=== PATIENT | male | born 1960 | race Caucasian/White ===

== ENCOUNTER → 2020-12-10 09:11 | Outpatient (CLI) | payer OTHER, SELFPAY ==
[2020-12-03 11:18] VITALS: BMI 23.5
[2020-12-10 10:14] LABS: PSA,Total - Annual Screen 1.28 ng/mL (0.00-4.00)
== END ==
PROVIDERS: PCP Family Medicine; Referring Provider Urology; Visit Provider Urology
DX: Z12.5 Encounter for screening for malignant neoplasm of prostate (principal)
CPT/HCPCS: 36415; 84153; G0103

== ENCOUNTER → 2020-12-24 12:23 | Outpatient (CLI) | payer OTHER, SELFPAY ==
[2020-12-03 11:18] VITALS: BMI 23.5
[2020-12-24 12:30] VITALS: PULSE 57; PULSE 75; PULSE 82; PULSE 84; PULSE 85; PULSE 90; PULSE 97; PULSE 98; O2SAT 94; O2SAT 95; O2SAT 96
--- NOTE | 2020-12-24 14:30 | PCM.PSN.6M ---
PSN 6 Minute Walk Test 6 Minute Walk Test 6 Minute Walk Test: 6 Minute Walk Test PSN:6-Minute Walk Test Start: 12/24/20 14:04 Freq: Status: Active Protocol: [id number].6MINW Document 12/24/20 12:30 EW (Rec: 12/24/20 14:09 EW [id number]) 6 Minute Walk Test Date Performed 12/24/20 Time Performed 12:30 Height 6 ft 2 in Weight: 79.832 kg Weight in Pounds 176.[address]: Quinn Garay Assistive device used: None Pre-test Oxygen Delivery Method Room Air Pulse Ox (%) 96 Pulse Rate (60-100 beats/min) 57 L Dyspnea Loyda Scale (0-10) 1 Exertion Loyda Scale (6-20) 7 1st minute Oxygen Delivery Method Room Air Pulse Ox (%) 95 Pulse Rate (60-100 beats/min) 75 2nd minute Oxygen Delivery Method Room Air Pulse Ox (%) 94 Pulse Rate (60-100 beats/min) 90 3rd minute Oxygen Delivery Method Room Air Pulse Ox (%) 94 Pulse Rate (60-100 beats/min) 84 4th minute Oxygen Delivery Method Room Air Pulse Ox (%) 94 Pulse Rate (60-100 beats/min) 85 5th minute Oxygen Delivery Method Room Air Pulse Ox (%) 95 Pulse Rate (60-100 beats/min) 97 6th minute Oxygen Delivery Method Room Air Pulse Ox (%) 94 Pulse Rate (60-100 beats/min) 82 Post-test Oxygen Delivery Method Room Air Pulse Ox (%) 95 Pulse Rate (60-100 beats/min) 98 Dyspnea Loyda Scale (0-10) 1 Exertion Loyda Scale (6-20) 8 Full Laps Walked 25 Partial Lap, Number of Tiles Walked 0 Total Distance Walked (ft) 1475 Interpretation Interpretation: The patient was able to ambulate 1475 feet over the course of 6 minutes on room air with no assistive devices. The patient experienced no significant desaturation or tachycardia. These findings are consistent with a normal walking oximetry. Recommendations Recommendations: No supplemental oxygen is indicated at this time.
== END ==
LOC: PSN 12:25
PROVIDERS: PCP Family Medicine; Referring Provider Internal Medicine Critical Care Medicine; Visit Provider Internal Medicine Critical Care Medicine
DX: F17.210 Nicotine dependence, cigarettes, uncomplicated (principal)
CPT/HCPCS: 94618

== ENCOUNTER → 2021-01-07 12:51 | Outpatient (CLI) | payer OTHER, SELFPAY ==
[2020-12-03 11:18] VITALS: BMI 23.5
--- NOTE | 2021-01-07 14:05 | CT_ITS ---
STUDY: LOW DOSE CT LUNG CANCER SCREENING REASON FOR EXAM: Male, 60 years old. Tobacco Dependency RADIATION DOSAGE (If Supplied By Facility): CTDIvol = ( 3.02 ) mGy, DLP = ( 120.78 ) mGycm TECHNIQUE: No contrast was administered. Low dose technique was utilized (average mAS-38 and kVp 120). 1.25 mm axial source images with a slice interval of 1.25-mm were reconstructed in lung windows. 2.5 mm axial source images with a slice interval of 2.5-mm were reconstructed in lung windows. 5.0 mm axial source images with a slice interval of 5.0-mm were reconstructed in soft tissue windows. Nodule measured using lung windows on PACS and/or independent workstation with automated measurement of minimum and maximum diameter. Nodule measurement reported as average diameter rounded to the nearest whole number. Growth is defined as an increase ins size of greater than 1.5 mm. COMPARISON: None. NODULES: Nodule #: None Total lung nodules (excluding granulomas): 0 Emphysema: Emphysematous blebs are noted in both lung apices Endobronchial lesion: None Aorta: Normal Coronary arteries: No evidence of calcific arteriosclerosis Heart: Normal Pulmonary artery: Grossly normal in appearance Mediastinal nodes: None Other chest and abdominal findings: None CT/Low Dose CT Lung Screening IMPRESSION: Emphysematous blebs are noted in both lung apices. Lung-RADS category 1 - Continue annual screening with LDCT in 12 months. IMPORTANT NOTES FOR USE: ACR Lung-RADS Version 1.1 Assessment Categories Release Date: 2018 Category: Coded 0-4 bases on nodule(s) with highest degree of suspicion. Negative screen is defined as categories 1 and 2; a positive screen is defined as categories 3 and 4. Category 3 and 4A nodules that are unchanged on interval CT should be coded as category 2, and individuals returned to screening in 12 months. Category 4X: Category 3 or 4 nodules with additional imaging findings that increase the suspicion of lung cancer, such as spiculation, GGN that doubles in size in 1 year, enlarged lymph notes, etc. Category Modifiers: S (significant finding unrelated to lung cancer) Electronically Signed: Juma Vidal DO at 8:42 EDT Tel , Service support ,
--- NOTE | 2021-01-07 14:24 | PFTCOMP_ITS ---
COMPLETE PULMONARY FUNCTION TEST INTERPRETATION Brief HPI: Patient is a 60 year old male, currently under the care of Dr. Garay, who presents to [facility] for complete pulmonary function tests secondary to diagnosis of tobacco use. Respiratory therapist reports good effort and reproducible results. Interpretation: Forced expiration spirometry shows a mild large airways obstructive ventilatory defect with an FEV1 of 87% predicted. There is no significant bronchodilator response by strict ATS criteria. Spirograms are of good quality and plateau slowly, indicating slowly emptying areas of the lungs. The respiratory flow volume loop shows decreased expiratory flow rates at all lung volumes consistent with airway obstruction. Lung volumes by body plethysmography show a normal total lung capacity at 7.08 L, 99% predicted. All other lung volumes are within normal limits. Diffusion capacity by carbon monoxide is elevated at 149% predicted. The airway resistance is normal. No previous pulmonary function tests were available for review. Impression: Irreversible mild large airways obstructive ventilatory defect in a pattern consistent with chronic bronchitis
== END ==
PROVIDERS: PCP Family Medicine; Referring Provider Internal Medicine Critical Care Medicine; Visit Provider Internal Medicine Critical Care Medicine
DX: F17.210 Nicotine dependence, cigarettes, uncomplicated (principal); Z12.2 Encounter for screening for malignant neoplasm of respiratory organs
CPT/HCPCS: 71271; 94060; 94726; 94729

== ENCOUNTER → 2021-03-18 13:55 | Outpatient (CLI) | payer OTHER, SELFPAY ==
--- NOTE | 2021-03-18 13:59 | ECHOD_ITS ---
Reason For Study: HTN Procedure This was a 2D Doppler, Color Flow transthoracic echocardiogram. Exam performed in department. Left Ventricle Normal LV size. Left ventricular systolic function is normal. The estimated ejection fraction is 55 %. No regional wall motion abnormalities noted. Right Ventricle Normal RV size. Normal systolic function. Atria The left atrium is mildly enlarged. Normal right atrium. Mitral Valve Mild mitral valve prolapse. Mild (1+) eccentric mitral valve insufficiency. Tricuspid Valve Normal tricuspid valve. Mild (1+) tricuspid valve insufficiency. Pulmonary artery systolic pressure is 25 mmHg. Aortic Valve Normal aortic valve. Pulmonic Valve Normal pulmonic valve. Great Vessels Normal aortic root. The pulmonary artery is normal size. Normal inferior vena cava. Pericardium/Pleural No pericardial effusion. MMode/2D Measurements & Calculations LVIDd: 6.4 cm IVSd: 1.1 cm Ao root diam: 3.0 cm LVIDs: 4.8 cm LVPWd: 1.2 cm RVDd: 5.4 cm FS: 25.2 % LAV(MOD-bp): 87.3 ml LVAd ap4: 47.1 cm2 SV(MOD-sp4): 99.3 ml LAV(MOD-bp) Indexed: 42.3 ml/m2 LVLd ap4: 9.2 cm LAV(MOD-sp2): 109.7 ml EDV(MOD-sp4): 198.3 ml LAV(MOD-sp4): 68.5 ml EDV(sp4-el): 203.6 ml LVAs ap4: 29.9 cm2 LVLs ap4: 7.7 cm ESV(MOD-sp4): 98.9 ml ESV(sp4-el): 99.0 ml EF(MOD-sp4): 50.1 % EF(sp4-el): 51.4 % SV(sp4-el): 104.6 ml LA A4 area: 23.3 cm2 LA dimension(2D): 3.7 cm RA A4 area: 20.3 cm2 Doppler Measurements & Calculations MV E max guido: 54.4 cm/sec Lat Peak E' Guido: 5.7 cm/sec Med Peak E' Guido: 6.7 cm/sec MV A max guido: 56.6 cm/sec E/E' lat: 9.6 E/E' med: 8.1 MV E/A: 0.96 Ao V2 max: 150.2 cm/sec LV V1 max: 120.8 cm/sec PA V2 max: 116.3 cm/sec Ao max P.0 mmHg LV V1 max P.8 mmHg Ao V2 mean: 96.6 cm/sec Ao mean P.3 mmHg Ao V2 VTI: 32.2 cm TR max guido: 234.1 cm/sec TR max P.9 mmHg ECHO/Echo Complete Interpretation Summary Normal LV size. Left ventricular systolic function is normal. The estimated ejection fraction is 55 %. Mild mitral valve prolapse. Mild (1+) eccentric mitral valve insufficiency. The left atrium is mildly enlarged. Ordering Physician: Gerry Stallings Referring Physician: Jerman Pepper Performed By: Taylor Draper, OANH, RVT
== END ==
PROVIDERS: PCP Family Medicine; Referring Provider Internal Medicine Cardiovascular Disease; Visit Provider Internal Medicine Cardiovascular Disease
DX: I42.9 Cardiomyopathy, unspecified (principal); I10 Essential (primary) hypertension
CPT/HCPCS: 93306

== ENCOUNTER → 2021-12-29 | Outpatient (CLI) | payer OTHER, SELFPAY ==
[2021-12-29 17:44] LABS: PSA,Total - Annual Screen 1.64 ng/mL (0.00-4.00)
== END | disposition home or self-care (01) ==
PROVIDERS: PCP Family Medicine; Visit Provider Urology
DX: Z12.5 Encounter for screening for malignant neoplasm of prostate (principal)
CPT/HCPCS: 36415; 84153; G0103

== ENCOUNTER → 2022-01-13 | Outpatient (CLI) | payer OTHER, SELFPAY ==
--- NOTE | 2022-01-13 08:25 | CT_ITS ---
STUDY: LOW DOSE CT LUNG CANCER SCREENING REASON FOR EXAM: Male, 61 years old. Smoker and gt; 40 pack years. History of cardiomyopathy. RADIATION DOSAGE (If Supplied By Facility): CTDIvol = ( 3.02 ) mGy, DLP = ( 121.54 ) mGycm TECHNIQUE: No contrast was administered. Low dose technique was utilized (average mAS-38 and kVp 120). 1.25 mm axial source images with a slice interval of 1.25-mm were reconstructed in lung windows. 2.5 mm axial source images with a slice interval of 2.5-mm were reconstructed in lung windows. 5.0 mm axial source images with a slice interval of 5.0-mm were reconstructed in soft tissue windows. COMPARISON: Comparison is made with prior study 01/07/2021. NODULES: No suspicious nodule is seen. Emphysema: Hyperinflation. Emphysematous changes. Stable bullous formation in both upper lobes with scarring in the lung apices. This is unchanged. Stable minimal linear scarring in the left lower lobe. Endobronchial lesion: None Aorta: Atherosclerotic calcific plaques of the aortic arch. CORONARY ARTERIES: Coronary artery calcification is seen. Heart: Unremarkable Pulmonary artery: Unremarkable Mediastinal nodes: Small benign-appearing mediastinal lymph nodes. Other chest and abdominal findings: Degenerative changes of the visualized thoracic vertebrae. CT/Low Dose CT Lung Screening IMPRESSION: Lung-RADS category 2 - Continue annual screening with LDCT in 12 months. IMPORTANT NOTES FOR USE: ACR Lung-RADS Version 1.1 Assessment Categories Release Date: 2018 Category: Coded 0-4 bases on nodule(s) with highest degree of suspicion. Negative screen is defined as categories 1 and 2; a positive screen is defined as categories 3 and 4. Category 3 and 4A nodules that are unchanged on interval CT should be coded as category 2, and individuals returned to screening in 12 months. Category 4X: Category 3 or 4 nodules with additional imaging findings that increase the suspicion of lung cancer, such as spiculation, GGN that doubles in size in 1 year, enlarged lymph notes, etc. Category Modifiers: S (significant finding unrelated to lung cancer) Electronically Signed: Kapil Galarza MD at 12:19 EDT ,
== END | disposition home or self-care (01) ==
PROVIDERS: PCP Family Medicine; Referring Provider Nurse Practitioner Acute Care; Visit Provider Nurse Practitioner Acute Care
DX: F17.210 Nicotine dependence, cigarettes, uncomplicated (principal)
CPT/HCPCS: 71271

== ENCOUNTER → 2022-03-08 | Outpatient (CLI) | payer OTHER, SELFPAY | END | disposition home or self-care (01) | LOC: PSN 08:00 | PROVIDERS: PCP Family Medicine; Referring Provider Internal Medicine Cardiovascular Disease; Visit Provider Internal Medicine Cardiovascular Disease | DX: R00.2 Palpitations (principal) | CPT/HCPCS: 93225; 93226 ==

== ENCOUNTER 2022-08-04 08:42 | Day surgery (SDC) | payer OTHER, SELFPAY ==
[2022-07-30 15:49] LABS: Hematocrit 43.7 % (40-54); Hemoglobin 14.2 g/dL (13.0-16.5); Mean Corp Hgb Conc 32.5 g/dL (32-36); Mean Corpuscular Hgb 29.3 pg (27.0-32.0); Mean Corpuscular Volume 90.1 fL (80-94); Mean Platelet Vol. 9.7 fl (6.2-12.0); Platelet Count 207 K/mm3 (150-450); RBC Distribution Width CV 12.5 % (11.6-14.6); RBC Distribution Width SD 41.2 fl (35.1-43.9); Red Blood Count 4.85 M/mm3 (4.6-6.2); White Blood Count 6.6 K/mm3 (4.4-11.0)
[2022-08-04] VITALS (8 sets, daily range): BP systolic 97–114; BP diastolic 57–74; PULSE 53–70; RESP 16–18; TEMP 36.4–36.7; O2SAT 94–99; BMI 24.7
--- NOTE | 2022-08-04 | LIP_PTH ---
PATIENT: MILLICENT TRAVIS LOC: [facility] U#:[id number] AGE/SX: 62/M ROOM: RE08/04/[address]: Dr. Janneth Purcell MD : 1960 BED: DIS: 08/04/2022 SPEC #: [id number] RECD: 08/04/22 14:15 STATUS: LEON REQuiana #: [id number] CORI: 08/04/22 00:[address]: Janneth Purcell DEPT: SURGICAL PATHOLOGY RECD BY: Silvano Rush ENTERED: 08/05/22 08:33 SP TYPE: LIPOMA OTHR DR: Dr. Jerman Pepper MD Tissues: Soft tissues, NOS Procedures: Surgery Specimen Level III HEADER OPERATION: Laparoscopic inguinal hernia repair with mesh, ventral hernia PRE-OP DIAGNOSIS: Left inguinal hernia, possible ventral hernia TISSUE SUBMITTED: Cord lipoma MICROSCOPIC DIAGNOSIS Cord lipoma, biopsy: Mature adipose tissue, consistent with lipoma. SJ:juan manuel 08/06/2022 MICROSCOPIC DESCRIPTION Slides are reviewed. GROSS DESCRIPTION Received in fixative is one container labeled with the patient's name and designated cord lipoma. The specimen consists of an irregular piece of yellow adipose tissue measuring 5.5 x 2.0 x 1.0 cm. Sections reveal yellow adipose cut surfaces without area of hemorrhage, necrosis or cystic degeneration. Induction Heat Treater sections are submitted in one cassette. / SHAMAR:juan manuel 08/05/2022 TC:1 CPT: 21695
--- NOTE | 2022-08-04 09:04 | HP.PCM_ITS ---
History and Physical Date of Admission: 08/04/22 Date of Service:? 07/08/22 MR#: [id number] Acct: [id number] Name:MILLICENT GONZALEZ Rep #: [id number] : 1960 ? ? Provider: Dr. Janneth Purcell MD Age/Sex:? 62/M ? ? Location: [facility] Status: Signed Intake Vital Signs ? 07/08/2312:44 Height 6 ft Weight: 176 lb 8 oz BMI 23.9 BP 119/71 Blood Pressure Location Lt brachial Position Sitting Respiration 16 Intake Visit Reasons:?POSSIBLE HERNIA Chief Complaint: possible left inguinal and right abdominal incisional hernia Photoflash Powder Mixer Required: No Is patient in pain?: No Allergies No Known Allergies Allergy (Unverified 07/08/22 13:45) Medications albuterol sulfate 90 mcg/actuation aerosol inhaler 2 puff inhalation Q6H PRN 12/02/20 [History Confirmed 07/08/22] ascorbate calcium (vitamin C) 500 mg tablet 500 mg PO BID 02/24/22 [History Confirmed 07/08/22] carvedilol 3.125 mg tablet 3.125 mg PO BID #180 tabs 02/24/22 [Rx Confirmed 07/08/22] cholecalciferol (vitamin D3) 50 mcg (2,000 unit) capsule 50 mcg PO DAILY 02/24/22 [History Confirmed 07/08/22] losartan 50 mg tablet 50 mg PO DAILY #90 tabs 02/24/22 [Rx Confirmed 07/08/22] saw palmetto 160 mg capsule 160 mg PO BID 02/24/22 [History Confirmed 07/08/22] zinc acetate 50 mg (zinc) capsule (Galzin) 50 mg PO .QOD 02/24/22 [History Confirmed 07/08/22] albuterol sulfate 90 mcg/actuation aerosol inhaler 2 puff inhalation Q4H PRN shortness of breath or wheezing #8.5 grams 04/14/22 [Rx Confirmed 07/08/22] umeclidinium 62.5 mcg-vilanterol 25 mcg/actuation powdr for inhalation (Anoro Ellipta) 1 inh inhalation Q24H #3 device 04/14/22 [Rx Confirmed 07/08/22] amoxicillin 500 mg capsule 500 mg PO 07/08/22 [History Confirmed 07/08/22] chlorhexidine gluconate 0.12 % mouthwash 15 ml PO 07/08/22 [History Confirmed 07/08/22] PFSH Medical History? 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 History of left heart catheterization (11/23/17) History of spinal surgery Family History? Mother Hypertension High cholesterolFather Hypertension CVA (cerebral vascular accident) Heart failure High cholesterol Social History? Smoking Status:? Current every day smoker tobacco type: cigars per week: 70 alcohol intake:? never HPI HPI HPI: 62-year-old male presents due to left inguinal hernia, possible ventral hernia.? Patient states last few months he has noticed that his left inguinal region has a bulge that will reduce and he has reduced it occasionally on its own.? Patient does have some discomfort when this happens.? Patient also states that for years he has noticed bump above his umbilicus about 4 cm thinks that this is a hernia patient has never had surgery in this area.? Patient has had previous CAT scan however report does not comment on this area and I am unable to see the images currently.? Patient is unable to get this supraumbilical area to reduce as there is always a bump. ROS General General: Yes weight change and fatigue; No appetite, colon cancer, breast cancer or weakness HEENT HEENT: Yes eye injury and eye surgery; No difficulty swallowing, swollen glands or hoarseness Endo Endocrine: No thyroid disease, diabetes mellitus, thyroid cancer, Hair loss, heat intolerance or cold intolerance Skin Skin: No rash or changing moles Breast Breast: No left breast lump, right breast lump, nipple discharge, breast pain, abnormal mammogram, abnormal US or breast enlargement Musc Musculoskeletal: Yes back problems; No arthritis, rheumatoid arthritis, gout or joint pain Cardio Cardiovascular: Yes heart disease; No murmur, pacemaker, atrial fibrillation, high blood pressure, heart attack, heart stent, palpitations, shortness of breat with exertion or chest pain Psych Psychiatric: No depression, anxiety or hearing voices Resp Respiratory: Yes shortness of breath, Yes sleep apnea, Yes cough, No COPD, No asthma, Yes emphysema and No wheezing Gastro Gastrointestinal: No abdominal pain, No nausea or vomiting, No diarrhea, Yes constipation, No blood in stool, No acid reflux, No hemorrhoids, No ulcers, No gallbladder problem and No black,tarry stools Tucker Hematologic: No blood thinners, No blood disorders, No bleeding, No anemia and No blood clots Neuro Neurologic: No system reviewed and no additional complaints, except as documented, No as per HPI, No abnormal gait, No abnormal hearing, No abnormal movements, No abnormal speech, No behavioral changes, No burning sensations, No confusion, No convulsions, No disequilibrium, No dizziness, No localized weakness, No frequent falls, No headache(s), No lack of coordination, No loss of vision, No memory loss, No numbness, No other visual disturbances, No radicular pain, No restless legs, No sensory deficit, No syncope, No tingling, No tremor(s), No weakness and No other Exam Const General: cooperative, healthy appearing and no acute distress HENOH Head: normal to inspection Resp Effort & Inspection: normal respiratory effort Cardio Rate: regular rate GI Inspection: non-distended Palpation: soft, no guarding, hernia (Left inguinal hernia reduced and visually seen.) other (Patient does have about a centimeter by centimeter lump about 4 cm above the umbilicus this does not reduce question of this could be an incarcerated hernia.? No surgery at this location) and tender (Mild only when reducing left inguinal hernia) Skin General: no rashes or lesions noted Neuro General: patient oriented x3 Extrem General: no clubbing, cyanosis or edema Psych Affect: normal affect Assessment and Plan Assessment and Plan (1) Inguinal hernia of left side without obstruction or gangrene: ?Status:?Acute (2) Ventral hernia: ?Status:?Acute ?Comment: Possible ventral hernia unable to get this area to reduce we will plan to review CT abdomen pelvis images to see if this is really a hernia or not. Plan Try to get patient's images from his previous CAT scan done at [facility] to see if this supraumbilical area could be an incarcerated hernia as I am unable to definitively tell from exam.? Patient's never had previous surgery at this location. Plan to do a laparoscopic left inguinal hernia repair with mesh. Reviewed the procedure with the patient including the risks, including but not limited to infection, bleeding, paresthesia, chronic pain, injury to small bowel or contents of the spermatic cord, and recurrence. All questions were answered. Janneth Purcell M.D. Pager: [phone] [facility] [address] [place] [address], [address] [place] [address] Office: [phone] Coding Level of Care Code Off vis,new,level 4 Diagnoses Inguinal hernia of left side without obstruction or gangrene? K40.90 Ventral hernia? K43.9 07/09/22 1208 <Electronically signed by Janneth Purcell MD> Date Janneth Purcell MD
[2022-08-04] MEDS: Lactated Ringers 1,000 ML 15 ML IV ×2 (09:29→12:05)
[2022-08-04] MEDS: Cefazolin 2 GM in 0.9% Normal Saline 100 ML IV (09:52)
[2022-08-04] MEDS: Bupivacaine 0.5% PF 10 ML VIAL (11:29)
--- NOTE | 2022-08-04 11:43 | PCM.OPRPT ---
Report of Operation Date of Procedure: 08/04/22 Pre-Operative Diagnosis: Left inguinal hernia Post-Operative Diagnosis: Left indirect inguinal hernia, ventral hernia Surgery/Procedure Performed:: Laparoscopic left inguinal hernia repair with mesh, ventral hernia repair primarily with suture Surgeon: Janneth Purcell director of casework department: Britt Nunn Type of Anesthesia: General/Supplemental Anesthesiologist: Ruddy Ricketts Special Medications: Ancef 2 g IV x1 Specimen's removed: Left cord lipoma Estimated Blood Loss (mL): 10 cc Description of Procedure: Indications: 62-year-old male presented with left inguinal inguinal hernias which was symptomatic. Laparoscopic left inguinal hernia repair with mesh was elected patient was agreeable. Patient also had a bulge in her anterior abdominal wall unable to find an obvious defect and used bedside ultrasound to identify hernia initial trocar site was placed at that location upper midline. Description of procedure: Patient was brought to operating room placed supine operative table. Timeout was completed verifying correct patient, procedure, site, positioning, special, prior to beginning procedure. General anesthesia was induced. Castellanos catheter was placed. Patient's arms were tucked and padded appropriately. Midline supraumbilical incision was made with a 15 blade scalpel overlying site of hernia. Hernia was identified and preperitoneal fat was reduced. The fascia was elevated and incised. Entry into the abdomen was confirmed visually. The Awan trocar was placed. Laparoscope was placed. Verifying no injury during initial trocar placement. Patient was placed in Trendelenburg position. Two 5 mm trochars were placed lateral to the rectus sheath under direct visualization. Both the inguinal regions were inspected and bilateral indirect hernias were seen. The median umbilical ligament was divided sharply with electrocautery. Peritoneum was incised with the endoscopic scissors along a line 2 cm above the superior edge of the hernia defect extending from the median umbilical ligament to anterior superior iliac spine. Peritoneal flap was mobilized inferiorly using blunt and sharp dissection. The inferior epigastric vessels were exposed and symphysis pubis and identified. Denzel's ligament was identified. Dissection was continued inferiorly to the iliopubic track with care taken to avoid injury to the femoral branch of the genitofemoral nerve and lateral femoral cutaneous nerve. The cord structures were parietalized. The indirect hernia sac was noted and mobilized from the cord structures and reduced into the peritoneal cavity. A medium size Bard 3D max mesh left was used. The mesh was rolled longitudinally into a compact cylinder and passed through the trocar. The cylinder was placed along the inferior aspect of the working space and unrolled into place to completely cover the direct, indirect and femoral spaces. The mesh was secured in place medially to Denzel's ligament using the secure strap as well as to the anterior abdominal wall. Care was taken to avoid the inferolateral triangle containing iliac vessels and genital nerves. After ensuring adequate hemostasis, the trochars were removed and pneumoperitoneum allowed to escape. The ventral hernia incision site was closed with a 0 Prolene figure of 8 suture. The skin was closed with 4-0 Monocryl interrupted sutures and Steri-Strips. Patient's testicles are also confirmed in the scrotum bilaterally. Patient tolerated procedure well was taken to the postanesthesia care unit in stable condition. Grafts/Implants Used: Bard 3D max mesh left medium lot [id number] Complications none
--- NOTE | 2022-08-04 11:53 | DCINST_ITS ---
Discharge Instructions Diet Discharge Diet: Light diet - advance as tolerated Activity Discharge Activity: May Not Drive (while taking narcotic pain medications.) May shower in (days): 1 Lifting Restrictions: no lifting >20 lbs x 2 wks, no strenuous exercise for 4 wks Dressing / Incision Call your doctor if your incision/area has: Continuous Slow Oozing, Sudden Increased Bleeding, Increased Pain/ Swelling, Increased Redness, Foul Smelling Discharge and Swelling at the incision site Call your doctor if you observe: Fever of 101 or Higher Remove Dressing in: 2 days Cleanse incision/area with: Soap & Water Additional Dressing/Incision Instructions:: Steri-Strips will fall off in 7 to 10 days, if they do not fall off okay to remove after 10 days. Wear a jockstrap for scrotal support only recommend briefs versus boxers. Follow Up Care Please Follow Up With: Janneth Purcell MD When: Call the office for a follow-up appointment 2 weeks; after 5 PM and on the weekends call [phone] with any concerns. Test Results: Test results from this visit will be discussed in further detail at your follow- up appointment, if applicable. Discharge Plan Admission Attending Provider: Janneth Purcell Primary Care Provider: Jerman Pepper Additional Instructions / Restrictions: Okay to take ibuprofen 400-600 mg PO q6hr PRN along with the Percocet. Avoid Tylenol since there is already Tylenol in the Percocet. Take all pain meds with food. Percocet can cause constipation recommend taking daily stool softener (i.e. Colace/docusate) while taking the pain meds. Recommend starting some MiraLAX in 1 to 2 days if no bowel movement. If still no bowel movement the following day recommend two Dulcolax 5 mg tabs and if no results after 2 hours take another 2 Dulcolax 5 mg tabs. Discharge Orders/Prescriptions Prescriptions: New oxycodone-acetaminophen 5-325 mg tablet 1 - 2 tab PO Q6H PRN (Reason: pain) 3 Days Qty: 14 0RF Continued cholecalciferol (vitamin D3) 50 mcg (2,000 unit) capsule 50 mcg PO DAILY saw palmetto 160 mg capsule 160 mg PO BID Rx Instructions: give with meal/snack ascorbate calcium (vitamin C) 500 mg tablet 500 mg PO BID Galzin 50 mg (zinc) capsule 50 mg PO .QOD losartan 50 mg tablet 50 mg PO DAILY Qty: 90 3RF carvedilol 3.125 mg tablet 3.125 mg PO BID Qty: 180 3RF Rx Instructions: must administer with a meal/food Anoro Ellipta 62.5-25 mcg/actuation blister with device 1 inh inhalation Q24H Qty: 3 3RF albuterol sulfate 90 mcg/actuation HFA aerosol inhaler 2 puff inhalation Q4H PRN (Reason: shortness of breath or wheezing) Qty: 8.5 6RF Rx Instructions: administer with spacer Referrals / Follow Up: Jerman Pepper MD [Primary Care Provider] - Disposition Disposition (needs filled in before D/C Order can be placed): Home, Self Care
[2022-08-04] MEDS: oxyCODONE 5 MG Tablet PO (15:15)
--- NOTE | 2022-08-04 15:38 | SUR.PHASEII ---
PATIENT STATES FEELING LIKE HE NEEDS TO BURP ACROSS UPPER CHEST AND SHOULDERS. COMES AND GOES. DR. EDMONDS WAS TOLD ABOUT IT, AND ASKED IF IT WAS OVER THE CHEST, SHARP ETC? I ASKED THE PATIENT AND HE SAID NO ITS IN THE UPPER CHEST AREA ALL THE WAY ACROSS, FEELS LIKE GAS AND NEED TO BURP. WHEN HE LAYS DOWN FLAT IT GOES AWAY. WHEN HE SITS UP IT COMES BACK. PATIENT TOLD BY THIS NURSE IF ANYTHING CHANGES ETC INCREASED PAIN IN THE CHEST THAT IS SHARP AND CONSTANT OR ANY OTHER SYMPTOMS OF HEART ATTACK CALL 911.
== END 2022-08-04 15:43 | disposition home or self-care (01) ==
LOC: SDC 08:54 → AC 08:54
PROVIDERS: Anesthesiology; PCP Family Medicine; Referring Provider Surgery; Visit Provider Surgery
PROC: (CPT 49650; principal; 2022-08-04 10:00)
DX: K40.90 Unilateral inguinal hernia, without obstruction or gangrene, not specified as recurrent (principal); K43.6 Other and unspecified ventral hernia with obstruction, without gangrene; J43.9 Emphysema, unspecified; I10 Essential (primary) hypertension; G47.33 Obstructive sleep apnea (adult) (pediatric); J45.20 Mild intermittent asthma, uncomplicated; F17.290 Nicotine dependence, other tobacco product, uncomplicated; Z79.899 Other long term (current) drug therapy
CPT/HCPCS: 49650; 49592; 36415; 85027; 88304; J7120; C1781; J2405

== ENCOUNTER → 2023-01-11 | Outpatient (CLI) | payer OTHER, SELFPAY ==
[2023-01-11 17:20] LABS: PSA,Total - Annual Screen 1.97 ng/mL (0.00-4.00)
== END | disposition home or self-care (01) ==
LOC: LAB 16:10
PROVIDERS: PCP Family Medicine; Referring Provider Nurse Practitioner; Visit Provider Nurse Practitioner
DX: Z12.5 Encounter for screening for malignant neoplasm of prostate (principal)
CPT/HCPCS: 36415; 84153; G0103

== ENCOUNTER → 2023-02-02 | Outpatient (CLI) | payer OTHER, SELFPAY ==
--- NOTE | 2023-02-02 13:49 | CT_ITS ---
EXAM: CT CHEST, LUNG CANCER SCREENING WITHOUT INTRAVENOUS CONTRAST CLINICAL INDICATION: and gt;2o pack year smoking history TECHNIQUE: Helically acquired images were obtained of the chest without intravenous contrast using low dose (LDCT) lung cancer screening protocol. This CT exam was performed using one or more of the following dose reduction techniques: automated exposure control, adjustment of the mA and/or kV according to patient size, and/or use of iterative reconstruction technique. COMPARISON: 01/13/2022 FINDINGS: LUNGS AND PLEURAL SPACES: There are emphysematous changes in the lung apices. No mass. No pleural effusion or thickening. No pneumothorax. HEART: Unremarkable. Heart size is normal. No pericardial effusion. No significant coronary artery calcifications. MEDIASTINUM: Unremarkable. No mediastinal or hilar adenopathy. Esophagus is unremarkable. No hiatal hernia. THYROID: Unremarkable. No thyroid lesions. BONES/JOINTS: Unremarkable. No suspicious lytic or blastic abnormality. VASCULATURE: Unremarkable. Thoracic aorta is non-dilated. LYMPH NODES: Unremarkable. No enlarged lymph nodes. CT/Low Dose CT Lung Screening IMPRESSION: Stable emphysematous changes in the lung apices. There has been no change from the reference exam. Lung-RADS score: 1 - Recommend continued annual screening with a low-dose CT (LDCT) in 12 months. Electronically Signed: Bong Vargas MD at 22:18 EDT ,
== END | disposition home or self-care (01) ==
LOC: CT 13:48
PROVIDERS: PCP Family Medicine; Referring Provider Nurse Practitioner Acute Care; Visit Provider Nurse Practitioner Acute Care
DX: F17.210 Nicotine dependence, cigarettes, uncomplicated (principal)
CPT/HCPCS: 71271

== ENCOUNTER → 2023-03-02 | Outpatient (CLI) | payer OTHER, SELFPAY ==
[2023-03-02 09:49] LABS: Absolute Lymphocyte Count 2.29 X10^3/uL (0.83-4.51); Absolute Neutrophil Count 3.1 X10^3/uL (2.0-7.7); Basophil# 0.02 X10^3/uL; Basophil% 0.3 % (0-1); Eosinophil# 0.07 X10^3/uL; Eosinophils% 1.1 % (0-5); Hematocrit 45.4 % (40-54); Hemoglobin 14.5 g/dL (13.0-16.5); Lymphocyte # 2.29 X10^3/ul (0.83-4.51); Lymphocyte % 36.2 % (19-41); Mean Corp Hgb Conc 31.9 g/dL (32-36); Mean Corpuscular Volume 90.8 fL (80-94); Mean Platelet Vol. 9.4 fl (6.2-12.0); Monocyte# 0.83 X10^3/uL; Monocyte% 13.1 % (0-10); NRBC Flagged by Analyzer 0 % (0-5); Neutrophil # 3.11 X10^3/uL (2.7-7.7); Neutrophil % 49.1 % (47-70); Platelet Count 191 K/mm3 (150-450); RBC Distribution Width CV 13.2 % (11.6-14.6); RBC Distribution Width SD 44.3 fl (35.1-43.9); White Blood Count 6.3 K/mm3 (4.4-11.0)
[2023-03-02 10:51] LABS: Vitamin B12 298 pg/mL (211-911); Vitamin D,25 Hydroxy 32.8 ng/mL
[2023-03-02 11:00] LABS: AST(SGOT) 33 U/L (15-37); Alanine Aminotransfer ALT/SGPT 27 U/L (16-61); Albumin, Serum 3.4 g/dL (3.2-5.0); Alkaline Phosphatase 56 U/L (45-117); Anion Gap 3 (5-15); BUN 19 mg/dL (7-18); BUN/Creat Ratio 21.2 RATIO (10-20); Calcium,Total 8.7 mg/dL (8.5-10.1); Chloride 109 mmol/L (98-107); Cholesterol 156 mg/dL (200); EST Glomerular Filtration Rate 91 mL/min (>60); Est Glom Filt Rate - Afr Amer 110 mL/min (>60); Globulin 3.5 g/dL (2.2-4.2); Glucose 93 mg/dL (74-106); High Density Lipoprotein 62 mg/dL; Protein, Total 6.9 g/dL (6.4-8.2); Sodium Level 138 mmol/L (136-145); Thyroid Stim Hormone (TSH) 1.59 uIU/mL (0.358-3.74); Triglycerides 48 mg/dL; Very Low Density Lipoprotein 10 mg/dL (5-40)
== END | disposition home or self-care (01) ==
LOC: LAB 09:02
PROVIDERS: PCP Internal Medicine; Referring Provider Internal Medicine; Visit Provider Internal Medicine
DX: Z00.00 Encounter for general adult medical examination without abnormal findings (principal); I42.9 Cardiomyopathy, unspecified; I10 Essential (primary) hypertension; G47.33 Obstructive sleep apnea (adult) (pediatric); Z99.89 Dependence on other enabling machines and devices; E53.8 Deficiency of other specified B group vitamins; E55.9 Vitamin D deficiency, unspecified
CPT/HCPCS: 36415; 80053; 80061; 82306; 82607; 84443; 85025

== ENCOUNTER → 2023-04-27 | Outpatient (CLI) | payer OTHER, SELFPAY ==
--- NOTE | 2023-04-27 12:49 | ECHOD_ITS ---
Reason For Study: CARDIOMYOPAATHY Procedure This was a 2D Doppler, Color Flow transthoracic echocardiogram. The study was technically difficult. Due to arrhythmia. Exam performed in department. Left Ventricle Mildly dilated left ventricle. The left ventricular ejection fraction is 50 %. Stage 1 diastolic dysfunction. There is borderline global hypokinesis of the left ventricle. Right Ventricle Normal RV size. Normal systolic function. Atria The left atrium is mildly enlarged. The right atrium is mildly enlarged. Mitral Valve Mild diffuse mitral valve thickening. Mild (1+) eccentric mitral valve insufficiency. Tricuspid Valve Normal tricuspid valve. Mild (1+) tricuspid valve insufficiency. Pulmonary artery systolic pressure is 34 mmHg. Aortic Valve Normal aortic valve. Trisinus/trileaflet aortic valve. Pulmonic Valve Normal pulmonic valve. Great Vessels Normal aortic root. The pulmonary artery is normal size. Normal inferior vena cava. Pericardium/Pleural No pericardial effusion. MMode/2D Measurements & Calculations LVIDd: 6.4 cm IVSd: 0.85 cm Ao root diam: 3.5 cm LVIDs: 5.0 cm LVPWd: 0.99 cm RVDd: 3.8 cm FS: 22.1 % LAV(MOD-bp): 107.0 ml LVAd ap4: 47.4 cm2 LVAd ap2: 48.6 cm2 LAV(MOD-bp) Indexed: 52.5 ml/m2 LVLd ap4: 9.7 cm LVLd ap2: 9.5 cm LAV(MOD-sp2): 124.4 ml EDV(MOD-sp4): 198.5 ml EDV(MOD-sp2): 207.4 ml LAV(MOD-sp4): 92.9 ml EDV(sp4-el): 196.8 ml EDV(sp2-el): 211.0 ml LVAs ap4: 30.8 cm2 LVAs ap2: 30.6 cm2 LVLs ap4: 8.2 cm LVLs ap2: 8.0 cm ESV(MOD-sp4): 102.0 ml ESV(MOD-sp2): 97.6 ml ESV(sp4-el): 98.1 ml ESV(sp2-el): 98.9 ml EF(MOD-sp4): 48.6 % EF(MOD-sp2): 53.0 % EF(sp4-el): 50.1 % SV(MOD-sp4): 96.5 ml SV(MOD-sp2): 109.9 ml SV(sp4-el): 98.6 ml LA dimension(2D): 4.2 cm LA A4 area: 27.4 cm2 RA A4 area: 27.4 cm2 TAPSE: 3.2 cm Time Measurements MV dec time: 0.30 sec Doppler Measurements & Calculations MV E max guido: 49.6 cm/sec Lat Peak E' Guido: 6.6 cm/sec Med Peak E' Guido: 8.9 cm/sec MV A max guido: 54.2 cm/sec E/E' lat: 7.5 E/E' med: 5.6 MV E/A: 0.91 MV dec slope: 165.0 cm/sec2 Ao V2 max: 134.3 cm/sec LV V1 max: 109.9 cm/sec Ao max P.2 mmHg LV V1 max P.9 mmHg Ao V2 mean: 92.9 cm/sec LV V1 mean P.6 mmHg Ao mean P.9 mmHg LV V1 mean: 74.8 cm/sec Ao V2 VTI: 32.9 cm LV V1 VTI: 24.2 cm AV (velocity ratio): 0.74 PA V2 max: 95.5 cm/sec TR max guido: 267.5 cm/sec PA V2 mean: 70.5 cm/sec TR max P.6 mmHg ECHO/Echo Complete Interpretation Summary The left ventricular ejection fraction is 50 %. Mildly dilated left ventricle. There is borderline global hypokinesis of the left ventricle. Stage 1 diastolic dysfunction. Pulmonary artery systolic pressure is 34 mmHg. Ordering Physician: Gerry Stallings Referring Physician: Dianne Chris Performed By: Zandra Delgado, DWAYNECS, RVT
== END | disposition home or self-care (01) ==
LOC: CVS 12:48
PROVIDERS: PCP Internal Medicine; Referring Provider Internal Medicine Cardiovascular Disease; Visit Provider Internal Medicine Cardiovascular Disease
DX: I42.9 Cardiomyopathy, unspecified (principal)
CPT/HCPCS: 93306

== ENCOUNTER → 2023-11-30 | Outpatient (CLI) | payer OTHER, SELFPAY ==
[2023-11-30 09:35] LABS: Absolute Lymphocyte Count 2.07 X10^3/uL (0.83-4.51); Absolute Neutrophil Count 2.6 X10^3/uL (2.0-7.7); Basophil# 0.02 X10^3/uL; Basophil% 0.4 % (0-1); Eosinophil# 0.08 X10^3/uL; Eosinophils% 1.4 % (0-5); Hematocrit 43.6 % (40-54); Hemoglobin 14.1 g/dL (13.0-16.5); Lymphocyte # 2.07 X10^3/ul (0.83-4.51); Lymphocyte % 37.4 % (19-41); Mean Corp Hgb Conc 32.3 g/dL (32-36); Mean Corpuscular Hgb 29.2 pg (27.0-32.0); Mean Corpuscular Volume 90.3 fL (80-94); Mean Platelet Vol. 9.4 fl (6.2-12.0); Monocyte% 12.7 % (0-10); NRBC Flagged by Analyzer 0 % (0-5); Neutrophil # 2.64 X10^3/uL (2.7-7.7); Neutrophil % 47.7 % (47-70); Platelet Count 178 K/mm3 (150-450); RBC Distribution Width CV 12.6 % (11.6-14.6); RBC Distribution Width SD 41.6 fl (35.1-43.9); Red Blood Count 4.83 M/mm3 (4.6-6.2); White Blood Count 5.5 K/mm3 (4.4-11.0)
[2023-11-30 10:09] LABS: Vitamin B12 274 pg/mL (211-911); Vitamin D,25 Hydroxy 33.9 ng/mL
[2023-11-30 10:18] LABS: ALB/GLOB Ratio 1.1 RATIO (0.9-2.4); AST(SGOT) 28 U/L (15-37); Alanine Aminotransfer ALT/SGPT 20 U/L (16-61); Albumin, Serum 3.5 g/dL (3.2-5.0); Alkaline Phosphatase 59 U/L (45-117); Anion Gap 2 (5-15); BUN 15 mg/dL (7-18); BUN/Creat Ratio 19.7 RATIO (10-20); Calcium,Total 8.7 mg/dL (8.5-10.1); Chloride 110 mmol/L (98-107); Cholesterol 135 mg/dL (200); Creatinine, Serum 0.76 mg/dL (0.70-1.30); EST Glomerular Filtration Rate 109 mL/min (>60); Est Glom Filt Rate - Afr Amer 132 mL/min (>60); Globulin 3.1 g/dL (2.2-4.2); Glucose 88 mg/dL (74-106); High Density Lipoprotein 66 mg/dL; Potassium 3.8 mmol/L (3.5-5.1); Protein, Total 6.6 g/dL (6.4-8.2); Sodium Level 139 mmol/L (136-145); Thyroid Stim Hormone (TSH) 1.68 uIU/mL (0.358-3.74); Triglycerides 42 mg/dL; Very Low Density Lipoprotein 8 mg/dL (5-40)
== END | disposition home or self-care (01) ==
PROVIDERS: PCP Internal Medicine; Visit Provider Internal Medicine
DX: Z00.00 Encounter for general adult medical examination without abnormal findings (principal); J44.9 Chronic obstructive pulmonary disease, unspecified; G47.33 Obstructive sleep apnea (adult) (pediatric); Z99.89 Dependence on other enabling machines and devices; I10 Essential (primary) hypertension; Z13.220 Encounter for screening for lipoid disorders; E55.9 Vitamin D deficiency, unspecified; E53.8 Deficiency of other specified B group vitamins; Z12.5 Encounter for screening for malignant neoplasm of prostate
CPT/HCPCS: 36415; 80053; 80061; 82306; 82607; 84443; 85025

== ENCOUNTER 2024-01-09 06:04 | Day surgery (SDC) | payer OTHER, SELFPAY ==
[2024-01-09] VITALS (8 sets, daily range): BP systolic 99–108; BP diastolic 50–68; PULSE 43–52; RESP 14–18; TEMP 36.1–36.4; O2SAT 98–99; BMI 22.9
[2024-01-09] MEDS: Lactated Ringers 1,000 ML 15 ML IV (06:15)
--- NOTE | 2024-01-09 07:09 | HP.PCM_ITS ---
History and Physical Date of Admission: 01/09/24 Date of Service: 12/14/23 MR#: [id number] Acct: [id number] Name: MILLICENT TRAVIS Rep #: [id number] : 1960 Provider: Dr. Janneth Purcell MD Age/Sex: 63/M Location: [facility] Status: Signed Intake Vital Signs 11/22/2412:03 12/13/2412:53 Height 5 ft 11 in 5 ft 11 in Weight: 167 lb 165 lb BMI 23.3 23.0 BP 108/80 113/60 Blood Pressure Location Lt brachial Rt brachial Position Sitting Sitting Respiration 18 18 Pulse 64 55 L Pulse Source Monitor Monitor Temp 97.2 F L Temp Source Temporal Pulse Oximetry (%) 97 98 Oxygen Delivery Method room air room air Intake Visit Reasons: CHANGE IN BOWELS Chief Complaint: change in bowels Is patient in pain?: No Allergies latex Adverse Reaction (Verified 12/14/23 13:53) Dryness, redness Medications ?Medication ?Instructions ?Recorded ?Confirmed ?Type ascorbate calcium (vitamin C) 500 500 mg PO BID 02/24/22 12/14/23 History mg tablet cholecalciferol (vitamin D3) 50 50 mcg PO DAILY 02/24/22 12/14/23 History mcg (2,000 unit) capsule saw palmetto 160 mg capsule 160 mg PO BID 02/24/22 12/14/23 History zinc acetate 50 mg (zinc) capsule 50 mg PO .QOD 02/24/22 12/14/23 History (Galzin) albuterol sulfate 90 mcg/actuation 2 puff inhalation Q4H PRN 03/09/23 12/14/23 Rx aerosol inhaler shortness of breath or wheezing #8.5 grams umeclidinium 62.5 mcg-vilanterol 1 inh inhalation Q24H #3 device 03/09/23 12/14/23 Rx 25 mcg/actuation powdr for inhalation (Anoro Ellipta) losartan 25 mg tablet 12.5 mg (1/2 x 25 mg) PO DAILY #90 03/10/23 12/14/23 Rx tabs metoprolol succinate 25 mg 25 mg PO DAILY #30 tabs 10/26/23 12/14/23 Rx tablet,extended release 24 hr PFSH Medical History Rupture of left long head biceps tendon Periodontal disease History of Mohs micrographic surgery for skin cancer Basal cell carcinoma of nose Wears glasses History of steroid therapy Back pain Former smoker CPAP (continuous positive airway pressure) dependence Sleep apnea Emphysema, unspecified Shortness of breath on exertion COPD (chronic obstructive pulmonary disease) History of echocardiogram History of Holter monitoring Cardiology follow-up encounter History of irregular heartbeat History of repaired hypospadias Ventral hernia Inguinal hernia of left side without obstruction or gangrene Non-ischemic cardiomyopathy Essential hypertension 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 complication Herniation of lumbar intervertebral disc with radiculopathy Surgical History S/P inguinal hernia repair Hx of knee surgery History of left heart catheterization (11/23/17) Family History Mother Hypertension High cholesterolFather Hypertension Heart failure High cholesterol Social History (Updated 12/14/23 @ 13:52 by Eda Levin LPN) Smoking Status: Current every day smoker tobacco type: cigars per week: 70 alcohol intake: never substance use type: does not use HPI HPI HPI: 63-year-old male presents due to change in bowel functions. Patient states he last had a colonoscopy in 2019 in [place] which was negative prior to that patient states he did have polyps. Patient states for the last 5 to 6 months he has had change of frequency/timing/texture of his stools. Patient states his diet has been consistent throughout and may be gotten a little healthier and still irregular bowel movements. Patient denies any abdominal pain. Patient denies any family history of colon cancer. Patient denies any nausea/vomiting/reflux. Patient states that he may have bowel movements daily and then may go 2 to 3 days without going and continue that cycle. ROS General General: Yes weight change (weight loss- intentional ) and fatigue; No appetite, colon cancer or breast cancer HEENT HEENT: No difficulty swallowing, eye injury, eye surgery, swollen glands or hoarseness Endo Endocrine: No thyroid disease, diabetes mellitus, thyroid cancer, Hair loss, heat intolerance or cold intolerance Skin Skin: No rash or changing moles Musc Musculoskeletal: Yes back problems; No arthritis, rheumatoid arthritis, gout or joint pain Cardio Cardiovascular: Yes heart disease; No murmur, pacemaker, atrial fibrillation, high blood pressure, heart attack, heart stent, palpitations, shortness of breat with exertion or chest pain Psych Psychiatric: No depression, anxiety or hearing voices Resp Respiratory: Yes shortness of breath, Yes sleep apnea, No cough, Yes COPD, No asthma, Yes emphysema and No wheezing Gastro Gastrointestinal: Yes abdominal pain, No nausea or vomiting, Yes diarrhea, Yes constipation, No blood in stool, No acid reflux, No hemorrhoids, No ulcers, No gallbladder problem and No black,tarry stools Tucker Hematologic: No blood thinners, No blood disorders, No bleeding, No anemia and No blood clots Neuro Neurologic: No numbness and No tingling Exam Const General: cooperative, healthy appearing and no acute distress HENMT Head: normal to inspection Resp Effort & Inspection: normal respiratory effort Cardio Rate: regular rate GI Inspection: non-distended Palpation: soft Skin General: no rashes or lesions noted Neuro General: patient oriented x3 Extrem General: no clubbing, cyanosis or edema Psych Affect: normal affect Assessment and Plan Assessment and Plan (1) Change in bowel habits: Status: Acute Orders: Orders Colonoscopy 01/09/24 Plan I have discussed the above with the patient. I have offered the patient colonoscopy for evaluation. I have explained the risks/benefits of the procedure and described the procedure. I have discussed the risks with the patient, including but not limited to: infection, bleeding, perforation of the GI tract requiring emergency surgery, inability to complete the procedure, injury to any internal organs, complications of anesthesia, etc. - the patient understands and agrees to proceed. I have answered all the patient's questions to the patient's satisfaction and the patient has no further questions. The patient has been given instructions for the colon cleansing preparation. 1 day of clears with extra Dulcolax?MiraLAX Dulcolax prep or if having issues with constipation 2 days of clears prior. Janneth Purcell M.D. Pager: [phone] [facility] [address] [place] [address], [facility], [address] [place] [address] Office: [phone] Coding Level of Care Code Off vis,est,level 3 Diagnoses Change in bowel habits R19.4 12/15/23 1143 <Electronically signed by Janneth Purcell MD> Date Janneth Purcell MD
--- NOTE | 2024-01-09 07:19 | PCM.PRE.AN2 ---
ASA Classification* ASA Classification ASA Classification: 3 Assessment & Plan Anesthesia* Anesthesia Assessment Anesthesia Assessment: Discussed sedation and/or anesthesia options, risks, benefits, and alternatives with patient/parents/legal guardian/POA. Questions invited. The patient/parents/legal guardian/POA seems to understand and agrees to proceed with anesthesia plan. Reviewed the physical assessment, medical history, allergy history and patient home medications list prior to surgery/procedure/anesthetic and documented any changes. Performed airway and anesthesia risk assessments. Anesthesia Type Anesthesia Type: MAC History Source History Obtained from:: Patient and Chart Anesthesia Focused Assessment* Temperature: 97.6 F Pulse Rate: 48 Blood Pressure: 106/68 Respiratory Rate: 17 Pulse Ox: 98 Airway Assessment Mouth opens: >3 cm Mallampati Score: II Teeth Condition: Intact Focused Labs Anesthesia Preop lab: CBC WBC 5.5 K/mm3 (4.4-11.0) 11/30/23 08:43 RBC 4.83 M/mm3 (4.6-6.2) 11/30/23 08:43 Hgb 14.1 g/dL (13.0-16.5) 11/30/23 08:43 Hct 43.6 % (40-54) 11/30/23 08:43 Plt Count 178 K/mm3 (150-450) 11/30/23 08:43 CHEMISTRY Potassium 3.8 mmol/L (3.5-5.1) 11/30/23 08:43 Sodium 139 mmol/L (136-145) 11/30/23 08:43 BUN 15 mg/dL (7-18) 11/30/23 08:43 Creatinine 0.76 mg/dL (0.70-1.30) 11/30/23 08:43 Glucose 88 mg/dL (74-106) 11/30/23 08:43 TSH 1.68 uIU/mL (0.358-3.74) 11/30/23 08:43 COAG Pre-Assessment Diagnosis/Proposed Procedure Planned Operative Procedure(s): CSCOPE Anesthesia History 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 When Was Last Pacemaker Check QUESTION #4 FULL TEXT: You/Your Family Experience fever (hyperthermia) with Anesthesia Last Oral Intake Last Oral intake: Last Oral Intake NPO since 00:00 01/09/24 06:30 Meds taken in AM with sips of No 01/09/24 06:30 water? Meds patient instructed to take am of surgery PONV PONV - instructor industrial design: PONV - instructor industrial design Female No 01/04/24 09:25 HX of Motion Sickness No 01/04/24 09:25 HX of N/V After Surgery No 01/04/24 09:25 Non-Smoker No 01/04/24 09:25 Duration of Surgery greater No 01/04/24 09:25 than 60 minutes Number of Risk Factors PONV Score Height & Weight Height & Weight: Anesthesia: Height & Weight Height 5 ft 11 in 01/09/24 06:30 Weight: 74.6 kg 01/09/24 06:30 Body Mass Index (BMI) 22.9 01/09/24 06:30 Respiratory Assessment Respiratory Assessment - instructor industrial design: Respiratory Tract Infection Hx - instructor industrial design Hx Respiratory Tract Infection No 01/04/24 09:25 STOP Sleep Apnea STOP Sleep Apnea - instructor industrial design: STOP Sleep Apnea - instructor industrial design Hx Hypertension Yes 01/04/24 09:25 Hx Sleep Apnea Yes 01/04/24 09:25 CPAP Yes 01/04/24 09:25 BIPAP No 01/04/24 09:25 Do you snore loudly (louder than talking or can be heard Do you often feel tired/ fatigued/ sleepy during daytime? Has anyone observed you stop breathing during sleep? STOP Results Positive 01/04/24 09:25 QUESTION #5 FULL TEXT : Do you snore loudly (louder than talking or can be heard through closed doors)? 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 Specify any problems Hx of Preganancy in last 3 N/A 01/04/24 09:25 Months Nurse Filling Out Transfusion NBUCHER 01/04/24 09:25 & Questions: Date: 01/04/24 01/04/24 09:25 Time: 09:28 01/04/24 09:25 Patient unable to answer at this time (ie. confused, unrespo /Reproduction History /Reproductive History - instructor industrial design: /Reproductive Hx- instructor industrial design Hx Now No 01/04/24 09:25 Gestational Age (in weeks): EDC: Hx Hx Para Hx Section SAB No 01/04/24 09:25 Active Medications Active Medications: Current Medications Generic Name Dose Route Start Last Admin Trade Name Freq PRN Reason Stop Dose Admin Lactated Ringer's 1,000 mls @ 15 mls/hr 01/09/24 06:15 01/09/24 06:15 IV 15 mls/hr .Q48H BUSTER Administration PFSH Medical History Smoker Rupture of left long head biceps tendon Periodontal disease History of Mohs micrographic surgery for skin cancer Basal cell carcinoma of nose Wears glasses Back pain Former smoker CPAP (continuous positive airway pressure) dependence Sleep apnea Emphysema, unspecified Shortness of breath on exertion COPD (chronic obstructive pulmonary disease) History of echocardiogram History of Holter monitoring Cardiology follow-up encounter History of irregular heartbeat History of repaired hypospadias Ventral hernia Inguinal hernia of left side without obstruction or gangrene Non-ischemic cardiomyopathy Essential hypertension 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 complication Herniation of lumbar intervertebral disc with radiculopathy Home Medications ?Medication ?Instructions ?Recorded ?Last Taken ?Type ascorbate calcium (vitamin C) 500 500 mg PO BID 02/24/22 01/08/24 History mg tablet cholecalciferol (vitamin D3) 50 50 mcg PO DAILY 02/24/22 01/08/24 History mcg (2,000 unit) capsule saw palmetto 160 mg capsule 160 mg PO BID 02/24/22 01/08/24 History zinc acetate 50 mg (zinc) capsule 50 mg PO .QOD 02/24/22 01/08/24 History (Galzin) albuterol sulfate 90 mcg/actuation 2 puff inhalation Q4H PRN 03/09/23 01/08/24 Rx aerosol inhaler shortness of breath or wheezing #8.5 grams umeclidinium 62.5 mcg-vilanterol 1 inh inhalation Q24H #3 device 03/09/23 01/08/24 Rx 25 mcg/actuation powdr for inhalation (Anoro Ellipta) losartan 25 mg tablet 12.5 mg (1/2 x 25 mg) PO DAILY #90 03/10/23 01/08/24 Rx tabs metoprolol succinate 25 mg 25 mg PO DAILY #30 tabs 10/26/23 01/08/24 Rx tablet,extended release 24 hr Lactobacillus acidophilus 10 100 mmu cells PO DAILY 01/04/24 01/08/24 History billion cell capsule (Probacap) Allergy/AdvReac Type Severity Reaction Status Date / Time latex AdvReac Dryness, Verified 01/09/24 06:29 redness Family History Mother Hypertension High cholesterol Father Hypertension Heart failure High cholesterol Surgical History History of mandibular surgery (~12/23/23) S/P inguinal hernia repair Hx of knee surgery History of left heart catheterization (11/23/17) Social History Smoking Status: Current every day smoker tobacco type: cigarettes alcohol intake: never substance use type: does not use Review of Systems (Anesthesia) ROS Narrative System reviewed and no additional complaints, except as documented.
--- NOTE | 2024-01-09 07:30 | COLBX_PTH ---
PATIENT: MILLICENT TRAVIS LOC: EN U#:[id number] AGE/SX: 63/M ROOM: RE01/09/[address]: Dr. Janneth Purcell MD : 1960 BED: DIS: 01/09/2024 SPEC #: [id number] RECD: 01/09/24 09:59 STATUS: LEON MANUEL #: [id number] CORI: 01/09/24 07:[address]: Janneth Purcell DEPT: SURGICAL PATHOLOGY RECD BY: Pari Juan ENTERED: 01/09/24 10:44 SP TYPE: COLON BX OT DR: Dr. Dianne Chris MD Tissues: Rectum, NOS Procedures: Surgery Specimen Level IV HEADER OPERATION: Colonoscopy, biopsy PRE-OP DIAGNOSIS: Change in bowel habits TISSUE SUBMITTED: Rectum polyp biopsy MICROSCOPIC DIAGNOSIS Rectum polyp, biopsy: Tubular adenoma. AM/mr 01/10/2024 MICROSCOPIC DESCRIPTION Slides are reviewed. GROSS DESCRIPTION Received in fixative is one container labeled with the patient's name and designated Rectum polyp biopsy. The specimen consists of one irregular fragment of light juarez soft tissue that measures 0.4 x 0.3 x 0.1 cm. The specimen is totally submitted in one cassette. SHAMAR/ 01/09/2024 TC:5 CPT:54629
--- NOTE | 2024-01-09 07:51 | OP.CCLET_ITS ---
01/09/2024 Dianne Chris [facility] [address] [place] [address] Re : Colonoscopy procedure for Gerry Wong Dear Dr. Chris This procedure was performed on Tuesday, January 09, 2024. My impressions and recommendations are as follows: Impressions : - Hemorrhoids found on perianal exam. - Non-bleeding internal hemorrhoids. - One less than 5 mm polyp in the rectum, removed with a cold biopsy forceps. Resected and retrieved. - The examination was otherwise normal. Recommendations : - Discharge patient to home. - Resume previous diet. - Continue present medications. - Await pathology results. - Repeat colonoscopy in 5 years for surveillance based on pathology results. My findings are described in the full procedure note, which is enclosed. If I can be of further assistance, please feel free to contact me at Doctor phone number(s): , Work: . Sincerely, MD Janneth Flynn MD 01/09/2024 7:51:05 AM This report has been signed electronically.
--- NOTE | 2024-01-09 07:51 | OP.COLON_ITS ---
Patient Name: Gerry Wong Procedure Date: 01/09/2024 7:00 AM Date of : 1960 Age: 63 Procedure: Colonoscopy Indications: Change in bowel habits Providers: Janneth Purcell MD Referring MD: Dianne Chris Medicines: Monitored Anesthesia Care Patient Profile: This is a 63 year old male. Last Colonoscopy: 2018. Complications: No immediate complications. Procedure: Pre-Anesthesia Assessment: - Prior to the procedure, a History and Physical was performed, and patient medications and allergies were reviewed. The patient's tolerance of previous anesthesia was also reviewed. The risks and benefits of the procedure and the sedation options and risks were discussed with the patient. All questions were answered, and informed consent was obtained. Prior Anticoagulants: The patient has taken no anticoagulant or antiplatelet agents. ASA Grade Assessment: Per anesthesia. After reviewing the risks and benefits, the patient was deemed in satisfactory condition to undergo the procedure. After I obtained informed consent, the scope was passed under direct vision. Throughout the procedure, the patient's blood pressure, pulse, and oxygen saturations were monitored continuously. The Colonoscope was introduced through the anus and advanced to the cecum, identified by appendiceal orifice and ileocecal valve. The colonoscopy was performed without difficulty. The patient tolerated the procedure well. The quality of the bowel preparation was good. Scope In: 7:26:52 AM Scope Withdrawal Time 0 hours 8 minutes 43 seconds Scope Out: 7:45:03 AM Total Procedure Duration Time 0 hours 18 minutes 11 seconds Findings: Hemorrhoids were found on perianal exam. Non-bleeding internal hemorrhoids were found. The hemorrhoids were Grade I (internal hemorrhoids that do not prolapse). A less than 5 mm polyp was found in the rectum. The polyp was sessile. The polyp was removed with a cold biopsy forceps. Resection and retrieval were complete. The exam was otherwise without abnormality. Impression: - Hemorrhoids found on perianal exam. - Non-bleeding internal hemorrhoids. - One less than 5 mm polyp in the rectum, removed with a cold biopsy forceps. Resected and retrieved. - The examination was otherwise normal. Recommendation: - Discharge patient to home. - Resume previous diet. - Continue present medications. - Await pathology results. - Repeat colonoscopy in 5 years for surveillance based on pathology results. Procedure Code(s): --- Professional --- 49112, Colonoscopy, flexible; with biopsy, single or multiple Diagnosis Code(s): --- Professional --- K64.0, First degree hemorrhoids D12.8, Benign neoplasm of rectum R19.4, Change in bowel habit CPT copyright 2021 [employer]. All rights reserved. The codes documented in this report are preliminary and upon manager child review may be revised to meet current compliance requirements. MD Janneth Flynn MD 01/09/2024 7:51:05 AM This report has been signed electronically. Number of Addenda: 0 Note Initiated On: 01/09/2024 7:00 AM
--- NOTE | 2024-01-09 07:56 | PCM.POST.ANE ---
Anesthesia: Postop Eval I Current Vital Signs Temperature: 97 F Pulse Rate: 46 Blood Pressure: 99/58 Respiratory Rate: 18 Pulse Ox: 99 Oxygen Delivery Method: Room Air Assessment Airway patent: Yes Spontaneous unlabored respirations: Yes Mental status: Awake and Calm nausea: No Vomiting: No Anesthesia Complication: No Fluid Hydration Crystalloid volume administer (ml): 500 Total IV fluid infused: 500 Progress Note Anesthesia document: Postop Eval 1 completed: Yes
--- NOTE | 2024-01-09 08:09 | PCM.POSTANE2 ---
Anesthesia Postop Eval I Sum Postop Eval Completion status Anesthesia document: Postop Eval 1 completed: Yes Anesthesia Postop Eval I Summary Anesthesia Postop Eval I Summary: Anesthesia Postop Eval I: Assessment Summary Airway patent Yes 01/09/24 07:57 [email or web address] Spontaneous unlabored Yes 01/09/24 07:57 [email or web address] respirations Mental status Awake,Calm 01/09/24 07:57 [email or web address] nausea No 01/09/24 07:57 [email or web address] Vomiting No 01/09/24 07:57 [email or web address] Anesthesia Postop Eval I: Fluid Summary Crystalloid volume administer 500 01/09/24 07:57 [email or web address] (ml) Colloids volume administered ( ml) Blood Product volume administered (ml) Total IV fluid infused 500 01/09/24 07:57 [email or web address] Anesthesia Postop Eval I: Summary Notes Anesthesia Complication No 01/09/24 07:57 [email or web address] Anesthesia Complication Comment: Post-operative progress note Anesthesia: Postop Eval II Evaluation Mental status: Awake Pain Level: 0 nausea: No Vomiting: No
== END 2024-01-09 08:26 | disposition home or self-care (01) ==
LOC: EN 06:04 → AC 06:05
PROVIDERS: PCP Internal Medicine; Referring Provider Internal Medicine; Visit Provider Surgery
PROC: 0DJD8ZZ Inspection of Lower Intestinal Tract, Via Natural or Artificial Opening Endoscopic (ICD-10-PCS; CPT 45378; principal; 2024-01-09 07:25)
DX: D12.8 Benign neoplasm of rectum (principal); J44.9 Chronic obstructive pulmonary disease, unspecified; I10 Essential (primary) hypertension; K64.0 First degree hemorrhoids; F17.290 Nicotine dependence, other tobacco product, uncomplicated; G47.33 Obstructive sleep apnea (adult) (pediatric); Z79.51 Long term (current) use of inhaled steroids; Z79.899 Other long term (current) drug therapy; Z86.16 Personal history of COVID-19
CPT/HCPCS: 45380; 88305; J7120; J2405

== ENCOUNTER → 2024-01-17 | Outpatient (CLI) | payer OTHER, SELFPAY | END | disposition home or self-care (01) | LOC: LAB 15:31 | PROVIDERS: PCP Internal Medicine; Referring Provider Urology; Visit Provider Urology | DX: N40.0 Benign prostatic hyperplasia without lower urinary tract symptoms (principal) | CPT/HCPCS: 36415; 84153 ==

== ENCOUNTER → 2024-02-08 | Outpatient (CLI) | payer OTHER, SELFPAY ==
--- NOTE | 2024-02-08 13:26 | CT_ITS ---
HISTORY: Tobacco Dependency. TECHNIQUE: Helically acquired images were obtained of the chest without contrast. A radiation dose optimization technique was used for this scan. 881 images. COMPARISON: 02/02/2023, 01/13/2022. FINDINGS: LARGE AIRWAYS: Patent. LUNGS: Hyperinflation with biapical bullae and chronic scarring. Stable 4 mm right middle lobe nodule on image 208/305. Lower lobe scarring. No new suspicious nodule or acute alveolar consolidation. PLEURA: No pneumothorax or significant pleural effusion. HEART/PERICARDIUM: Heart within normal limits in size with coronary artery calcification. No pericardial effusion. VESSELS: Thoracic aorta nondilated. Mild atherosclerosis. MEDIASTINUM/KARIS: No pathologically enlarged adenopathy. BONES: Degenerative change. CT/Low Dose CT Lung Screening IMPRESSION: Lung-RADS category 2: Continue annual screening with low dose CT. Electronically Signed: Ysabel Barahona MD at 8:16 EDT ,
== END | disposition home or self-care (01) ==
LOC: CT 13:24
PROVIDERS: PCP Internal Medicine; Referring Provider Internal Medicine Critical Care Medicine; Visit Provider Internal Medicine Critical Care Medicine
DX: F17.210 Nicotine dependence, cigarettes, uncomplicated (principal)
CPT/HCPCS: 71271

== ENCOUNTER → 2024-05-02 | Outpatient (CLI) | payer OTHER, SELFPAY | END | disposition home or self-care (01) | LOC: PSN 11:47 | PROVIDERS: PCP Internal Medicine; Referring Provider Nurse Practitioner Gerontology; Visit Provider Nurse Practitioner Gerontology | DX: R00.2 Palpitations (principal) | CPT/HCPCS: 93225; 93226 ==

== ENCOUNTER → 2024-12-05 | Outpatient (CLI) | payer OTHER, SELFPAY ==
[2024-12-05 10:17] LABS: Hematocrit 43.2 % (40-54); Hemoglobin 14.0 g/dL (13.0-16.5); Immature Granulocytes Count 0.010 X10^3/uL (0.0-0.0); Mean Corp Hgb Conc 32.4 g/dL (32-36); Mean Corpuscular Volume 90.8 fL (80-94); Mean Platelet Vol. 9.9 fl (6.2-12.0); NRBC Flagged by Analyzer 0 % (0-5); Platelet Count 159 K/mm3 (150-450); RBC Distribution Width CV 13.1 % (11.6-14.6); RBC Distribution Width SD 43.6 fl (35.1-43.9); Red Blood Count 4.76 M/mm3 (4.6-6.2); White Blood Count 6.2 K/mm3 (4.4-11.0)
[2024-12-05 11:29] LABS: AST(SGOT) 29 U/L (<=37); Alanine Aminotransfer ALT/SGPT 19 U/L (<=46); Albumin, Serum 3.9 g/dL (3.4-4.8); Alkaline Phosphatase 50 U/L (40-129); Anion Gap 9 (5-15); BUN 15 mg/dL (4-19); BUN/Creat Ratio 19.1 RATIO (10-20); Calcium,Total 8.9 mg/dL (7.6-11.0); Carbon Dioxide 24.3 mmol/L (21.0-32.0); Chloride 105 mmol/L (98-108); Cholesterol 123 mg/dL (<=200); Globulin 2.6 g/dL (2.2-4.2); Glucose 96 mg/dL (70-99); Low Density Lipoprotein Calc. 55 mg/dL; Magnesium 2.0 mg/dL (1.5-2.2); PSA,Total - Annual Screen 2.06 ng/mL (0.02-4.00); Potassium 4.2 mmol/L (3.3-5.1); Triglycerides 52 mg/dL; Very Low Density Lipoprotein 10 mg/dL (5-40); Vitamin D,25 Hydroxy 33.3 ng/mL (30-100); cholesterol:hdl ratio screen 2.14
[2024-12-05 11:50] LABS: Free T3 2.7 pg/mL (2.18-3.98)
== END | disposition home or self-care (01) ==
LOC: LAB 10:01
PROVIDERS: PCP Internal Medicine; Referring Provider Internal Medicine; Visit Provider Internal Medicine
DX: I10 Essential (primary) hypertension (principal); J44.9 Chronic obstructive pulmonary disease, unspecified; E55.9 Vitamin D deficiency, unspecified; G47.33 Obstructive sleep apnea (adult) (pediatric); F17.210 Nicotine dependence, cigarettes, uncomplicated; Z12.5 Encounter for screening for malignant neoplasm of prostate; Z13.220 Encounter for screening for lipoid disorders; Z99.89 Dependence on other enabling machines and devices
CPT/HCPCS: 36415; 80053; 80061; 82306; 83735; 84153; 84439; 84443; 84481; 85025; G0103

== ENCOUNTER → 2025-02-19 | Outpatient (CLI) | payer OTHER, SELFPAY ==
[2025-02-19 12:42] VITALS: PULSE 50; PULSE 54; PULSE 83; PULSE 84; PULSE 85; PULSE 87; PULSE 88; O2SAT 95; O2SAT 96; O2SAT 97; O2SAT 98
--- OUTSIDE RECORDS SUMMARY | 2025-02-19 21:26 | XMS RPT_ITS | CCD ---
Author Organization [facility] Care Team Providers Care Tier In Name Role Phone Sleflaca, Khaled M Unavailable Unavailable Unavailable Unavailable Unavailable Maris Dugan Fernando Unavailable Unavailable Kailee, Maris King Unavailable Unavailable CARLOS FRITZ MD. Attending Unavailable Maris Dugan Referring Unavailable Kailee, Maris King Primary Care Unavailable Kailee, Maris Fernando Primary Care Unavailable Kailee, Maris Fernando Primary Care Unavailable Sage Robles Admitting Unavaila Sage Henriquez Attending Unavaila ble FREE, TEXT ENTRY Referring Unavailable Kailee, Maris King Primary Care Unavailable Kailee, Maris Fernando Primary Care Unavailable Kailee, Maris Fernando Primary Care Unavailable Sage Robles Attending Unavaila ble Kailee, Maris Fernando Primary Care Unavailable Kailee, Maris Fernando Primary Care Unavailable Kailee, Maris Fernando Primary Care Unavailable Sage Robles Attending Unavaila ble Sage Robles Referring Unavaila ble Kailee, Maris Fernando Primary Care Unavailable Kailee, Maris Fernando Primary Care Unavailable Kailee, Maris Fernando Primary Care Unavailable Kailee, Maris Fernando Primary Care Unavailable Kailee, Maris Fernando Primary Care Unavailable [id number], Khaled Unavailable Unavaila ble Vane, Avirup Unavailable Unavailable Kailee, Maris Unavailable Unavailable Kailee, Maris L Unavailable Unavailable Carlos Fritz Unavailable Unavailable Sleik, Khaled M Unavailable Unavailable Maris Dugan Primary Care Provider MARIS DUGAN Attending Unavailable MARIS DUGAN Referring Unavailable KAILEE, MARIS FERNANDO Primary Care Unavailable Carlos Sinclair II Unavailable Unavailable Sleik, Khaled Unavailable Unavailable Sleik, Khaled M Unavailable Unavailable Vane, Avirup Unavailable Unavailable Maris Dugan Primary Care Provider Ana Maria Pepper MD Primary Care Provider Dr. Ana Maria Pepper Primary Care Provider Dr. Ana Maria Pepper Referring Provider Colby DELIVERY ENGINEER, DELIVERY ENGINEER-C Elisabeth Attending Provider Ana Maria Pepper MD Primary Care Provider Dr. Ana Maria Pepper Primary Care Provider Dr. Quinn Loyd Attending Provider Dr. Quinn Loyd Referring Provider Dr. Ana Maria Pepper Referring Provider Dr. Janneth Purcell Attending Provider Dr. Janneth Purcell Referring Provider Dr. Janneth Purcell Other Provider Dr. Ana Maria Pepper Primary Care Provider Dr. Ana Maria Pepper Referring Provider Umesh DELIVERY ENGINEER, DELIVERY ENGINEER-C Mariella Attending Provider NATHALIA MCNAMARA Referring Unavailable ANA MARIA PEPPER Primary Care Unavailable ZELALEM HAYNES Referring Unavailable ANA MARIA PEPPER Primary Care Unavailable ANA MARIA PEPPER Primary Care Unavailable ELLIE LAZARO Attending Unavailable ANA MARIA PEPPER Primary Care Unavailable NATHALIA MCNAMARA Attending Unavailable ELLIE LAZARO Referring Unavailable ANA MARIA PEPPER Primary Care Unavailable NATHALIA MCNAMARA Referring Unavailable ANA MARIA PEPPER Primary Care Unavailable Ana Maria Pepper MD Primary Care Provider Aries LONGORIA, Dr. Dean Primary Care Provider Aries LONGORIA, Dr. Dean Attending Provider Aries LONGORIA, Dr. Dean Referring Provider Dianne Chris Primary Care Unavailable Quinn Loyd Attending Unavailable Quinn Loyd Referring Unavailable Colby DELIVERY ENGINEER, Elisabeth Attending Unavailable Colby DELIVERY ENGINEERElisabeth Referring Unavailable Dianne Chris Primary Care Unavailable Chapo Dye Referring Unavailable Aries, Dianne Primary Care Unavailable Chapo Dye Attending Unavailable Aries, Dianne Primary Care Unavailable Aries, Dianne Attending Unavailable Colby CUNHA, Elisabeth Referring Unavailable Gerry Stallings Attending Unavailable Aries, Dianne Primary Care Unavailable Aries, Dianne Referring Unavailable Aries, Dianne Primary Care Unavailable Robotham, Janneth Consulting Unavailable Robotham, Janneth Attending Unavailable Aries, Dianne Referring Unavailable Aries, Dianne Primary Care Unavailable Robotham, Janneth Attending Unavailable Aries, Dianne Primary Care Unavailable Aries, Dianne Attending Unavailable Aries, Dianne Referring Unavailable Aries, Dianne Referring Unavailable Colby CUNHA, Elisabeht Attending Unavailable Aries, Dianne Primary Care Unavailable Aries, Dianne Referring Unavailable Aries, Dianne Primary Care Unavailable Umesh CUNHA, Mariella Attending Unavailable Allergies Allergy Classification Reported Allergen(s) Allergy Type Date of Onset Reaction(s) Facility (10 sources) varenicline; Translations: [VARENICLINE] Drug Allergy 2 Other: See Comments [facility] Work Phone: (2 sources) Latex Propensity to adverse reactions 5 Dryness, redness [facility] (1 source) Latex Drug allergy (disorder) 5 [facility] Repository Medications Current Medications Medication Drug Class(es) Dates Sig (Normalized) Sig (Original) ascorbic acid 500 mg oral tablet (15 sources) Vitamin C Start: 12-23-2020 take 1 tablet by mouth twice daily ascorbic acid, vitamin C, (VITAMIN C) 500 mg tablet Take 1 tablet by mouth twice daily. 12/23/2020 Active Vitamin C TABS T JUN TABLET use as directed. Refills: 0 Active Comment on above: Take 1 tablet by alpa th twice daily. calcium ascorbate 500 mg oral tablet (5 sources) Start: 02-25-20 take 1 tablet by mouth twice daily Ascorbate Calcium (Vitamin C) 500 mg tablet Active 500 mg PO TWICE A DAY February 24, 2022 12:00am cholecalciferol 0.05 mg oral capsule (20 sources) Vitamin D Start: 02-25-20 take 1 capsule by mouth once daily Cholecalciferol (Vitamin D3) 50 mcg (2,000 unit) capsule Active 50 ug PO DAILY February 24, 2022 12:00am Start: 12-23-2020 take 1 capsule by mo ut once daily Cholecalciferol, Vitamin D3, 50 mcg (2,000 unit) cap Take 1 capsule by mouth once daily. 12/23/2020 Active Vitamin D3 25 MC G (1000 UT) Oral Capsule Refills: 0 Active Comment on above: Take 1 capsule by mo [facility] once daily. ubidecarenone 100 mg oral capsule (15 sources) Start: 12-23-2020 take 1 capsule by mouth once daily coenzyme Q10 (COENZYME Q-10) 100 mg cap capsule Take 1 capsule by mouth once daily. 12/23/2020 Active Co Q 10 10 MG Or al Capsule Refills: 0 Active Comment on above: Take 1 capsule by mo [facility] once daily. enteric contrast (will be provided with radiology test) (1 source) Start: 06-18-19 End: 06-18-19 take 1 dose by mouth once, then take 1 dose by mouth once enteric contrast (will be provided with radiology test) Take 1 Each by mouth one time only for [address] ABD/PEL WO Routine order Administer, As Directed One Time Only, via Oral, Rectal, both Oral and Rectal, Enteric Tube, Stoma or Indwelling Catheter, Enteric Contrast as designated per enteric contrast guidelines 1 Each 0 06/18/2022 06/18/2022 Active Comment on above: Take 1 Each by mouth one time only for [address] ABD/PEL WO Routine order Administer, As Directed One Time Only, via Oral, Rectal, both Oral and Rectal, Enteric Tube, Stoma or Indwelling Catheter, Enteric Contrast as designated per enteric contrast guidelines 200 actuat levalbuterol 0.045 mg/actuat metered dose inhaler (2 sources) beta2-Adrenergic Agonist Start: 04-25-20 Levalbuterol Tartrate 45 mcg/actuation HFA aerosol inhaler Active 2 NMA INHALATION EVERY 4-6 HOURS as needed for shortness of breath or wheezing 20 04April 25, 2024 1:00am 24 hr nicotine 0.875 mg/hr transdermal system (20 sources) Cholinergic Nicotinic Agonist Start: 12-31-19 End: 02-11-20 apply 1 dose transdermal route every twenty-four hours nicotine (NICODERM) 14 mg/24 hr Indications: Smoker Apply 1 Patch as directed every 24 hours. 42 Patch 12/30/2021 Active Start: 12-30-2021 End: 02-10-2022 apply 1 dose transdermal route every twenty-four hours nicotine (NICODERM) 21 mg/24 hr Indications: Smoker Apply 1 Patch as directed every 24 hours. 42 Patch 12/30/2021 Active Start: 12-30-2021 End: 01-13-2022 nicotine (NICODERM) 7 mg/24 hr Indications: Smoker Apply 1 Patch as directed every 24 hours for 14 days. 14 Patch 12/30/2021 Active Comment on above: Apply 1 Patch as dir ected every 24 hours. Apply 1 Patch as dir ected every 24 hours for 14 days. [employer] 160 mg capsule (10 sources) take 1 capsule by mouth twice daily [employer] 160 mg capsule Take 1 capsule by mouth twice daily. Active take 1 capsule by mouth twice da yusef [employer] 160 mg capsule Take 1 capsule by mouth twice daily. 0 Active Comment on above: Take 1 capsule by [facility] twice daily. [employer] (10 sources) Start: 02-24-2022 take 1 capsule by mouth twice daily [employer] 160 mg capsule Active 160 mg PO TWICE A DAY February 24, 2022 12:00am give with meal/snack Start: 02-24-2022 take 160 mg by mouth twice daily [employer] Active 160 MG PO TWICE A DAY February 23, 2022 11:00pm give with meal/snack Start: 02-24-2022 take 160 mg by mouth twice daily [employer] Active 160 MG PO TWICE A DAY February 24, 2022 12:00am give with meal/snack [employer] CAP S Take 640mg of Saw bid. Refills: 0 Active Zinc (10 sources) Start: 12-23-2020 Zinc 50 mg tab Take 50 mg by mouth once daily. Taking every 2-3 days 12/23/2020 Active Start: 12-23-2020 Zinc 50 mg tab Take 50 mg by mouth once daily. Taking every 2-3 days 0 12/23/2020 Active Comment on above: Take 50 mg by mouth once daily. Taking every 2-3 days zinc acetate 50 mg oral capsule (5 sources) Start: 02-24-2022 take 1 capsule by mouth every other day Zinc Acetate (Galzin) 50 mg (zinc) capsule Active 50 mg PO .QOD February 24, 2022 12:00am Completed/Discontinued Medications Medication Drug Class(es) Dates Sig (Normalized) Sig (Original) acetaminophen 325 mg / oxyCODONE hydrochloride 5 mg oral tablet (4 sources) Opioid Agonist Start: 08-04-2022 End: 08-25-2022 Oxycodone-Acetaminoph en 5-325 mg tablet Discontinued 1 - 2 {tbl} PO EVERY 6 HOURS as needed for pain 14 3 0 August 04, 2022 August 25, 2022 1:10pm Postoperative pain Other acute postprocedural pain Start: 08-04-2022 End: 08-25-2022 take 1 tablet by mouth every six hours Oxycodone-Acetaminophen Discontinued 1 - 2 TABLET PO EVERY 6 HOURS 14 3 August 04, 2022 August 25, 2022 1:10pm 200 actuat albuterol 0.09 mg/actuat dry powder inhaler (20 sources) beta2-Adrenergic Agonist Start: 03-28-2024 End: 04-25-2024 take 90 ug by inhalation every four hours as needed Albuterol Sulfate (Proair Respiclick) 90 mcg/actuation aerosol powdr breath activated Discontinued 2 NMA INHALATION Q4H as needed for shortness of breath or wheezing 1 March 28, 2024 12:00am April 25, 2024 12:44pm administer with spacer Start: 2022 End: 03-28-2024 Albuterol Sulfate 90 mcg/act uation HFA aerosol inhaler Discontinued 2 NMA INHALATION Q4H as needed for shortness of breath or wheezing 8.5 March 09, 2023 11:45am March 28, 2024 11:55am administer with spacer Start: 2022 take 1 puff(s) by in halation every four hours Albuterol Sulfate Active 2 PUFF INHALATION Q4H 8.5 2022 1:00am administer with spacer Start: 12-02-2020 take 1 puff(s) by in halation every six hours Albuterol Sulfate Active 2 PUFF INHALATION EVERY 6 HOURS December 02, 2020 12:00am albuterol sulfat e (PROAIR RESPICLICK INHALATION) Active albuterol sulfat e (PROAIR RESPICLICK INHALATION) take 2 puff(s) by in halation once daily as needed for wheezing ProAir RespiClick 108 (90 Base) MCG/ACT Inhalation Aerosol Powder Breath Activated INHALE 2 PUFFS Daily PRN wheezing Quantity: 3 Refills: 0 Josiah Curtis MD Active aspirin 81 mg delayed release oral tablet (7 sources) Platelet Aggregation Inhibitor, Nonsteroidal Anti-inflammatory Drug Start: 12-23-2020 End: 12-30-2021 take 1 tablet by mouth once daily aspirin, enteric coated (ASPIRIN, ENTERIC COATED) 81 mg EC tablet Take 1 tablet by mouth once daily. 12/23/2020 12/30/2021 Discontinued Start: 03-08-2018 take 1 tablet by alpa th once daily Aspirin 81 MG Oral Tablet Delayed Release take 1 tablet by mouth once daily Refills: 0 Start : 08-Mar-2018 Active Comment on above: Take 1 tablet by alpa th once daily. betamethasone 0.5 mg/ml / clotrimazole 10 mg/ml topical cream (2 sources) Azole Antifungal, Corticosteroid Start: 09-10-19 20 Clotrimazole-Betame thasone 1-0.05 % External Cream APPLY AND RUB IN A THIN FILM TO AFFECTED AREAS TWICE DAILY.(AM AND PM). Quantity: 1 Refills: 1 Carlos Sinclair II, MD Start : 10-Sep-2019 Active 45 GM Tube carvedilol 3.125 mg oral tablet (20 sources) alpha-Adrenergic Tyshawn, beta-Adrenergic Tyshawn Start: 09-25-19 21 End: 10-21-19 23 take 1 tablet by mouth twice daily at mealtime Carvedilol 3.125 mg tablet Discontinued 3.125 mg PO TWICE A DAY 180 3 November 04, 2021 2:27pm February 24, 2022 1:47pm must administer with a meal/food Start: 03-08-2018 take 1 tablet by alpa th twice daily Carvedilol 3.125 MG Oral Tablet Take 1 tablet twice a day Quantity: 60 Refills: 1 Start : 08-Mar-2018 Active Comment on above: 1 tablet twice daily with meals. cefdinir 300 mg oral capsule (2 sources) Cephalosporin Antibacterial Start: 023 End: 024 take 1 capsule by mouth twice daily Cefdinir 300 mg capsule Discontinued 300 mg PO TWICE A DAY March 09, 2023 12:00am November 23, 2023 1:09pm cyclobenzaprine hydrochloride 10 mg oral tablet (1 source) Muscle Relaxant Start: End: take 1 tablet by mouth once daily at bedtime cyclobenzaprine (FLEXERIL) 10 mg tablet Take 1 tablet by mouth daily at bedtime. 30 tablet 0 05/05/2021 12/30/2021 Discontinued Comment on above: Take 1 tablet by alpa th daily at bedtime. dexamethasone 6 mg oral tablet (2 sources) Corticosteroid Start: End: take 1 tablet by mouth once daily Dexamethasone 6 mg tablet Discontinued 6 mg PO DAILY 5 0 June 24, 2023 1:00am November 23, 2023 1:10pm 120 actuat fluticasone propionate 0.22 mg/actuat metered dose inhaler (6 sources) Corticosteroid Start: End: Fluticasone Propionate 220 mcg/actuation HFA aerosol inhaler Discontinued 2 NMA INHALATION TWICE A DAY December 02, 2020 12:00am December 03, 2020 11:21am Start: 12-02-2020 End: 12-03-2020 take 1 puff(s) by inhalation twice daily Fluticasone Propionate Discontinued 2 PUFF INHALATION TWICE A DAY December 02, 2020 12:00am December 03, 2020 11:21am Lactobacillus Acidophilus (Probacap) 10 billion cell capsule (2 sources) Start: 01-04-2024 End: 03-14-2024 take 10 capsules by mouth once daily Lactobacillus Acidophilus (Probacap) 10 billion cell capsule Discontinued 100 NMA PO DAILY January 04, 2024 12:00am March 14, 2024 9:28am Lactobacillus Combination No.4 (Probiotic) 3 billion cell capsule (2 sources) Start: 02-23-2023 End: 11-23-2023 Lactobacillus Combination No.4 (Probiotic) 3 billion cell capsule Discontinued 3000 NMA PO .3Xw February 23, 2023 12:00am November 23, 2023 1:10pm administer with a meal lisinopril 40 mg oral tablet (6 sources) Angiotensin Converting Enzyme Inhibitor Start: 12-02-2020 End: 12-03-2020 take 1 tablet by mouth once daily Lisinopril 40 mg tablet Discontinued 40 mg PO DAILY December 02, 2020 12:00am December 03, 2020 11:21am losartan potassium 25 mg oral tablet (20 sources) Angiotensin 2 Receptor Tyshawn Start: 03-10-2023 End: 05-16-2024 Losartan 25 mg tablet Discontinued 12.5 mg PO DAILY 45 April 23, 2024 9:37am May 16, 2024 11:25am Start: 12-22-2022 End: 03-10-2023 take 1 tablet by mouth once daily Losartan 25 mg tablet Discontinued 25 mg PO DAILY 90 December 22, 2022 12:21pm March 10, 2023 4:24pm Start: 08-25-2022 End: 12-22-2022 Losartan 50 mg tablet Discon tinued 25 mg PO DAILY 90 August 25, 2022 1:27pm December 22, 2022 12:21pm Start: 08-25-2022 End: 12-22-2022 take 25 mg by mouth once daily Losartan Discontinued 2 5 MG PO DAILY 90 August 25, 2022 1:27pm December 22, 2022 12:21pm Start: 09-24-2020 End: 08-25-2022 take 1 tablet by mouth once daily Losartan 50 mg tablet Discontinued 50 mg PO DAILY 90 November 04, 2021 2:27pm February 24, 2022 1:47pm Start: 01-24-2018 take 1 tablet by alpa th once daily Losartan Potassium 50 MG Oral Tablet Take 1 tablet daily Quantity: 90 Refills: 0 Josiah Bunn MD Start : 24-Jan-2018 Active Comment on above: 1 tablet once daily. methylPREDNISolone 4 mg oral tablet (4 sources) Corticosteroid Start: 2023 End: 2023 take 1 tablet by mouth once Methylprednisolone (Medrol (Asael)) 4 mg tablets,dose pack Discontinued 0 PO per package directions 26 06January 20, 2024 4:12pm March 14, 2024 9:29am PO PER PKG DIR Start: 03-02-2023 End: 03-09-2023 take 1 tablet by mouth once Methylprednisolone (Medrol (Asael)) 4 mg tablets,dose pack Discontinued 0 PO per package directions March 02, 2023 12:00am March 09, 2023 11:24am PO PER PKG DIR 24 hr metoprolol succinate 25 mg extended release oral tablet (15 sources) beta-Adrenergic Tyshawn Start: 02-02-2023 take 1 tablet by mouth every hour metoprolol succinate ER (TOPROL XL) 25 mg 24 hr tablet Take 1 tablet by mouth every afternoon. 02/02/2023 Active Start: 10-20-2022 End: 10-24-2024 take 1 tablet by mouth once daily Metoprolol Succinate 25 mg tablet extended release 24 hr Discontinued 25 mg PO DAILY 30 October 26, 2023 8:50am October 24, 2024 7:58am Comment on above: Take 1 tablet by alpa th every afternoon. terbinafine 250 mg oral tablet (2 sources) Allylamine Antifungal Start: End: take 1 tablet by mouth once daily Terbinafine Hcl 250 mg tablet Discontinued 250 mg PO daily March 28, 2024 12:00am November 28, 2024 2:32pm 7 actuat umeclidinium 0.0625 mg/actuat / vilanterol 0.025 mg/actuat dry powder inhaler (20 sources) Anticholinergic, beta2-Adrenergic Agonist Start: End: Umeclidinium-Vilanter ol (Anoro Ellipta) 62.5-25 mcg/actuation blister with device Discontinued 1 NMA INHALATION Q24H 3 March 09, 2023 11:45am March 21, 2024 7:02am Start: 2022 Umeclidinium-V ilanterol (Anoro Ellipta) 62.5-25 mcg/actuation blister with device Active 1 INH INHALATION Q24H 2022 1:00am Start: 04-06-2022 umeclidinium-v ilanterol (ANORO ELLIPTA) 62.5-25 mcg/actuation inhaler 04/06/2022 Active Start: 01-14-2021 End: 02-24-2022 Umeclidinium-Vilanterol (Ano ro Ellipta) 62.5-25 mcg/actuation blister with device Discontinued 1 NMA INHALATION daily 180 April 02, 2021 12:45pm February 24, 2022 1:18pm Start: 01-14-2021 End: 02-24-2022 Umeclidinium-Vilanterol (Ano ro Ellipta) 62.5-25 mcg/actuation blister with device Discontinued 1 INH INHALATION daily 180 April 02, 2021 12:45pm February 24, 2022 1:18pm zinc sulfate 220 mg oral cap shanell (5 sources) Zinc Sulfate 50 MG CAPS TAKE 1 CAPSULE Daily Refills: 0 Active Zinc Sulfate 50 MG CAPS TAKE 1 CAPSULE Daily Refills: 0 Active take 1 capsule by mouth once nilesh ly Zinc Sulfate 50 MG Oral Capsule TAKE 1 CAPSULE Daily Refills: 0 Active Problems Active Problems Problem Classification Problem Date Documented Da te Episodic/Chronic Abdominal hernia (14 sources) Inguinal hernia; Translations: [Unilateral inguinal hernia, without obstruction or gangrene, not specified as recurrent] Onset: 06-18-2022 Episodic Comment on above: Possible ventral her grace unable to get this area to reduce we will plan to review CT abdomen pelvis images to see if this is really a hernia or not. Administrative/social admission (2 sources) First encounter by subject; Translations: [Persons encountering health services in other specified circumstances] 02-23-2023 Episodic Chronic obstructive pulmonary disease and bronchiectasis (20 sources) Pulmonary emphysema; Translations: [Mild chronic obstructive pulmonary disease] Onset: 12-24-2020 Chronic Essential hypertension (11 sources) Essential hypertension; Translations: [Essential (primary) hypertension] Onset: 12-11-2024 Chronic Comment on above: CONTROLLED ON MED Genitourinary symptoms and ill-defined conditions (4 sources) Nocturia; Translations: [Dysuria] Episodic Hyperplasia of prostate (6 sources) Benign prostatic hypertrophy without outflow obstruction; Translations: [Benign prostatic hyperplasia without lower urinary tract symptoms] Onset: 02-08-2024 Chronic Immunizations and screening for infectious disease (1 source) Encounter for immunization; Translations: [Other specified vaccinations against streptococcus pneumoniae [pneumococcus]] Episodic Inflammatory conditions of male genital organs (2 sources) Balanitis; Translations: [Balanitis] Chronic Malaise and fatigue (3 sources) Fatigue; Translations: [Fatigue] Episodic Other and ill-defined heart disease (2 sources) Heart disease; Translations: [Heart disease, unspecified] 12-14-2023 Chronic Other and unspecified benign neoplasm (2 sources) History of polyp of colon; Translations: [History of colonic polyps] 11-23-2023 Episodic Other circulatory disease (5 sources) H/O: heart disorder; Translations: [History of cardiac disorder] Episodic Other ear and sense organ disorders (2 sources) Impacted cerumen; Translations: [Impacted cerumen, right ear] 02-23-2023 Episodic Other gastrointestinal disorders (2 sources) Right upper quadrant abdominal mass; Translations: [Right upper quadrant abdominal swelling, mass and lump] Episodic Other gastrointestinal disorders (4 sources) Altered bowel function; Translations: [Change in bowel habit] 12-15-2023 Episodic Other gastrointestinal disorders (2 sources) Change in stool caliber; Translations: [Other fecal abnormalities] 11-23-2023 Episodic Other hereditary and degenerative nervous system conditions (2 sources) Myoclonus; Translations: [Other chorea] 11-23-2023 Chronic Other injuries and conditions due to external causes (2 sources) Injury of left upper arm; Translations: [Unspecified injury of left shoulder and upper arm, initial encounter] 04-19-2023 Episodic Other injuries and conditions due to external causes (1 source) Unspecified injury of left shoulder and upper arm, initial encounter; Translations: [Injury of left upper arm, initial encounter] Onset: 04-19-2023 Episodic Other lower respiratory disease (5 sources) H/O: respiratory disease; Translations: [History of solitary pulmonary nodule] Episodic Other lower respiratory disease (5 sources) History of chronic obstructive airway disease; Translations: [History of chronic obstructive lung disease] Episodic Other male genital disorders (2 sources) Impotence; Translations: [Male erectile disorder] Chronic Other male genital disorders (5 sources) H/O: male genital disorder; Translations: [History of BPH] Episodic Other male genital disorders (5 sources) History of male erectile disorder; Translations: [History of erectile dysfunction] Episodic Other nervous system disorders (1 source) Circadian rhythm sleep disorder, shift work type; Translations: [Circadian rhythm sleep disorder, shift work type] Onset: 04-12-2018 Chronic Other nervous system disorders (5 sources) Circadian rhythm sleep disorder of shift work type; 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] Chronic Other nervous system disorders (5 sources) Personal history of other diseases of the nervous system and sense organs; Translations: [History of glaucoma] Episodic Elizabeth-; endo-; and myocarditis; cardiomyopathy (except that caused by tuberculosis or sexually transmitted disease) (20 sources) Cardiomyopathy, unspecified; Translations: [Cardiomyopathy] Onset: 03-08-2018 Chronic Residual codes; unclassified (4 sources) Obstructive sleep apnea (adult) (pediatric); Translations: [Obstructive sleep apnea (adult)(pediatric)] Onset: 07-26-2018 2022 Chronic Residual codes; unclassified (20 sources) Obstructive sleep apnea syndrome; Translations: [Obstructive sleep apnea (adult) (pediatric)] Onset: 12-24-2020 Chronic Residual codes; unclassified (1 source) Dependence on other enabling machines and devices; Translations: [Dependence on other enabling machines and devices] Onset: 11-28-2024 Chronic Residual codes; unclassified (5 sources) Personal history of other specified conditions; Translations: [History of palpitations] Episodic Residual codes; unclassified (2 sources) History of colonoscopy; Translations: [Other specified postprocedural states] 12-14-2023 Episodic Spondylosis; intervertebral disc disorders; other back problems (8 sources) Lumbar disc prolapse with radiculopathy; Translations: [Intervertebral disc disorders with radiculopathy, lumbar region] 03-02-2021 Episodic Sprains and strains (2 sources) Rupture of tendon of biceps, long head; Translations: [Strain of muscle, fascia and tendon of long head of biceps, left arm, initial encounter] 04-21-2023 Episodic Substance-related disorders (20 sources) Nicotine dependence; Translations: [Nicotine dependence, cigarettes, uncomplicated] Onset: 12-24-2020 Chronic Substance-related disorders (1 source) Cigarette smoker ; Translations: [Cigarette Smoker] Episodic Viral infection (2 sources) Disease caused by 2019-nCoV; Translations: [COVID-19] 06-24-2023 Episodic Past or Other Problems Problem Classification Problem Date Documented Da te Episodic/Chronic Cardiac dysrhythmias (8 sources) Intermittent palpitations; Translations: [Palpitations] Onset: 05-31-2024 Episodic Genitourinary congenital anomalies (2 sources) H/O: urinary anomaly; Translations: [History of nocturia] Episodic Other circulatory disease (1 source) Personal history of other diseases of the circulatory system; Translations: [Personal history of other diseases of the circulatory system] Onset: 04-12-2018 Episodic Other gastrointestinal disorders (1 source) Right upper quadrant abdominal swelling, mass and lump; Translations: [RUQ abdominal mass] Onset: 06-22-2022 Episodic Other gastrointestinal disorders (1 source) Change in bowel habit; Translations: [Change in bowel habit] Onset: 01-24-2024 Episodic Unclassified (4 sources) Patient encounter status; Translations: [Encounter for screening for lung cancer] NEGATED: Highlighted row has not occurred!Residual codes; unclassified (20 sources) Disease Episodic Results Test Name Value Interpretation Reference Range Facility Absolute lymphocyte countOrd ered By: Dianne Chris on 12-05-2024 Lymphocytes Auto (Unsp spec) [#/Vol] 2.25 10*3/uL 0.83-4.51 [facility] Absolute neutrophil countOrd ered By: Dianne Chris on 12-05-2024 Neutrophils (Bld) [#/Vol] 3.0 10*3/uL 2.0-7.7 [facility] Anion gap in Serum or Plasma Ordered By: Dianne Chris on 12-05-2024 Anion gap [Moles/Vol] 9 mmol/L 5-15 [facility] Automated lymphocyte count a s percentage of total leukocytesOrdered By: Dianne Chris on 12-05-2024 Lymphocytes/100 WBC Auto (Unsp spec) 36.4 % - [facility] BUN/creatinine ratioOrdered By: Dianne Chris on 12-05-2024 Urea nitrogen/Creatinine [Mass ratio] 19.1 mg/mg 10-20 [facility] Basophil percentageOrdered B y: Dianne Chris on 12-05-2024 Basophils/100 WBC (Bld) 0.3 % 0-1 [facility] Bilirubin, totalOrdered By: Dianne Chris on 12-05-2024 Bilirubin [Mass/Vol] 0.56 mg/dL 0.00-1.30 [facility] CBC W/Diff, Automatedon Absolute Lymph 2.25 X10 3/uL Normal 0.83-4.51 [facility] Comment on above: Performed By: #### L 100.0100, L501.44081, L506.0400, L501.5200, L500.4050, L500.4100, L501.9520, L501.9910, L506.1001 #### [facility] [address] [place], [place], [phone] ([phone] Absolute Neut 3.0 X10 3/uL Normal 2.0-7.7 [facility] Comment on above: Performed By: #### L 100.0100, L501.40870, L506.0400, L501.5200, L500.4050, L500.4100, L501.9520, L501.9910, L506.1001 #### [facility] [address] [facility] [facility] [place], [place], [phone] (319 Basophils/100 WBC (Bld) 0.3 % Normal 0-1 [facility] Comment on above: Performed By: #### L 100.0100, L501.58702, L506.0400, L501.5200, L500.4050, L500.4100, L501.9520, L501.9910, L506.1001 #### [facility] [address] [facility] [facility] [place], [place], [id number] (045 Eosinophils/100 WBC (Bld) 0.8 % Normal 0-5 [facility] Comment on above: Performed By: #### L 100.0100, L501.14768, L506.0400, L501.5200, L500.4050, L500.4100, L501.9520, L501.9910, L506.1001 #### [facility] [address] [facility] [facility] [place], [place], [phone] (262 Erythrocyte distribution width (RBC) [Ratio] 13.1 % Normal 11.6-14.6 [facility] Comment on above: Performed By: #### L 100.0100, L501.90705, L506.0400, L501.5200, L500.4050, L500.4100, L501.9520, L501.9910, L506.1001 #### [facility] [address] [place], [address] Hematocrit (Bld) [Volume fraction] 43.2 % Normal 40-54 [facility] Comment on above: Performed By: #### L 100.0100, L501.40117, L506.0400, L501.5200, L500.4050, L500.4100, L501.9520, L501.9910, L506.1001 #### [facility] [address] [place], [address] Hemoglobin (Bld) [Mass/Vol] 14.0 g/dL Normal 13.0-16.5 [facility] Comment on above: Performed By: #### L 100.0100, L501.74871, L506.0400, L501.5200, L500.4050, L500.4100, L501.9520, L501.9910, L506.1001 #### [facility] [address] [place], [address] IG% 0.200 Normal 0.0-0.9 [facility] Comment on above: Result Comment: IG% - Immature Granulocytes (promyelocytes, myelocytes and metamyelocytes) > 1% indicates that a LEFT SHIFT is Present. Performed By: #### L 100.0100, L501.72237, L506.0400, L501.5200, L500.4050, L500.4100, L501.9520, L501.9910, L506.1001 #### [facility] [address] [place], [address] Lymphocytes/100 WBC (Bld) 36.4 % Normal 19-41 [facility] Comment on above: Performed By: #### L 100.0100, L501.49820, L506.0400, L501.5200, L500.4050, L500.4100, L501.9520, L501.9910, L506.1001 #### [facility] [address] [place], [address] MCH (RBC) [Entitic mass] 29.4 pg Normal 27.0-32.0 [facility] Comment on above: Performed By: #### L 100.0100, L501.19350, L506.0400, L501.5200, L500.4050, L500.4100, L501.9520, L501.9910, L506.1001 #### [facility] [address] [place], [address] MCHC (RBC) [Mass/Vol] 32.4 g/dL Normal 32-36 [facility] Comment on above: Performed By: #### L 100.0100, L501.65437, L506.0400, L501.5200, L500.4050, L500.4100, L501.9520, L501.9910, L506.1001 #### [facility] [address] [place], [address] MCV (RBC) [Entitic vol] 90.8 fL Normal 80-94 [facility] Comment on above: Performed By: #### L 100.0100, L501.01537, L506.0400, L501.5200, L500.4050, L500.4100, L501.9520, L501.9910, L506.1001 #### [facility] [address] [place], [address] Monocytes/100 WBC (Bld) 14.6 % High 0-10 [facility] Comment on above: Performed By: #### L 100.0100, L501.11711, L506.0400, L501.5200, L500.4050, L500.4100, L501.9520, L501.9910, L506.1001 #### [facility] [address] [place], [address] Neutrophils/100 WBC (Bld) 47.7 % Normal 47-70 [facility] Comment on above: Performed By: #### L 100.0100, L501.61252, L506.0400, L501.5200, L500.4050, L500.4100, L501.9520, L501.9910, L506.1001 #### [facility] [address] [place], [address] Nucleated RBC (Bld) [#/Vol] 0 10*3/uL Normal 0-5 [facility] Comment on above: Performed By: #### L 100.0100, L501.30695, L506.0400, L501.5200, L500.4050, L500.4100, L501.9520, L501.9910, L506.1001 #### [facility] [address] [place], [address] Platelet mean volume (Bld) [Entitic vol] 9.9 fL Normal 6.2-12.0 [facility] Comment on above: Performed By: #### L 100.0100, L501.96341, L506.0400, L501.5200, L500.4050, L500.4100, L501.9520, L501.9910, L506.1001 #### [facility] [address] [place], [address] Platelets (Bld) [#/Vol] 159 10*3/uL Normal 150-450 [facility] Comment on above: Performed By: #### L 100.0100, L501.65174, L506.0400, L501.5200, L500.4050, L500.4100, L501.9520, L501.9910, L506.1001 #### [facility] [address] [place], [address] RBC (Bld) [#/Vol] 4.76 10*6/uL Normal 4.6-6.2 [facility] Comment on above: Performed By: #### L 100.0100, L501.64114, L506.0400, L501.5200, L500.4050, L500.4100, L501.9520, L501.9910, L506.1001 #### [facility] [address] [place], [address] RDW SD 43.6 fl Normal 35.1-43.9 [facility] Comment on above: Performed By: #### L 100.0100, L501.82692, L506.0400, L501.5200, L500.4050, L500.4100, L501.9520, L501.9910, L506.1001 #### [facility] [address] [facility] [place], [place], [id number] WBC (Bld) [#/Vol] 6.2 10*3/uL Normal 4.4-11.0 [facility] Comment on above: Performed By: #### L 100.0100, L501.69235, L506.0400, L501.5200, L500.4050, L500.4100, L501.9520, L501.9910, L506.1001 #### [facility] [address] [facility] [place], [place], [id number] Calculated very low density lipoprotein (VLDL) cholesterol measurementOrdered By: Dianne Chris on 12-05-2024 Calculated very low density lipoprotein (VLDL) cholesterol measurement 10 mg/dL 5-40 [facility] Carbon dioxide, total [Moles /volume] in Central venous bloodOrdered By: Dianne Chris on 12-05-2024 CO2 [Moles/Vol] 24.3 mmol/L 21.0-32.0 [facility] Chloride assayOrdered By: Irma Chris on 12-05-2024 Chloride [Moles/Vol] 105 mmol/L 98-108 [facility] Comprehensive Metabolic Prof ilon 12-05-2024 Albumin [Mass/Vol] 3.9 g/dL Normal 3.4-4.8 [facility] Comment on above: Performed By: #### L 100.0100, L501.58740, L506.0400, L501.5200, L500.4050, L500.4100, L501.9520, L501.9910, L506.1001 ####[facility] [address] [place], [address] Albumin/Globulin [Mass ratio] 1.5 {ratio} Normal 0.9-2.4 [facility] Comment on above: Performed By: #### L 100.0100, L501.67613, L506.0400, L501.5200, L500.4050, L500.4100, L501.9520, L501.9910, L506.1001 ####[facility] [address] [place], [address] ALK PHOS 50 U/L Normal 40-129 [facility] Comment on above: Performed By: #### L 100.0100, L501.83046, L506.0400, L501.5200, L500.4050, L500.4100, L501.9520, L501.9910, L506.1001 ####[facility] [address] [place], [address] ALT [Catalytic activity/Vol] 19 U/L Normal <=46 [facility] Comment on above: Performed By: #### L 100.0100, L501.15869, L506.0400, L501.5200, L500.4050, L500.4100, L501.9520, L501.9910, L506.1001 ####[facility] [address] [place], [address] AST [Catalytic activity/Vol] 29 U/L Normal <=37 [facility] Comment on above: Performed By: #### L 100.0100, L501.68696, L506.0400, L501.5200, L500.4050, L500.4100, L501.9520, L501.9910, L506.1001 ####[facility] [address] [place], [address] Bilirubin [Mass/Vol] 0.56 mg/dL Normal 0.00-1.30 [facility] Comment on above: Performed By: #### L 100.0100, L501.02551, L506.0400, L501.5200, L500.4050, L500.4100, L501.9520, L501.9910, L506.1001 ####[facility] [address] [place], [address] BUN/CRE 19.1 RATIO Normal 10-20 [facility] Comment on above: Performed By: #### L 100.0100, L501.33378, L506.0400, L501.5200, L500.4050, L500.4100, L501.9520, L501.9910, L506.1001 ####[facility] [address] [place], [address] Calcium [Mass/Vol] 8.9 mg/dL Normal 7.6-11.0 [facility] Comment on above: Performed By: #### L 100.0100, L501.23649, L506.0400, L501.5200, L500.4050, L500.4100, L501.9520, L501.9910, L506.1001 ####[facility] [address] [place], [address] Chloride [Moles/Vol] 105 mmol/L Normal 98-108 [facility] Comment on above: Performed By: #### L 100.0100, L501.68607, L506.0400, L501.5200, L500.4050, L500.4100, L501.9520, L501.9910, L506.1001 ####[facility] [address] [place], [place], [phone]) CO2 [Moles/Vol] 24.3 mmol/L Normal 21.0-32.0 [facility] Comment on above: Performed By: #### L 100.0100, L501.58713, L506.0400, L501.5200, L500.4050, L500.4100, L501.9520, L501.9910, L506.1001 ####[facility] [address] [place], [place], [id number]43) Creatinine [Mass/Vol] 0.81 mg/dL Normal 0.70-1.20 [facility] Comment on above: Performed By: #### L 100.0100, L501.78796, L506.0400, L501.5200, L500.4050, L500.4100, L501.9520, L501.9910, L506.1001 ####[facility] [address] [place], [place], [id number](612) GAP 9 Normal 5-15 [facility] Comment on above: Performed By: #### L 100.0100, L501.39477, L506.0400, L501.5200, L500.4050, L500.4100, L501.9520, L501.9910, L506.1001 ####[facility] [address] [place], [place], [phone](268) GFR/1.73 sq M.predicted among non-blacks MDRD (S/P/Bld) [Vol rate/Area] 98 mL/min/{1.73_m2} Normal >60 [facility] Comment on above: Result Comment: mL/m in/1.73m2 CKD-EPI Creatinine Equation (2020) Performed By: #### L 100.0100, L501.39038, L506.0400, L501.5200, L500.4050, L500.4100, L501.9520, L501.9910, L506.1001 ####[facility] [address] [place], [address] Globulin (S) [Mass/Vol] 2.6 g/dL Normal 2.2-4.2 [facility] Comment on above: Performed By: #### L 100.0100, L501.53238, L506.0400, L501.5200, L500.4050, L500.4100, L501.9520, L501.9910, L506.1001 ####[facility] [address] [place], [address] Glucose [Mass/Vol] 96 mg/dL Normal 70-99 [facility] Comment on above: Performed By: #### L 100.0100, L501.88478, L506.0400, L501.5200, L500.4050, L500.4100, L501.9520, L501.9910, L506.1001 ####[facility] [address] [place], [address] Potassium [Moles/Vol] 4.2 mmol/L Normal 3.3-5.1 [facility] Comment on above: Performed By: #### L 100.0100, L501.57032, L506.0400, L501.5200, L500.4050, L500.4100, L501.9520, L501.9910, L506.1001 ####[facility] [address] [place], [address] Sodium [Moles/Vol] 139 mmol/L Normal 133-145 [facility] Comment on above: Performed By: #### L 100.0100, L501.41844, L506.0400, L501.5200, L500.4050, L500.4100, L501.9520, L501.9910, L506.1001 ####[facility] [address] [place], [place], [id number] T PROT 6.4 g/dL Normal 5.9-8.4 [facility] Comment on above: Performed By: #### L 100.0100, L501.58507, L506.0400, L501.5200, L500.4050, L500.4100, L501.9520, L501.9910, L506.1001 ####[facility] [address] [place], [place], [id number] Urea nitrogen [Mass/Vol] 15 mg/dL Normal 4-19 [facility] Comment on above: Performed By: #### L 100.0100, L501.68117, L506.0400, L501.5200, L500.4050, L500.4100, L501.9520, L501.9910, L506.1001 ####[facility] [address] [facility] [place], [place], [phone] Eosinophil percentageOrdered By: Dianne Chris on 12-05-2024 Eosinophils/100 WBC (Bld) 0.8 % 0-5 [facility] Erythrocyte distribution wid th ratioOrdered By: Dianne Chris on 12-05-2024 Erythrocyte distribution width (RBC) [Ratio] 13.1 % 11.6-14.6 [facility] Erythrocyte distribution wid th standard deviationOrdered By: Dianne Chris on 12-05-2024 Erythrocyte distribution width (RBC) [Ratio] 43.6 fl 35.1-43.9 [facility] Free T3on 12-05-2024 Free T3 [Mass/Vol] 2.7 pg/mL Normal 2.18-3.98 [facility] Comment on above: Performed By: #### L 100.0100, L501.26298, L506.0400, L501.5200, L500.4050, L500.4100, L501.9520, L501.9910, L506.1001 ####[facility] [address] [place], [address] Free O3Acdlnei By: Dianne lin on 12-05-2024 Free T3 [Mass/Vol] 2.7 pg/mL 2.18-3.98 [facility] Glomerular filtration rate ( GFR) estimation/1.73 sq m using serum, plasma, or whole bOrdered By: Dianne Chris on 12-05-2024 GFR/1.73 sq M.predicted among non-blacks MDRD (S/P/Bld) [Vol rate/Area] 98 mL/min/{1.73_m2} >60 [facility] Comment on above: mL/min/1.73m2 CKD-EP I Creatinine Equation (2020) Hematocrit Auto (Bld) [Volum e fraction]Ordered By: Dianne Chris on 12-05-2024 Hematocrit (Bld) [Volume fraction] 43.2 % 40-54 [facility] Hemoglobin measurementOrdere d By: Dianne Chris on 12-05-2024 Hemoglobin (Bld) [Mass/Vol] 14.0 g/dL 13.0-16.5 [facility] Immature granulocytes/100 WB C Auto (Bld)Ordered By: Dianne Chris on 12-05-2024 Immature granulocytes/100 WBC (Bld) 0.200 % 0.0-0.9 [facility] Comment on above: IG% - Immature Granu locytes (promyelocytes, myelocytes and metamyelocytes) > 1% indicates that a LEFT SHIFT is Present. LDL calc ser/plasOrdered By: Dianne Chris on 12-05-2024 Cholesterol in LDL [Mass/Vol] 55 mg/dL [facility] Comment on above: Cobvmhypql=853-345 m g/dL & Higher Dudf=380 mg/dL or greater Laboratory - Chemistry and C hemistry - challengeOrdered By: Dianne Chris on 12-05-2024 AST [Catalytic activity/Vol] 29 U/L <38 [facility] Lipid Profileon 12-05-2024 CHOL:HDL 2.14 Normal [facility] Comment on above: Performed By: #### L 100.0100, L501.95877, L506.0400, L501.5200, L500.4050, L500.4100, L501.9520, L501.9910, L506.1001 #### [facility] [address] [place], [address] Cholesterol [Mass/Vol] 123 mg/dL Normal <=200 [facility] Comment on above: Result Comment: Chol esterol level, Desirable <200 mg/dL Borderline high cholesterol 200-239 mg/dL High cholesterol >=240 mg/dL Recommendations of the NCEP Adult Treatment Panel for the following risk-cutoff thresholds for the [place] population. Performed By: #### L 100.0100, L501.39623, L506.0400, L501.5200, L500.4050, L500.4100, L501.9520, L501.9910, L506.1001 #### [facility] [address] [place], [address] Cholesterol in HDL [Mass/Vol] 58 mg/dL Normal [facility] Comment on above: Result Comment: Noreen onal Cholesterol Education Program (NCEP) guidelines: <40 mg/dL: Low HDL-cholesterol (major risk factor for CHD) >= 60 mg/dL: High HDL-cholesterol (negative risk factor for CHD) HDL-cholesterol is affected by a number of factors, e.g. smoking, exercise, hormones, sex and age. Performed By: #### L 100.0100, L501.46889, L506.0400, L501.5200, L500.4050, L500.4100, L501.9520, L501.9910, L506.1001 #### [facility] [address] [place], [address] Cholesterol in LDL [Mass/Vol] 55 mg/dL Normal [facility] Comment on above: Result Comment: Bord ywujzz=779-511 mg/dL Higher Rriq=308 mg/dL or greater Performed By: #### L 100.0100, L501.99708, L506.0400, L501.5200, L500.4050, L500.4100, L501.9520, L501.9910, L506.1001 #### [facility] [address] [place], [place], [id number] Cholesterol in VLDL [Mass/Vol] 10 mg/dL Normal 5-40 [facility] Comment on above: Performed By: #### L 100.0100, L501.84455, L506.0400, L501.5200, L500.4050, L500.4100, L501.9520, L501.9910, L506.1001 #### [facility] [address] [place], [place], [id number] Triglyceride [Mass/Vol] 52 mg/dL Normal [facility] Comment on above: Result Comment: The drugs N-Acetylcysteine and Metamizole may falsely depress this assay. Normal range: <150 mg/dL Borderline High: 150-199 mg/dL High: 200-499 mg/dL Very High: >500 mg/dL Performed By: #### L 100.0100, L501.00407, L506.0400, L501.5200, L500.4050, L500.4100, L501.9520, L501.9910, L506.1001 #### [facility] [address] [place], [place], [id number] MCV (mean corpuscular volume ) determinationOrdered By: Dianne Chris on 12-05-2024 MCV (RBC) [Entitic vol] 90.8 fL 80-94 [facility] Magnesiumon 12-05-2024 Magnesium [Mass/Vol] 2.0 mg/dL Normal 1.5-2.2 [facility] Comment on above: Performed By: #### L 100.0100, L501.75327, L506.0400, L501.5200, L500.4050, L500.4100, L501.9520, L501.9910, L506.1001 ####[facility] [address] [place], [address] Magnesium measurement (mass/ volume)Ordered By: Dianne Chris on 12-05-2024 Magnesium (Unsp spec) [Mass/Vol] 2.0 mg/dL 1.5-2.2 [facility] Mean corpuscular hemoglobin (MCH) determinationOrdered By: Dianne Chris on 12-05-2024 MCH (RBC) [Entitic mass] 29.4 pg 27.0-32.0 [facility] Mean corpuscular hemoglobin concentration (MCHC) determinationOrdered By: Dianne Chris on 12-05-2024 MCHC (RBC) [Mass/Vol] 32.4 g/dL 32-36 [facility] Mean platelet volume determi nationOrdered By: Dianne Chrsi on 12-05-2024 Platelet mean volume (Bld) [Entitic vol] 9.9 fL 6.2-12.0 [facility] Monocyte percentageOrdered B y: Dianne Chris on 12-05-2024 Monocytes/100 WBC (Bld) 14.6 % High 0-10 [facility] Neutrophil percentageOrdered By: Diannejuni Chris on 12-05-2024 Neutrophils/100 WBC (Bld) 47.7 % 47-70 [facility] Nucleated red blood cell per centageOrdered By: Dianne Chris on 12-05-2024 Nucleated RBC/100 WBC (Bld) [Ratio] 0 % 0-5 [facility] PSA,Total - Annual Screenon 12-05-2024 PSA,TOT SCREEN 2.06 ng/mL Normal 0.02-4.00 [facility] Comment on above: Result Comment: This test was performed using the [employer] tPSA method. Measured values of a patient??sample can vary depending on the testing procedure used. PSA values determined on patient samples by different testing procedures cannot be used interchangeably. If there is a change in PSA assays while monitoring therapy, sequential testing should be performed to confirm baseline values. Performed By: #### L 100.0100, L501.60322, L506.0400, L501.5200, L500.4050, L500.4100, L501.9520, L501.9910, L506.1001 ####[facility] [address] [place], [address] Platelet countOrdered By: Imra Chris on 12-05-2024 Platelets (Bld) [#/Vol] 159 10*3/uL 150-450 [facility] Potassium measurement (mass/ volume)Ordered By: Dianne Chris on 12-05-2024 Potassium (Unsp spec) [Mass/Vol] 4.2 mmol/L 3.3-5.1 [facility] RBC Auto (Bld) [#/Vol]Ordere d By: Dianne Chris on 12-05-2024 RBC (Bld) [#/Vol] 4.76 10*6/uL 4.6-6.2 [facility] Screening total cholesterol/ high density lipoprotein (HDL) cholesterol ratioOrdered By: Dianne Chris on 12-05-2024 Cholesterol.total/Cece sterol in HDL [Mass ratio] 2.14 {ratio} [facility] Serum creatinine measurement (mass/volume)Ordered By: Dianne Chris on 12-05-2024 Creatinine [Mass/Vol] 0.81 mg/dL 0.70-1.20 [facility] Serum globulin measurementOr dered By: Dianne Chris on 12-05-2024 Globulin (S) [Mass/Vol] 2.6 g/dL 2.2-4.2 [facility] Serum glucose measurement (m ass/volume)Ordered By: Dianne Chris on 12-05-2024 Glucose [Mass/Vol] 96 mg/dL 70-99 [facility] Serum or plasma alanine broderick otransferase (ALT) measurementOrdered By: Dianne Chris on 12-05-2024 ALT [Catalytic activity/Vol] 19 U/L <47 [facility] Serum or plasma albumin debra urement (mass/volume)Ordered By: Dianne Chris on 12-05-2024 Albumin [Mass/Vol] 3.9 g/dL 3.4-4.8 [facility] Serum or plasma albumin/glob ulin mass ratioOrdered By: Dianne Chris on 12-05-2024 Albumin/Globulin [Mass ratio] 1.5 {ratio} 0.9-2.4 [facility] Serum or plasma alkaline milan sphatase measurementOrdered By: Dianne Chris on 12-05-2024 ALP [Catalytic activity/Vol] 50 U/L 40-129 [facility] Serum or plasma calcium debra urement (mass/volume)Ordered By: Dianne Chris on 12-05-2024 Calcium [Mass/Vol] 8.9 mg/dL 7.6-11.0 [facility] Serum or plasma cholesterol in HDL measurement (mass/volume)Ordered By: Dianne Chris on 12-05-2024 Cholesterol in HDL [Mass/Vol] 58 mg/dL >40 [facility] Comment on above: National Cholesterol Education Program (NCEP) guidelines:<40 mg/dL: Low HDL-cholesterol (major risk factor for CHD)>= 60 mg/dL: High HDL-cholesterol (negative risk factor for CHD)HDL-cholesterol is affected by a number of factors, e.g. smoking, exercise, hormones, sex and age. Serum or plasma cholesterol measurement (mass/volume)Ordered By: Dianne Chris on 12-05-2024 Cholesterol [Mass/Vol] 123 mg/dL <201 [facility] Comment on above: Cholesterol level, D esirable <200 mg/dLBorderline high cholesterol 200-239 mg/dLHigh cholesterol >=240 mg/dLRecommendations of the NCEP Adult Treatment Panel for the following risk-cutoff thresholds for the [place] population. Serum or plasma urea nitroge n measurement (mass/volume)Ordered By: Dianne Chris on 12-05-2024 Urea nitrogen [Mass/Vol] 15 mg/dL 4-19 [facility] Sodium levelOrdered By: Laurie Chris on 12-05-2024 Sodium [Moles/Vol] 139 mmol/L 133-145 [facility] T4 Free Directon 12-05-2024 T4 FREE DIRECT 1.00 ng/dL Normal 0.76-1.46 [facility] Comment on above: Performed By: #### L 100.0100, L501.99601, L506.0400, L501.5200, L500.4050, L500.4100, L501.9520, L501.9910, L506.1001 ####[facility] [address] [place], [address] T4 freeOrdered By: Dianne lin on 12-05-2024 Free T4 [Mass/Vol] 1.00 ng/dL 0.76-1.46 [facility] TSH DL <= 0.005 mIU/L QnOrde red By: Dianne Chris on 12-05-2024 TSH Qn 1.590 uIU/mL 0.300-4.200 [facility] Thyroid Stim Hormone (TSH)on 12-05-2024 TSH 1.590 uIU/mL Normal 0.300-4.200 [facility] Comment on above: Performed By: #### L 100.0100, L501.66175, L506.0400, L501.5200, L500.4050, L500.4100, L501.9520, L501.9910, L506.1001 ####[facility] [address] [place], [address] Total proteinOrdered By: Naina Chris on 12-05-2024 Protein [Mass/Vol] 6.4 g/dL 5.9-8.4 [facility] Triglycerides measurementOrd ered By: Dianne Chris on 12-05-2024 Triglyceride [Mass/Vol] 52 mg/dL <199 [facility] Comment on above: The drugs N-Acetylcy steine and Metamizole may falsely depress this assay. Normal range: <150 mg/dLBorderline High: 150-199 mg/dLHigh: 200-499 mg/dLVery High: >500 mg/dL Vitamin D,25 Hydroxyon 12-05 Vitamin D 25-OH 33.3 ng/mL Normal 30-100 [facility] Comment on above: Result Comment: Jennifer min D Status Deficiency: <20 ng/mL (50nmol/L) Insufficiency: 20-30 ng/mL (50-75 nmol/L) Sufficiency: 30-100 ng/mL (75-250 nmol/L) Toxicity: >100 ng/mL (>250 nmol/L) Performed By: #### L 100.0100, L501.44538, L506.0400, L501.5200, L500.4050, L500.4100, L501.9520, L501.9910, L506.1001 ####[facility] [address] [place], [address] White blood cell (WBC) count Ordered By: Dianne Chris on 12-05-2024 WBC (Bld) [#/Vol] 6.2 10*3/uL 4.4-11.0 [facility] MR/[facility]MS[facility] 11-28-2024 MR/BMS.[facility] [address] [place] [address] OFFICE VISIT Date of Service: 11/28/24 MR#: [id number] Acct: [id number] Name: GERRY TRAVIS Rep #: [id number] : 1960 Provider: Dr. Dianne cruz MD Age/Sex: 64/M Location: 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 Accompanied by: Self Is patient in pain?: No Allergies latex Adverse Reaction (Verified 11/28/24 14:28) Dryness, redness Medications ???Medication ???Instructions ???Recorded ???Confirmed ???Type ascorbate calcium (vitamin C) 500 500 mg PO BID 02/24/22 11/28/24 H istory mg tablet cholecalciferol (vitamin D3) 50 50 mcg PO DAILY 02/24/22 11/28/24 History mcg (2,000 unit) capsule saw palmetto 160 mg capsule 160 mg PO BID 02/24/22 11/28/24 Hi story zinc acetate 50 mg (zinc) capsule 50 mg PO .QOD 02/24/22 11/28/24 H istory (Galzin) umeclidinium 62.5 mcg-vilanterol 1 inh inhalation Q24H #3 device 11/28/24 Rx 25 mcg/actuation powdr for inhalation (Anoro Ellipta) levalbuterol tartrate 45 2 inh inhalation Q4-6H PRN 4 11/28/24 Rx mcg/actuation aerosol inhaler shortness of breath or wheezing #15 grams losartan 25 mg tablet 12.5 mg (1/2 x 25 mg) PO DAILY #45 05/16/24 11/28/24 Rx tabs metoprolol succinate 25 mg 25 mg PO DAILY #90 TABLETS 5 11/28/24 Rx tablet,extended release 24 hr Have you fallen in the past year?: Yes (11/26/24, lost balance ) [facility] Medical History Smoker Rupture of left long head biceps tendon Periodontal disease History of Mohs micrographic surgery for skin cancer Basal cell carcinoma of nose Wears glasses Back pain Former smoker CPAP (continuous positive airway pressure) dependence Sleep apnea Emphysema, unspecified Shortness of breath on exertion COPD (chronic obstructive pulmonary disease) History of echocardiogram History of Holter monitoring Cardiology follow-up encounter History of irregular heartbeat History of repaired hypospadias Ventral hernia Inguinal hernia of left side without obstruction or gangrene Non-ischemic cardiomyopathy Essential hypertension 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 complication Herniation of lumbar intervertebral disc with radiculopathy Surgical History History of mandibular surgery ( 12/23/23) S/P inguinal hernia repair Hx of knee surgery History of left heart catheterization (11/23/17) Family History Mother Hypertension High cholesterol Father Hypertension Heart failure High cholesterol Social History Smoking Status: Current every day smoker tobacco type: cigarettes alcohol intake: never substance use type: does not use HPI HPI Chief Complaint: Annual/Physical Details: GERRY TRAVIS, is a 64 M who presents to the office today for annual follow-up. Patient is a pleasant 64-year-old gentleman has a history of hypertension, well-controlled on losartan 12.5 mg daily and metoprolol 25 mg daily. He takes gajo-maw-tiacmuj saw palmetto, and does have also mild COPD on Anoro Ellipta and as needed albuterol. He takes several supplements also as per the chart. Generally speaking has been doing quite well since his last visit. He had been doing somewhat more physical activity. 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 In any event, he initially felt he would have more time for regular regimented activities however his mother had passed relatively recently and they are just now finishing up on getting her condo ready for sale. He does have the intensity going back to his regular regimented physical fitness. He has basically a small gym in his basement where he has all of the equipment. He has maintained at a lower level, physical fitness, doing approximately 10 minutes or so on elliptical, some stretching and inversion table. He intends to get back to more of a regimented cardiovascular program that he previously was doing. Review of systems per chart. He denies episodes of chest pain, chest tightness, shortness of breath wheeze cough or congestion at this time. No nausea or vomiting. Appetites been good. States hi (more content not included)... Normal [facility] Pulmonary Visit Reporton Pulmonary Visit Report [facility] [place] [address] [place] [address] OFFICE VISIT Date of Service: 03/28/24 MR#: [id number] Acct: [id number] Name: GERRY TRAVIS Rep #: [id number] : 1960 Provider: MARY Calvo Age/Sex: 63/M Location: [facility] Status: Signed Assessment and Plan Assessment and Plan (1) OSIEL on CPAP: Status: Chronic Plan: Stable, he is using and benefiting from Pap therapy. No indication for titration study at this time. Contact the office for any new or worsening symptoms in the meantime. Follow-up in 1 year. (2) Stage 1 mild COPD by GOLD classification: Status: Chronic Plan: Stable, he does not appear to be an exacerbation of COPD today. No need for prednisone or antibiotic. Continue current maintenance medication, symptomatically managed with the use of Anoro. Plan to repeat almanac function test and a walking oximetry prior to his annual follow-up. Contact the office for any new or worsening symptoms. An acute visit and typically be arranged within 1-2 days. Follow-up in 1 year. (3) Nicotine dependence, cigarettes, uncomplicated: Status: Chronic Plan: Encourage complete smoking cessation. I did encourage the patient to try with an cinnamon sticks to supplement a psychological hand to mouth addiction. He conveys understanding. Remains appropriate for LDCT which will be due in February 2025, ordered accordingly. Follow-up in 1 year. Orders: Orders Low Dose CT Lung Screening 02/04/25 F17.200 - Nicotine dependence, unspecified, uncomplicated Pulmonary Function Test (Comp) 02/04/25 J44.9 - Chronic obstructive pulmonary disease, unspecified Simple Pulmonary Exercise Test 02/04/25 J44.9 - Chronic obstructive pulmonary disease, unspecified Medications: New albuterol sulfate 90 mcg/actuation (ProAir RespiClick) administer with spacer 2 inhalations inhalation Q4H PRN 1 ea 6RF shortness of breath or wheezing Discontinued albuterol sulfate 90 mcg/actuation administer with spacer Discontinued Reason: Order Changed 2 puffs inhalation Q4H PRN 8.5 grams 6RF shortness of breath or wheezing Plan Details Follow Up: 1 Year ([facility]) HPI 1 Y FU Chief Complaint: Routine follow-up HPI Comments Details: This patient presents to the office today for follow-up of his obstructive sleep apnea and mild COPD. He is ambulatory and currently on room air. He has not recently been seen in the ED or urgent care for respiratory illness. He has not required any antibiotics or prednisone for any breathing problems. He is compliant with use of Anoro 1 puff daily. He rarely needs his albuterol rescue inhaler. He does have shortness of breath on exertion. He denies any cough, sputum production or hemoptysis. He denies any wheezing, chest tightness, chest pain or palpitations. He also denies any fever, chills or body aches. He wakes up feeling rested and refreshed. He also denies morning headache. He is not having dry mouth. He denies requiring naps. He is not nodding off to sleep unintentionally. He is not having excessive nocturia. He continues to smoke 1/2 pack/day of filtered cigars. He admits that he is having difficulty quitting. He states I have tried everything, including Chantix, nicotine patches, nicotine gum and Wellbutrin. Compliance report for the past 30 days shows 100% compliance with an average use of 8 hours and 5 minutes per night. Current setting is 5 to 15 cm of water utilizing an average of 5.7-8.2 cm of water. Residual AHI 0.7 events per hour. Leaks do not appear to be problematic. Test results personally viewed with the patient: Low-dose CT lung screening completed on February 13, 2024. No new suspicious nodules. Stable 4 mm right middle lobe nodule. Recommendation is continue screening with LDCT in 12 months. Intake Vital Signs 12/14/23 13:53 01/09/24 06:30 03/28/24 07:42 Height 5 ft 11 in 5 ft 11 in 5 ft 11 in Weight: 165 lb BMI 23.0 BP 105/61 Blood Pressure Location Rt brachial Position Sitting Respiration 18 Pulse 49 L Pulse Source Monitor Temp 97.1 F L Temperature Source Temporal Artery Pulse Oximetry (%) 96 Oxygen Delivery Method room air Comment Patient declined to be weighed- stated weighed self this morning Intake Visit Reasons: 1 Y FU Chief Complaint: [place] [facility] Vendor: Emily Accompanied by: Self Allergies latex Adverse Reaction (Verified 03/28/24 11:42) Dryness, redness Medications ???Medication ???Instructions ???Recorded ???Confirmed ???Type ascorbate calcium (vitamin C) 500 500 mg PO BID 02/24/22 03/28/24 History mg tablet cholecalciferol (vitamin D3) 50 50 mcg PO DAILY 02/24/22 03/28/24 History mcg (2,000 unit) capsule saw palmetto 160 mg capsule 160 mg PO BID 02/24/22 (more content not included)... Normal [facility] Cardiology Visit Reporton Cardiology Visit Report [facility] [address] [place] [address] OFFICE VISIT Date of Service: 03/14/24 MR#: [id number] Acct: [id number] Name: GERRY TRAVIS Rep #: [id number] : 1960 Provider: MARY swanson Age/Sex: 63/M [place] [facility] [place]: Signed HPI HPI History of Present Illness Details: This is a 63-year-old man who presents to the office today for a cardiovascular follow-up visit. He has a previous history of nonischemic cardiomyopathy. He underwent a cardiac catheterization in November 2017 and at that time it demonstrated normal coronary arteries with an estimated ejection fraction of 30%. He was started on an ARB as well as beta-tyshawn and has done well since. In 2018 he underwent a MUGA test which demonstrated normal biventricular function with an estimated left ventricular ejection fraction of 50%. He did have a 24 hour Holter monitor in March of 2022 which demonstrated normal sinus rhythm with average heart rate of 66 bpm, a minimum heart rate of 37 bpm at 6:36 AM, and a maximum heart rate of 124 bpm at 9:47 AM. VE 11.6%, SVE 1.0%, and atrial fibrillation 0.0%. From a cardiac standpoint, the patient is doing well. He does have a rare palpitation. He denies chest pain, pressure or heaviness. He does have occasional SOB-this is nothing new or worsening. He denies Orthopnea, and PND. He does not have bleeding issues; no blood in urine, stool or nosebleeds. He denies any decrease in energy level, myalgias, or claudication. He does not have edema, or sudden weight gain. He denies dizziness, lightheadedness, syncopal or near syncopal episodes, and headaches. Intake Vital Signs 03/10/23 15:57 01/09/24 06:30 03/14/24 09:27 Height 6 ft 5 ft 11 in 5 ft 11 in Weight: 164 lb BMI 22.8 BP 98/63 Blood Pressure Location Lt brachial Position Sitting Respiration 16 Pulse 59 L Pulse Source NIBP Intake Visit Reasons: 1 Y FU Allergies latex Adverse Reaction (Verified 03/14/24 09:46) Dryness, redness Medications ???Medication ???Instructions ???Recorded ???Confirmed ???Type ascorbate calcium (vitamin C) 500 500 mg PO BID 02/24/22 03/14/24 History mg tablet cholecalciferol (vitamin D3) 50 50 mcg PO DAILY 02/24/22 03/14/24 History mcg (2,000 unit) capsule saw palmetto 160 mg capsule 160 mg PO BID 02/24/22 03/14/24 History zinc acetate 50 mg (zinc) capsule 50 mg PO .QOD 02/24/22 03/14/24 History (Galzin) albuterol sulfate 90 mcg/actuation 2 puff inhalation Q4H PRN 03/09/23 03/14/24 Rx aerosol inhaler shortness of breath or wheezing #8.5 grams umeclidinium 62.5 mcg-vilanterol 1 inh inhalation Q24H #3 device 03/09/23 03/14/24 Rx 25 mcg/actuation powdr for inhalation (Anoro Ellipta) losartan 25 mg tablet 12.5 mg (1/2 x 25 mg) PO DAILY #90 03/10/23 03/14/24 Rx tabs metoprolol succinate 25 mg 25 mg PO DAILY #30 tabs 10/26/23 03/14/24 Rx tablet,extended release 24 hr PFSH Medical History Smoker Rupture of left long head biceps tendon Periodontal disease History of Mohs micrographic surgery for skin cancer Basal cell carcinoma of nose Wears glasses Back pain Former smoker CPAP (continuous positive airway pressure) dependence Sleep apnea Emphysema, unspecified Shortness of breath on exertion COPD (chronic obstructive pulmonary disease) History of echocardiogram History of Holter monitoring Cardiology follow-up encounter History of irregular heartbeat History of repaired hypospadias Ventral hernia Inguinal hernia of left side without obstruction or gangrene Non-ischemic cardiomyopathy Essential hypertension 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 complication Herniation of lumbar intervertebral disc with radiculopathy Surgical History History of mandibular surgery ( 12/23/23) S/P inguinal hernia repair Hx of knee surgery History of left heart catheterization (11/23/17) Family History Mother Hypertension High cholesterol Father Hypertension Heart failure High cholesterol Social History Smoking Status: Current every day smoker tobacco type: cigarettes alcohol intake: never substance use type: does not use ROS Const Const: Negative for fatigue, weakness, fever(s), headache(s), chills, frequent falls, weight gain or weight loss Eyes Eyes: Negative for blind spots, loss of peripheral vision, transient loss of vision, blurry vision, change in vision, double vision, floaters or tunnel vision ENT ENT: Negative for headache(s), dizziness, Nosebleed/epistaxis, balance problems or neck pain Cardio (more content not included)... Normal [facility] Low Dose CT Lung Screeningon 02-08-[address] Lung Screening [facility] Imaging Services [address] [place] [id number] Lung Screening MR#: [id number] Acct: [id number] Name: GERRY TRAVIS Rep #: [id number] : 1960 M 63 From: Ysabel dick MD PCP: Dr. Dianne Chris MD Status: [facility] Study: Low Dose CT Lung Screening Date of Exam: 02/07 Exam# [id number] Ordering Dr: Quinn Loyd DO [id number] HISTORY: Tobacco Dependency. TECHNIQUE: Helically acquired images were obtained of the chest without contrast. A radiation dose optimization technique was used for this scan. 881 images. COMPARISON: 02/02/2023, 01/13/2022. FINDINGS: LARGE AIRWAYS: Patent. LUNGS: Hyperinflation with biapical bullae and chronic scarring. Stable 4 mm right middle lobe nodule on image 208/305. Lower lobe scarring. No new suspicious nodule or acute alveolar consolidation. PLEURA: No pneumothorax or significant pleural effusion. HEART/PERICARDIUM: Heart within normal limits in size with coronary artery calcification. No pericardial effusion. VESSELS: Thoracic aorta nondilated. Mild atherosclerosis. MEDIASTINUM/KARIS: No pathologically enlarged adenopathy. BONES: Degenerative change. CT/Low Dose CT Lung Screening IMPRESSION: Lung-RADS category 2: Continue annual screening with low dose CT. Electronically Signed: Ysabel Barahona MD at 8:16 EDT Reading Location ID and State: [facility] / [place] Tel , Service support , CC: Dr. Quinn Loyd DO; Dr. 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 Values obtained with different assay methods cannot be used interchangably. When changing PSA assays in the course of monitoring a patient, additional sequential testing should be carried out to confirm baseline values. Performed By: #### L 501.9940 ####[facility] [address] [place], [address] Colonoscopy Reporton 024 Colonoscopy Report [facility] Medical Records Department [address] [place] [address] Colonoscopy Report MR#: [id number] Acct: [id number] Name: GERRY TRAVIS Rep #: [id number] : 1960 63 From: Janneth Purcell MD PCP: Dr. Dianne Chris MD Status:[facility] Patient Name: Gerry Travis Procedure Date: 01/09/2024 7:00 AM Date of : 1960 Age: 63 Procedure: Colonoscopy Indications: Change in bowel habits Providers: Janneth Purcell MD Referring MD: Dianne Chris Medicines: Monitored Anesthesia Care Patient Profile: This is a 63 year old male. Last Colonoscopy: 2019. Complications: No immediate complications. Procedure: Pre-Anesthesia Assessment: - Prior to the procedure, a History and Physical was performed, and patient medications and allergies were reviewed. The patient's tolerance of previous anesthesia was also reviewed. The risks and benefits of the procedure and the sedation options and risks were discussed with the patient. All questions were answered, and informed consent was obtained. Prior Anticoagulants: The patient has taken no anticoagulant or antiplatelet agents. ASA Grade Assessment: Per anesthesia. After reviewing the risks and benefits, the patient was deemed in satisfactory condition to undergo the procedure. After I obtained informed consent, the scope was passed under direct vision. Throughout the procedure, the patient's blood pressure, pulse, and oxygen saturations were monitored continuously. The Colonoscope was introduced through the anus and advanced to the cecum, identified by appendiceal orifice and ileocecal valve. The colonoscopy was performed without difficulty. The patient tolerated the procedure well. The quality of the bowel preparation was good. Scope In: 7:26:52 AM Scope Withdrawal Time 0 hours 8 minutes 43 seconds Scope Out: 7:45:03 AM Total Procedure Duration Time 0 hours 18 minutes 11 seconds Findings: Hemorrhoids were found on perianal exam. Non-bleeding internal hemorrhoids were found. The hemorrhoids were Grade I (internal hemorrhoids that do not prolapse). A less than 5 mm polyp was found in the rectum. The polyp was sessile. The polyp was removed with a cold biopsy forceps. Resection and retrieval were complete. The exam was otherwise without abnormality. Impression: - Hemorrhoids found on perianal exam. - Non-bleeding internal hemorrhoids. - One less than 5 mm polyp in the rectum, removed with a cold biopsy forceps. Resected and retrieved. - The examination was otherwise normal. Recommendation: - Discharge patient to home. - Resume previous diet. - Continue present medications. - Await pathology results. - Repeat colonoscopy in 5 years for surveillance based on pathology results. Procedure Code(s): --- Professional --- 68609, Colonoscopy, flexible; with biopsy, single or multiple Diagnosis Code(s): --- Professional --- K64.0, First degree hemorrhoids D12.8, Benign neoplasm of rectum R19.4, Change in bowel habit CPT copyright 2021 [employer]. All rights reserved. The codes documented in this report are preliminary and upon skiver machine operator review may be revised to meet current compliance requirements. MD Janneth Flynn MD 01/09/2024 7:51:05 AM This report has been signed electronically. Number of Addenda: 0 Note Initiated On: 01/09/2024 7:00 AM 01/09/24750 Date Janneth Sinha Signature: Date (if indicated) CC: Dr. Dianne Chris MD; Dr. Janneth Purcell MD Date Dictated: 01/09/24 07 Date Transcribed: [employer] Drying Machine Operator: LYNDA Saenz [facility] MR/POSTOP.[facility] 01-09-2024 MR/POSTOP.[facility] Medical Records Department [address] [place] [address] Anesthesia Postop Eval I 01/09/24755 MR#: [id number] Acct: [id number] Name: GERRY TRAVIS Rep #: [id number] : 1960 63 From: Doug Shaw PCP: Dr. Dianne Chris MD Status[place] [facility] [place] C Location: [place] [address] Anesthesia: Postop Eval I Current Vital Signs Temperature: 97 F Pulse Rate: 46 Blood Pressure: 99/58 Respiratory Rate: 18 Pulse Ox: 99 Oxygen Delivery Method: Room Air Assessment Airway patent: Yes Spontaneous unlabored respirations: Yes Mental status: Awake and Calm nausea: No Vomiting: No Anesthesia Complication: No Fluid Hydration Crystalloid volume administer (ml): 500 Total IV fluid infused: 500 Progress Note Anesthesia document: Postop Eval 1 completed: Yes 01/09/24756 Date Doug Sinha Signature: Date CC: Signed Normal [facility] MR/[id number] 01-09-2024 MR/POSTOPAN2 [facility] Medical Records Department [address] [place] [address] Anesthesia Postop Eval II 01/09/24808 MR#: [id number] Acct: [id number] Name: GERRY TRAVIS Rep #: [id number] : 1960 63 From: Antonino Betancourt MD PCP: Dr. Dianne Chris MD Status:REG [facility] Y Race: C Location: [place] [address] Anesthesia Postop Eval I Sum Postop Eval Completion status Anesthesia document: Postop Eval 1 completed: Yes Anesthesia Postop Eval I Summary Anesthesia Postop Eval I Summary: Anesthesia Postop Eval I: Assessment Summary Airway patent Yes 01/09/24 07:57 [email or web address] Spontaneous unlabored Yes 01/09/24 07:57 [email or web address] respirations Mental status Awake,Calm 01/09/24 07:57 [email or web address] nausea No 01/09/24 07:57 [email or web address] Vomiting No 01/09/24 07:57 [email or web address] Anesthesia Postop Eval I: Fluid Summary Crystalloid volume administer 500 01/09/24 07:57 [email or web address] (ml) Colloids volume administered ( ml) Blood Product volume administered (ml) Total IV fluid infused 500 01/09/24 07:57 [email or web address] Anesthesia Postop Eval I: Summary Notes Anesthesia Complication No 01/09/24 07:57 [email or web address] Anesthesia Complication Comment: Post-operative progress note Anesthesia: Postop Eval II Evaluation Mental status: Awake Pain Level: 0 nausea: No Vomiting: No 01/09/24 08 Date Antonino Betancourt MD Cosigner Signature: Date CC: Signed Normal [facility] Surgery Specimen Level Ronald 01-09-2024 Surgery Specimen Level IV Patient Age/Sex Location Account Attending Physician GERRY TRAVIS 63/M EN [id number] Dr. Janneth Purcell MD Specimen: [id number] Received: 01/09/24 Status: LEON Felix Num: [id number] Spec Type: COLON BX Subm Dr: Dr. Janneth Purcell MD HEADER OPERATION: Colonoscopy, biopsy PRE-OP DIAGNOSIS: Change in bowel habits TISSUE SUBMITTED: Rectum polyp biopsy MICROSCOPIC DIAGNOSIS Rectum polyp, biopsy: Tubular adenoma. AM/ 01/10/2024 MICROSCOPIC DESCRIPTION Slides are reviewed. GROSS DESCRIPTION Received in fixative is one container labeled with the patient's name and designated Rectum polyp biopsy. The specimen consists of one irregular fragment of light juarez soft tissue that measures 0.4 x 0.3 x 0.1 cm. The specimen is totally submitted in one cassette. [facility] 01/09/2024 TC:5 [facility]:[id number] Patient Age/Sex Location Account Attending Physician GERRY TRAVIS 63/M EN [id number] Dr. Janneth Purcell MD Signed (signature on file) Dr. 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 Patient states at work today he tripped striking his left bicep on the edge of a three-quarter inch piece of plywood. This is not Workmen's Comp. injury. Presents today for evaluation. Has noticed marked swelling and bruising to this area. Has not noticed any noticeable weakness. Does have some discomfort with flexion. Mild discomfort with extension. Did take ibuprofen this did help with discomfort. Denies any other injuries. No head no neck no back pain. No LOC. Denies any no numbness or tingling. Denies surgeries or fractures to this arm or hand in the past. Past medical history prescription medication use allergies reviewed. BP 122/63 Pulse 61 Temp 37.1 ?C (98.8 ?F) Resp 18 Wt 83 kg (183 lb) SpO2 99% BMI 24.82 kg/m? .Patient presents with: Fall: Injury to Left bicep, bruising and swelling this afternoon PAST MEDICAL HISTORY Diagnosis Date Arrhythmia BPH (benign prostatic hyperplasia) Cardiomyopathy, unspecified ([facility]) Dr. Stallings. Echo 03/2021: EF 55% COPD (chronic obstructive pulmonary disease) ([facility]) Dr. Loyd Obstructive sleep apnea Overactive bladder Tobacco use disorder PAST SURGICAL HISTORY Procedure Laterality Date ARTHROSCOPY KNEE DIAGNOSTIC W/WO SYNOVIAL BX SPX COLONOSCOPY GEN ANES 07/03/18, 04/22/14 ALLERGIES Chantix [Varenicline] MEDICATIONS metoprolol succinate ER (TOPROL XL) 25 mg 24 hr tablet Take 1 tablet by mouth every afternoon. umeclidinium-vilanterol (ANORO ELLIPTA) 62.5-25 mcg/actuation inhaler losartan (COZAAR) 50 mg tablet 1 tablet once daily. (Patient taking differently: Take 25 mg by mouth once daily. 12.5 mg) albuterol sulfate (PROAIR RESPICLICK INHALATION) [employer] 160 mg capsule Take 1 capsule by mouth twice daily. coenzyme Q10 (COENZYME Q-10) 100 mg cap capsule Take 1 capsule by mouth once daily. ascorbic acid, vitamin C, (VITAMIN C) 500 mg tablet Take 1 tablet by mouth twice daily. Cholecalciferol, Vitamin D3, 50 mcg (2,000 unit) cap Take 1 capsule by mouth once daily. Zinc 50 mg tab Take 50 mg by mouth once daily. Taking every 2-3 days carvedilol (COREG) 3.125 mg tablet 1 tablet twice daily with meals. (Patient not taking: Reported on 04/19/2023) nicotine (NICODERM) 21 mg/24 hr Apply 1 Patch as directed every 24 hours. nicotine (NICODERM) 14 mg/24 hr Apply 1 Patch as directed every 24 hours. nicotine (NICODERM) 7 mg/24 hr Apply 1 Patch as directed every 24 hours for 14 days. History reviewed. No pertinent family history. Social History Tobacco Use Smoking status: Every Day Types: Cigars Smokeless tobacco: Never Substance Use Topics Alcohol use: Not Currently Drug use: Not Currently Review of Systems Constitutional: Negative for chills, fever and malaise/fatigue. HENT: Negative for congestion, ear discharge, ear pain, sinus pain and sore throat. Eyes: Negative for blurred vision, pain, discharge and redness. Respiratory: Negative for cough, hemoptysis, sputum production, shortness of breath, wheezing and stridor. Cardiovascular: Negative for chest pain. Gastrointestinal: Negative for abdominal pain, diarrhea, nausea and vomiting. Musculoskeletal: Positive for falls and joint pain. Negative for back pain, myalgias and neck pain. Skin: Negative for itching and rash. Neurological: Negative for dizziness and headaches. Objective Physical Exam Constitutional: General: He is not in acute distress. Appearance: He is not diaphoretic. HENT: Head: Normocephalic. Jaw: No trismus, tenderness, swelling or pain on movement. Eyes: Conjunctiva/sclera: Conjunctivae normal. Pupils: Pupils are equal, round, and reactive to light. Cardiovascular: Rate and Rhythm: Normal rate and regular rhythm. Heart sounds: Normal heart sounds. Pulmonary: Effort: Pulmonary effort is normal. No tachypnea, accessory muscle usage or respiratory distress. Breath sounds: Normal breath sounds. No stridor. No wheezing, rhonchi or rales. Abdominal: General: There is no distension. Palpations: Abdomen is soft. Tenderness: There is no abdominal tenderness. There is no guarding or rebound. Musculoskeletal: Left shoulder: Normal. Left upper arm: Swelling, edema, deformity and tenderness present. No lacerations or bony tenderness. Left elbow: Normal. Arms: Cervical back: Normal range of motion and neck supple. No edema or erythema. No pa (more content not included)... Normal [facility] 04-19-2023 [facility] Telephone (UCTR) -------- GERRY TRAVIS ([id number]) 1960 M Date Time Provider Department 04/19/23 ZELALEM HAYNES [facility] During your visit today, we recorded the following information about you: Zelalem Haynes APRN.CNP 04/19/2023 7:01 PM Signed No acute findings noted on x-ray. Follow-up with with [facility] next 3 to 5 days as discussed. Zelalem Haynes APRN.Lety David 04/19/2023 7:07 PM Signed Patient given results and verbalized understanding of instructions given. Lety oRberson Allergies As of Date: 04/19/2023 Noted Allergy Reaction CHANTIX (VARENICLINE) 12/30/2021 14 - Other: See Comments Comments: nightmares Date Reviewed: 04/19/2023 Reviewed by: Zelalem Haynes APRN.ANODE WORKER - Fully Assessed Reason for Visit: Results [95] Prescriptions as of 04/19/2023 - metoprolol succinate ER (TOPROL XL) 25 mg 24 hr tablet Take 1 tablet by mouth every afternoon. - umeclidinium-vilanterol (ANORO ELLIPTA) 62.5-25 mcg/actuation inhaler - carvedilol (COREG) 3.125 mg tablet 1 tablet twice daily with meals. - losartan (COZAAR) 50 mg tablet 1 tablet once daily. - nicotine (NICODERM) 21 mg/24 hr Apply 1 Patch as directed every 24 hours. - nicotine (NICODERM) 14 mg/24 hr Apply 1 Patch as directed every 24 hours. - nicotine (NICODERM) 7 mg/24 hr Apply 1 Patch as directed every 24 hours for 14 days. - albuterol sulfate (PROAIR RESPICLICK INHALATION) - [employer] 160 mg capsule Take 1 capsule by mouth twice daily. - coenzyme Q10 (COENZYME Q-10) 100 mg cap capsule Take 1 capsule by mouth once daily. - ascorbic acid, vitamin C, (VITAMIN C) 500 mg tablet Take 1 tablet by mouth twice daily. - Cholecalciferol, Vitamin D3, 50 mcg (2,000 unit) cap Take 1 capsule by mouth once daily. - Zinc 50 mg tab Take 50 mg by mouth once daily. Taking every 2-3 days Problem List As Of Date 04/19/2023 Noted Resolved Cardiomyopathy (HCC) [I42.9] 12/24/2020 Chronic obstructive pulmonary disease (HCC) [J4*12/24/2020 OSIEL (obstructive sleep apnea) [G47.33] 12/24/2020 Smoker [F17.200] 12/24/2020 Encounter Status:Closed by LETY ROBERSON on 04/19/23 Normal [facility] XR HUMERUS 2V AP/LAT LEFTon 04-19-2023 [facility] XR HUMERUS 2V AP/LAT LTon XR HUMERUS 2V AP/LAT LT * * *Final Repor t* * * DATE OF EXAM: Apr 19 2023 6:11PM WOX [id number] - XR HUMERUS 2V AP/LAT LT / PROCEDURE REASON: Injury of left upper arm, initial encounter * * * * Physician Interpretation * * * * EXAM(s): XR HUMERUS 2V AP/LAT LT EXAM DATE/TIME: 04/19/2023 6:11 PM HISTORY: 63 years old Clinical information: Injury of left upper arm, initial encounter Pain in the distal 1/3 of the left humerus after a fall into plywood today. TECHNIQUE: Images: XR HUMERUS 2V AP/LAT LT Comparison: None. RESULT: Findings: Bone density appears well-preserved. No fractures or dislocations are seen. No elbow joint effusion. IMPRESSION: No acute fracture or dislocation. [employer] Drying Machine Operator: [facility] Transcribe Date/Time: Apr 19 2023 6:52P Dictated by : YVONNE PAYNE MD This examination was interpreted and the report reviewed and electronically signed by: YVONNE PAYNE MD on Apr 19 2023 6:53PM EST [id number] Normal [facility] XR Humerus - left AP and Lat eralon 04-19-2023 IMPRESSION: No acute fracture or dislocation. [employer] Drying Machine Operator: [facility] Transcribe Date/Time: Apr 19 2023 6:52P Dictated by : YVONNE PAYNE MD This examination was interpreted and the report reviewed and electronically signed by: YVONNE PAYNE MD on Apr 19 2023 6:53PM EST DIVISION OF RADIOLOGY * * *Final Report* * * DATE OF EXAM: Apr 19 2023 6:11PM WOX [id number] - XR HUMERUS 2V AP/LAT LT / PROCEDURE REASON: Injury of left upper arm, initial encounter * * * * Physician Interpretation * * * * EXAM(s): XR HUMERUS 2V AP/LAT LT EXAM DATE/TIME: 04/19/2023 6:11 PM HISTORY: 63 years old Clinical information: Injury of left upper arm, initial encounter Pain in the distal 1/3 of the left humerus after a fall into plywood today. TECHNIQUE: Images: XR HUMERUS 2V AP/LAT LT Comparison: None. RESULT: Findings: Bone density appears well-preserved. No fractures or dislocations are seen. No elbow joint effusion. DIVISION OF RADIOLOGY Provider, Malaika Grant - 04/19/2023 * * *Final Report* * * DATE OF EXAM: Apr 19 2023 6:11PM WOX [id number] - XR HUMERUS 2V AP/LAT LT / PROCEDURE REASON: Injury of left upper arm, initial encounter * * * * Physician Interpretation * * * * EXAM(s): XR HUMERUS 2V AP/LAT LT EXAM DATE/TIME: 04/19/2023 6:11 PM HISTORY: 63 years old Clinical information: Injury of left upper arm, initial encounter Pain in the distal 1/3 of the left humerus after a fall into plywood today. TECHNIQUE: Images: XR HUMERUS 2V AP/LAT LT Comparison: None. RESULT: Findings: Bone density appears well-preserved. No fractures or dislocations are seen. No elbow joint effusion. IMPRESSION IMPRESSION: No acute fracture or dislocation. [employer] Drying Machine Operator: [facility] Transcribe Date/Time: Apr 19 2023 6:52P Dictated by : YVONNE PAYNE MD This examination was interpreted and the report reviewed and electronically signed by: YVONNE PAYNE MD on Apr 19 2023 6:53PM EST [facility] Radiology Study observation (narrative) [facility] XR Humerus - left AP and Lat eralOrdered By: [facility] Provider on 04-19-2023 [facility] No Panel InformationOrdered By: Bessie Goins on 01-11-2023 Prostate Specific Antigen Screen 1.97 ng/mL 0.00-4.00 [facility] Comment on above: This test was perfor med using the TPSA assay method for theDi[employer]ion chemistry system. Values obtained with differentassay methods cannot be used interchangably.When changing PSA assays in the course of monitoring apatient, additional sequential testing should be carriedout to confirm baseline values. Basophil percentageOrdered B y: Dr. Ricketts on 07-30-2022 WBC (Bld) [#/Vol] 6.6 10*3/uL 4.4-11.0 [facility] Blood erythrocytes count (nu mber/volume)Ordered By: Dr. Ricketts on 07-30-2022 RBC (Bld) [#/Vol] 4.85 10*6/uL 4.6-6.2 [facility] Blood hemoglobin measurement (mass/volume)Ordered By: Dr. Ricketts on 07-30-2022 Hemoglobin (Bld) [Mass/Vol] 14.2 g/dL 13.0-16.5 [facility] Blood platelet mean volumeOr dered By: Dr. Ricketts on 07-30-2022 Platelet mean volume (Bld) [Entitic vol] 9.7 fL 6.2-12.0 [facility] Determination of erythrocyte mean corpuscular volume (MCV)Ordered By: Dr. Ricketts on 07-30-2022 MCV (RBC) [Entitic vol] 90.1 fL 80-94 [facility] Hematocrit Auto (Bld) [Volum e fraction]Ordered By: Dr. Ricketts on 07-30-2022 Hematocrit (Bld) [Volume fraction] 43.7 % 40-54 [facility] - Hematology and Cell countsOrdered By: Dr. Ricketts on 07-30-2022 Erythrocyte distribution width (RBC) [Entitic vol] 41.2 fL 35.1-43.9 [facility] Erythrocyte distribution width (RBC) [Ratio] 12.5 % 11.6-14.6 [facility] MCH (RBC) [Entitic mass] 29.3 pg 27.0-32.0 [facility] MCHC Auto (RBC) [Mass/Vol]Or dered By: Dr. Ricketts on 07-30-2022 MCHC (RBC) [Mass/Vol] 32.5 g/dL 32-36 [facility] Platelets bldOrdered By: Dr. Ricketts on 07-30-2022 Platelets (Bld) [#/Vol] 207 10*3/uL 150-450 [facility] CNPNon 06-28-2022 [employer] Telephone ([employer]) -------- GERRY TRAVIS ([id number]) 1960 M Date Time Provider Department 06/28/22 NATHALIA MCNAMARA During your visit today, we recorded the following information about you: Ria Alejo Julien 06/28/2022 11:52 AM Signed Patient called in stating he had CT scan completed on 06/22/2022. He saw results on Mychart stating no inguinal hernia. Patient asking what next steps are? Does he need to be seen in office again or have an MRI completed? States he clearly has a hernia. He would like to have a call back at [phone]. [place] He Victoria 07/05/2022 10:44 AM Signed Patient called and asking if this has been addressed? Per DEXMA message patient was to schedule a follow up appointment. Patient transferred to PSS to schedule follow up. Hoa Jones RN 07/05/2022 12:58 PM Signed Pt scheduled for follow up with Dr. Mcnamara on 07/15/22. Hoa Jones RN Allergies As of Date: 06/28/2022 Noted Allergy Reaction CHANTIX (VARENICLINE) 12/30/2021 14 - Other: See Comments Comments: nightmares Date Reviewed: 06/18/2022 Reviewed by: Yamileth Loyd LPN - Fully Assessed Reason for Visit: Patient Question [8060] Prescriptions as of 07/05/2022 - carvedilol (COREG) 3.125 mg tablet 1 tablet twice daily with meals. - losartan (COZAAR) 50 mg tablet 1 tablet once daily. - nicotine (NICODERM) 21 mg/24 hr Apply 1 Patch as directed every 24 hours. - nicotine (NICODERM) 14 mg/24 hr Apply 1 Patch as directed every 24 hours. - nicotine (NICODERM) 7 mg/24 hr Apply 1 Patch as directed every 24 hours for 14 days. - albuterol sulfate (PROAIR RESPICLICK INHALATION) - [employer] 160 mg capsule Take 1 capsule by mouth twice daily. - coenzyme Q10 (COENZYME Q-10) 100 mg cap capsule Take 1 capsule by mouth once daily. - ascorbic acid, vitamin C, (VITAMIN C) 500 mg tablet Take 1 tablet by mouth twice daily. - Cholecalciferol, Vitamin D3, 50 mcg (2,000 unit) cap Take 1 capsule by mouth once daily. - Zinc 50 mg tab Take 50 mg by mouth once daily. Taking every 2-3 days Problem List As Of Date 06/28/2022 Noted Resolved Cardiomyopathy (HCC) [I42.9] 12/24/2020 Chronic obstructive pulmonary disease (HCC) [J4*12/24/2020 OSIEL (obstructive sleep apnea) [G47.33] 12/24/2020 Smoker [F17.200] 12/24/2020 Encounter Status:Closed by BROOKLYN CUTLER MA on 07/05/22 Normal [facility] CT ABD/PEL WO IVCONon 2022 CT ABD/PEL WO IVCON * * *Final Report* * * DATE OF EXAM: Jun 22 2022 2:54PM [facility] 0531 - CT ABD/PEL WO IVCON / PROCEDURE REASON: multiple diagnoses * * * * Physician Interpretation * * * * EXAMINATION: CT ABDOMEN AND PELVIS WITHOUT IV CONTRAST CLINICAL HISTORY: Unilateral inguinal hernia TECHNIQUE: Non-IV contrast imaging of the abdomen and pelvis was performed using standard technique, scanning from just above the dome of the diaphragm to the symphysis pubis. Unenhanced imaging is limited for the evaluation of some intra-abdominal and pelvic pathology. MQ: CTAPWO_3 Contrast: IV: None Oral: 50 ml of Omni 240 10-25ml diluted with water CT Radiation dose: Integrated Dose-length product (DLP) for this visit = 388 mGy*cm. CT Dose Reduction Employed: Automated exposure control(AEC) and iterative recon COMPARISON: None. RESULT: Abdomen / Pelvis: Liver: Unremarkable. Biliary: The gallbladder is unremarkable. Spleen: No splenomegaly. Pancreas: Unremarkable. Adrenals: No mass. Kidneys: No calculus, hydronephrosis or finding to suggest a cyst or mass in the unenhanced kidney. GI Tract: No bowel dilation. Large fecal burden throughout the colon, constipation suspected. Lymph Nodes: No lymphadenopathy. Mesentery/peritoneum: No ascites. Retroperitoneum: No mass. Vasculature: Arterial atherosclerotic disease without aneurysm. Pelvis: No mass or ascites. Bones/Soft Tissues: No acute abnormality. Lower thorax: No acute process is seen. Linear scarring at the left lung base. Excellence Leader (topogram) images: No additional findings. IMPRESSION: No evidence of inguinal hernia. Constipation suspected. No further abnormality is seen. [employer] Drying Machine Operator: [facility] Transcribe Date/Time: Jun 23 2022 9:10A Dictated by : KEV MENENDEZ MD This examination was interpreted and the report reviewed and electronically signed by: KEV MENENDEZ MD on Jun 23 2022 9:22AM EST [id number] Normal [facility] CNOVon 06-18-2022 CNOV Office Visit (GENSWS ) -------- GERRY TRAVIS ([id number]) 1960 M Date Time Provider Department 06/18/22 11:45 AM NATHALIA MCNAMARA GENSWS During your visit today, we recorded the following information about you: Temperature Pulse Blood pressure Weight 98.7 degrees 102/minute 108/72 79.6 kg Height 1.829 m Yamileth Loyd LPN 06/18/2022 11:49 AM Signed REVIEW OF SYSTEMS: General: The patient denies fatigue, denies weight loss, denies weight gain, denies feeling hot, and denies feelings of cold. Eyes: The patient denies glaucoma, denies eye injury/surgery, wears glasses or contacts. Ear/Nose/Throat: The patient NOTES allergies, denies hayfever, denies ear infections, and denies bloody noses. Cardiovascular: The patient denies chest pain, NOTES heart disease, denies high blood pressure,denies cardiac stent, denies prior heart attack, NOTES irregular heart beat, denies high cholesterol, denies poor circulation, denies heart failure, other cardiac issues, denies claudication, denies cold feet, denies peripheral arterial stent. Respiratory: The patient denies tuberculosis, denies pneumonia, denies frequent cough, denies pulmonary embolism, denies shortness of breath, and denies coughing up blood. Gastrointestinal: The patient denies difficulty swallowing, denies acid reflux, denies ulcers, denies vomiting, denies jaundice/hepatitis, denies gallbladder problems, denies black or tarry stools, denies hemorrhoids, denies bleeding from rectum, denies diverticulitis, denies constipation, denies diarrhea, denies loss of stool control, and NOTES hernias. Kidney/Bladder: The patient denies kidney stones, denies urine infections, and denies bloody urine. Skin: The patient denies a history of skin cancer, denies bleeding/changing moles, and denies a history of skin rash. Neurologic: The patient denies a history of epilepsy/convulsions, denies headaches, denies head/spinal injuries, and denies stroke/TIA. Psychiatric: The patient denies psychiatric medications, denies depression, and denies voices, denies substance abuse. Endocrine: The patient denies thyroid disorders, denies diabetes, and denies hormonal problems. Hematologic: The patient denies a history of bruising, denies bleeding, and denies anemia, denies blood clots. Infections: The patient NOTES a history of measles and mumps, denies rheumatic fever, and denies sexually transmitted diseases. Musculoskeletal: The patient denies back pain/injury, NOTES back problems, denies sciatica, denies knee/foot trouble, denies arthritis, or denies gout. When was patient's last Mammogram screening? N/A Last Colonoscopy: 2020 JUAN Tirado MD 06/18/2022 12:29 PM Signed HISTORY AND PHYSICAL Gerry Travis 1960 REFERRING PHYSICIAN: Ellie Lazaro APRN.C* CHIEF COMPLAINT: Consult (UNILATERAL INGUINAL HERNIA) HPI: Gerry is a 62 year old male with a complaint of a bulge and discomfort in his left inguinal region. The patient notes discomfort in this area with lifting and straining. 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 He feels this possibly happened at work last year. His work becomes busy again in September so he is hoping to get this repaired in the near future. The patient also notes suggestion of a hernia in the right upper quadrant some costal area not in the site of a prior hernia or incision. The patient notes no symptoms of bowel obstruction and denies nausea or vomiting. The patient was seen by primary care who felt the patient has a hernia. Gerry was referred for evaluation and treatment. The patient is being seen by me today at the request of Ellie Lazaro APRN.C* my opinion and advice regarding left inguinal hernia and possible right upper quadrant occult hernia. He does smoke on a daily basis. PAST MEDICAL HISTORY Diagnosis Date Arrhythmia BPH (benign prostatic hyperplasia) Cardiomyopathy, unspecified ([facility]) Dr. Stallings. Echo 03/2021: EF 55% COPD (chronic obstructive pulmonary disease) ([facility]) Dr. Loyd Obstructive sleep apnea Overactive bladder Tobacco use disorder PAST SURGICAL HISTORY Procedure Laterality Date ARTHROSCOPY KNEE DIAGNOSTIC W/WO SYNOVIAL BX SPX COLONOSCOPY GEN ANES 07/03/18, 04/22/14 Current Outpatient Medications Medication Sig carvedilol (COREG) 3.125 mg tablet 1 tablet twice daily with meals. losartan (COZAAR) 50 mg tablet 1 tablet once daily. albuterol sulfate (PROAIR [employer]PICLICK INHALATION) [employer] 160 mg capsule Take 1 capsule by mouth twice daily. coenzyme Q10 (COENZYME Q-10) 100 mg cap capsule Take 1 capsule by mouth once daily. ascorbic acid, vitamin C, (VITAMIN C) 500 mg tablet Take 1 tablet by mouth twice daily. Cholecalciferol, Vitamin D3, 50 mcg (2,000 unit) cap Take 1 capsule by mouth once daily. Zinc 50 mg tab Take 50 (more content not included)... Normal [facility] CNOVon 06-17-2022 CNOV Office Visit (FAMPWS ) -------- GERRY TRAVIS ([id number]) 1960 M Date Time Provider Department 06/17/22 10:40 AM ELLIE LAZARO During your visit today, we recorded the following information about you: Pulse Respiration Blood pressure Weight 73/minute 16/minute 130/60 79.4 kg Ellie Lazaro APRN.ANODE WORKER 06/17/2022 11:35 AM Signed This is a 62 year old male who presents today with: Patient presents with: Acute Visit: hernia HISTORY OF PRESENT ILLNESS: Gerry Travis is a 62 year old male. Patient presents with: Acute Visit: hernia Here in the office for concerns for hernia. Within the past couple of weeks noticed a pain in the left groin with bulging. Lifting mower at work and noticed some burning pain in the left groin. Notices bulge in the morning and worse after eating and will resolve on its own. Pain can be a sharp stabbing pain that lasts about 15-25 minutes. Symptoms worse with certain activites or cough. Denies any testicular pain. Notices some intermittent dysuria at times which he refers he has had this in the past . Has hypospadia. PAST MEDICAL HISTORY: PAST MEDICAL HISTORY Diagnosis Date Arrhythmia BPH (benign prostatic hyperplasia) Cardiomyopathy, unspecified ([facility]) Dr. Stallings. Echo 03/2021: EF 55% COPD (chronic obstructive pulmonary disease) ([facility]) Dr. Loyd Obstructive sleep apnea Overactive bladder Tobacco use disorder PAST SURGICAL HISTORY Procedure Laterality Date ARTHROSCOPY KNEE DIAGNOSTIC W/WO SYNOVIAL BX SPX COLONOSCOPY GEN ANES 07/03/18, 04/22/14 ALLERGIES Chantix [Varenicline] MEDICATIONS Current Outpatient Medications Medication Sig carvedilol (COREG) 3.125 mg tablet 1 tablet twice daily with meals. losartan (COZAAR) 50 mg tablet 1 tablet once daily. nicotine (NICODERM) 21 mg/24 hr Apply 1 Patch as directed every 24 hours. nicotine (NICODERM) 14 mg/24 hr Apply 1 Patch as directed every 24 hours. nicotine (NICODERM) 7 mg/24 hr Apply 1 Patch as directed every 24 hours for 14 days. albuterol sulfate (PROAIR RESPICLICK INHALATION) [employer] 160 mg capsule Take 1 capsule by mouth twice daily. coenzyme Q10 (CO Q-10) 100 mg cap capsule Take 1 capsule by mouth once daily. ascorbic acid, vitamin C, (VITAMIN C) 500 mg tablet Take 1 tablet by mouth twice daily. Cholecalciferol, Vitamin D3, 50 mcg (2,000 unit) cap Take 1 capsule by mouth once daily. Zinc 50 mg tab Take 50 mg by mouth once daily. Taking every 2-3 days No current facility-administered medications for this visit. No family history on file. Social History Tobacco Use Smoking status: Every Day Smokeless tobacco: Never Substance Use Topics Alcohol use: Not Currently Drug use: Not Currently REVIEW OF SYSTEMS GENERAL: No weight loss, malaise or fevers/chills HEENT: Negative for frequent or significant headaches, No changes in hearing or vision. NECK: Negative for lumps, goiter, pain and significant neck swelling RESPIRATORY: Negative for cough, hemoptysis, wheezing, dyspnea or shortness of breath CARDIOVASCULAR: Negative for chest pain, leg swelling, orthopnea, or palpitations GI: + Left Groin Pain : No history of dysuria, frequency or incontinence MUSCULOSKELETAL: Negative for joint pain or swelling. SKIN: Negative for lesions, rash, and itching ENDOCRINE: Negative for cold or heat intolerance, polyuria, polydipsia and goiter NEURO: No history of headaches, syncope, paralysis, seizures or tremors MOOD: Negative for depression, anxiety, or suicidal ideation. EXAM: BP 130/60 Pulse 73 Resp 16 Wt 79.4 kg (175 lb) SpO2 99% BMI 23.73 kg/m? PHYSICAL EXAM: General Appearance: Well appearing, alert, in no acute distress, well-hydrated, well nourished. Skin: Skin color, texture, turgor normal, no suspicious rashes or lesions. Head: Normocephalic, no masses, lesions, tenderness or abnormalities. Eyes: Anicteric sclera. Extraocular movements are intact. Lungs: Lungs clear to auscultation. No wheezing, rhonchi, rales. Heart: RRR without murmur, gallop, or rubs. No ectopy. Abdomen: Abdomen soft, non-tender. Bowel sounds normal. No organomegaly. + Small bulge in left groin while standing, mild tenderness. Peripheral Pulses: Normal, Capillary refill <2secs, strong peripheral pulses, Pulses palpable. Neurologic: Gait normal. Sensation grossly intact. ASSESSMENT/PLAN: 1. Unilateral inguinal hernia without obstruction or gangrene, recurrence not specified - ICD9: 550.90, ICD10: K40.90 (primary diagnosis) - Symptoms consistent with inguinal hernia. - Recommend consult with general surgery for further evaluation. - Recommend no heavy lifting. - Red flag symptoms given to patient, he verbalizes understanding when to seek care. - CONSULT TO GENERAL SURGERY 2. Dysuria - ICD9: 788.1, ICD10: R30.0 - Denied wanting any testing at this time. Follow-up as needed or s (more content not included)... Normal [facility] No Panel Informationon 12-29 Prostate Specific Antigen Screen 1.64 ng/mL 0.00-4.00 [facility] Work Phone: Comment on above: This test was perfor med using the TPSA assay method for [employer] chemistry system. Values obtained with differentassay methods cannot be used interchangably.When changing PSA assays in the course of monitoring apatient, additional sequential testing should be carriedout to confirm baseline values. No Panel Informationon 05-05 Radiology Study observation (narrative) [facility] XR Lumbar spine 3 Viewson IMPRESSION: Stable scoliotic curvature and degenerative changes as detailed in report. [employer] Drying Machine Operator: BART Transcribe Date/Time: May 05 2021 6:35P Dictated by : PEDRO LUIS AHLE MD This examination was interpreted and the report reviewed and electronically signed by: PEDRO LUIS HALE MD on May 05 2021 6:39PM [facility] DIVISION OF RADIOLOGY * * *Final Report* * * DATE OF EXAM: May 05 2021 6:30PM WOX [id number] - XR LUMBAR 3V AP/LAT/L5-S1 / PROCEDURE REASON: Acute right-sided low back pain without sciatica * * * * Physician Interpretation * * * * EXAMINATION: XR LUMBAR 3V AP/LAT/L5-S1 HISTORY: pain for a month right si joint area radiating down the front and back of right thigh. no inj. Acute right-sided low back pain without sciatica. TECHNIQUE: XR LUMBAR 3V AP/LAT/L5-S1 Laterality: NOT APPLICABLE Number of different views (projections): 3 M: XB_1 COMPARISON: Comparison is made to prior lumbar spine dated 01/30/2010 RESULT: Counting reference: Lumbosacral junction. For the purposes of this report, L5-S1 is considered the last lumbar-type disc space and L4-5 is considered the level of the iliac crest. 3 Views of the lumbosacral spine with AP, lateral and cone-down radiographs demonstrate scoliotic curvature and multilevel degenerative change with vertebral body osteophytosis. There is mild intervertebral disc space narrowing at L3-4 and progressive moderate to severe narrowing at L4-5. There is hypertrophic facet change at the lower 2 levels. There are no compression fractures and alignment is well maintained. The soft tissues are unremarkable DIVISION OF RADIOLOGY Provider, Malaika Grant - 05/05/2021 * * *Final Report* * * DATE OF EXAM: May 05 2021 6:30PM WOX 5228 - XR LUMBAR 3V AP/LAT/L5-S1 / PROCEDURE REASON: Acute right-sided low back pain without sciatica * * * * Physician Interpretation * * * * EXAMINATION: XR LUMBAR 3V AP/LAT/L5-S1 HISTORY: pain for a month right si joint area radiating down the front and back of right thigh. no inj. Acute right-sided low back pain without sciatica. TECHNIQUE: XR LUMBAR 3V AP/LAT/L5-S1 Laterality: NOT APPLICABLE Number of different views (projections): 3 M: XB_1 COMPARISON: Comparison is made to prior lumbar spine dated 01/30/2010 RESULT: Counting reference: Lumbosacral junction. For the purposes of this report, L5-S1 is considered the last lumbar-type disc space and L4-5 is considered the level of the iliac crest. 3 Views of the lumbosacral spine with AP, lateral and cone-down radiographs demonstrate scoliotic curvature and multilevel degenerative change with vertebral body osteophytosis. There is mild intervertebral disc space narrowing at L3-4 and progressive moderate to severe narrowing at L4-5. There is hypertrophic facet change at the lower 2 levels. There are no compression fractures and alignment is well maintained. The soft tissues are unremarkable IMPRESSION IMPRESSION: Stable scoliotic curvature and degenerative changes as detailed in report. [employer] Operator: BART Transcribe Date/Time: May 05 2021 6:35P Dictated by : PEDRO LUIS HALE MD This examination was interpreted and the report reviewed and electronically signed by: PEDRO LUIS HALE MD on May 05 2021 6:39PM [facility] XR Lumbar spine 3 ViewsOrder ed By: [facility] Provider on 05-05-2021 [facility] XR Pelvis and Hip - right AP and Lateral frogon 05-05-2021 IMPRESSION: No acute fracture or dislocation of the pelvis and right hip. [employer] Operator: PSCB Transcribe Date/Time: May 05 2021 6:34P Dictated by : DOMINIQUE STEELE MD This examination was interpreted and the report reviewed and electronically signed by: DOMINIQUE STEELE MD on May 05 2021 6:37PM [facility]ISION OF RADIOLOGY * * *Final Report* * * DATE OF EXAM: May 05 2021 6:30PM WOX 5352 - XR HIP 3V PELV+ AP/LAT RT / PROCEDURE REASON: Acute right-sided low back pain without sciatica * * * * Physician Interpretation * * * * PELVIS AND RIGHT HIP X-RAY SERIES HISTORY: Acute right-sided low back pain without sciatica COMPARISON: None available. TECHNIQUE: AP Pelvis, AP Hip and Frog Leg Lateral View of Hip RESULT: Mild right hip degenerative changes. No fracture or dislocation. DIVISION OF RADIOLOGY Provider, [facility] - 05/05/2021 * * *Final Report* * * DATE OF EXAM: May 05 2021 6:30PM WOX 5352 - XR HIP 3V PELV+ AP/LAT RT / PROCEDURE REASON: Acute right-sided low back pain without sciatica * * * * Physician Interpretation * * * * PELVIS AND RIGHT HIP X-RAY SERIES HISTORY: Acute right-sided low back pain without sciatica COMPARISON: None available. TECHNIQUE: AP Pelvis, AP Hip and Frog Leg Lateral View of Hip RESULT: Mild right hip degenerative changes. No fracture or dislocation. IMPRESSION IMPRESSION: No acute fracture or dislocation of the pelvis and right hip. [employer] D[employer] Operator: PSCB Transcribe Date/Time: May 05 2021 6:34P Dictated by : DOMINIQUE STEELE MD This examination was interpreted and the report reviewed and electronically signed by: DOMINIQUE STEELE MD on May 05 2021 6:37PM [facility] HSV IGG1 AND IGG2 ABon 01-15 HSV I IGG AB 0.2 INDEX Normal [facility] Comment on above: Result Comment: REF VALUES NEGATIVE <0.9 EQUIVOCAL >=0.90 <=1.10 POSITIVE >1.10 Performed By: #### H SVG #### [facility] [address] [place] [address] HSV II IGG AB >8.0 Abnormal [facility] Comment on above: Result Comment: POTE NTIAL FOR CROSS-REACTIVITY BETWEEN HSV I AND HSV II EXISTS. REF VALUES NEGATIVE <0.9 EQUIVOCAL >=0.90 <=1.10 POSITIVE >1.10 Performed By: #### H SVG #### [facility] [address] [place] [address] Provider Note - ED v2on Provider Note - ED v2 Provider Note - ED v2: Chart Review: HISTORY OF PRESENTING ILLNESS GERRY is a 59 year old Male and was seen by me at 07-Jan-2020 12:22 for a chief complaint of (Left middle finger pain and swelling). Other complaints include: Presents for evaluation of left needle finger paronychia. Pt reports several days of increasing pain, erythema, and swelling around the base of the (L) 3rd cuticle. Pt reports erythema migrating proximally from the nail. Pt visited PCP who recommended ER visit for further evaluation and treatment. No fever, chills, diaphoresis, or other constitutional S/S. No other similar infections. No other complaints. . Triage Information: Most recent Vital Sign Value Date PAST MEDICAL HISTORY ATTESTATION: I have reviewed and confirmed nurse's/medic's notes for patient's medications, allergies, medical history, and surgical history ALLERGIES/INTOLERANCES: No Known Allergies HEALTH HISTORY: No documented data. OUTPATIENT MEDICATIONS: Home Medications Review Status for Reconciliation: Complete Med Status: Patient Currently Takes Medications Drug Name: losartan 50 mg oral tablet Instructions: 1 tab(s) orally once a day Drug Name: carvedilol 3.125 mg oral tablet Instructions: orally once a day SIGNIFICANT EVENTS: Other Description:NO RECENT TRAVEL OUT OF US Past Medical History Description:copd Description:Cardiomyapth y Past Surgical History Description:RT KNEE REVIEW OF SYSTEMS REVIEW OF SYSTEMS: Comments Review of Systems Constitutional: See HPI . Musculoskeletal: No decreased range of motion. Integumentary: See HPI Neurologic: Alert and oriented X4, No numbness, No tingling. All other systems are negative PHYSICAL EXAM CONSTITUTIONAL: Well appearing, well nourished, awake, alert, oriented to person, place, time/situation and in no apparent distress. EYES: Clear bilaterally, pupils equal, round and reactive to light. MUSCULOSKELETAL: Spine appears normal, range of motion is not limited, no muscle or joint tenderness. NEUROLOGICAL: Alert and oriented, no focal deficits, no motor or sensory deficits. SKIN: Left middle finger on medial aspect of the cuticle with large fluctuant area surrounded by erythema migrating to the distal interphalangeal joint; area is tender and warm; no streaking; gross sensation and range of motion is intact MEDICAL DECISION MAKING/ED COURSE MDM/ED COURSE: Finger cleansed with Betadine. 1% plain lidocaine applied to medial middle phalynx area and then applied distally for local anesthesia of the distal digit; 4 mLs used. #11 blade utilized to make a small cruciate incision over the center of the fluctuant area. Purulent and seroous fluid expressed. Wound cavity was cleansed with cotton-tipped applicator soaked in iodine. Dressed with bacitracin and gauze. Pt tolerated well. Mario Alberto revealed paronychia of the left middle finger. Good results with procedure. Wound care reviewed. Prescriptions for Augmentin and Bactroban provided. Patient's clinical presentation is otherwise unremarkable at this time. Patient is discharged with instructions to follow-up with primary care or seek emergency medical attention for worsening symptoms or any new concerns. CLINICAL IMPRESSION Diagnosis/Annotation: ED Dx Name:Paronychia of left middle finger Code:L03.012 Dispostion: discharged Type: home ATTESTATION CRITICAL CARE TIME Is this a critically ill patient: no Electronic Signatures: Shar Hong (PAC) (Signed 07-Jan-2020 12:45) Authored: Provider Note - ED v2 Last Updated: 07-Jan-2020 12:45 by Shar Hong (PAC) Normal [facility] Office Visit (Family Medicin e)on 11-16-2019 Follow-up visit Chief Complaint Pt. here to go over CT and BW results. 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) BPH without urinary obstruction (600.00) (N40.0) Cardiomyopathy (425.4) (I42.9) Encounter for screening for lung cancer (V76.0) (Z12.2) Fatigue (780.79) (R53.83) Male erectile disorder (607.84) (N52.9) Nocturia (788.43) (R35.1) OSIEL (obstructive sleep apnea) (327.23) (G47.33) Outside S dated 03/30/18 with AHI 12.6, Oxygen Christophe - 81 % Pulmonary emphysema, unspecified emphysema type (492.8) (J43.9) 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) 2nd shift - 2:30 pm to 11pm Past Medical History History of BPH (V13.89) (Z87.438) History of cardiac disorder (V12.50) (Z86.79) History of chronic obstructive lung disease (V12.69) (Z87.09) History of erectile dysfunction (V13.89) (Z87.438) History of glaucoma (V12.49) (Z86.69) History of palpitations (V12.59) (Z87.898) History of solitary pulmonary nodule (V12.69) (Z87.898) Surgical History History of Colonoscopy 07/03/18, 04/22/14 History of Knee arthroscopy Family History Family history of hypertension (V17.49) (Z82.49) Family history of cardiac disorder (V17.49) (Z82.49) Family history of malignant neoplasm (V16.9) (Z80.9) Family history of cardiac disorder (V17.49) (Z82.49) Social History Current some day smoker (305.1) (F17.200) No alcohol use No illicit drug use No recent foreign travel Occasional caffeine consumption Patient has healthcare proxy and living will (V49.89) (Z78.9) Allergies No Known Allergies Recorded By: Ysabel Moreno; 03/08/2018 11:24:02 AM Current Meds Clotrimazole-Betamethaso ne 1-0.05 % External Cream; APPLY AND RUB IN A THIN FILM TO AFFECTED AREAS TWICE DAILY.(AM AND PM); Therapy: [id number] to (Last Rx:[id number]) Requested for: [id number] Ordered Rx By: Carlos Sinclair II; Dispense: 0 Days ; #:1 X 45 GM Tube; Refill: 1;For: Elida; SHARON = N; Verified Transmission to [facility] Carvedilol 3.125 MG Oral Tablet; Take 1 tablet twice a day; Therapy: 08Mar2018 to (Evaluate:[id number]) Recorded Dispense: 30 Days ; #:60 Tablet; Refill: 1;For: Cardiomyopathy; SHARON = N; Record; Last Updated By: Ysabel Moreno; 03/08/2018 11:25:28 AM Aspirin 81 MG Oral Tablet Delayed Release; take 1 tablet by mouth once daily; Therapy: 08Mar2018 to Recorded Dispense: 0 Days ; #: Sufficient Tablet Delayed Release; Refill: 0;For: Health Maintenance; SHARON = N; Record; Last Updated By: Ysabel Moreno; 03/08/2018 11:25:29 AM Losartan Potassium 50 MG Oral Tablet; Take 1 tablet daily; Therapy: 24Jan2018 to (Evaluate:[id number]) Requested for: 04Jun2019; Last Rx:04Jun2019 Ordered Rx By: Astrid Cifuentes; Dispense: 90 Days ; #:90 Tablet; Refill: 3;For: Health Maintenance; SHARON = N; Verified Transmission to [facility]; Last Updated By: [employer]; 06/04/2019 3:48:45 PM ProAir RespiClick 108 (90 Base) MCG/ACT Inhalation Aerosol Powder Breath Activated; INHALE 2 PUFFS Daily PRN wheezing Requested for: 23Apr2019; Last Rx:23Apr2019 Ordered Rx By: Josiah Curtis; Dispense: 30 Days ; #:3 Each; Refill: 0;For: OSIEL (obstructive sleep apnea); SHARON = N; Verified Transmission to [facility]; Last Updated By: [employer]; 11/16/2019 4:55:07 PM Co Q 10 10 MG Oral Capsule; Therapy: (Recorded:25Aug2018) to Recorded Dispense: 0 Days ; #: Sufficient; Refill: 0; SHARON = N; Record; Last Updated By: Edwina Guzman; 08/25/2018 11:33:18 AM [employer] CAPS; Take 640mg of Saw bid; Therapy: (Recorded:24Aug2018) to Recorded Dispense: 0 Days ; #: Sufficient Capsule; Refill: 0; SHARON = N; Record; Last Updated By: Audrey Craig; 08/24/2018 9:24:36 AM Vitamin C TABS; TAKE TABLET use as directed; Therapy: (Recorded:24Aug2018) to Recorded Dispense: 0 Days ; #: Sufficient Tablet; Refill: 0; SHARON = N; Record; Last Updated By: Audrey Craig; 08/24/2018 9:24:36 AM Vitamin D3 25 MCG (1000 UT) Oral Capsule; Therapy: (Recorded:25Aug2018) to Recorded Dispense: 0 Days ; #: Sufficient; Refill: 0; SHARON = N; Record; Last Updated By: Edwina Guzman; 08/25/2018 11:33:18 AM Zinc Sulfate 50 MG CAPS; TAKE 1 CAPSULE Daily; Therapy: (Recorded:24Aug2018) to Recorded Dispense: 0 Days ; #: Sufficient Capsule; Refill: 0; SHARON = N; Record; Last Updated By: Audrey Craig; 08/24/2018 9:25:45 AM Vitals Vital Signs Recorded: 16Nov2019 04:04PM Nhdjoixddwz92.1 F Heart Rate58 Ymtlpfnw161 Axfgrfvyc33 Height6 ft Qmlavs290 lb 2 oz BMI Bgaivenmgf21.53 BSA Calculated1.97 Physical Exam General: Alert and oriented, No acute distress. Neck: Supple, Non-tender, No lymphadenopathy, No thyromegaly. Respiratory: Lungs scattered crackles , Respirations are non-labored, Breath sounds are equal, Symmetrical chest wall expansion. Cardiovascul (more content not included)... Normal [facility] CT CHEST LOW DOSE LUNG SCREE [facility] 11-08-[address] evidence for developing pulmonary malignancy. Lung-RADs 2 Findings: Perifissural nodules(s): <10 mm (Solid nodules with smooth margins, an oval, lentiform or triangular shape, and maximum diameter less than 10 mm (perifissural nodules) should be classified as category 2.) Solid nodule(s): <6 mm or new <4 mm; part solid nodule(s) <6 mm total diameter on baseline screening; nonsolid nodule(s) (GGN): <30 mm or greater than/equal to 30 mm and unchanged or slowly growing; category 3 or 4 nodules unchanged for greater than/equal to 3 months. Management: Continue annual screening with LDCT in 12 months. PRL/trn Workstation ID: [id number] [facility] EXAMINATION: CT CHES T LOW DOSE LUNG SCREENING - LCSP HISTORY: ORDERING SYSTEM PROVIDED HISTORY: Cigarette Smoker, TECHNOLOGIST PROVIDED HISTORY: Illness/Other Reason for exam: current smoker, annual screening Encounter Type: Subsequent/Follow-up Additional signs and symptoms: no ORDERING SYSTEM PROVIDED DIAGNOSIS CODES: F17.210 Cigarette Smoker Z12.2 Screening for malignant neoplasm of respiratory organ COMPARISON: 03/16/2018. TECHNIQUE: Dose reduction techniques were achieved by using automated exposure control and/or adjustment of mA and/or kV according to patient size and/or use of iterative reconstruction technique. 46 mA 110 kv P. FINDINGS: There is some pleuroparenchymal scarring at the pulmonary apices. This is stable. 2 mm nodule in the medial right upper lobe is unchanged. 4 mm nodule in the right middle lobe is also unchanged. Bandlike scarring is seen in the left lower lobe and this is stable as well. No developing ground-glass or solid type pulmonary nodules. No adenopathy in the mediastinum. There is atherosclerotic calcification involving the coronary arteries although this is minimal. No pericardial effusion or pleural effusion. Scan into the upper abdomen shows normal sized adrenal glands. [facility] Interface, Rad In Fu ji Speechq - 11/08/2019 5:10 PM EDT EXAMINATION: CT CHEST LOW DOSE LUNG SCREENING - LCSP HISTORY: ORDERING SYSTEM PROVIDED HISTORY: Cigarette Smoker, TECHNOLOGIST PROVIDED HISTORY: Illness/Other Reason for exam: current smoker, annual screening Encounter Type: Subsequent/Follow-up Additional signs and symptoms: no ORDERING SYSTEM PROVIDED DIAGNOSIS CODES: F17.210 Cigarette Smoker Z12.2 Screening for malignant neoplasm of respiratory organ COMPARISON: 03/16/2018. TECHNIQUE: Dose reduction techniques were achieved by using automated exposure control and/or adjustment of mA and/or kV according to patient size and/or use of iterative reconstruction technique. 46 mA 110 kv P. FINDINGS: There is some pleuroparenchymal scarring at the pulmonary apices. This is stable. 2 mm nodule in the medial right upper lobe is unchanged. 4 mm nodule in the right middle lobe is also unchanged. Bandlike scarring is seen in the left lower lobe and this is stable as well. No developing ground-glass or solid type pulmonary nodules. No adenopathy in the mediastinum. There is atherosclerotic calcification involving the coronary arteries although this is minimal. No pericardial effusion or pleural effusion. Scan into the upper abdomen shows normal sized adrenal glands. IMPRESSION: No CT evidence for developing pulmonary malignancy. Lung-RADs 2 Findings: Perifissural nodules(s): <10 mm (Solid nodules with smooth margins, an oval, lentiform or triangular shape, and maximum diameter less than 10 mm (perifissural nodules) should be classified as category 2.) Solid nodule(s): <6 mm or new <4 mm; part solid nodule(s) <6 mm total diameter on baseline screening; nonsolid nodule(s) (GGN): <30 mm or greater than/equal to 30 mm and unchanged or slowly growing; category 3 or 4 nodules unchanged for greater than/equal to 3 months. Management: Continue annual screening with LDCT in 12 months. PRL/trn Workstation ID: [id number] [facility] CT CHEST LOW DOSE LUNG SCREENING - LCSP EXAMINATION: CT CHEST LOW DOSE LUNG SCREENING - LCSP HISTORY: ORDERING SYSTEM PROVIDED HISTORY: Cigarette Smoker, TECHNOLOGIST PROVIDED HISTORY: Illness/Other Reason for exam: current smoker, annual screening Encounter Type: Subsequent/Follow-up Additional signs and symptoms: no ORDERING SYSTEM PROVIDED DIAGNOSIS CODES: F17.210 Cigarette Smoker Z12.2 Screening for malignant neoplasm of respiratory organ COMPARISON: 03/16/2018. TECHNIQUE: Dose reduction techniques were achieved by using automated exposure control and/or adjustment of mA and/or kV according to patient size and/or use of iterative reconstruction technique. 46 mA 110 kv P. FINDINGS: There is some pleuroparenchymal scarring at the pulmonary apices. This is stable. 2 mm nodule in the medial right upper lobe is unchanged. 4 mm nodule in the right middle lobe is also unchanged. Bandlike scarring is seen in the left lower lobe and this is stable as well. No developing ground-glass or solid type pulmonary nodules. No adenopathy in the mediastinum. There is atherosclerotic calcification involving the coronary arteries although this is minimal. No pericardial effusion or pleural effusion. Scan into the upper abdomen shows normal sized adrenal glands. IMPRESSION: No CT evidence for developing pulmonary malignancy. Lung-RADs 2 Findings: Perifissural nodules(s): <10 mm (Solid nodules with smooth margins, an oval, lentiform or triangular shape, and maximum diameter less than 10 mm (perifissural nodules) should be classified as category 2.) Solid nodule(s): <6 mm or new <4 mm; part solid nodule(s) <6 mm total diameter on baseline screening; nonsolid nodule(s) (GGN): <30 mm or greater than/equal to 30 mm and unchanged or slowly growing; category 3 or 4 nodules unchanged for greater than/equal to 3 months. Management: Continue annual screening with LDCT in 12 months. PRL/trn Workstation ID: [id number] Dictated by: YASMIN CHANEY on TueNov 08, 2019 3:50:35 PM EDT Transcribed by: PARTH MONTOYA on TueNov 08, 2019 4:43:48 PM EDT Finalized by: YASMIN CHANEY on TueNov 08, 2019 5:07:46 PM EDT Normal [facility] Comment on above: Order Comment: fax Injury/Trauma or Illness?:Illness/Other How long have you had these symptoms (acute/chronic)?:Unknown Reason for exam?:current smoker, annual screening Type of Exam?:Subsequent/Follow-up Additional signs and symptoms?:no CBC AND DIFFERENTIALon 08-22 Basophils (Bld) [#/Vol] 0.00 10*3/uL Normal 0.00 - 0.1 0 [facility] Comment on above: Performed By: #### C BCDF #### [address] [address] Basophils/100 WBC (Bld) 0.5 % Normal 0.0 - 2.0 [facility] Comment on above: Performed By: #### C BCDF #### [address] [address] Eosinophils (Bld) [#/Vol] 0.10 10*3/uL Normal 0.00 - 0.70 [facility] Comment on above: Performed By: #### C BCDF #### [address] [address] Eosinophils/100 WBC (Bld) 1.4 % Normal 0.0 - 6.0 [facility] Comment on above: Performed By: #### C BCDF #### [address] [address] Erythrocyte distribution width (RBC) [Ratio] 13.9 % Normal 11.5 - 14.5 [facility] Comment on above: Performed By: #### C BCDF #### [address] [address] Hematocrit (Bld) [Volume fraction] 42.3 % Normal 41.0 - 52.0 [facility] Comment on above: Performed By: #### C BCDF #### [address] [address] Hemoglobin (Bld) [Mass/Vol] 13.7 g/dL Normal 13.5 - 17.5 [facility] Comment on above: Performed By: #### C BCDF #### [address] [address] Lymphocytes (Bld) [#/Vol] 2.20 10*3/uL Normal 1.20 - 4.80 [facility] Comment on above: Performed By: #### C BCDF #### [address] [address] Lymphocytes/100 WBC (Bld) 36.0 % Normal 13.0 - 44.0 [facility] Comment on above: Performed By: #### C BCDF #### [address] [address] MCHC (RBC) [Mass/Vol] 32.5 g/dL Normal 32.0 - 36.0 [facility] Comment on above: Performed By: #### C BCDF #### [address] [address] MCV (RBC) [Entitic vol] 89 fL Normal 80 - 100 [facility] Comment on above: Performed By: #### C BCDF #### [address] [address] Monocytes (Bld) [#/Vol] 0.80 10*3/uL Normal 0.10 - 1.0 0 [facility] Comment on above: Performed By: #### C BCDF #### [address] [address] Monocytes/100 WBC (Bld) 12.3 % Normal 2.0 - 10.0 [facility] Comment on above: Performed By: #### C BCDF #### [address] [address] Neutrophils (Bld) [#/Vol] 3.10 10*3/uL Normal 1.20 - 7.70 [facility] Comment on above: Result Comment: Perc ent differential counts (%) should be interpreted in the context of the absolute cell counts (cells/L). Performed By: #### C BCDF #### [address] [address] Neutrophils/100 WBC (Bld) 49.8 % Normal 40.0 - 80.0 [facility] Comment on above: Performed By: #### C BCDF #### [address] [address] Nucleated RBC/100 WBC (Bld) [Ratio] 0.1 /100 WBC Normal [facility] Comment on above: Performed By: #### C BCDF #### [address] [address] Platelets (Bld) [#/Vol] 212 10*3/uL Normal 150 - 450 [facility] Comment on above: Performed By: #### C BCDF #### [address] [address] RBC (Bld) [#/Vol] 4.76 x10E12/L Normal 4.50 - 5.90 [facility] Comment on above: Performed By: #### C BCDF #### [address] [address] WBC (Bld) [#/Vol] 6.2 10*3/uL Normal 4.4 - 11.3 [facility] Comment on above: Performed By: #### C BCDF #### [address] [address] COMPREHENSIVE PANELon 2019 Albumin [Mass/Vol] 3.8 g/dL Normal 3.4 - 5.0 [facility] Comment on above: Performed By: #### C MP #### [address] [address] ALP [Catalytic activity/Vol] 53 U/L Normal 33 - 136 [facility] Comment on above: Performed By: #### C MP #### [address] [address] ALT [Catalytic activity/Vol] 15 U/L Normal 10 - 52 [facility] Comment on above: Result Comment: Grisel ents treated with Sulfasalazine may generate falsely decreased results for ALT. Performed By: #### C MP #### [address] [address] Anion gap [Moles/Vol] 10 mmol/L Normal 10 - 20 [facility] Comment on above: Performed By: #### C MP #### [address] [address] AST [Catalytic activity/Vol] 20 U/L Normal 9 - 39 [facility] Comment on above: Performed By: #### C MP #### [address] [address] Bilirubin [Mass/Vol] 0.8 mg/dL Normal 0.0 - 1.2 [facility] Comment on above: Performed By: #### C MP #### [address] [address] Calcium [Mass/Vol] 8.9 mg/dL Normal 8.6 - 10.3 [facility] Comment on above: Performed By: #### C MP #### [address] [address] Chloride [Moles/Vol] 106 mmol/L Normal 98 - 107 [facility] Comment on above: Performed By: #### C MP #### [address] [address] Creatinine [Mass/Vol] 0.83 mg/dL Normal 0.50 - 1.30 [facility] Comment on above: Performed By: #### C MP #### [address] [address] GFR- AM. >60 Normal >60 [facility] Comment on above: Result Comment: CALC ULATIONS OF ESTIMATED GFR ARE PERFORMED USING THE MDRD STUDY EQUATION FOR THE IDMS-TRACEABLE CREATININE METHODS. CLIN CHEM 2007;53:766-72 Performed By: #### C MP #### [address] [address] GFR-NON AM. >60 Normal >60 [facility] Comment on above: Performed By: #### C MP #### [address] [address] Glucose [Mass/Vol] 91 mg/dL Normal 74 - 99 [facility] Comment on above: Performed By: #### C MP #### [address] [address] HCO3 (Bld) [Moles/Vol] 28 mmol/L Normal 21 - 32 [facility] Comment on above: Performed By: #### C MP #### [address] [address] Potassium [Moles/Vol] 4.0 mmol/L Normal 3.5 - 5.3 [facility] Comment on above: Performed By: #### C MP #### [address] [address] Protein [Mass/Vol] 6.5 g/dL Normal 6.4 - 8.2 [facility] Comment on above: Performed By: #### C MP #### [address] [address] Sodium [Moles/Vol] 140 mmol/L Normal 136 - 145 [facility] Comment on above: Performed By: #### C MP #### [address] [address] Urea nitrogen [Mass/Vol] 18 mg/dL Normal 6 - 23 [facility] Comment on above: Performed By: #### C MP #### [address] [address] Complete Blood Count + Diffe stefantialon 08-23-2019 Basophils (Bld) [#/Vol] 0.00 {x10E9/L} See Rakel pina [facility] Work Phone: Comment on above: Reference Range: 0.0 0 - 0.10 Basophils/100 WBC (Bld) 0.5 % 0.0 - 2.0 [facility] Work Phone: [phone] Eosinophils (Bld) [#/Vol] 0.10 {x10E9/L} See Below [facility] Work Phone: [phone] Comment on above: Reference Range: 0.0 0 - 0.70 Eosinophils/100 WBC (Bld) 1.4 % 0.0 - 6.0 [facility] Work Phone: [phone] Erythrocyte distribution width (RBC) [Ratio] 13.9 % See Below [facility] Work Phone: [phone] Comment on above: Reference Range: 11. 5 - 14.5 Hematocrit (Bld) [Volume fraction] 42.3 % See Below [facility] Work Phone: [phone] Comment on above: Reference Range: 41. 0 - 52.0 Hemoglobin (Bld) [Mass/Vol] 13.7 g/dL See Below [facility] Work Phone: [phone] Comment on above: Reference Range: 13. 5 - 17.5 Lymphocytes (Bld) [#/Vol] 2.20 {x10E9/L} See Below [facility] Work Phone: [phone] Comment on above: Reference Range: 1.2 0 - 4.80 Lymphocytes/100 WBC (Bld) 36.0 % See Below [facility] Work Phone: [phone] Comment on above: Reference Range: 13. 0 - 44.0 MCHC (RBC) [Mass/Vol] 32.5 g/dL See Below [facility] Work Phone: [phone] Comment on above: Reference Range: 32. 0 - 36.0 MCV (RBC) [Entitic vol] 89 fL 80 - 100 [facility] Work Phone: [phone] Monocytes (Bld) [#/Vol] 0.80 {x10E9/L} See Rakel pina [facility] Work Phone: [phone] Comment on above: Reference Range: 0.1 0 - 1.00 Monocytes/100 WBC (Bld) 12.3 % 2.0 - 10.0 [facility] Work Phone: Neutrophils (Bld) [#/Vol] 3.10 {x10E9/L} See Below [facility] Work Phone: Comment on above: Reference Range: 1.2 0 - 7.70 Percent differential counts (%) should be interpreted in the context of the absolute cell counts (cells/L). Neutrophils/100 WBC (Bld) 49.8 % See Below [facility] Work Phone: Comment on above: Reference Range: 40. 0 - 80.0 Platelets (Bld) [#/Vol] 212 {x10E9/L} 150 - 450 [facility] Work Phone: RBC (Bld) [#/Vol] 4.76 {x10E12/L} See Below [facility] Work Phone: Comment on above: Reference Range: 4.5 0 - 5.90 WBC (Bld) [#/Vol] 6.2 {x10E9/L} 4.4 - 11.3 [facility] Work Phone: WBC (Bld) [#/Vol] 0.1 {/100_WBC} [facility] Work Phone: LIPID PANEL (CORONARY RISK 2 )on 08-23-2019 Cholesterol [Mass/Vol] 122 mg/dL Normal 0 - 199 [facility] Comment on above: Result Comment: . AGE DESIRABLE BORDERLINE HIGH HIGH 0-19 Y 0 - 169 170 - 199 >/= 200 20-24 Y 0 - 189 190 - 224 >/= 225 >24 Y 0 - 199 200 - 239 >/= 240 All ranges are based on fasting samples. Specific therapeutic targets will vary based on patient-specific cardiac risk. . Pediatric guidelines reference:Pediatrics 2011, 128(S5). Adult guidelines reference: NCEP ATPIII Guidelines, KIM 2001, 258:2486-97 . Venipuncture immediately after or during the administration of Metamizole may lead to falsely low results. Testing should be performed immediately prior to Metamizole dosing. Performed By: #### L IPID #### [address] [address] Cholesterol in HDL [Mass/Vol] 46.0 mg/dL Normal [facility] Comment on above: Result Comment: . AGE VERY LOW LOW NORMAL HIGH 0-19 Y < 35 < 40 40-45 ---- 20-24 Y ---- < 40 >45 ---- >24 Y ---- < 40 40-60 >60 . Performed By: #### L IPID #### [address] [address] Cholesterol in LDL [Mass/Vol] 65 mg/dL Normal 0 - 99 [facility] Comment on above: Result Comment: . NEAR BORD AGE DESIRABLE OPTIMAL HIGH HIGH VERY HIGH 0-19 Y 0 - 109 --- 110-129 >/= 130 ---- 20-24 Y 0 - 119 --- 120-159 >/= 160 ---- >24 Y 0 - 99 100-129 130-159 160-189 >/=190 . Performed By: #### L IPID #### [address] [address] Cholesterol in VLDL [Mass/Vol] 11 mg/dL Normal 0 - 40 [facility] Comment on above: Performed By: #### L IPID #### [address] [address] Cholesterol.total/Cece sterol in HDL [Mass ratio] 2.7 {ratio} Normal [facility] Comment on above: Result Comment: REF VALUES DESIRABLE < 3.4 HIGH RISK > 5.0 Performed By: #### L IPID #### [address] [address] Triglyceride [Mass/Vol] 56 mg/dL Normal 0 - 149 [facility] Comment on above: Result Comment: . AGE DESIRABLE BORDERLINE HIGH HIGH VERY HIGH 0 D-90 D 19 - 174 ---- ---- ---- 91 D- 9 Y 0 - 74 75 - 99 >/= 100 ---- 10-19 Y 0 - 89 90 - 129 >/= 130 ---- 20-24 Y 0 - 114 115 - 149 >/= 150 ---- >24 Y 0 - 149 150 - 199 200- 499 >/= 500 . Venipuncture immediately after or during the administration of Metamizole may lead to falsely low results. Testing should be performed immediately prior to Metamizole dosing. Performed By: #### L IPID #### [facility] [address] [place] [address] Lipid Panelon 08-23-2019 Cholesterol [Mass/Vol] 122 mg/dL 0 - 199 [facility] Work Phone: Comment on above: . AGE DESIRABLE BORD SERVANDO HIGH HIGH 0-19 Y 0 - 169 170 - 199 >/= 200 20-24 Y 0 - 189 190 - 224 >/= 225 >24 Y 0 - 199 200 - 239 >/= 240 All ranges are based on fasting samples. Specific therapeutic targets will vary based on patient-specific cardiac risk.. Pediatric guidelines reference:Pediatrics 2011, 128(S5). Adult guidelines reference: NCEP ATPIII Guidelines, KIM 2001, 258:2486-97. Venipuncture immediately after or during the administration of Metamizole may lead to falsely low results. Testing should be performed immediately prior to Metamizole dosing. Cholesterol in HDL [Mass/Vol] 46.0 mg/dL [facility] Work Phone: Comment on above: . AGE VERY LOW LOW N ORMAL HIGH 0-19 Y < 35 < 40 40-45 ---- 20-24 Y ---- < 40 >45 ---- >24 Y ---- < 40 40-60 >60. Cholesterol in LDL [Mass/Vol] 65 mg/dL 0 - 99 [facility] Work Phone: Comment on above: . NEAR BORD AGE JAMI RABLE OPTIMAL HIGH HIGH VERY HIGH 0-19 Y 0 - 109 --- 110-129 >/= 130 ---- 20-24 Y 0 - 119 --- 120-159 >/= 160 ---- >24 Y 0 - 99 100-129 130-159 160-189 >/=190. Cholesterol.total/Cece sterol in HDL [Mass ratio] 2.7 {ratio} [facility] Work Phone: Comment on above: REF VALUESDESIRABLE < 3.4HIGH RISK > 5.0 Triglyceride [Mass/Vol] 56 mg/dL 0 - 149 [facility] Work Phone: [phone] Comment on above: . AGE DESIRABLE BORD SERVANDO HIGH HIGH VERY HIGH 0 D-90 D 19 - 174 ---- ---- ----91 D- 9 Y 0 - 74 75 - 99 >/= 100 ---- 10-19 Y 0 - 89 90 - 129 >/= 130 ---- 20-24 Y 0 - 114 115 - 149 >/= 150 ---- >24 Y 0 - 149 150 - 199 200- 499 >/= 500. Venipuncture immediately after or during the administration of Metamizole may lead to falsely low results. Testing should be performed immediately prior to Metamizole dosing. Lipid Panel 11 mg/dL 0 - 40 [facility] Work Phone: Metabolic Panelon 08-23-2019 ALP [Catalytic activity/Vol] 53 U/L 33 - 136 [facility] Work Phone: Anion gap [Moles/Vol] 10 mmol/L 10 - 20 [facility] Work Phone: Bilirubin [Mass/Vol] 0.8 mg/dL 0.0 - 1.2 [facility] Work Phone: Calcium [Mass/Vol] 8.9 mg/dL 8.6 - 10.3 [facility] Work Phone: Chloride [Moles/Vol] 106 mmol/L 98 - 107 [facility] Work Phone: CO2 [Moles/Vol] 28 mmol/L 21 - 32 [facility] Work Phone: Creatinine [Mass/Vol] 0.83 mg/dL See Below [facility] Work Phone: [phone] Comment on above: Reference Range: 0.5 0 - 1.30 Glucose [Mass/Vol] 91 mg/dL 74 - 99 [facility] Work Phone: Potassium [Moles/Vol] 4.0 mmol/L 3.5 - 5.3 [facility] Work Phone: Protein [Mass/Vol] 6.5 g/dL 6.4 - 8.2 [facility] Work Phone: Sodium [Moles/Vol] 140 mmol/L 136 - 145 [facility] Work Phone: Urea nitrogen [Mass/Vol] 18 mg/dL 6 - 23 [facility] Work Phone: Otheron 08-23-2019 Albumin BCP dye [Mass/Vol] 3.8 g/dL 3.4 - 5.0 [facility] Work Phone: ALT With P-5'-P [Catalytic activity/Vol] 15 U/L 10 - 52 [facility] Work Phone: Comment on above: Patients treated wit h Sulfasalazine may generate falsely decreased results for ALT. AST With P-5'-P [Catalytic activity/Vol] 20 U/L 9 - 39 [facility] Work Phone: >60 >60 [facility] Work Phone: Comment on above: CALCULATIONS OF THOM MATED GFR ARE PERFORMED USING THE MDRD STUDY EQUATION FOR THE IDMS-TRACEABLE CREATININE METHODS. CLIN CHEM 2007;53:766-72 PROSTATE SPEC.AG,SCREENon PROSTATE SPEC.AG,SCREEN 1.19 ng/mL Normal 0.00 - 4.00 [facility] Comment on above: Result Comment: The FDA requires that the method used for PSA assay be reported to the physician. Values obtained with different assay methods must not be used interchangeably. This test was performed at [facility] using the Birchbox PSA assay is a two-site immunoenzymatic sandwich assay. The assay is approved for measurement of prostate-specific antigen (PSA)in serum and may be used in conjunction with a digital rectal examination in men 50 years and older as an aid in detection of prostate cancer. 1-Savdg-gwrvisadw inhibitors (e.g. Proscar, Finasteride, Avodart, Dutasteride and Brenda) for the treatment of BPH have been shown to lower PSA levels by an average of 50% after 6 months of treatment. Performed By: #### P [facility] #### [address] [address] Prostate Spec.Ag, Screenon 0 08-23-2019 Prostate specific Ag [Mass/Vol] 1.19 ng/mL See Below [facility] Work Phone: Comment on above: Reference Range: 0.0 0 - 4.00The FDA requires that the method used for PSA assay be reported to the physician. Values obtained with different assay methods must not be used interchangeably. This testwas performed at [facility] using the Access Equidambritech PSA assay is a two-site immunoenzymatic sandwich assay. The assay is approved for measurement of prostate-specific antigen (PSA)in serum and may be used in conjunction with a digital rectal examination in men 50 years and older as an aid in detection of prostate cancer.1-Shlli-htwnwvvox inhibitors (e.g. Proscar, Finasteride, Avodart, Dutasteride and Brenda) for the treatment of BPH have been shown to lower PSA levels by an average of 50% after 6 months of treatment. TSH WITH REFLEX TO FREE T4 I F ABNORMALon 08-23-2019 TSH Qn 1.78 m[IU]/L Normal 0.44 - 3.98 [facility] Comment on above: Result Comment: Note new pediatric reference range as of 08/09/2019. TSH testing is performed using different testing methodology at [facility] than at other [facility]. Direct result comparisons should only be made within the same method. Performed By: #### T HYDS #### [address] [address] Thyroidon 08-23-2019 TSH Qn 1.78 {mIU/L} See Below [facility] Work Phone: Comment on above: Reference Range: 0.4 4 - 3.98 Note new pediatric reference range as of 08/09/2019. TSH testing is performed using different testing methodology at [facility] than at other [facility]. Direct result comparisons should only be made within the same method. Provider Note - ED v2on 08-04 Provider Note - ED v2 Provider Note - ED v2: Chart Review: ED NOTES ED NOTES: Patient will have a chief complaints of cough and fevers for 2 days. Patient says his body is achy. Patient denies any nausea vomiting shortness of breath constipation diarrhea. Patient has not taken anything buga-swi-prkyslj at this time. Patient states he has lost 20 pounds recently while trying to diet. HISTORY OF PRESENTING ILLNESS GERRY is a 59 year old Male and was seen by me at 15-Aug-2019 10:10. The historian is the patient. Triage Information: Most recent Vital Sign Value Date PAST MEDICAL HISTORY ATTESTATION: I have reviewed and confirmed nurse's/medic's notes for patient's medications, allergies, medical history, and surgical history PSYCHOSOCIAL SCREENING: NO: concerns for safety at home, feelings of depression, feels like hurting others and feels like hurting self ALLERGIES/INTOLERANCES: No Known Allergies HEALTH HISTORY: No documented data. OUTPATIENT MEDICATIONS: Home Medications Review Status for Reconciliation: Complete Med Status: Patient Currently Takes Medications Drug Name: losartan 50 mg oral tablet Instructions: 1 tab(s) orally once a day Drug Name: carvedilol 3.125 mg oral tablet Instructions: orally once a day SIGNIFICANT EVENTS: Other Description:NO RECENT TRAVEL OUT OF US Past Medical History Description:copd Description:Cardiomyapth y Past Surgical History Description:RT KNEE REVIEW OF SYSTEMS CONSTITUTIONAL: POSITIVE for: fever RESPIRATORY: POSITIVE for: cough All other systems reviewed and are negative PHYSICAL EXAM CONSTITUTIONAL: Well appearing, well nourished, awake, alert, oriented to person, place, time/situation and in no apparent distress. HENMT: Airway patent, ears with clear tympanic membranes bilaterally. Nasal mucosa clear. Mouth with normal mucosa. Throat has no vesicles, no oropharyngeal exudates and uvula is midline. Face with no lymph node enlargement. EYES: Clear bilaterally, pupils equal, round and reactive to light. CARDIOVASCULAR: Normal rate, regular rhythm. RESPIRATORY: Breath sounds clear and equal bilaterally and unlabored. no Rales rhonchi or crackles. GASTROINTESTINAL: Abdomen soft, non-distended, no rebound, no guarding. GENITOURINARY: No discharge, no lesions. MUSCULOSKELETAL: Spine appears normal, range of motion is not limited, no muscle or joint tenderness. NEUROLOGICAL: Alert and oriented, no focal deficits, no motor or sensory deficits. SKIN: Skin normal color for race, warm, dry and intact. No evidence of trauma. PSYCHIATRIC: Alert and oriented to person, place, time/situation. normal mood and affect. No apparent risk to self or others. HEME/LYMPH: No cervical adenopathy. RESULTS/VITAL SIGNS VITAL SIGNS: T PRBP SpO2O2(LPM) %FiO2 Method 15-Aug-2019 10:08:[id number] CLINICAL IMPRESSION Diagnosis/Annotation: ED Dx Name:Exposure to influenza Code:Z20.828 Dispostion: discharged Type: home ATTESTATION Comments/Additional Findings: Patient's influenza test was negative. Patient was educated in appropriate supportive treatments for viral infections. Patient will follow up in 2-3 days or sooner if symptoms worsen patient also does have a scheduled primary care visit in the next week with his primary care physician and will go over everything with him. CRITICAL CARE TIME Is this a critically ill patient: no Electronic Signatures: Lis Camarena ([employer] WORK[employer]) (Signed 15-Aug-2019 11:23) Authored: Provider Note - ED v2 Last Updated: 15-Aug-2019 11:23 by Lis Camarena ([employer] WORKER) [facility] Provider Note - ED v2on 06-06 Provider Note - ED v2 Provider Note - ED v2: Chart Review: ED NOTES ED NOTES: ====HPI==== Mr. Travis is a 59 y/o presents with c/o sinus pressure, sore throat & facial pressure. Pt says x1 weeks he's been dealing with congestion, sinus pressure, he's been using his nasal wash machine, which he finds is helpful to reduce these symptoms. He is known to undergo sinus infections every 6 months. He was seen here last and treated over the summer time with similar condition. Pt denies drooling, difficulty tolerating ones own saliva. PT denies any N/V/D, visual disturbance, dyspnea, [place], PND, or lip, tongue, cheek, neck swelling. Character: Severity: 6/10 Exacerbated by: swallowing, speaking, drinking water (hot or cold), eating solid foods Improved by: rest, pushing fluids, nasal washes ====Review of Systems==== 10 point system review is negative except for those specifically mentioned in history of present illness ====Physical Exam==== Constitutional/General: Alert and oriented x3, well appearing. HEAD: AT/NC NOSE: nasal congestion THROAT: left sided erythema, no asymmetry, no D/C, + post nasal drip, tonsils are symmetric, sinus tenderness on palpation over frontal, maxillary and ethoid EARS: patent and TM normal, mastoid exam on palpation MOUTH: todd Respiratory: nonlabored respirations, CTA Cardiovascular: 2+ distal pulses in affected leg Musculoskeletal: Moves all extremities x4, warm and well perfused Integument: Skin warm and dry, no rashes. No PW, lacerations, pulsatile masses or FB observed or palpated. Lymphatic: No lymphadenopathy noted. Neurologic: no observed facial nerve palsy bilaterally, symmetric strength 5/5 in the upper and lower extremities bilaterally. Psychiatric: Normal affect. DIFFERENTIAL DIAGNOSIS: Acute Pharyngitis, exudative pharyngitis, Retropharyngeal abscess Epiglottis Scarlet fever Diphtheria Bacterial Tracheitis Ludwigs Angina Angioedema or anaphylaxis Painful cervical lymphadenopathy Tonsillitis Pharyngitis Peritonsilar Abscess (quinsy) Infectious mononucleosis Measles HFMD Trauma, e.g. foreign body or caustic ingestion. HISTORY OF PRESENTING ILLNESS GERRY is a 59 year old Male and was seen by me at 16-Jun-2019 09:43. Triage Information: Most recent Vital Sign Value Date PAST MEDICAL HISTORY ATTESTATION: I have reviewed and confirmed nurse's/medic's notes for patient's medications, allergies, medical history, and surgical history ALLERGIES/INTOLERANCES: No Known Allergies HEALTH HISTORY: No documented data. OUTPATIENT MEDICATIONS: Home Medications Review Status for Reconciliation: Complete Med Status: Patient Currently Takes Medications Drug Name: losartan 50 mg oral tablet Instructions: 1 tab(s) orally once a day Drug Name: carvedilol 3.125 mg oral tablet Instructions: orally once a day Drug Name: amoxicillin-clavulanate 875 mg-125 mg oral tablet Instructions: 1 tab(s) orally every 12 hours SIGNIFICANT EVENTS: Past Medical History Description:copd Description:Cardiomyapth y RESULTS/VITAL SIGNS VITAL SIGNS: T PRBP SpO2O2(LPM) %FiO2 Method 16-Jun-2019 09:48:[id number] MEDICAL DECISION MAKING/ED COURSE MDM/ED COURSE: tx as acute sinusitis, f/u with GP, encourage he us claritin-d & sinus wash as he sees fit. CLINICAL IMPRESSION Diagnosis/Annotation: ED Dx Name:Acute sinusitis Code:J01.90 Dispostion: discharged Type: home ATTESTATION CRITICAL CARE TIME Is this a critically ill patient: no Electronic Signatures: Yanick Ramirez (PAC) (Signed 16-Jun-2019 10:35) Authored: Provider Note - ED v2 Last Updated: 16-Jun-2019 10:35 by Yanick Ramirez (PAC) [facility] [place] 10[place] Cardiac Blood Pool Gated Single Exam Date/Time: 10/04/2018 11:53 EDT Reason for Exam: CARDIMYOPATHY;Cardiomyop athy Report STUDY: [place] Cardiac Blood Pool Gated Single; 10/04/2018 11:53 am INDICATION: Cardiomyopathy. COMPARISON: MUGA scan 02/02/2016, ACCESSION NUMBER(S): [id number] ORDERING CLINICIAN: Josiah Bunn TECHNIQUE: DIVISION OF NUCLEAR MEDICINE ECG GATED CARDIAC BLOOD POOL SCAN (MUGA): Multiple ECG gated images of the heart were acquired after radiolabeling of the circulating erythrocyte blood pool with an intravenous dose of 24.0 mCi of Tc-99m via UltraTag technique. Computer quantification of LV function was performed. FINDINGS: Both right and left ventricles are grossly within normal in size and demonstrate normal contractility. The LV ejection fraction is estimated at 50 % (normal >50%). IMPRESSION: Normal biventricular function. The LV EF is estimated at 50%. I personally reviewed the images/study and I agree with the findings as stated. This study was interpreted at [facility], [place], [place]. FINAL REPORT Dictated: 10/04/2018 12:52 pm Cole Evans MD Signed (Electronic Signature): 10/04/2018 12:52 pm Signed by: Cole Evans MD Technologist: TENZIN [facility] PSA Totalon 08-23-2018 PSA Total 1.08 ng/mL [facility] Comment on above: Result Comment: AGE- SPECIFIC REFERENCE RANGES FOR SERUM PSA REFERENCE RANGE NG/ML AGE ASIANS BLACKS WHITE 40-49 0-2 0-2 0-2.5 50-59 0-3 0-4 0-3.5 60-69 0-4 0-4.5 0-4.5 70-79 0-5 0-5.5 0-6.5 PSA INCREASES WITH AGE, RACE, AND EJACULATION WITHIN 48 HRS. [facility] VOL24,NO.2, , PG.339 Performed By: #### 1 [id number] #### DAVY [employer] [address] [place], [place] [id number] CT CHEST LOW DOSE LUNG CA SC [place] 03-16-2018 CT CHEST LOW DOSE LUNG CA SCREEN Final ReportAccession No: [id number] Performed: Mar 16 2018 11:43AMExamination: CT CHEST LOW DOSE LUNG CA SCREENEXAM: CT CHEST LOW DOSE LUNG CA SCREENCLINICAL STATEMENT: Nicotine dependence, smoker, screening exam.COMPARISON: None.TECHNIQUE: Unenhanced helical acquisition was obtained through the lungparenchyma utilizing a low-dose screening protocol.Dose reduction techniques were achieved by using automated exposurecontroland/or adjustment of mA and/or kV according to patient size and/or use ofiterative reconstruction technique.FINDINGS: Mild paraseptal and centrilobular emphysema are present. Thereis a0.5 cm nodular opacity within the right middle lobe. There is focalpulmonaryscarring within the left lung base. The pleural spaces are clear. Noenlargedlymph nodes are visualized within the chest. Mild coronary arterialcalcifications are present involving the LAD coronary artery.IMPRESSION:1. There is a 0.5 cm right middle lobe pulmonary nodule. Annual screeningexamination in 12 months time interval is recommended.2. Mild emphysema.3. Mild coronary arterial calcifications.Lung-RADS 2FINDINGS: Solid nodule(s): <6 mm or new <4 mm; part solid nodule(s) <6 mmtotal diameter on baseline screening; nonsolid nodule(s) (GGN): <20 mm orgreater than/equal to 20 mm and unchanged or slowly growing; category 3or 4nodules unchanged for greater than/equal to 3 months.MANAGEMENT: Continue annual screening with LDCT in 12 months.Interpreting Physician: DOUG BREWSTER M.D.Trans: abond : cc: Normal [facility] Hep C Abon 03-10-2018 Hep C Ab <0.1 Normal 0.0-0.9 [facility] Comment on above: Result Comment: Nega tive: < 0.8 Indeterminate: 0.8 - 0.9 Positive: > 0.9 The CDC recommends that a positive HCV antibody result be followed up with a HCV Nucleic Acid Amplification test (388044). Performed At: [facility] [address] [id number] Bouchra Cisneros PhD Ph:[phone] Performed By: #### 2 [id number] #### DAVY [employer] [address] [place] [address] Lipid Profileon 03-09-2018 Cholesterol [Mass/Vol] 133 mg/dL Normal 120-200 [facility] Comment on above: Result Comment: TOTA L CHOLEESTEROL: <200 NORMAL 200 - 239 BORDERLINE HIGH >240 HIGH Performed By: #### 3 [id number] #### [employer] [facility] [place] [address] Cholesterol in HDL [Mass/Vol] 53 mg/dL Normal [facility] Comment on above: Performed By: #### 3 [id number] #### [employer] [facility] [place] [address] Cholesterol in LDL [Mass/Vol] 70 mg/dL Normal 0-130 [facility] Comment on above: Result Comment: <100 OPTIMAL 100-129 NEAR / ABOVE OPTIMAL 130-159 BORDERLINE HIGH 160-189 HIGH >190 VERY HIGH CALC LDL NOT VALID WHEN TRIGLYCERIDE IS >400 MG/DL Performed By: #### 3 [id number] #### [employer] [facility] [place] [address] Cholesterol in VLDL [Mass/Vol] 10 mg/dL Normal [facility] Comment on above: Performed By: #### 3 [id number] #### [employer] [address] [place] [address] Triglyceride [Mass/Vol] 49 mg/dL Normal 0-150 [facility] Comment on above: Result Comment: <150 NORMAL 150-199 BORDERLINE HIGH 200-499 HIGH >500 VERY HIGH Performed By: #### 3 [id number] #### [employer] [address] [place] [address] XR Spine Cervical 4 or 5 Francisco olivares 03-09-2018 XR Spine Cervical 4 or 5 Views Exam Date/Time: 03/09/2018 12:05 EDT Reason for Exam: Neck Pain Report STUDY: XR Spine Cervical 4 or 5 Views; 03/09/2018 12:05 pm INDICATION: Neck Pain. COMPARISON: None. ACCESSION NUMBER(S): [id number] ORDERING CLINICIAN: Maris Dugan TECHNIQUE: Five views of the cervical spine including AP, lateral, open-mouth odontoid view and bilateral oblique views were obtained. FINDINGS: There is no evidence of acute fracture identified. The vertebral bodies are well aligned without evidence of subluxation. No prevertebral soft tissue swelling is present. Minimal disc space narrowing is seen at the C4-5 and C5-6 levels. Mild facet degenerative changes are seen throughout the cervical spine. Mild osseous neural foraminal narrowing is seen bilaterally at the C5-5 and C5-6 levels. No gross osseous neural foraminal narrowing is seen bilaterally. IMPRESSION: 1. No evidence of acute fracture. FINAL REPORT Dictated: 03/09/2018 12:24 pm Fernando Whipple MD Signed (Electronic Signature): 03/09/2018 12:24 pm Signed by: Fernando Whipple MD Technologist: [facility] Basic Metabolic Panel $$$on 11-23-2017 Anion gap 10.1 mmol/L Normal 03-25 [facility] Comment on above: Performed By: #### C MÓNICA, PTINR, BMP ####[facility] [place] [address] BUN (urea nitrogen) 15 mg/dL Normal - [facility] Comment on above: Result Comment: Rubina carrasco note new reference range as of October. Performed By: #### C MÓNICA, PTINR, BMP ####[facility] [place] [address] Calcium 9.1 mg/dL Normal 8.6-10.3 [facility] Comment on above: Result Comment: Plea se note new reference range as of October. Performed By: #### C MÓNICA, PTINR, BMP ####[facility] [place] [address] Chloride 108 mmol/L High 98-107 [facility] Comment on above: Performed By: #### C MÓNICA, PTINR, BMP ####[facility] [place] [address] CO2 26 mmol/L Normal 21-32 [facility] Comment on above: Performed By: #### C MÓNICA, PTINR, BMP ####[facility] [place] [address] [place] [address] Creatinine 1.20 mg/dL Normal 0.50-1.30 [facility] Comment on above: Result Comment: Plenatividad se note new reference range as of October. Performed By: #### C MÓNICA, PTINR, BMP ####[facility] [place] [address], [place] [address] GFR () >60 Normal [facility] Comment on above: Performed By: #### C MÓNICA, PTINR, BMP ####[facility] [place] [address] [place] [address] GFR (Non ) >60 Normal [facility] Comment on above: Result Comment: eGFR Units of measure: mL/min/1.73 m 2 Performed By: #### C MÓNICA, PTINR, BMP ####[facility] [facility] [place] [address] Glucose mass conc 92 mg/dL Normal 74-99 [facility] Comment on above: Performed By: #### C MÓNICA, PTINR, BMP ####[facility] [facility] [place] [address] Potassium molar conc 4.1 mmol/L Normal 3.5-5.3 [facility] Comment on above: Performed By: #### C MÓNICA, PTINR, BMP ####[facility] [place], [place] [id number] Sodium 140 mmol/L Normal 136-145 [facility] Comment on above: Performed By: #### C MÓNICA, PTINR, BMP ####[facility] [place], [place] [id number] Cardiac Catheterizationon Cardiac Catheterization [facility] Patient: GERRY TRAVIS [address] [facility] MR#: [id number] [place], [place] [address] : 1960 OrdIsh Marie: Dept: PDOC Loc: CATH Cardiac Catheterization Service Dt: 11/23/17 Report#: [id number] Adm Dt: 11/23/17 Dis Dt: Cardiac Catheterization - Cardiac Catheterization History: 57 years old gentleman with abnormal echocardiography with dilated cardiomyopathy moderate severe LV systolic dysfunction cardiac catheterization is performed today to rule out coronary artery disease Risk and benefit of this procedure was explained to the patient he is agreeable to proceed Procedure Note: Right radial artery used for access Coronary angiography and left ventriculography Catheter used Carolyn right 4 Carolyn left 3.5 Carolyn pigtail 5 Malagasy system The slender 6 Malagasy sheath was inserted in the right radial artery without difficulty Nitroglycerin 200 ?g was given intra-arterially Verapamil were not given because of bradycardia 2000 units of heparin were given intravenously The Carolyn right 4 catheter was introduced up to the ascending aorta over the J-wire and engage the right coronary artery to perform right coronary angiography The Carolyn left 3.5 catheter was introduced outdoing ascending aorta and engage the left main to perform left coronary angiography The pigtail catheter was introduced over the wire across the aortic valve to perform left ventriculography Hemodynamic Blood pressure is 110/80 Left ventricular pressure is 110/12 - 20 Findings: Left ventricle is dilated with moderately severe left ventricular diastolic dysfunction ejection fraction was visually estimated at around 30% with no wall motion abnormality Left main is 3 cm long and bifurcates to LAD and the circumflex and free of coronary artery disease Left anterior descending artery is a large vessel giving rise to 4 second diagonal and is free of coronary artery disease Circumflex is a moderate-sized vessels and normal Right coronary artery is a large dominant vessel giving rise to the large PDA and 2 posterolateral branches and normal Summary: None ischemic dilated cardiomyopathy Normal coronary Dilated left ventricle with moderately severe left ventricular systolic dysfunction EF of 30% Normal [facility] Complete Blood Count w/diff $$on 11-23-2017 Basophils Auto #/vol (Bld) 0.0 10 /uL Low 0.04-0.9 [facility] Comment on above: Performed By: #### C MÓNICA PTINR, BMP ####[facility] [place] [address] Basophils/100 WBC Auto (Bld) 0 % Normal 0-1 [facility] Comment on above: Performed By: #### C MÓNICA PTINR, BMP ####[facility] [place] [address] Eosinophils 0.1 10 3/uL Normal 0.03-0.6 [facility] Comment on above: Performed By: #### C MÓNICA PTINR, BMP ####[facility] [place] [address] Eosinophils/100 leukocytes 2 % Normal 0-3 [facility] Comment on above: Performed By: #### C MÓNICA PTINR, BMP ####[facility] [place] [address] Erythrocyte distribution width Auto Ratio (RBC) 12.7 % Normal 11.5-14.5 [facility] Comment on above: Performed By: #### [employer] PTINR, BMP ####[facility] [place] [address] Erythrocytes (RBC) 4.98 10 6/uL Normal 4.5-6.0 [facility] Comment on above: Performed By: #### C MÓNICA PTINR, BMP ####[facility] [place] [address] Hematocrit (HCT) 45.4 % Normal 39-50 [facility] Comment on above: Performed By: #### C MÓNICA PTINR, BMP ####[address] [address] Hemoglobin mass conc (Bld) 14.6 g/dL Normal 13.0-17.3 [facility] Comment on above: Performed By: #### C MÓNICA PTINR, BMP ####[address] [address] Immature Gran# (Auto) 0.0 10 3/uL Normal [facility] Comment on above: Performed By: #### C MÓNICA PTINR, BMP ####[address] [address] Immature granulocytes #/vol (Bld) 0.3 % Normal 0.0-1.2 [facility] Comment on above: Performed By: #### C MÓNICA PTINR, BMP ####[address] [address] Lymphocytes 2.3 10 3/uL Normal 1-3.5 [facility] Comment on above: Performed By: #### [employer]an [employer] PTINR, BMP ####[address] [address] Lymphocytes/100 leukocytes 33 % Normal 24-44 [facility] Comment on above: Performed By: #### C MÓNICA PTINR, BMP ####[address] [address] MCH 29.3 pg Normal 27-34 [facility] Comment on above: Performed By: #### C MÓNICA PTINR, BMP ####[address] [address] MCH 32.2 g/dL Low 33-37 [facility] Comment on above: Performed By: #### C MÓNICA PTINR, BMP ####[place] [address] [place] [address] MCV 91.2 fL Normal 80-100 [facility] Comment on above: Performed By: #### C MÓNICA, PTINR, BMP ####[facility] [place] [address] Monocytes 0.9 10 3/uL Normal 0.04-0.9 [facility] Comment on above: Performed By: #### C MÓNICA, PTINR, BMP ####[facility] [place] [address] Monocytes/100 leukocytes 14 % High 1-8 [facility] Comment on above: Performed By: #### C MÓNICA, PTINR, BMP ####[facility] [place] [address] Neutrophils 3.4 10 3/uL Normal 1.8-7.0 [facility] Comment on above: Performed By: #### C MÓNICA, PTINR, BMP ####[facility] [place] [address] Neutrophils/100 leukocytes 51 % Normal 42-76 [facility] Comment on above: Performed By: #### C MÓNICA, PTINR, BMP ####[facility] [place] [address] Nucleated erythrocytes 0.0 % Normal 0.0-0.2 [facility] Comment on above: Performed By: #### C MÓNICA, PTINR, BMP ####[facility] [place] [address] Platelet mean volume (PMV) 10.2 fL Normal 7.4-10.4 [facility] Comment on above: Performed By: #### C MÓNICA, PTINR, BMP ####[facility] [place] [address] Platelets 209 10 3/uL Normal 150-400 [facility] Comment on above: Performed By: #### C BC, PTINR, BMP ####[facility] [place] [address] WBC (Leukocytes) 6.8 10 3/uL Normal 4.0-11.0 [facility] Comment on above: Performed By: #### C MÓNICA, PTINR, BMP ####[facility] [place] [address] Protime INRon 11-23-2017 INR Coag RelTime (PPP) 1.0 {INR} Normal 0.9-1.1 [facility] Comment on above: Result Comment: Plea note new reference range OF 07/05/2017 Performed By: #### C MÓNICA, PTINR, BMP ####[facility] [place] [address] Protein 11.4 sec Normal 9.8-12.7 [facility] Comment on above: Result Comment: Plea se note new reference range OF 07/05/2017 Performed By: #### C MÓNICA, PTINR, BMP ####[facility] [place] [address] Vital Signs Date Time Vital Sign Value Performing Clinician Facility 11-28-2024 14:39-0400 Body height 180.[address] Dianne Chris MD Work Phone: [facility] 11-28-2024 14:39-0400 Body mass index (BMI) [Ratio] 22.7 kg/m2 Dr. Dianne Chris MD Work Phone: [facility] 11-28-2024 14:39-0400 Body temperature 98.6 [degF] Dr. Dianne Chris MD Work Phone: [facility] 11-28-2024 14:39-0400 Body weight 74.[address] Dianne Chris MD Work Phone: [facility] 11-28-2024 14:39-0400 Diastolic blood pressure 57 mm[Hg] Dr. Dianne Chris MD Work Phone: [facility] 11-28-2024 14:39-0400 Heart rate 57 /min Dr. Dianne Chris MD Work Phone: [facility] 11-28-2024 14:39-0400 Respiratory rate 16 /min Dr. Dianne Chris MD Work Phone: [facility] 11-28-2024 14:39-0400 SaO2% (BldA) [Mass fraction] 95 % Dr. Dianne Chris MD Work Phone: [facility] 11-28-2024 14:39-0400 Systolic blood pressure 100 mm[Hg] Dr. Dianne Chris MD Work Phone: [facility] 04-19-2023 17:50-0500 Body temperature 98.8 [degF] Zelalem Pendlebury [employer] Work Phone: [facility] 04-19-2023 17:50-0500 Body weight 83.01 kg Zelalem Pendlebury [employer] Work Phone: [facility] 04-19-2023 17:50-0500 Diastolic blood pressure 63 mm[Hg] Zelalem Pendlebury [employer] Work Phone: [facility] 04-19-2023 17:50-0500 Heart rate 61 /min Zelalem Pendlebury [employer] Work Phone: [facility] 04-19-2023 17:50-0500 Respiratory rate 18 /min Zelalem Pendlebury [employer] Work Phone: [facility] 04-19-2023 17:50-0500 SaO2% (BldA) [Mass fraction] 99 % Zelalem Pendlechristine [employer] Work Phone: [facility] 04-19-2023 17:50-0500 Systolic blood pressure 122 mm[Hg] Zelalem Pendlebury [employer] Work Phone: [facility] 10-13-2022 07:39-0400 Body height 182.[address] Ana Maria Pepper Work Phone: 6(406)365-179449 [place] [address] 10-13-2022 07:39-0400 Body mass index (BMI) [Ratio] 24.5 kg/m2 Dr. Ana Maria Pepper Work Phone: 1(825)715-397449 [place] [address] 10-13-2022 07:39-0400 Body temperature 98.4 [degF] Dr. Ana Maria Pepper Work Phone: 5(484)429-523649 [place] [address] 10-13-2022 07:39-0400 Body weight 82.[address] Ana Maria Pepper Work Phone: 5(398)150-577449 [place] [address] 10-13-2022 07:39-0400 Diastolic blood pressure 56 mm[Hg] Dr. Ana Maria Pepper Work Phone: 6(999)809-580649 [place] [address] 10-13-2022 07:39-0400 Heart rate 52 /min Dr. Ana Maria Pepper Work Phone: 3(394)068-662349 [place] [address] 10-13-2022 07:39-0400 Respiratory rate 18 /min Dr. Ana Maria Pepper Work Phone: 0(828)535-562749 [place] [address] 10-13-2022 07:39-0400 SaO2% (BldA) [Mass fraction] 96 % Dr. Ana Maria Pepper Work Phone: 2(672)600-841549 [place] [address] 10-13-2022 07:39-0400 Systolic blood pressure 108 mm[Hg] Dr. Ana Maria Pepper Work Phone: 2(090)361-868395 [place] [address] 08-04-2022 15:29-0500 Body temperature 97.8 [degF] Dr. Ana Maria Pepper Work Phone: 2(395)043-693095 [place] [address] 08-04-2022 15:29-0500 Diastolic blood pressure 68 mm[Hg] Dr. Ana Maria Pepper Work Phone: 4(537)730-425095 [place] [address] 08-04-2022 15:29-0500 Heart rate 55 /min Dr. Ana Maria Pepper Work Phone: 8(290)835-226749 [place] [address] 08-04-2022 15:29-0500 Respiratory rate 18 /min Dr. Ana Maria Pepper Work Phone: 7(745)801-100095 [place] [address] 08-04-2022 15:29-0500 SaO2% (BldA) [Mass fraction] 98 % Dr. Ana Maria Pepper Work Phone: 3(402)966-488595 [place] [address] 08-04-2022 15:29-0500 Systolic blood pressure 114 mm[Hg] Dr. Ana Maria Pepper Work Phone: 2(068)894-636049 [place] [address] 08-04-2022 12:00-0500 Inhaled oxygen flow rate 6 L/min Dr. Ana Maria Pepper Work Phone: 9(094)721-328449 [place] [address] 08-04-2022 09:25-0500 Body height 182.[address] Ana Maria Pepper Work Phone: 6(500)269-093849 [place] [address] 08-04-2022 09:25-0500 Body mass index (BMI) [Ratio] 24.7 kg/m2 Dr. Ana Maria Pepper Work Phone: 6(731)586-504249 [place] [address] 08-04-2022 09:25-0500 Body weight [address] Ana Maria Pepper Work Phone: 5(794)556-910649 [place] [address] 07-08-2022 13:44-0500 Body mass index (BMI) [Ratio] 23.9 kg/m2 Dr. Ana Maria Pepper Work Phone: 9(920)385-803149 [place] [address] 07-08-2022 13:44-0500 Body weight 80.[address] Ana Maria Pepper Work Phone: 2(920)224-706349 [place] [address] 07-08-2022 13:44-0500 Diastolic blood pressure 71 mm[Hg] Dr. Ana Maria ePpper Work Phone: 2(511)763-699949 [place] [address] 07-08-2022 13:44-0500 Respiratory rate 16 /min Dr. Ana Maria Pepper Work Phone: 8(413)238-664349 [place] [address] 07-08-2022 13:44-0500 Systolic blood pressure 119 mm[Hg] Dr. Ana Maria Pepper Work Phone: 5(968)452-192795 [place] [address] 06-18-2022 11:44-0500 Body height 182.9 cm Nathalia Mcnamara MD Work Phone: [facility] 06-18-2022 11:44-0500 Body temperature 98.71 [degF] Nathalia Mcnamara MD Work Phone: [facility] 06-18-2022 11:44-0500 Body weight 79.61 kg Nathalia Mcnamara MD Work Phone: [facility] 06-18-2022 11:44-0500 Diastolic blood pressure 72 mm[Hg] Nathalia Mcnamara MD Work Phone: [facility] 06-18-2022 11:44-0500 Heart rate 102 /min Nathalia Mcnamara MD Work Phone: [facility] 06-18-2022 11:44-0500 SaO2% (BldA) [Mass fraction] 96 % Nathalia Mcnamara MD Work Phone: [facility] 06-18-2022 11:44-0500 Systolic blood pressure 108 mm[Hg] Nathalia Mcnamara MD Work Phone: [facility] 06-17-2022 10:42-0500 Body weight 79.38 kg Ellie Tannhof [employer] Work Phone: [facility] 06-17-2022 10:42-0500 Diastolic blood pressure 60 mm[Hg] Ellie Tannhof [employer] Work Phone: [facility] 06-17-2022 10:42-0500 Heart rate 73 /min Ellie Tannhof [employer] Work Phone: [facility] 06-17-2022 10:42-0500 Respiratory rate 16 /min Ellie Tannhof [employer] WORK[employer] Work Phone: [facility] 06-17-2022 10:42-0500 SaO2% (BldA) [Mass fraction] 99 % Ellie Tannhof REEL MAN.ANODE WORKER Work Phone: [facility] 06-17-2022 10:42-0500 Systolic blood pressure 130 mm[Hg] Ellie Tannhof REEL MAN.ANODE WORKER Work Phone: [facility] 2022 06:51-0500 Body mass index (BMI) [Ratio] 24 kg/m2 Dr. Ana Maria Pepper Work Phone: [facility] 2022 06:51-0500 Body temperature 98.4 [degF] Dr. Ana Maria Pepper Work Phone: 7(762)764-294538 [address] 2022 06:51-0500 Body weight 80.[address] Ana Maria Pepper Work Phone: 5(680)888-647738 [address] 2022 06:51-0500 Diastolic blood pressure 50 mm[Hg] Dr. Ana Maria Pepper Work Phone: 7(948)140-843338 [address] 2022 06:51-0500 Heart rate 55 /min Dr. Ana Maria Pepper Work Phone: 2(119)153-881638 [address] 2022 06:51-0500 Respiratory rate 16 /min Dr. Ana Maria Pepper Work Phone: 7(817)820-788438 [address] 2022 06:51-0500 SaO2% (BldA) [Mass fraction] 97 % Dr. Ana Maria Pepper Work Phone: [facility] 2022 06:51-0500 Systolic blood pressure 100 mm[Hg] Dr. Ana Maria Pepper Work Phone: 6(380)[phone] [place] [address] 02-24-2022 13:20-0400 Body height 182.[address] Ana Maria Pepper Work Phone: [facility] Work Phone: 02-24-2022 13:20-0400 Body mass index (BMI) [Ratio] 24.3 kg/m2 Dr. Ana Maria Pepper Work Phone: [facility] Work Phone: 02-24-2022 13:20-0400 Body weight 81.[address] Ana Maria Pepper Work Phone: [facility] Work Phone: 02-24-2022 13:20-0400 Diastolic blood pressure 76 mm[Hg] Dr. Ana Maria Pepper Work Phone: [facility] Work Phone: 02-24-2022 13:20-0400 Heart rate 58 /min Dr. Ana Maria Pepper Work Phone: [facility] Work Phone: 02-24-2022 13:20-0400 Respiratory rate 18 /min Dr. Ana Maria Pepper Work Phone: [facility] Work Phone: 02-24-2022 13:20-0400 SaO2% (BldA) [Mass fraction] 98 % Dr. Ana Maria Pepper Work Phone: [facility] Work Phone: 02-24-2022 13:20-0400 Systolic blood pressure 128 mm[Hg] Dr. Ana Maria Pepper Work Phone: [facility] Work Phone: 12-30-2021 13:28-0400 Body height 182.9 cm Hung Gonzalse MD Work Phone: [facility] 12-30-2021 13:28-0400 Body weight 81.19 kg Hung Gonzales MD Work Phone: [facility] 12-30-2021 13:28-0400 Diastolic blood pressure 62 mm[Hg] Hung Gonzales MD Work Phone: [facility] 12-30-2021 13:28-0400 Heart rate 50 /min Hung Gonzales MD Work Phone: [facility] 12-30-2021 13:28-0400 Respiratory rate 16 /min Hung Gonzales MD Work Phone: [facility] 12-30-2021 13:28-0400 Systolic blood pressure 106 mm[Hg] Hung Gonzales MD Work Phone: [facility] 08-24-2019 13:34-0400 BMI (Body Mass Index) 22.79 kg/m2 Khaled eg-FJNRQJ-Xjcyz [facility] Work Phone: 08-24-2019 13:34-0400 Body weight 76.2 kg Khaled la-WKRAJX-Fwpmx [facility] Work Phone: 08-24-2019 13:34-0400 BP Diastolic 66 mm[Hg] Khaled bs-PPTWYH-Emewi [facility] Work Phone: Comment on above: Location: RUE; Position: Sitting 08-24-2019 13:34-0400 BP Systolic 118 mm[Hg] Khaled fu-MMWMHD-Cktbc [facility] Work Phone: Comment on above: Location: RUE; Position: Sitting 08-24-2019 13:34-0400 BSA (Body Surface Area) 1.98 m2 Khaled ri-JHUADX-Xtokj [facility] Work Phone: 08-24-2019 13:34-0400 Height 182.88 cm Khaled qh-QUHEJB-Ullug [facility] Work Phone: 08-24-2019 13:34-0400 Pulse (Heart Rate) 52 /min Khaled jv-TSQMMF-Hfkrr [facility] Work Phone: 08-24-2019 13:34-0400 Pulse Oximetry 97 % Khaled ie-BMRBOL-Bddrh [facility] Work Phone: 08-24-2019 13:34-0400 Respiratory Rate 16 /min Khaled nm-CLKVJW-Jphtn [facility] Work Phone: 08-21-2019 13:11-0400 BMI (Body Mass Index) 22.57 kg/m2 Khaled ko-KUWKWS-Metgg [facility] Work Phone: 08-21-2019 13:11-0400 Body weight 75.41 kg Khaled vn-LEFDSO-Sqbtn [facility] Work Phone: 08-21-2019 13:11-0400 BP Diastolic 80 mm[Hg] Andrewalelu tp-VJXOTH-Mtrff [facility] Work Phone: 08-21-2019 13:11-0400 BP Systolic 112 mm[Hg] Andrewalelu aminuy-IYMWEJ-Gjfaa [facility] Work Phone: 08-21-2019 13:11-0400 BSA (Body Surface Area) 1.97 m2 Khalelu vz-EUPEQN-Zslqo [facility] Work Phone: 08-21-2019 13:11-0400 Height 182.8 cm Andrewalelu ua-ASEDGX-Idkjt [facility] Work Phone: 08-21-2019 13:11-0400 Pulse (Heart Rate) 52 /min Josiah soriadn-MIKFCD-Wevrz [facility] Work Phone: 04-23-2019 14:45-0500 BMI (Body Mass Index) 23.79 kg/m2 Khrachid Saundersik HY-Qwsxxstepw-[place] [address] Work Phone: 04-23-2019 14:45-0500 Body weight 79.55 kg Josiah Saundersik OS-Lrtenpddbi-Hn [place] [address] Work Phone: 04-23-2019 14:45-0500 BP Diastolic 68 mm[Hg] Khaled Nickyik RA-Avxypekdtk-Wq [place] [address] Work Phone: 04-23-2019 14:45-0500 BP Systolic 100 mm[Hg] Khaled Sleik XS-Hmtzepesvg-Tf [place] [address] Work Phone: 04-23-2019 14:45-0500 BSA (Body Surface Area) 2.01 m2 Khaled Nickyik VX-Moioudrnrp-Nbe [address] Work Phone: 04-23-2019 14:45-0500 Height 182.88 cm Khaled Sleik UP-Nvcwszbbwm-Kl [place] [address] Work Phone: 04-23-2019 14:45-0500 Pulse (Heart Rate) 49 /min Josiah Bunn MP-Cardiology [place] [address] Work Phone: 04-23-2019 14:45-0500 Pulse Oximetry 98 % Josiah Bunn CU-Nvjwdmddlx-Ut [place] [address] Work Phone: Encounters Encounter Date Encounter Type Care Provider Facility Start: 12-05-2024 End: 12-05-[address] Dianne Chris MD Work Phone: -Laboratory Start: 12-05-2024 End: 12-05-[address] Dianne Chris MD -Laboratory Work Phone: Start: 12-05-2024 End: 12-05-2024 ambulatory Dianne Chris Facility:[facility] Start: 11-28-2024 End: 11-28-[address] Dianne Chris MD -[facility] Work Phone: Start: 11-28-2024 End: 11-28-[address] Dianne Chris MD Work Phone: [facility] Work Phone: Start: 05-02-2024 ambulatory Elisabeth Bowman NP Facili ty:[facility] Start: 05-02-2024 End: 05-02-2024 ambulatory Elisabeth Bowman NP Facility:[facility] Start: 03-28-2024 End: 03-28-2024 ambulatory Dianne Chris Facility:[facility] Start: 03-14-2024 End: 03-14-2024 ambulatory Dianne Chris Facility:[facility] Start: 02-08-2024 End: 02-08-2024 ambulatory Dianne Chris Facility:[facility] Start: 01-17-2024 End: 01-17-2024 ambulatory Chapo Dye Facility:[facility] Start: 01-09-2024 ambulatory Dianne Chris Facility :[facility] Start: 01-09-2024 End: 01-09-2024 ambulatory Dianne Chris Facility:[facility] Start: 04-19-2023 End: 04-19-2023 ambulatory ANA MARIA PEPPER Facility:[facility] Start: 04-19-2023 End: 04-19-2023 Subsequent hospital visit by physician Xr [facility] Work Phone: Radiology Comment on above: Injury of left upper arm, initial encounter [S49.92XA] Start: 04-19-2023 End: 04-19-2023 Office outpatient visit 15 minutes Zelalem Haynes APRN.ANODE WORKER Work Phone: [facility] Comment on above: Injury of left upper arm, initial encounter (Primary Dx) Start: 02-23-[address] Dianne Chris MD Work Phone: [facility] Start: 01-11-2023 End: 01-11-[address] Ana Maria Pepper Work Phone: [facility] Work Phone: Start: 01-11-2023 End: 01-11-[address] Ana Maria Pepper Work Phone: [facility]-Laboratory Work Phone: Start: 10-13-2022 End: 10-13-[address] Ana Maria Pepper Work Phone: [facility]-Pulmonary Medicine [facility] Work Phone: Start: 08-04-2022 Non-patient / Non-visit Dr. Julien Pepper Work Phone: [facility] Start: 08-04-2022 End: 08-04-2022 Admission to same day surgery center Dr. Ana Maria Pepper Work Phone: [facility] Start: 08-04-2022 End: 08-04-[address] Ana Maria Pepper Work Phone: [facility] Work Phone: Start: 07-08-2022 End: 07-08-[address] Ana Maria Pepper Work Phone: [facility] Start: 06-28-2022 Telephone encounter Nathalia Mcnamara MD Work Phone: General Surgery Comment on above: Patient Question Start: 06-22-2022 End: 06-22-2022 ambulatory NATHALIA MCNAMARA Facility:[facility] Start: 06-22-2022 End: 06-22-2022 Subsequent hospital visit by physician [facility] (I-Stat) Work Phone: Cat Scan Comment on above: Unilateral inguinal hernia without obstruction or gangrene, recurrence not specified [K40.90] Start: 06-18-2022 End: 06-18-2022 ambulatory NATHALIA MCNAMARA Facility:[facility] Start: 06-18-2022 End: 06-18-2022 Patient encounter procedure Nathalia Mcnamara MD Work Phone: General Surgery Comment on above: RUQ abdominal mass ( Primary Dx); Unilateral inguinal hernia without obstruction or gangrene, recurrence not specified Start: 06-17-2022 End: 06-17-2022 ambulatory ELLIE LAZARO Facility:[facility] Start: 06-17-2022 End: 06-17-2022 Patient encounter procedure Ellie Lazaro APRN.CNP Work Phone: [facility] Comment on above: Unilateral inguinal hernia without obstruction or gangrene, recurrence not specified (Primary Dx); Dysuria Start: 2022 End: [address] Ana Maria Pepper Work Phone: [facility]-Pulmonary Medicine [facility] Start: 03-08-2022 End: 03-08-[address] Ana Maria Pepper Work Phone: [facility] Work Phone: Start: 03-08-2022 End: 03-08-[address] Ana Maria Pepper Work Phone: [facility]-Pulmonary Services/Neurology Start: 02-24-2022 End: 02-24-[address] Ana Maria Pepper Work Phone: [facility] Start: 01-13-2022 End: 01-13-[address] Ana Maria Pepper Work Phone: [facility]-Cat [facility] Start: 01-07-2022 Telephone encounter Caleb Gonzales MD Work Phone: [facility] Comment on above: Results Start: 12-30-2021 End: 12-30-2021 Patient encounter procedure Hung Gonzales MD Work Phone: [facility] Comment on above: Annual physical exam (Primary Dx); Cardiomyopathy, unspecified type (HCC); Chronic obstructive pulmonary disease, unspecified COPD type (HCC); OSIEL (obstructive sleep apnea); Smoker; Need for pneumococcal vaccination Start: 12-29-2021 End: 12-29-2021 Patient encounter procedure [facility]-Laboratory Start: 05-05-2021 End: 05-05-2021 Subsequent hospital visit by physician Xr [facility] Work Phone: Radiology Comment on above: Acute right-sided lo w back pain without sciatica [M54.50] Start: 08-07-2020 End: 08-07-2020 Orders Only Briana Brianna Francis Work Phone: [facility] Start: 11-08-2019 End: 11-09-2019 Patient encounter procedure MARIS LEE KAILEE [facility] Start: 11-08-2019 End: 11-08-2019 Subsequent hospital visit by physician Maris Dugan Work Phone: [facility] Scan Comment on above: Cigarette Smoker; Screening for malignant neoplasm of respiratory organ Start: 09-10-2019 Patient encounter procedure Josiah Curtis [facility] Work Phone: Start: 08-31-2019 Patient encounter procedure Josiah Curtis [facility] Work Phone: Start: 08-24-2019 Patient encounter procedure Josiah soriaza-BRVYPV-Nmmbg -[facility] Work Phone: Start: 08-24-2019 Telemedicine consultation with patient Josiah Mccain-Sleik -[facility] Work Phone: Start: 08-21-2019 Patient encounter procedure Josiah Curtis -[facility] Work Phone: Start: 04-23-2019 Patient encounter procedure Josiah Bunn DR-Pzwhxkypzq-Wkouwgv [address] Work Phone: Start: 10-20-2018 Patient encounter procedure Josiah Bunn WH-Gidphelvqo-Mkwafdf [address] Work Phone: Start: 10-04-2018 Patient encounter procedure Maris Cowaner Facility:[id number] Start: 08-25-2018 Patient encounter procedure CARLOS FRITZ Facility:[id number] Start: 08-25-2018 Patient encounter procedure Maris Fernando Kailee Facility:[id number] Start: 08-23-2018 Patient encounter procedure Maris Lee Kailee Facility:[id number] Start: 07-26-2018 Patient encounter procedure Sage Maycol Headleyi Facility:[facility] Start: 07-03-2018 Patient encounter procedure Maris Lee Kailee Facility:[id number] Start: 04-17-2018 Patient encounter procedure Josiah Bunn IC-Saznhexdkc-Ccxluhx [address] Work Phone: Start: 04-12-2018 Patient encounter procedure Sage Maycol Fangi Facility:[facility] Start: 04-10-2018 Patient encounter procedure Amris Fernando Kailee Facility:[id number] Start: 03-29-2018 Patient encounter procedure Maris Fernando Kailee Facility:[id number] Start: 03-16-2018 Patient encounter Maris Fernando Kailee Facility:[place] Start: 03-16-2018 End: 03-16-2018 Patient encounter Maris Fernando Cowaner Work Phone: [facility] Start: 03-09-2018 Patient encounter procedure Maris Fernando Kailee Facility:[id number] Start: 03-08-2018 Patient encounter procedure Sage Maycol Headleyi Facility:[facility] Start: 12-12-2017 Patient encounter procedure Josiah Bunn QE-Jtobdapwel-Epnagly [address] Work Phone: Start: 12-12-2017 Patient encounter procedure Maris Dugan Facility:[id number] Start: 11-23-2017 End: 11-23-2017 Patient encounter Josiah Bunn Facility:[facility] Start: 11-23-2017 Patient encounter procedure Maris Dugan Facility:[id number] Start: 11-07-2017 Patient encounter procedure Josiah Bunn OQ-Prypoqmads-Wnaqapt [address] Work Phone: Start: 11-07-2017 Patient encounter procedure Maris Dugan Facility:[id number] Start: 10-14-2017 Patient encounter procedure Josiah Bunn GN-Ysasbqkpkk-Ghwcqgp [address] Work Phone: Procedures Date Procedure Procedure Detail Performing Clinician Start: 12-05-2024 Prostate specific an tigen measurement Dr. Dianne Chris MD Work Phone: Comment on above: This test was perfor med using the [employer] tPSA method. Measured values of a patient sample can vary depending on the testing procedure used. PSA values determined on patient samples by different testing procedures cannot be used interchangeably. If there is a change in PSA assays while monitoring therapy, sequential testing should be performed to confirm baseline values. Start: 12-05-2024 Vitamin D, 25-hydrox y measurement Dr. Dianne Chris MD Work Phone: Comment on above: Vitamin D StatusDefi ciency: <20 ng/mL (50nmol/L)Insufficiency: 20-30 ng/mL (50-75 nmol/L)Sufficiency: 30-100 ng/mL (75-250 nmol/L)Toxicity: >100 ng/mL (>250 nmol/L) Start: 04-19-2023 Radex humerus minimu m 2 views Zelalem Haynes APRN.CNP Work Phone: Start: 08-04-2022 Laparoscopic, Inguin al Hernia Repair (Right) Dr. Ana Maria Pepper Work Phone: Start: 06-22-2022 Ct abdomen & pelvis w/o contrast material Nathalia Mcnamara MD Work Phone: Start: 01-13-[address] Ana Maria quijano Work Phone: Start: 01-06-2022 Lipid 1996 panel - S cyndi or Plasma Ct (I-Stat) Work Phone: Start: 12-30-2021 Adult depression scr eening assessment Hung Gonzales MD Work Phone: Start: 05-05-2021 Radex spine lumbosac ral 2/3 views Taylor Savage PA-C Work Phone: Start: 11-08-2019 Low dose computed tomography of thorax External Transcribed Start: 09-10-2019 Assay of prostate sp ecific antigen total Andrewaled op-NPMRAD-Tpmis Start: 08-23-2019 Complete PFT with Pr e/Post Bronchodialator Andrewaled ma-MNOAJF-Zhigu Start: 07-03-2018 End: 07-03-2018 Colonoscopy Josiah soriaud-UQQLZS-Rvryl Arthroscopy of knee Andrewrachid Bakari nicolekevin Comment on above: Completed: 1973 Colonoscopy Josiah Saundersflaca History of repair of inguinal hernia S/P inguinal hernia repair Dr. Ana Maria Pepper Work Phone: Comment on above: lap LIH with mesh 08/04/22 & primary ventral hernia repair with prolene Plan of Treatment Date Care Activity Detail Author Start: 11-21-2030 Urine microalbumin profile [facility] Start: 07-03-2028 Colonoscopy COLONOSCOPY [facility] Start: 07-03-2028 COLORECTAL CANCER SCREENING COLORECTAL CANCER SCREENING [facility] Start: 07-03-2028 Screening for malign ant neoplasm of colon [facility] Start: 01-06-2027 Lipid 1996 panel - Serum or Plasma Lipid Screening [facility] Start: 01-06-2027 Lipid panel Lipid Screening [facility] Start: 01-06-2027 LIPID SCREEN LIPID SCREEN [facility] Start: 12-31-2025 LIPID SCREEN LIPID SCREEN [facility] Start: 01-06-2025 DIABETES SCREEN DIABETES SCREEN [facility] Start: 01-06-2025 Diabetes Screening Diabetes Screenin g [facility] Start: 09-09-2024 PROSTATE CANCER SCREENING DISCUSSION PROSTATE CANCER SCREENING DISCUSSION [facility] Start: 09-09-2024 Prostate specific antigen measurement Prostate Cancer Screening Discussion [facility] Start: 02-05-2024 Covid-19 Vaccine ( season) Covid-19 Vaccine ( season) [facility] Start: 02-05-2024 Influenza vaccination Influenza Vacc ine (#1) [facility] Start: 01-01-2024 DIABETES SCREEN DIABETES SCREEN [facility] Start: 06-17-2023 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 CHASTITY DISEASE VISIT ANNUAL PCP TEAM CHRONIC DISEASE VISIT [facility] Start: 02-04-2023 Covid-19 Vaccine ( season) Covid-19 Vaccine () [facility] Start: 02-04-2023 Influenza vaccination Influenza Vacc ine (#1) [facility] Start: 12-30-2022 Adult depression screening assessment DEPRESSION SCREENING [facility] Start: 12-30-2022 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 CHASTITY DISEASE VISIT ANNUAL PCP TEAM CHRONIC DISEASE VISIT [facility] Start: 12-30-2022 COVID-19 VACCINE (4 - Booster for Pfizer series) COVID-19 VACCINE (4 - Booster for Pfizer series) [facility] Comment on above: Postponed from 08/26 (Declined at this time) Start: 12-30-2022 SHINGRIX VACCINE (2 of 3) SHINGRIX VACCINE (2 of 3) [facility] Comment on above: Postponed from 02/03 (Declined at this time) Start: 08-04-2022 Patient discharge [facility] Start: 06-06-2022 DEPRESSION ASSESSMENT DEPRESSION ASS ESSMENT [facility] Start: 02-04-2022 Influenza vaccination INFLUENZA (#1) [facility] Start: 12-30-2021 End: 03-01-2022 CBC panel - Blood by Automated count CBC Lab Routine Annual physical exam Expected: 12/30/2021, Expires: 03/01/2022 [facility] Work Phone: Comment on above: Expected: 12/30/2021 , Expires: 03/01/2022 Start: 12-30-2021 End: 03-01-2022 Comprehensive metabolic 2000 panel - Serum or Plasma COMP METABOLIC PANEL Lab Routine Annual physical exam Expected: 12/30/2021, Expires: 03/01/2022 [facility] Work Phone: Comment on above: Expected: 12/30/2021 , Expires: 03/01/2022 Start: 12-30-2021 End: 03-01-2022 Lipid 1996 panel - Serum or Plasma LIPID PANEL BASIC Lab Routine Annual physical exam Expected: 12/30/2021, Expires: 03/01/2022 [facility] Work Phone: Comment on above: Expected: 12/30/2021 , Expires: 03/01/2022 Start: 02-05-2020 Influenza vaccinatio n given [facility] Start: 2019 RSV Vaccine (1 - 1-d ose 60+ series) RSV Vaccine (1 - 1-dose 60+ series) [facility] Start: 2019 RSV Vaccine (1 - Ris k 60-74 years 1-dose series) RSV Vaccine (1 - Risk 60-74 years 1-dose series) [facility] Start: 02-03-2017 Administration of herpes zoster vaccine Zoster Vaccines (2 of 3) [facility] Start: 02-03-2017 Shingrix Vaccine (2 of 3) Shingrix Vaccine (2 of 3) [facility] Start: 2009 Administration of herpes zoster vaccine Zoster Vaccines (1 of 2) [facility] Start: 2009 Screening for malign ant neoplasm of colon [facility] Start: 2004 COLOGUARD (FIT-DNA) COLOGUARD (FIT-D NA) [facility] Start: [address] COLONOGRAPHY [facility] Start: 2004 FECAL OCCULT BLOOD FECAL OCCULT BLOO D [facility] Start: 2004 Screening for malign ant neoplasm of colon [facility] Start: 2004 [facility] Start: 1989 Zoledronic acid therapy ALPHA- 1 ANTITRYPSIN DEFICIENCY SCREENING [facility] Start: 1977 Anxiety Screening Anxiety Screening [facility] Start: 1977 Depression Screening Depression Scre ening [facility] Start: 1977 Hepatitis C antibody , confirmatory test Hepatitis C Screening [facility] Start: 1977 HEPATITIS C SCREENING HEPATITIS C SC REENING [facility] Start: 1977 Hepatitis C screening Hepatitis C Sc [facility] Start: 1977 SPIROMETRY SPIROMETRY [facility] Start: 1975 COVID-19 Vaccine (1 of 2) COVID-19 Vaccine (1 of 2) [facility] Start: 1974 HIV screening HIV Screening [facility] Start: 1971 Adolescent depressio n screening assessment Depression Screening (PHQ9) [facility] Start: 1962 History and physical examination, annual for health maintenance Wellness Visit [facility] Start: 1959 Hepatitis C antibody , confirmatory test Hepatitis C Screening [facility] Start: 1959 Prostate specific antigen measurement PSA Level [facility] Start: 1959 Screening for malign ant neoplasm of colon Colorectal Cancer Screening: Colonoscopy [facility] Start: 1959 Tetanus vaccination Tetanus: Every 1 0yrs [facility] CBC W Auto Different ial panel - Blood [facility] Comprehensive metabo lic 1999 panel - Serum or Plasma [facility] End: 07-18-2023 Ct abdomen & pelvis w/o contrast material CT ABD/PEL WO IVCON Radiology Routine Unilateral inguinal hernia without obstruction or gangrene, recurrence not specified RUQ abdominal mass 1 Occurrences starting 06/18/2022 until 07/18/2023 [facility] Work Phone: Comment on above: 1 Occurrences starti ng 06/18/2022 until 07/18/2023 CT Chest [facility] Lipid 1995 panel - Serum or Plasma [facility] Magnesium measurement [facility] Patient referral [facility] Work Phone: Prostate specific antigen measurement [facility] T4 free measurement [facility] Thyroid stimulating hormone measurement [facility] Triiodothyronine, fr ee measurement [facility] Vitamin D, 25-hydrox y measurement [facility] JA-Trwcorynjy-Q shla nd [employer] Work Phone: [facility] NEGATED: Highlighted row has been ruled out! 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 Work Phone: [facility] 04-28-2022 influenza virus vaccine, unspecified formulation Ct (I-Stat) Work Phone: [facility] 12-30-2021 pneumococcal Conjuga te, unspecified formulation Hung Gonzales MD Work Phone: [facility] Work Phone: 12-30-2021 pneumococcal (PCV20) vaccine, 20 valent (PREVNAR 20) Hung Gonzales MD Work Phone: [facility] 2021 influenza, injectabl e, quadrivalent, preservative free Hung Gonzales MD Work Phone: [facility] Work Phone: 11-21-2020 tetanus toxoid, redu jacky diphtheria toxoid, and acellular pertussis vaccine, adsorbed Hung Gonzales MD Work Phone: [facility] 08-14-2020 COVID-19 vaccine, ag e 12+ yr (PFIZER-BIONTECH - PURPLE TOP) Hung Gonzales MD Work Phone: [facility] 07-25-2020 COVID-19 vaccine, ag e 12+ yr (PFIZER-BIONTECH - PURPLE TOP) Hung Gonzales MD Work Phone: [facility] 12-09-2016 zoster vaccine, live Les suleman Gonzales MD Work Phone: [facility] 04-17-2016 influenza, injectabl e, quadrivalent, contains preservative Hung Gonzales MD Work Phone: [facility] 04-28-2015 pneumococcal polysaccharide vaccine, 23 valent Hung Gonzales MD Work Phone: [facility] Payers Date Payer Category Payer Unknown [id number] 2024 Self-pay [id number] 2023 Private Health Insurance [id number] 2020 Private Health Insurance [id number] 2020 Private Health Insurance AETNA AETNA CHOICE POS II [id number] 2020-Present [phone] [address] [place] [address] POS [id number] 2020 Private Health Insurance [id number] .[id number] 2017 Blue Cross Blue Shield [id number] 2017 Unknown ANTHEM ANTHEM BLUE/PREF/HMO/PPO [id number] 2017-Present [id number] .[id number] 2017 Unknown ANTHEM ANTHEM BLUE/PREF/HMO/PPO [id number] 2017-Present [id number] 1.2.840.321958.1.13.385.2 .7.3.170110.315 1959 Unknown [id number] 2.16.840.1.631134.3.579.2 .356 1959 Unknown [id number] 2.16.840.1.272955.3.579.2 .356 1959 Unknown [id number] 2.16.840.1.026648.3.579.2 .356 1959 Unknown [id number] 2.16.840.1.459993.3.579.2 .356 1959 Unknown [id number] 2.16.840.1.769397.3.579.2 .356 1959 Unknown [id number] 2.16.840.1.292806.3.579.2 .356 1959 Unknown [id number] 2.16840.1.167426.3.579.2 .1959 Unknown [id number] 2.16.840.1.500548.3.579.2 .356 1959 Unknown [id number] 2.840.1.543680.3.579.2 .1959 Unknown [id number] 2.840.1.254084.3.579.2 .1959 Unknown [id number] 2.0.1.670098.3.579.2 .356 1959 Unknown [id number] 2.840.1.986259.3.579.2 .356 1959 Unknown [id number] 2.0.1.985827.3.579.2 .356 1959 Unknown [id number] 2.840.1.110741.3.579.2 .356 1959 Unknown [id number] 2.0.1.779498.3.579.2 .903 Private Health Insurance AETNA [id number] Unknown [id number] Unknown [id number] 2.840.1.951715.3.579.2 .462 Unknown [id number] 2.840.1.393576.3.579.2 .462 Unknown [id number] 2.840.1.807818.3.579.2 .462 Unknown [id number] 2.840.1.322597.3.579.2 .462 Unknown [id number] 2.16.840.1.576433.3.579.2 .462 Unknown [id number] 2.16.840.1.928492.3.579.2 .462 Unknown [id number] 2.16.840.1.361400.3.579.2 .462 Unknown [id number] 2.16840.1.680698.3.579.2 .462 Unknown [id number] 2.16840.1.600406.3.579.2 .462 Unknown [id number] 2.16840.1.661950.3.579.2 .462 Social History Date Type Detail Facility Tobacco smoking stat [facility] Unknown if ever smoked [facility] Sex Assigned At Not on file [facility] Start: 03-04-2021 End: 10-13-2022 Tobacco smoking status [facility] Unknown if ever smoked [facility] Start: 1960 Sex Assigned At Male [facility] Start: 11-21-2020 End: 01-04-2024 Tobacco smoking status [facility] Smokes tobacco daily [facility] Start: 11-21-2020 End: 06-17-2022 Tobacco use and exposure Smokeless tobacco non-user [facility] Start: 12-30-2021 End: 04-19-2023 Alcohol intake Ex-drinker (finding) [facility] Start: 12-23-2021 End: 06-15-2022 History SDOH Physical Activity DPW 2 [facility] Start: 12-23-2021 End: 06-15-2022 History SDOH Stress 1 [facility] Start: 12-21-2020 Education 12 [facility] Start: 04-05-2021 End: 12-30-2021 Exposure to SARS-CoV-2 (event) Not sure [facility] History of tobacco use Cigar Smoker [facility] Start: 06-15-2022 History SDOH Alcohol Std Drinks 0 [facility] Start: 06-15-2022 History SDOH Social Connections Phone 5 [facility] Start: 06-15-2022 History SDOH Social Connections [employer] 3 [facility] Start: 06-15-2022 History SDOH Physica l Activity MPS 4 [facility] Start: 11-21-2020 End: 06-15-2022 History of Social function [facility] Start: 11-21-2020 End: 06-15-2022 Social connection and isolation panel [facility] Do you belong to any clubs or organizations such as restorationist groups, unions, fraternal or athletic groups, or school groups? Yes [facility] Are you now , , , , never or living with a partner? [facility] How often to you hav e a drink containing alcohol? Never [facility] How many standard drinks containing alcohol do you have on a typical day? Patient does not drink [facility] Do you feel stress - tense, restless, nervous, or anxious, or unable to sleep at night because your mind is troubled all the time - these days [OSQ] Only a little [facility] (I/We) worried wheth er (my/our) food would run out before (I/we) got money to buy more. Never true [facility] In the past 12 month s, was there a time when you were not able to pay the mortgage or rent on time? No [facility] Start: 12-21-2020 Gender identity Identifies as male gender (finding) [facility] Start: 12-21-2020 Sexual orientation Heterosexual (rebeka alvarez) [facility] How often to you hav e a drink containing alcohol? Monthly or less [facility] How many standard drinks containing alcohol do you have on a typical day? 1 or 2 [facility] Do you feel stress - tense, restless, nervous, or anxious, or unable to sleep at night because your mind is troubled all the time - these days [OSQ] Not at all [facility] NEGATED: Highlighted row - - TP-Mwxvfuxzni-Nipim nd [employer] Work Phone: Medical Equipment Procedure Code Equipment Code Equipment Origin al Text Equipment Identifier Dates Extra-gynaecolog ical surgical mesh, synthetic polymer, non-bioabsorbable [id number] FDA Start: 08-04-2022 Endoscopic manua l linear stapler [id number] FDA Start: 08-04-2022 Ligation clip, synthetic polymer, non-bioabsorbable [id number] FDA Start: 08-04-2022 Goals Date Patient Goal Desired Activity /State Functional Status Date Assessment Result Facility NEGATED: Highlighted row Functional performance Functional status health issues are not documented Disease KN-Pbucknkqip-Kr[facility]ia [facility] [employer] Work Phone: Mental Status Date Assessment Result Facility 08-04-2022 Cognitive function Voice/Name [facility] Work Phone: NEGATED: Highlighted row Cognitive function [Interpretation] Cognitive status health issues are not documented Disease FY-Bedtztmcwe-Ezipuv d [employer] Work Phone: Clinical Notes 05-05-2021 to 11-28-2024 Note Date & Type Note Facility 11-28-2024 Evaluation note Diagnosis Onset Date Resolution Essential hypertension acute Ju 2024 2:28pm Nicotine dependence, cigarettes, uncomplicated chronic November 28, 2024 2:28pm OSIEL on CPAP chronic November 28 2:28pm Stage 1 mild COPD by GOLD classification chronic November 28 2:28pm [facility] Work Phone: 1(465) 622-601508-05-2024 [facility] Medical Records Department [address] [place] [address] History Physical Exam 01/09/24 0709 MR#: [id number] Acct: [id number] Name: TRAVISGERRY SLOAN Rep #: [id number] : 1960 63 From: Janneth Purcell MD PCP: Dr. Dianne Chris MD Status:[facility] Location: [place] [address] History and Physical Date of Admission: 01/09/24 Date of Service: 12/14/23 MR#: [id number] Acct: [id number] Name: GERRY TRAVIS Rep #: [id number] : 1960 Provider: Dr. Janneth Purcell MD Age/Sex: 63/M Location: [facility] Status: Signed Intake Vital Signs 11/22/2412:03 12/13/2412:53 Height 5 ft 11 in 5 ft 11 in Weight: 167 lb 165 lb BMI 23.3 23.0 BP 108/80 113/60 Blood Pressure Location Lt brachial Rt brachial Position Sitting Sitting Respiration 18 18 Pulse 64 55 L Pulse Source Monitor Monitor Temp 97.2 F L Temp Source Temporal Pulse Oximetry (%) 97 98 Oxygen Delivery Method room air room air Intake Visit Reasons: CHANGE IN BOWELS Chief Complaint: change in bowels Is patient in pain?: No Allergies latex Adverse Reaction (Verified 12/14/23 13:53) Dryness, redness Medications ???Medication ???Instructions ???Recorded ???Confirmed ???Type ascorbate calcium (vitamin C) 500 500 mg PO BID 02/24/22 12/14/23 History mg tablet cholecalciferol (vitamin D3) 50 50 mcg PO DAILY 02/24/22 12/14/23 History mcg (2,000 unit) capsule saw palmetto 160 mg capsule 160 mg PO BID 02/24/22 12/14/23 History zinc acetate 50 mg (zinc) capsule 50 mg PO .QOD 02/24/22 12/14/23 History (Galzin) albuterol sulfate 90 mcg/actuation 2 puff inhalation Q4H PRN 03/09/23 12/14/23 Rx aerosol inhaler shortness of breath or wheezing #8.5 grams umeclidinium 62.5 mcg-vilanterol 1 inh inhalation Q24H #3 device 03/09/23 12/14/23 Rx 25 mcg/actuation powdr for inhalation (Anoro Ellipta) losartan 25 mg tablet 12.5 mg (1/2 x 25 mg) PO DAILY #90 03/10/23 12/14/23 Rx tabs metoprolol succinate 25 mg 25 mg PO DAILY #30 tabs 10/26/23 12/14/23 Rx tablet,extended release 24 hr PFSH Medical History Rupture of left long head biceps tendon Periodontal disease History of Mohs micrographic surgery for skin cancer Basal cell carcinoma of nose Wears glasses History of steroid therapy Back pain Former smoker CPAP (continuous positive airway pressure) dependence Sleep apnea Emphysema, unspecified Shortness of breath on exertion COPD (chronic obstructive pulmonary disease) History of echocardiogram History of Holter monitoring Cardiology follow-up encounter History of irregular heartbeat History of repaired hypospadias Ventral hernia Inguinal hernia of left side without obstruction or gangrene Non-ischemic cardiomyopathy Essential hypertension 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 complication Herniation of lumbar intervertebral disc with radiculopathy Surgical History S/P inguinal hernia repair Hx of knee surgery History of left heart catheterization (11/23/17) Family History Mother Hypertension High cholesterolFather Hypertension Heart failure High cholesterol Social History (Updated 12/14/23 @ 13:52 by Eda Levin LPN) Smoking Status: Current every day smoker tobacco type: cigars per week: 70 alcohol intake: never substance use type: does not use HPI HPI HPI: 63-year-old male presents due to change in bowel functions. Patient states he last had a colonoscopy in 2019 in [place] which was negative prior to that patient states he did have polyps. Patient states for the last 5 to 6 months he has had change of frequency/timing/texture of his stools. Patient states his diet has been consistent throughout and may be gotten a little healthier and still irregular bowel movements. Patient denies any abdominal pain. Patient denies any family history of colon cancer. Patient denies any nausea/vomiting/reflux. Patient states that he may have bowel movements daily and then may go 2 to 3 days without going and continue that cycle. ROS General General: Yes weight change (weight loss- intentional ) and fatigue; No appetite, colon cancer or breast cancer HEENT HEENT: No difficulty swallowing, eye injury, eye surgery, swollen glands or hoarseness Endo Endocrine: No thyroid disease, diabetes mellitus, thyroid cancer, Hair loss, heat intolerance or cold intolerance Skin Skin: No rash or changing moles Musc Musculoskeletal: Yes back problems; No arthritis, (more content not included)...[facility]11-14-2023 NoteHNO ID: [id number] Author: Lesley Quintanilla RT(R) Service: Radiology Author Type: Technologist Type: Progress Notes Filed: 04/19/2023 6:11 PM Note Text: Radiology Service Progress Note PATIENT NAME: Gerry Travis DATE OF SERVICE: April 19, 2023 TIME: 6:02 PM PATIENT IDENTITY VERIFICATION COMPLETED USING TWO (2) IDENTIFIERS: Name and Date of confirmed by patient verbally. FALL SCREENING: Has the patient had 2 falls in the last year or 1 fall with injury or currently using an Ambulatory Assistive Device (Walker, Cane, Wheelchair, Crutches, etc.)? No PATIENT GENDER DATA: Male PATIENT RELEVANT IMPLANT DATA REVIEWED: Yes RADIOLOGY DEPARTMENT: General X-ray: Exam(s) Completed: Upper Extremity X-Ray(s): Humerus, left PERIPHERAL IV DATA: Not applicable SIGNED BY: RT Jossie(R) April 19, 2023 6:02 [facility]11-14-2023 NoteHNO ID: [id number] Author: Zelalem Haynes APRN.ANODE WORKER Service: ? Author Type: Nurse Practitioner Type: Progress Notes Filed: 04/19/2023 7:05 PM Note Text: Subjective HPI Nontoxic-appearing akdsc-dclj-lbukuncj male presents urgent care chief complaint left bicep injury. Patient states at work today he tripped striking his left bicep on the edge of a three-quarter inch piece of plywood. This is not Workmen's Comp. injury. Presents today for evaluation. Has noticed marked swelling and bruising to this area. Has not noticed any noticeable weakness. Does have some discomfort with flexion. Mild discomfort with extension. Did take ibuprofen this did help with discomfort. Denies any other injuries. No head no neck no back pain. No LOC. Denies any no numbness or tingling. Denies surgeries or fractures to this arm or hand in the past. Past medical history prescription medication use allergies reviewed. BP 122/63 Pulse 61 Temp 37.1 ?C (98.8 ?F) Resp 18 Wt 83 kg (183 lb) SpO2 99% BMI 24.82 kg/m? .Patient presents with: Fall: Injury to Left bicep, bruising and swelling this afternoon PAST MEDICAL HISTORY Diagnosis Date Arrhythmia BPH (benign prostatic hyperplasia) Cardiomyopathy, unspecified ([facility]) Dr. Stallings. Echo 03/2021: EF 55% COPD (chronic obstructive pulmonary disease) ([facility]) Dr. Loyd Obstructive sleep apnea Overactive bladder Tobacco use disorder PAST SURGICAL HISTORY Procedure Laterality Date ARTHROSCOPY KNEE DIAGNOSTIC W/WO SYNOVIAL BX SPX COLONOSCOPY GEN ANES 07/03/18, 04/22/14 ALLERGIES Chantix [Varenicline] MEDICATIONS metoprolol succinate ER (TOPROL XL) 25 mg 24 hr tablet Take 1 tablet by mouth every afternoon. umeclidinium-vilanterol (ANORO ELLIPTA) 62.5-25 mcg/actuation inhaler losartan (COZAAR) 50 mg tablet 1 tablet once daily. (Patient taking differently: Take 25 mg by mouth once daily. 12.5 mg) albuterol sulfate (PROAIR RESPICLICK INHALATION) [employer] 160 mg capsule Take 1 capsule by mouth twice daily. coenzyme Q10 (COENZYME Q-10) 100 mg cap capsule Take 1 capsule by mouth once daily. ascorbic acid, vitamin C, (VITAMIN C) 500 mg tablet Take 1 tablet by mouth twice daily. Cholecalciferol, Vitamin D3, 50 mcg (2,000 unit) cap Take 1 capsule by mouth once daily. Zinc 50 mg tab Take 50 mg by mouth once daily. Taking every 2-3 days carvedilol (COREG) 3.125 mg tablet 1 tablet twice daily with meals. (Patient not taking: Reported on 04/19/2023) nicotine (NICODERM) 21 mg/24 hr Apply 1 Patch as directed every 24 hours. nicotine (NICODERM) 14 mg/24 hr Apply 1 Patch as directed every 24 hours. nicotine (NICODERM) 7 mg/24 hr Apply 1 Patch as directed every 24 hours for 14 days. History reviewed. No pertinent family history. Social History Tobacco Use Smoking status: Every Day Types: Cigars Smokeless tobacco: Never Substance Use Topics Alcohol use: Not Currently Drug use: Not Currently Review of Systems Constitutional: Negative for chills, fever and malaise/fatigue. HENT: Negative for congestion, ear discharge, ear pain, sinus pain and sore throat. Eyes: Negative for blurred vision, pain, discharge and redness. Respiratory: Negative for cough, hemoptysis, sputum production, shortness of breath, wheezing and stridor. Cardiovascular: Negative for chest pain. Gastrointestinal: Negative for abdominal pain, diarrhea, nausea and vomiting. Musculoskeletal: Positive for falls and joint pain. Negative for back pain, myalgias and neck pain. Skin: Negative for itching and rash. Neurological: Negative for dizziness and headaches. Objective Physical Exam Constitutional: General: He is not in acute distress. Appearance: He is not diaphoretic. HENT: Head: Normocephalic. Jaw: No trismus, tenderness, swelling or pain on movement. Eyes: Conjunctiva/sclera: Conjunctivae normal. Pupils: Pupils are equal, round, and reactive to light. Cardiovascular: Rate and Rhythm: Normal rate and regular rhythm. Heart sounds: Normal heart sounds. Pulmonary: Effort: Pulmonary effort is normal. No tachypnea, accessory muscle usage or respiratory distress. Breath sounds: Normal breath sounds. No stridor. No wheezing, rhonchi or rales. Abdominal: General: There is no distension. Palpations: Abdomen is soft. Tenderness: There is no abdominal tenderness. There is no guarding or rebound. Musculoskeletal: Left shoulder: Normal. Left upper arm: Swelling, edema, deformity and tenderness present. No lacerations or bony tenderness. Left elbow: Normal. Arms: Cervical back: Normal range of motion and neck supple. No edema or erythema. No pain with movement. Normal range of motion. Comments: Fine abrasion noted highlighted area of left bicep. Deformity noted to area around abrasion. Edema ecchymosis noted. Full range of motion. No noticeable weakness. Neurovascular intact. Skin: General: Skin is warm and dry. (more content not included)...[facility]11-14-2023 History of Present illness Narrative* Lesley Quintanilla RT(R) - 04/19/2023 6:10 PM EST Radiology Service Progress Note PATIENT NAME: Gerry Travis DATE OF SERVICE: April 19, 2023 TIME: 6:02 PM PATIENT IDENTITY VERIFICATION COMPLETED USING TWO (2) IDENTIFIERS: Name and Date of confirmedby patient verbally. FALL SCREENING: Has the patient had 2 falls in the last year or 1 fall with injury or currently using an Ambulatory Assistive Device (Walker, Cane, Wheelchair, Crutches, etc.)? No PATIENT GENDER DATA: Male PATIENT RELEVANT IMPLANT DATA REVIEWED: Yes RADIOLOGY DEPARTMENT: General X-ray: Exam(s) Completed: Upper Extremity X- Ray(s): Humerus, left PERIPHERAL IV DATA: Not applicable SIGNED BY: RT Jossie(Vincenzo) April 19, 2023 6:02 PM documented in [facility] History of Present illness Narrative* Zelalem Haynes APRN.ANODE WORKER - 04/19/2023 5:50 PM EST Images from the original note were not included. Subjective HPI Nontoxic-appearing fnuzx-epkz-ljzjhzvj male presents urgent care chief complaint left bicep injury.Patient states at work today he tripped striking his left bicep on the edge of a three-quarter inchpiece of [employer]. This is not Workmen's Comp. injury. Presents today for evaluation. Has noticed marked swelling and bruising to this area. Has not noticed any noticeable weakness. Does have some discomfort with flexion. Mild discomfort with extension. Did take ibuprofen this did help with discomfort. Denies any other injuries. No head no neck no back pain. No LOC. Denies any no numbness or tingling. Denies surgeries or fractures to this arm or hand in the past. Past medical history prescription medication use allergies reviewed. BP 122/63 Pulse 61 Temp 37.1 C (98.8 F) Resp 18 Wt 83 kg (183 lb) SpO2 99% BMI 24.82 kg/m .Patient presents with: Fall: Injury to Left bicep, bruising and swelling this afternoon PAST MEDICAL HISTORY Diagnosis Date Arrhythmia BPH (benign prostatic hyperplasia) Cardiomyopathy, unspecified ([facility]) Dr. Stallings. Echo 03/2021: EF 55% COPD (chronic obstructive pulmonary disease) ([facility]) Dr. Loyd Obstructive sleep apnea Overactive bladder Tobacco use disorder PAST SURGICAL HISTORY Procedure Laterality Date ARTHROSCOPY KNEE DIAGNOSTIC W/WO SYNOVIAL BX SPX COLONOSCOPY GEN ANES 07/03/18, 04/22/14 ALLERGIES Chantix [Varenicline] MEDICATIONS metoprolol succinate ER (TOPROL XL) 25 mg 24 hr tablet Take 1 tablet by mouth every afternoon. umeclidinium-vilanterol (ANORO ELLIPTA) 62.5-25 mcg/actuation inhaler losartan (COZAAR) 50 mg tablet 1 tablet once daily. (Patient taking differently: Take 25 mg by mouth once daily. 12.5 mg) albuterol sulfate (PROAIR RESPICLICK INHALATION) [employer] 160 mg capsule Take 1 capsule by mouth twice daily. coenzyme Q10 (COENZYME Q-10) 100 mg cap capsule Take 1 capsule by mouth once daily. ascorbic acid, vitamin C, (VITAMIN C) 500 mg tablet Take 1 tablet by mouth twice daily. Cholecalciferol, Vitamin D3, 50 mcg (2,000 unit) cap Take 1 capsule by mouth once daily. Zinc 50 mg tab Take 50 mg by mouth once daily. Taking every 2-3 days carvedilol (COREG) 3.125 mg tablet 1 tablet twice daily with meals. (Patient not taking: Reported on 04/19/2023) nicotine (NICODERM) 21 mg/24 hr Apply 1 Patch as directed every 24 hours. nicotine (NICODERM) 14 mg/24 hr Apply 1 Patch as directed every 24 hours. nicotine (NICODERM) 7 mg/24 hr Apply 1 Patch as directed every 24 hours for 14 days. History reviewed. No pertinent family history. Social History Tobacco Use Smoking status: Every Day Types: Cigars Smokeless tobacco: Never Substance Use Topics Alcohol use: Not Currently Drug use: Not Currently Review of Systems Constitutional: Negative for chills, fever and malaise/fatigue. HENT: Negative for congestion, ear discharge, ear pain, sinus pain and sore throat. Eyes: Negative for blurred vision, pain, discharge and redness. Respiratory: Negative for cough, hemoptysis, sputum production, shortness of breath, wheezing and stridor. Cardiovascular: Negative for chest pain. Gastrointestinal: Negative for abdominal pain, diarrhea, nausea and vomiting. Musculoskeletal: Positive for falls and joint pain. Negative for back pain, myalgias and neck pain. Skin: Negative for itching and rash. Neurological: Negative for dizziness and headaches. Objective Physical Exam Constitutional: General: He is not in acute distress. Appearance: He is not diaphoretic. HENT: Head: Normocephalic. Jaw: No trismus, tenderness, swelling or pain on movement. Eyes: Conjunctiva/sclera: Conjunctivae normal. Pupils: Pupils are equal, round, and reactive to light. Cardiovascular: Rate and Rhythm: Normal rate and regular rhythm. Heart sounds: Normal heart sounds. Pulmonary: Effort: Pulmonary effort is normal. No tachypnea, accessory muscle usage or respiratory distress. Breath sounds: Normal breath sounds. No stridor. No wheezing, rhonchi or rales. Abdominal: General: There is no distension. Palpations: Abdomen is soft. Tenderness: There is no abdominal tenderness. There is no guarding or rebound. Musculoskeletal: Left shoulder: Normal. Left upper arm: Swelling, edema, deformity and tenderness present. No lacerations or bony tenderness. Left elbow: Normal. Arms: Cervical back: Normal range of motion and neck supple. No edema or erythema. No pain with movement.Normal range of motion. Comments: Fine abrasion noted highlighted area of left bicep. Deformity noted to area around abrasion. Edema ecchymosis noted. Full range of motion. No noticeable weakness. Neurovascular intact. Skin: General: Skin is warm and dry. Neurological: Mental Status: He is alert and oriented to person, place, and time. ASSESSMENT/PLAN: 1. Injury of left upper arm, initial encounter - ICD9: 959.2, ICD10: S49.92XA - XR HUMERUS 2V AP/LAT LEFT X-rays were negative for acute bone injury. Suspicious for bicep rupture. Placed in sling. Follow-up with orthopedics next 2 to 3 days reevaluation. Patient was educated on supportive therapies. Patient will follow up with primary care provider as needed. Patient was instructed to immediately proceed to emergency room for any new, worsening, or symptoms lasting longer than anticipated. The patient's clinical presentation is otherwise unremarkable at this time. Based on exam and clinical finding, the patient is stable for discharge. Plan of care was discussed with patient. Patient verbalizes understanding and agrees to plan of care. This note was generated using Chogger software. It may contain errors in wording, punctuation, or spelling. Zelalem Haynes APRN.ADOLFO documented in this encounterSelect [facility]03-01-[address] [facility] August 04, 2022 11:54am Note Date/Time August 04, 2022 11:[address] [facility] Medical Records Department [address] [place] [address] Instructions for Home/Discharge Instructions 08/04/22 1153 MR#: [id number] Acct: [id number] Name: GERRY TRAVIS Rep #:[id number] : 1960 62 From: Janneth Purcell MD PCP: Dr. Ana Maria Pepper MD [place] [facility] [place] Diet Discharge Diet: Light diet - advance as tolerated Activity Discharge Activity: May Not Drive (while taking narcotic pain medications.) May shower in (days): 1 Lifting Restrictions: no lifting >20 lbs x 2 wks, no strenuous exercise for 4 wks Dressing / Incision Call your doctor if your incision/area has: Continuous Slow Oozing, Sudden Increased Bleeding, Increased Pain/ Swelling, Increased Redness, Foul Smelling Discharge and Swelling at the incision site Call your doctor if you observe: Fever of 101 or Higher Remove Dressing in: 2 days Cleanse incision/area with: Soap & Water Additional Dressing/Incision Instructions:: Steri-Strips will fall off in 7 to 10 days, if they do not fall off okay to remove after 10 days. Wear a jockstrapfor scrotal support only recommend briefs versus boxers. Follow Up Care Please Follow Up With: Jnaneth Purcell MD When: Call the office for a follow-up appointment 2 weeks; after 5 PM and on call [phone] with any concerns. Test Results: Test results from this visit will be discussed in further detail at your follow- up appointment, if applicable. Discharge Plan Admission Attending Provider: Janneth Purcell Primary Care Provider: Ana Maria Pepper Instructions Additional Instructions / Restrictions: Okay to take ibuprofen 400-600 mg PO q6hr PRN along with the Percocet. Avoid Tylenol since there is already Tylenol in the Percocet. Take all pain meds with food. Percocet can cause constipation recommend taking daily stool softener (i.e. Colace/docusate) while taking the pain meds. Recommend starting some MiraLAX in1 to 2 days if no bowel movement. If still no bowel movement the following day recommend two Dulcolax 5 mg tabs and if no results after 2 hours take another 2 Dulcolax 5 mg tabs. Discharge Orders/Prescriptions Prescriptions: New oxycodone-acetaminophen 5-325 mg tablet 1 - 2 tab PO Q6H PRN (Reason: pain) 3 Days Qty: 14 0RF Continued cholecalciferol (vitamin D3) 50 mcg (2,000 unit) capsule 50 mcg PO DAILY yelitza oleary 160 mg capsule 160 mg PO BID Rx Instructions: give with meal/snack ascorbate calcium (vitamin C) 500 mg tablet 500 mg PO BID Galzin 50 mg (zinc) capsule 50 mg PO .QOD losartan 50 mg tablet 50 mg PO DAILY Qty: 90 3RF carvedilol 3.125 mg tablet 3.125 mg PO BID Qty: 180 3RF Rx Instructions: must administer with a meal/food Anoro Ellipta 62.5-25 mcg/actuation blister with device 1 inh inhalation Q24H Qty: 3 3RF albuterol sulfate 90 mcg/actuation HFA aerosol inhaler 2 puff inhalation Q4H PRN (Reason: shortness of breath or wheezing) Qty: 8.5 6RF Rx Instructions: administer with spacer Referrals / Follow Up: Ana Maria Pepper MD [Primary Care Provider] - Disposition Disposition (needs filled in before D/C Order can be placed): Home, Self Care 08/04/22 1154<Electronically signed by Janneth Purcell MD>Janneth Purcell MD CC: Dr. Ana Maria Pepper MD ~ Signed [facility] Work Phone: 1(454) 278-866703-01-2023 History and physical note Author Dr. Purcell [facility] August 04, 2022 9:37am Note Date/Time August 04, 2022 9:05 am [facility] Medical Records Department [address] [place] [id number] History & Physical Exam 08/04/22 0904 MR#: [id number] Acct: [id number] Name: GERRY TRAVIS Rep #:[id number] : 1960 62 From: Janneth Purcell MD PCP: Dr. Ana Maria Pepper MD Status:[facility] Location: [place] [address] History and Physical Date of Admission: 08/04/22 Date of Service:? 07/08/22 MR#: [id number] Acct: [id number] Name:? GERRY TRAVIS Rep #: [id number] : 1960 ? ? Provider: Dr. Janneth Purcell MD Age/Sex:? 62/M ? ? Location: [facility] Status: Signed Intake Vital Signs ? 07/08/2312:44 Height 6 ft Weight: 176 lb 8 oz BMI 23.9 BP 119/71 Blood Pressure Location Lt brachial D Position Sitting Respiration 16 Intake Visit Reasons:?POSSIBLE HERNIA Chief Complaint: possible left inguinal and right abdominal incisional hernia [employer] Work[employer] Required: No Is patient in pain?: No Allergies No Known Allergies Allergy (Unverified 07/08/22 13:45) Medications albuterol sulfate 90 mcg/actuation aerosol inhaler 2 puff inhalation Q6H PRN 12/02/20 [History Confirmed 07/08/22] ascorbate calcium (vitamin C) 500 mg tablet 500 mg PO BID 02/24/22 [History Confirmed 07/08/22] carvedilol 3.125 mg tablet 3.125 mg PO BID #180 tabs 02/24/22 [Rx Confirmed 07/08/22] cholecalciferol (vitamin D3) 50 mcg (2,000 unit) capsule 50 mcg PO DAILY 02/24/22 [History Confirmed 07/08/22] losartan 50 mg tablet 50 mg PO DAILY #90 tabs 02/24/22 [Rx Confirmed 07/08/22] saw palmetto 160 mg capsule 160 mg PO BID 02/24/22 [History Confirmed 07/08/22] zinc acetate 50 mg (zinc) capsule (Galzin) 50 mg PO .QOD 02/24/22 [History Confirmed 07/08/22] albuterol sulfate 90 mcg/actuation aerosol inhaler 2 puff inhalation Q4H PRN shortness of breath or wheezing #8.5 grams 04/14/22 [Rx Confirmed 07/08/22] umeclidinium 62.5 mcg-vilanterol 25 mcg/actuation powdr for inhalation (Anoro Ellipta) 1 inh inhalation Q24H #3 device 04/14/22 [Rx Confirmed 07/08/22] amoxicillin 500 mg capsule 500 mg PO 07/08/22 [History Confirmed 07/08/22] chlorhexidine gluconate 0.12 % mouthwash 15 ml PO 07/08/22 [History Confirmed 07/08/22] PFSH Medical History? 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 History of left heart catheterization (11/23/17) History of spinal surgery Family History? Mother Hypertension High cholesterolFather Hypertension CVA (cerebral vascular accident) Heart failure High cholesterol Social History? Smoking Status:? Current every day smoker tobacco type: cigars per week: 70 alcohol intake:? never HPI HPI HPI: 62-year-old male presents due to left inguinal hernia, possible ventral hernia.?Patient states last few months he has noticed that his left inguinal region has a bulge that will reduce and he has reduced it occasionally on its own.? Patientdoes have some discomfort when this happens.? Patient also states that for yearshe has noticed bump above his umbilicus about 4 cm thinks that this is a hernia patient has never had surgery in this area.? Patient has had previous CAT scan however report does not comment on this area and I am unable to see the images currently.? Patient is unable to get this supraumbilical area to reduce as thereis always a bump. ROS General General: Yes weight change and fatigue; No appetite, colon cancer, breast cancer or weakness HEENT HEENT: Yes eye injury and eye surgery; No difficulty swallowing, swollen glands or hoarseness Endo Endocrine: No thyroid disease, diabetes mellitus, thyroid cancer, Hair loss, heat intolerance or cold intolerance Skin Skin: No rash or changing moles Breast Breast: No left breast lump, right breast lump, nipple discharge, breast pain, abnormal mammogram, abnormal US or breast enlargement Musc Musculoskeletal: Yes back problems; No arthritis, rheumatoid arthritis, gout or joint pain Cardio Cardiovascular: Yes heart disease; No murmur, pacemaker, atrial fibrillation, high blood pressure, heart attack, heart stent, palpitations, shortness of breat with exertion or chest pain Psych Psychiatric: No depression, anxiety or hearing voices Resp Respiratory: Yes shortness of breath, Yes sleep apnea, Yes cough, No COPD, No asthma, Yes emphysema and No wheezing Gastro Gastrointestinal: No abdominal pain, No nausea or vomiting, No diarrhea, Yes constipation, No blood in stool, No acid reflux, No hemorrhoids, No ulcers, No gallbladder problem and No black,tarry stools Tucker Hematologic: No blood thinners, No blood disorders, No bleeding, No anemia and No blood clots Neuro Neurologic: No system reviewed and no additional complaints, except as documented, No as per HPI, No abnormal gait, No abnormal hearing, No abnormal movements, No abnormal speech, No behavioral changes, No burning sensations, No confusion, No convulsions, No disequilibrium, No dizziness, No localized weakness, No frequent falls, No headache(s), No lack of coordination, No loss ofvision, No memory loss, No numbness, No other visual disturbances, No radicular pain, No restless legs, No sensory deficit, No syncope, No tingling, No tremor(s), No weakness and No other Exam Const General: cooperative, healthy appearing and no acute distress HENDC Head: normal to inspection Resp Effort & Inspection: normal respiratory effort Cardio Rate: regular rate GI Inspection: non-distended Palpation: soft, no guarding, hernia (Left inguinal hernia reduced and visually seen.) other (Patient does have about a centimeter by centimeter lump about 4 cmabove the umbilicus this does not reduce question of this could be an incarcerated hernia.? No surgery at this location) and tender (Mild only when reducing left inguinal hernia) Skin General: no rashes or lesions noted Neuro General: patient oriented x3 Extrem General: no clubbing, cyanosis or edema Psych Affect: normal affect Assessment and Plan Assessment and Plan (1) Inguinal hernia of left side without obstruction or gangrene: ?Status:?Acute (2) Ventral hernia: ?Status:?Acute ?Comment: Possible ventral hernia unable to get this area to reduce we will plan to reviewCT abdomen pelvis images to see if this is really a hernia or not. Plan Try to get patient's images from his previous CAT scan done at [facility] to see if this supraumbilical area could be an incarcerated hernia as I am unable to definitively tell from exam.? Patient's never had previous surgery at this location. Plan to do a laparoscopic left inguinal hernia repair with mesh. Reviewed the procedure with the patient including the risks, including but not limited to infection, bleeding, paresthesia, chronic pain, injury to small bowel or contents of the spermatic cord, and recurrence. All questions were answered. Janneth Purcell M.D. Pager: [phone] [facility] [address] [place] [address], Outpatient Pavilion, [address] [place] [address] Office: [phone] Coding Level of Care Code Off vis,new,level 4 Diagnoses Inguinal hernia of left side without obstruction or gangrene? K40.90 Ventral hernia? K43.9 07/09/22 1208 <Electronically signed by Janneth Purcell MD> Date Janneth Purcell MD 08/04/22 0905 <Electronically signed by Janneth Purcell MD> Cosigner Signature (if applicable): CC: Dr. Ana Maria Pepper MD; Dr. Janneth Purcell MD~ Signed ADDENDUM by Dr. Janneth Purcell MD on 08/04/22 at 0937 Addendum I have examined the patient the following changes are noted: Patient states she has been having more pain in the left side. I was able to review the CT abdomenpelvis not finding hernia superior to umbilicus where he would feel that bulge. Question of this bulge may be just be a small diastases as I do not feel any obvious defect on exam. 08/04/22 0937<Electronically signed by Janneth Purcell MD> Cosigner Signature (if applicable): cc: Dr. Ana Maria Pepper MD; Dr. Janneth Purcell MD ~* Signed [facility] Work Phone: 1(351) 809-196701-30-2023 Miscellaneous Notes* Telephone Encounter - Hoa Jones RN - 07/05/2022 12:57 PM EST Pt scheduled for follow up with Dr. Mcnamara on 07/15/22. Hoa Jones RN * Telephone Encounter - Brooklyn Cutler Ma - 07/05/2022 10:42 AM EST Patient called and asking if this has been addressed? Per [employer] message patient was to schedule afollow up appointment. Patient transferred to [facility] to schedule follow up. * Telephone Encounter - Ria Alejo Ma - 06/28/2022 11:44 AM EST Patient called in stating he had CT scan completed on 06/22/2022. He saw results on Mychart stating no inguinal hernia. Patient asking what next steps are? Does he need to be seen in office again or have an MRI completed? States he clearly has a hernia. He would like to have a call back at [phone]. documented in this encounterSelect [facility]01-17-2023 NoteHNO ID: [id number] Author: CORI Adamson) Service: ? Author Type: Tankage Grinder Operator Type: Progress Notes Filed: 06/22/2022 2:56 PM Note Text: Radiology Service Progress Note PATIENT NAME: Gerry Travis DATE OF SERVICE: June 22, 2022 TIME: 2:55 PM PATIENT IDENTITY VERIFICATION COMPLETED USING TWO (2) IDENTIFIERS: Name and Date of confirmed by patient verbally. FALL SCREENING: Has the patient had 2 falls in the last year or 1 fall with injury or currently using an Ambulatory Assistive Device (Walker, Cane, Wheelchair, Crutches, etc.)? No PATIENT GENDER DATA: Male PATIENT RELEVANT IMPLANT DATA REVIEWED: Yes RADIOLOGY DEPARTMENT: CT; Exam(s) Completed: Abdomen/Pelvis PERIPHERAL IV DATA: Not applicable SIGNED BY: RT Magalys(Vincenzo) June 22, 2022 2:55 [facility]01-17-2023 History of Present illness Narrative* Eda Jason RT(R) - 06/22/2022 2:20 PM EST Radiology Service Progress Note PATIENT NAME: Gerry Travis DATE OF SERVICE: June 22, 2022 TIME: 2:55 PM PATIENT IDENTITY VERIFICATION COMPLETED USING TWO (2) IDENTIFIERS: Name and Date of confirmedby patient verbally. FALL SCREENING: Has the patient had 2 falls in the last year or 1 fall with injury or currently using an Ambulatory Assistive Device (Walker, Cane, Wheelchair, Crutches, etc.)? No PATIENT GENDER DATA: Male PATIENT RELEVANT IMPLANT DATA REVIEWED: Yes RADIOLOGY DEPARTMENT: CT; Exam(s) Completed: Abdomen/Pelvis PERIPHERAL IV DATA: Not applicable SIGNED BY: RT Magalys(R) June 22, 2022 2:55 PM documented in this encounterSelect Medical [facility]01-13-2023 NoteHNO ID: [id number] Author: Nathalia Mcnamara MD Service: ? Author Type: Physician Type: Progress Notes Filed: 06/18/2022 12:29 PM Note Text: HISTORY AND PHYSICAL Gerry Travis 1960 REFERRING PHYSICIAN: Ellie Lazaro APRN.C* CHIEF COMPLAINT: Consult (UNILATERAL INGUINAL HERNIA) HPI: Gerry is a 62 year old male with a complaint of a bulge and discomfort in his left inguinal region. The patient notes discomfort in this area with lifting and straining. 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 He feels this possibly happened at work last year. His work becomes busy again in September so he is hoping to get this repaired in the near future. The patient also notes suggestion of a hernia in the right upper quadrant some costal area not in the site of a prior hernia or incision. The patient notes no symptoms of bowel obstruction and denies nausea or vomiting. The patient was seen by primary care who felt the patient has a hernia. Gerry was referred for evaluation and treatment. The patient is being seen by me today at the request of Ellie Lazaro APRN.C* my opinion and advice regarding left inguinal hernia and possible right upper quadrant occult hernia. He does smoke on a daily basis. PAST MEDICAL HISTORY Diagnosis Date Arrhythmia BPH (benign prostatic hyperplasia) Cardiomyopathy, unspecified (HCC) Dr. Stallings. Echo 03/2021: EF 55% COPD (chronic obstructive pulmonary disease) (HCC) Dr. Loyd Obstructive sleep apnea Overactive bladder Tobacco use disorder PAST SURGICAL HISTORY Procedure Laterality Date ARTHROSCOPY KNEE DIAGNOSTIC W/WO SYNOVIAL BX SPX COLONOSCOPY GEN ANES 07/03/18, 04/22/14 Current Outpatient Medications Medication Sig carvedilol (COREG) 3.125 mg tablet 1 tablet twice daily with meals. losartan (COZAAR) 50 mg tablet 1 tablet once daily. albuterol sulfate (PROAIR RESPICLICK INHALATION) [employer] 160 mg capsule Take 1 capsule by mouth twice daily. coenzyme Q10 (COENZYME Q-10) 100 mg cap capsule Take 1 capsule by mouth once daily. ascorbic acid, vitamin C, (VITAMIN C) 500 mg tablet Take 1 tablet by mouth twice daily. Cholecalciferol, Vitamin D3, 50 mcg (2,000 unit) cap Take 1 capsule by mouth once daily. Zinc 50 mg tab Take 50 mg by mouth once daily. Taking every 2-3 days enteric contrast (will be provided with radiology test) Take 1 Each by mouth one time only for [address] ABD/PEL WO Routine order Administer, As Directed One Time Only, via Oral, Rectal, both Oral and Rectal, Enteric Tube, Stoma or Indwelling Catheter, Enteric Contrast as designated per enteric contrast guidelines nicotine (NICODERM) 21 mg/24 hr Apply 1 Patch as directed every 24 hours. nicotine (NICODERM) 14 mg/24 hr Apply 1 Patch as directed every 24 hours. nicotine (NICODERM) 7 mg/24 hr Apply 1 Patch as directed every 24 hours for 14 days. No current facility-administered medications for this visit. ALLERGIES: Chantix [Varenicline] PERSONAL HISTORY: Social History Tobacco Use Smoking status: Every Day Types: Cigars Smokeless tobacco: Never Substance Use Topics Alcohol use: Not Currently Drug use: Not Currently FAMILY HISTORY: History reviewed. No pertinent family history. REVIEW OF SYMPTOMS: The review of systems data was entered by the nurse and reviewed by va Nursing Notes: Yamileth Loyd LPN 06/18/2022 11:49 AM Signed REVIEW OF SYSTEMS: General: The patient denies fatigue, denies weight loss, denies weight gain, denies feeling hot, and denies feelings of cold. Eyes: The patient denies glaucoma, denies eye injury/surgery, wears glasses or contacts. Ear/Nose/Throat: The patient NOTES allergies, denies hayfever, denies ear infections, and denies bloody noses. Cardiovascular: The patient denies chest pain, NOTES heart disease, denies high blood pressure,denies cardiac stent, denies prior heart attack, NOTES irregular heart beat, denies high cholesterol, denies poor circulation, denies heart failure, other cardiac issues, denies claudication, denies cold feet, denies peripheral arterial stent. Respiratory: The patient denies tuberculosis, denies pneumonia, denies frequent cough, denies pulmonary embolism, denies shortness of breath, and denies coughing up blood. Gastrointestinal: The patient denies difficulty swallowing, denies acid reflux, denies ulcers, denies vomiting, denies jaundice/hepatitis, denies gallbladder problems, denies black or tarry stools, denies hemorrhoids, denies bleeding from rectum, denies diverticulitis, denies constipation, denies diarrhea, denies loss of stool control, and NOTES hernias. Kidney/Bladder: The patient denies kidney stones, denies urine infections, and denies bloody urine. Skin: The patient denies a history of skin cancer, denies bleeding/changing moles, and denies a history of skin rash. Neurologic: The patient denies a history of epilepsy/convulsi (more content not included)...[facility]01-13-2023 History of Present illness Narrative* Nathalia Mcnamara MD - 06/18/2022 12:26 PM EST HISTORY AND PHYSICAL Gerry Travis 1960 REFERRING PHYSICIAN: Ellie Lazaro APRN.Duran* CHIEF COMPLAINT: Consult (UNILATERAL INGUINAL HERNIA) HPI: Gerry is a 62 year old male with a complaint of a bulge and discomfort in his left inguinal region. The patient notes discomfort in this area with lifting and straining. 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 He feels this possibly happened at work last year. His work becomes busy again in September so he is hoping to get this repaired in the near future. The patient also notes suggestion of a hernia in the right upper quadrant some costal area not in the site of a prior hernia or incision. The patient notes no symptoms of bowel obstruction and denies nausea or vomiting. The patient was seen by primary care who felt the patient has a hernia. Gerry was referred for evaluation and treatment. The patient is being seen by me today at the request of Ellie Lazaro APRN.C* my opinion and advice regarding left inguinal hernia and possible right upper quadrant occult hernia. He does smoke on a daily basis. PAST MEDICAL HISTORY Diagnosis Date Arrhythmia BPH (benign prostatic hyperplasia) Cardiomyopathy, unspecified (HCC) Dr. Stallings. Echo 03/2021: EF 55% COPD (chronic obstructive pulmonary disease) ([facility]) Dr. Loyd Obstructive sleep apnea Overactive bladder Tobacco use disorder PAST SURGICAL HISTORY Procedure Laterality Date ARTHROSCOPY KNEE DIAGNOSTIC W/WO SYNOVIAL BX SPX COLONOSCOPY GEN ANES 07/03/18, 04/22/14 Current Outpatient Medications Medication Sig carvedilol (COREG) 3.125 mg tablet 1 tablet twice daily with meals. losartan (COZAAR) 50 mg tablet 1 tablet once daily. albuterol sulfate (PROAIR RESPICLICK INHALATION) [employer] 160 mg capsule Take 1 capsule by mouth twice daily. coenzyme Q10 (COENZYME Q-10) 100 mg cap capsule Take 1 capsule by mouth once daily. ascorbic acid, vitamin C, (VITAMIN C) 500 mg tablet Take 1 tablet by mouth twice daily. Cholecalciferol, Vitamin D3, 50 mcg (2,000 unit) cap Take 1 capsule by mouth once daily. Zinc 50 mg tab Take 50 mg by mouth once daily. Taking every 2-3 days enteric contrast (will be provided with radiology test) Take 1 Each by mouth one time only for [address] ABD/PEL WO Routine order Administer, As Directed One Time Only, via Oral, Rectal, both Oral and Rectal, Enteric Tube, Stoma or Indwelling Catheter, Enteric Contrast as designated per enteric contrast guidelines nicotine (NICODERM) 21 mg/24 hr Apply 1 Patch as directed every 24 hours. nicotine (NICODERM) 14 mg/24 hr Apply 1 Patch as directed every 24 hours. nicotine (NICODERM) 7 mg/24 hr Apply 1 Patch as directed every 24 hours for 14 days. No current facility-administered medications for this visit. ALLERGIES: Chantix [Varenicline] PERSONAL HISTORY: Social History Tobacco Use Smoking status: Every Day Types: Cigars Smokeless tobacco: Never Substance Use Topics Alcohol use: Not Currently Drug use: Not Currently FAMILY HISTORY: History reviewed. No pertinent family history. REVIEW OF SYMPTOMS: The review of systems data was entered by the nurse and reviewed by va Nursing Notes: Yamileth Loyd LPN 06/18/2022 11:49 AM Signed REVIEW OF SYSTEMS: General: The patient denies fatigue, denies weight loss, denies weight gain, denies feeling hot, and denies feelings of cold. Eyes: The patient denies glaucoma, denies eye injury/surgery, wears glasses or contacts. Ear/Nose/Throat: The patient NOTES allergies, denies hayfever, denies ear infections, and denies bloody noses. Cardiovascular: The patient denies chest pain, NOTES heart disease, denies high blood pressure,denies cardiac stent, denies prior heart attack, NOTES irregular heart beat, denies high cholesterol, denies poor circulation, denies heart failure, other cardiac issues, denies claudication, denies cold feet, denies peripheral arterial stent. Respiratory: The patient denies tuberculosis, denies pneumonia, denies frequent cough, denies pulmonary embolism, denies shortness of breath, and denies coughing up blood. Gastrointestinal: The patient denies difficulty swallowing, denies acid reflux, denies ulcers, denies vomiting, denies jaundice/hepatitis, denies gallbladder problems, denies black or tarry stools, denies hemorrhoids, denies bleeding from rectum, denies diverticulitis, denies constipation, denies diarrhea, denies loss of stool control, and NOTES hernias. Kidney/Bladder: The patient denies kidney stones, denies urine infections, and denies bloody urine. Skin: The patient denies a history of skin cancer, denies bleeding/changing moles, and denies a history of skin rash. Neurologic: The patient denies a history of epilepsy/convulsions, denies headaches, denies head/spinal injuries, and denies stroke/TIA. Psychiatric: The patient denies psychiatric medications, denies depression, and denies voices, denies substance abuse. Endocrine: The patient denies thyroid disorders, denies diabetes, and denies hormonal problems. Hematologic: The patient denies a history of bruising, denies bleeding, and denies anemia, denies blood clots. Infections: The patient NOTES a history of measles and mumps, denies rheumatic fever, and denies sexually transmitted diseases. Musculoskeletal: The patient denies back pain/injury, NOTES back problems, denies sciatica, denies knee/foot trouble, denies arthritis, or denies gout. When was patient's last Mammogram screening? N/A Last Colonoscopy: 2020 Yamileth Loyd LPN PHYSICAL EXAMINATION: General: The patient is 62 year old male, well nourished, well hydrated in no acute distress. The patient is oriented to time, place, and person. VITALS: Blood pressure 108/72, pulse 102, temperature 37.1 C (98.7 F), height 182.9 cm (6'), wbrefq30.6 kg (175 lb 8 oz), SpO2 96 %. Body mass index is 23.8 kg/m . HEENT: Normal cephalic, ataumatic, pupils are equally round, sclera are anicteric, mucous membranesare moist, oropharynx is clear. Neck has no masses, asymmetry or lymphadenopathy. Thyroid is unremarkable. Respiratory: Clear to auscultation and percussion. Normal respiratory excursion and pattern. Cardiac: Examination is regular rate and rhythm. Abdominal exam: Soft, nontender, with no palpable masses. No hepatosplenomegaly. A moderate reducible left inguinal hernia, no right inguinal or umbilical hernias are noted. No obvious right upper quadrant hernia noted Rectal exam: exam deferred Extremities: no clubbing, cyanosis or edema. No adenopathy. Other: LABORATORY VALUES: As Noted RADIOLOGIC STUDIES: As Noted Assessment IMPRESSION: left inguinal hernia, ? RUQ hernia PLAN: Plan to obtain a CT scan of the abdomen pelvis to assess the right upper quadrant area. My plan is to perform a left open inguinal hernia repair versus laparoscopic repair of left inguinal and right upper quadrant area based on CT scan.. The planned surgical procedure was discussed extensively with the patient. The risks, benefits, anticipated outcomes and possible complications were mentioned. Gerry blandands that all hernia repair surgery has a chance of recurrence and/or chronic post operative pain. My staff has also explained the procedure in understandable terms and the patient was given the option to take printed material concerning the planned procedure. The patient had the opportunity to ask questions concerning the planned procedure. The patient freely consents to theplanned procedure. All tobacco/nicotine use needs to be completely stopped at least 4 weeks prior to surgery and not used in any form for 8 weeks following surgery due to nicotine's prevention of appropriate wound healing My findings have been communicated to Dr. Lazaro via shared medical record. This note will be forwarded to Dr. Ana Maria Pepper MD. Diagnoses: (R19.01) RUQ abdominal mass (primary encounter diagnosis) (K40.90) Unilateral inguinal hernia without obstruction or gangrene, recurrence not specified Anticipated CPT Code: ? Anticipated Anesthetic: ? Patient weight: Blood pressure 108/72, pulse 102, temperature 37.1 C (98.7 F), height 182.9 cm (6'), weight 79.6 kg (175 lb 8 oz), SpO2 96 %. BMI: Body mass index is 23.8 kg/m . 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 Nathalia Mcnamara MD documented in this [facility] [place] Nurse Note* Yamileth Loyd LPN - 06/18/2022 11:47 AM EST REVIEW OF SYSTEMS: General: The patient denies fatigue, denies weight loss, denies weight gain, denies feeling hot, and denies feelings of cold. Eyes: The patient denies glaucoma, denies eye injury/surgery, wears glasses or contacts. Ear/Nose/Throat: The patient NOTES allergies, denies hayfever, denies ear infections, and denies bloody noses. Cardiovascular: The patient denies chest pain, NOTES heart disease, denies high blood pressure,denies cardiac stent, denies prior heart attack, NOTES irregular heart beat, denies high cholesterol, denies poor circulation, denies heart failure, other cardiac issues, denies claudication, denies cold feet, denies peripheral arterial stent. Respiratory: The patient denies tuberculosis, denies pneumonia, denies frequent cough, denies pulmonary embolism, denies shortness of breath, and denies coughing up blood. Gastrointestinal: The patient denies difficulty swallowing, denies acid reflux, denies ulcers, denies vomiting, denies jaundice/hepatitis, denies gallbladder problems, denies black or tarry stools, denies hemorrhoids, denies bleeding from rectum, denies diverticulitis, denies constipation, denies diarrhea, denies loss of stool control, and NOTES hernias. Kidney/Bladder: The patient denies kidney stones, denies urine infections, and denies bloody urine. Skin: The patient denies a history of skin cancer, denies bleeding/changing moles, and denies a history of skin rash. Neurologic: The patient denies a history of epilepsy/convulsions, denies headaches, denies head/spinal injuries, and denies stroke/TIA. Psychiatric: The patient denies psychiatric medications, denies depression, and denies voices, denies substance abuse. Endocrine: The patient denies thyroid disorders, denies diabetes, and denies hormonal problems. Hematologic: The patient denies a history of bruising, denies bleeding, and denies anemia, denies blood clots. Infections: The patient NOTES a history of measles and mumps, denies rheumatic fever, and denies sexually transmitted diseases. Musculoskeletal: The patient denies back pain/injury, NOTES back problems, denies sciatica, denies knee/foot trouble, denies arthritis, or denies gout. When was patient's last Mammogram screening? N/A Last Colonoscopy: 2020 Yamileth Loyd LPN documented in this encounterSelect [facility] [place] NoteHNO ID: [id number] Author: Ellie Lazaro APRN.ANODE WORKER Service: ? Author Type: Nurse Practitioner Type: Progress Notes Filed: 06/17/2022 11:35 AM Note Text: This is a 62 year old male who presents today with: Patient presents with: Acute Visit: hernia HISTORY OF PRESENT ILLNESS: Gerry Travis is a 62 year old male. Patient presents with: Acute Visit: hernia Here in the office for concerns for hernia. Within the past couple of weeks noticed a pain in the left groin with bulging. Lifting mower at work and noticed some burning pain in the left groin. Notices bulge in the morning and worse after eating and will resolve on its own. Pain can be a sharp stabbing pain that lasts about 15-25 minutes. Symptoms worse with certain activites or cough. Denies any testicular pain. Notices some intermittent dysuria at times which he refers he has had this in the past . Has hypospadia. PAST MEDICAL HISTORY: PAST MEDICAL HISTORY Diagnosis Date Arrhythmia BPH (benign prostatic hyperplasia) Cardiomyopathy, unspecified ([facility]) Dr. Stallings. Echo 03/2021: EF 55% COPD (chronic obstructive pulmonary disease) ([facility]) Dr. Loyd Obstructive sleep apnea Overactive bladder Tobacco use disorder PAST SURGICAL HISTORY Procedure Laterality Date ARTHROSCOPY KNEE DIAGNOSTIC W/WO SYNOVIAL BX SPX COLONOSCOPY GEN ANES 07/03/18, 04/22/14 ALLERGIES Chantix [Varenicline] MEDICATIONS Current Outpatient Medications Medication Sig carvedilol (COREG) 3.125 mg tablet 1 tablet twice daily with meals. losartan (COZAAR) 50 mg tablet 1 tablet once daily. nicotine (NICODERM) 21 mg/24 hr Apply 1 Patch as directed every 24 hours. nicotine (NICODERM) 14 mg/24 hr Apply 1 Patch as directed every 24 hours. nicotine (NICODERM) 7 mg/24 hr Apply 1 Patch as directed every 24 hours for 14 days. albuterol sulfate (PROAIR RESPICLICK INHALATION) [employer] 160 mg capsule Take 1 capsule by mouth twice daily. coenzyme Q10 (CO Q-10) 100 mg cap capsule Take 1 capsule by mouth once daily. ascorbic acid, vitamin C, (VITAMIN C) 500 mg tablet Take 1 tablet by mouth twice daily. Cholecalciferol, Vitamin D3, 50 mcg (2,000 unit) cap Take 1 capsule by mouth once daily. Zinc 50 mg tab Take 50 mg by mouth once daily. Taking every 2-3 days No current facility-administered medications for this visit. No family history on file. Social History Tobacco Use Smoking status: Every Day Smokeless tobacco: Never Substance Use Topics Alcohol use: Not Currently Drug use: Not Currently REVIEW OF SYSTEMS GENERAL: No weight loss, malaise or fevers/chills HEENT: Negative for frequent or significant headaches, No changes in hearing or vision. NECK: Negative for lumps, goiter, pain and significant neck swelling RESPIRATORY: Negative for cough, hemoptysis, wheezing, dyspnea or shortness of breath CARDIOVASCULAR: Negative for chest pain, leg swelling, orthopnea, or palpitations GI: + Left Groin Pain : No history of dysuria, frequency or incontinence MUSCULOSKELETAL: Negative for joint pain or swelling. SKIN: Negative for lesions, rash, and itching ENDOCRINE: Negative for cold or heat intolerance, polyuria, polydipsia and goiter NEURO: No history of headaches, syncope, paralysis, seizures or tremors MOOD: Negative for depression, anxiety, or suicidal ideation. EXAM: BP 130/60 Pulse 73 Resp 16 Wt 79.4 kg (175 lb) SpO2 99% BMI 23.73 kg/m? PHYSICAL EXAM: General Appearance: Well appearing, alert, in no acute distress, well-hydrated, well nourished. Skin: Skin color, texture, turgor normal, no suspicious rashes or lesions. Head: Normocephalic, no masses, lesions, tenderness or abnormalities. Eyes: Anicteric sclera. Extraocular movements are intact. Lungs: Lungs clear to auscultation. No wheezing, rhonchi, rales. Heart: RRR without murmur, gallop, or rubs. No ectopy. Abdomen: Abdomen soft, non-tender. Bowel sounds normal. No organomegaly. + Small bulge in left groin while standing, mild tenderness. Peripheral Pulses: Normal, Capillary refill <2secs, strong peripheral pulses, Pulses palpable. Neurologic: Gait normal. Sensation grossly intact. ASSESSMENT/PLAN: 1. Unilateral inguinal hernia without obstruction or gangrene, recurrence not specified - ICD9: 550.90, ICD10: K40.90 (primary diagnosis) - Symptoms consistent with inguinal hernia. - Recommend consult with general surgery for further evaluation. - Recommend no heavy lifting. - Red flag symptoms given to patient, he verbalizes understanding when to seek care. - CONSULT TO GENERAL SURGERY 2. Dysuria - ICD9: 788.1, ICD10: R30.0 - Denied wanting any testing at this time. Follow-up as needed or sooner if symptoms get worse or do not improve. Discussed treatment plan and patient voices understanding. Patient's questions answered appropriately. Medications and potential side effects were discussed and patient voices understanding. Ellie (more content not included)...[facility]01-12-[facility] Instructions* Patient Instructions* Ellie Lazaro APRN.CNP - 06/17/2022 11:03 AM EST Recommend consult with general surgery to discuss symptoms Recommend no heavy lifting. If urinary symptoms do not improve please contact the office Follow up as needed. documented in this encounterC[place] [id number] History of Present illness Narrative* Ellie Lazaro APRN.ANODE WORKER - 06/17/2022 10:40 AM EST This is a 62 year old male who presents today with: Patient presents with: Acute Visit: hernia HISTORY OF PRESENT ILLNESS: Gerry Travis is a 62 year old male. Patient presents with: Acute Visit: hernia Here in the office for concerns for hernia. Within the past couple of weeks noticed a pain in the left groin with bulging. Lifting mower at work and noticed some burning pain in the left groin. Notices bulge in the morning and worse after eating and will resolve on its own. Pain can be a sharp stabbing pain that lasts about 15-25 minutes. Symptoms worse with certain activites or cough. Denies anytesticular pain. Notices some intermittent dysuria at times which he refers he has had this in the past . Has hypospadia. PAST MEDICAL HISTORY: PAST MEDICAL HISTORY Diagnosis Date Arrhythmia BPH (benign prostatic hyperplasia) Cardiomyopathy, unspecified ([facility]) Dr. Stallings. Echo 03/2021: EF 55% COPD (chronic obstructive pulmonary disease) ([facility]) Dr. Loyd Obstructive sleep apnea Overactive bladder Tobacco use disorder PAST SURGICAL HISTORY Procedure Laterality Date ARTHROSCOPY KNEE DIAGNOSTIC W/WO SYNOVIAL BX SPX COLONOSCOPY GEN ANES 07/03/18, 04/22/14 ALLERGIES Chantix [Varenicline] MEDICATIONS Current Outpatient Medications Medication Sig carvedilol (COREG) 3.125 mg tablet 1 tablet twice daily with meals. losartan (COZAAR) 50 mg tablet 1 tablet once daily. nicotine (NICODERM) 21 mg/24 hr Apply 1 Patch as directed every 24 hours. nicotine (NICODERM) 14 mg/24 hr Apply 1 Patch as directed every 24 hours. nicotine (NICODERM) 7 mg/24 hr Apply 1 Patch as directed every 24 hours for 14 days. albuterol sulfate (PROAIR RESPICLICK INHALATION) [employer] 160 mg capsule Take 1 capsule by mouth twice daily. coenzyme Q10 (CO Q-10) 100 mg cap capsule Take 1 capsule by mouth once daily. ascorbic acid, vitamin C, (VITAMIN C) 500 mg tablet Take 1 tablet by mouth twice daily. Cholecalciferol, Vitamin D3, 50 mcg (2,000 unit) cap Take 1 capsule by mouth once daily. Zinc 50 mg tab Take 50 mg by mouth once daily. Taking every 2-3 days No current facility-administered medications for this visit. No family history on file. Social History Tobacco Use Smoking status: Every Day Smokeless tobacco: Never Substance Use Topics Alcohol use: Not Currently Drug use: Not Currently REVIEW OF SYSTEMS GENERAL: No weight loss, malaise or fevers/chills HEENT: Negative for frequent or significant headaches, No changes in hearing or vision. NECK: Negative for lumps, goiter, pain and significant neck swelling RESPIRATORY: Negative for cough, hemoptysis, wheezing, dyspnea or shortness of breath CARDIOVASCULAR: Negative for chest pain, leg swelling, orthopnea, or palpitations GI: + Left Groin Pain : No history of dysuria, frequency or incontinence MUSCULOSKELETAL: Negative for joint pain or swelling. SKIN: Negative for lesions, rash, and itching ENDOCRINE: Negative for cold or heat intolerance, polyuria, polydipsia and goiter NEURO: No history of headaches, syncope, paralysis, seizures or tremors MOOD: Negative for depression, anxiety, or suicidal ideation. EXAM: BP 130/60 Pulse 73 Resp 16 Wt 79.4 kg (175 lb) SpO2 99% BMI 23.73 kg/m PHYSICAL EXAM: General Appearance: Well appearing, alert, in no acute distress, well-hydrated, well nourished. Skin: Skin color, texture, turgor normal, no suspicious rashes or lesions. Head: Normocephalic, no masses, lesions, tenderness or abnormalities. Eyes: Anicteric sclera. Extraocular movements are intact. Lungs: Lungs clear to auscultation. No wheezing, rhonchi, rales. Heart: RRR without murmur, gallop, or rubs. No ectopy. Abdomen: Abdomen soft, non-tender. Bowel sounds normal. No organomegaly. + Small bulge in left groin while standing, mild tenderness. Peripheral Pulses: Normal, Capillary refill <2secs, strong peripheral pulses, Pulses palpable. Neurologic: Gait normal. Sensation grossly intact. ASSESSMENT/PLAN: 1. Unilateral inguinal hernia without obstruction or gangrene, recurrence not specified - ICD9: 550.90, ICD10: K40.90 (primary diagnosis) - Symptoms consistent with inguinal hernia. - Recommend consult with general surgery for further evaluation. - Recommend no heavy lifting. - Red flag symptoms given to patient, he verbalizes understanding when to seek care. - CONSULT TO GENERAL SURGERY 2. Dysuria - ICD9: 788.1, ICD10: R30.0 - Denied wanting any testing at this time. Follow-up as needed or sooner if symptoms get worse or do not improve. Discussed treatment plan and patient voices understanding. Patient's questions answered appropriately. Medications and potential side effects were discussed and patient voices understanding. Ellie Lazaro APRN.ANODE WORKER This note was partially generated using [employer]ger voice recognition system. Note was reviewed for accuracy. There may be minor misspellings or grammar miscues with [employer]ger voice recognition. documented in this encounterSelect [facility] [place]08-04-[facility]22 Miscellaneous Notes* Telephone Encounter - Gwen Escalante Ma - 01/07/2022 9:50 AM EDT Pt notified of results via [employer]. Gwen Escalante Ma * Telephone Encounter - Gwen Escalante Ma - 01/07/2022 9:49 AM EDT ----- Message from Hung Gonzales MD sent at 01/07/2022 8:40 AM EDT ----- His labs are normal. No changes to regimen. Follow up with PCP for yearly physical. documented in this encounterSelect Medical [facility] [place]07-27-2022 History of Present illness Narrative* Hung Gonzales MD - 12/30/2021 1:29 PM EDT Chief Complaint Patient presents with: Wellness HPI Gerry Travis is a 61 year old male who presents here today for annual physical. COPD/OSIEL: Managed by Dr. Loyd's office, but has not been in to see them since last January. Patientwith mild COPD and was previously prescribed Ellipta inhaler which was $300 per month so could not afford and did not fill. Was supposed to follow up with their office in 3 months, but has not done so. Has been using albuterol inhaler on a PRN basis. Has used maybe 10 times in the last year. Deniescough, wheezing, SOB today. Using CPAP on a nightly basis and is working well for him. Still smoking about 1/2-3/4 pack of filtered cigars. Would like help with cessation. Has failed Wellbutrin, chantix, Nicoderm gum and patches without success. Has also tried hypnosis without success.Would like to try patches. BPH: Symptoms controlled on saw palmetto. PSA [address] Dye's office earlier this week. Cardiomyopathy: Managed by Dr. Stallings's office. Echo last year with EF 55%. Asymptomatic on medical management. Told to discontinue his ASA at appointment last year. Has follow up appointment with cardiology in February. PHQ-2 / Depression screen He in the past two weeks denies having felt down, depressed, hopeless or with little interest or pleasure in doing things. Refusing 2nd COVID booster today. Past medical history, appointments, medications, allergies reviewed. Previous Medical History PAST MEDICAL HISTORY Diagnosis Date Arrhythmia BPH (benign prostatic hyperplasia) Cardiomyopathy, unspecified ([facility]) Dr. Stallings. Echo 03/2021: EF 55% COPD (chronic obstructive pulmonary disease) ([facility]) Dr. Loyd Obstructive sleep apnea Overactive bladder Tobacco use disorder Previous Surgical History PAST SURGICAL HISTORY Procedure Laterality Date ARTHROSCOPY KNEE DIAGNOSTIC W/WO SYNOVIAL BX SPX COLONOSCOPY GEN ANES 07/03/18, 04/22/14 Family History No family history on file. Patient Allergies ALLERGIES Allergen Reactions Chantix [Vareniclin* Other: See Comments nightmares Current Medications Current Outpatient Medications on File Prior to Visit Medication Sig albuterol sulfate (PROAIR RESPICLICK INHALATION) [employer] 160 mg capsule Take 1 capsule by mouth twice daily. coenzyme Q10 (CO Q-10) 100 mg cap capsule Take 1 capsule by mouth once daily. ascorbic acid, vitamin C, (VITAMIN C) 500 mg tablet Take 1 tablet by mouth twice daily. Cholecalciferol, Vitamin D3, 50 mcg (2,000 unit) cap Take 1 capsule by mouth once daily. Zinc 50 mg tab Take 50 mg by mouth once daily. Taking every 2-3 days carvedilol (COREG) 3.125 mg tablet losartan (COZAAR) 50 mg tablet cyclobenzaprine (FLEXERIL) 10 mg tablet Take 1 tablet by mouth daily at bedtime. aspirin, enteric coated (ASPIRIN, ENTERIC COATED) 81 mg EC tablet Take 1 tablet by mouth once daily. (Patient not taking: Reported on 05/05/2021 ) No current facility-administered medications on file prior to visit. Social History Social History Tobacco Use Smoking status: Current Every Day Smoker Smokeless tobacco: Never Used Substance Use Topics Alcohol use: Not Currently Drug use: Not Currently Review of Symptoms REVIEW OF SYSTEMS GENERAL: No weight loss, malaise or fevers HEENT: Negative for frequent or significant headaches, No changes in hearing or vision, no nose bleeds or other nasal problems NECK: Negative for lumps, goiter, pain and significant neck swelling RESPIRATORY: See HPI CARDIOVASCULAR: Negative for chest pain, leg swelling, hypertension, CHF or palpitations GI: No nausea, vomiting, or diarrhea : No history of dysuria, frequency or incontinence MUSCULOSKELETAL: Negative for joint pain or swelling, back pain or muscle pain SKIN: Negative for lesions, rash, and itching EXAM: BP 106/62 (BP Site: Right Arm, BP Position: Sitting, BP Cuff Size: Regular Adult) Pulse (!) 50 Resp 16 Ht 182.9 cm (6') Wt 81.2 kg (179 lb) BMI 24.28 kg/m General Appearance: Well appearing, alert, in no acute distress, well-hydrated, well nourished.. Skin: Skin color, texture, turgor normal, no suspicious rashes or lesions. Head: Normocephalic, no masses, lesions, tenderness or abnormalities. Eyes: Anicteric sclera. Pupils are equally round and reactive to light. Extraocular movements are intact. . Ears: External ears normal, canals clear. Neck: Supple, no adenopathy; thyroid symmetric, normal size, no bruits. Lungs: Lungs clear to auscultation. No wheezing, rhonchi, rales.. Heart: Negative findings: no murmurs, rubs, clicks or gallops, Positive findings: bradycardia. Abdomen: Normal abdominal exam, Abdomen soft, non-tender. Bowel sounds normal. No masses, organomegaly. Extremities: No deformities, edema, skin discoloration, clubbing or cyanosis. Good capillary refill. . Health Maintenance List SPIROMETRY Never done HEPATITIS C SCREENING Never done ALPHA-1 ANTITRYPSIN DEFICIENCY SCREENING Never done PNEUMOCOCCAL(2 - PCV) due on 04/28/2016 SHINGRIX VACCINE(2 of 3) due on 02/03/2017 COVID-19 VACCINE(4 - Booster for Pfizer series) due on 08/26/2021 DEPRESSION SCREENING due on 12/21/2021 ANNUAL PCP TEAM CHRONIC DISEASE VISIT due on 12/24/2021 INFLUENZA(1) due on 02/04/2022 DIABETES SCREEN due on 01/01/2024 PROSTATE CANCER SCREENING DISCUSSION due on 09/09/2024 LIPID SCREEN due on 12/31/2025 COLORECTAL CANCER SCREENING due on 07/03/2028 DTAP,TDAP,TD(2 - Td or Tdap) due on 11/21/2030 HIV SCREENING Discontinued Data reviewed Component Latest Ref Rng & Units 12/31/2020 WBC 3.70 - 11.00 k/uL 6.20 RBC 4.20 - 6.00 m/uL 4.94 Hemoglobin 13.0 - 17.0 g/dL 14.3 Hematocrit 39.0 - 51.0 % 44.4 MCV 80.0 - 100.0 fL 89.9 MCH 26.0 - 34.0 pG 28.9 MCHC 30.5 - 36.0 g/dL 32.2 RDW-CV 11.5 - 15.0 % 13.1 Platelet Count 150 - 400 k/uL 205 MPV 9.0 - 12.7 fL 9.6 Neut% % 45.4 Abs Neut (ANC) 1.45 - 7.50 k/uL 2.80 Lymph% % 37.4 Abs Lymph 1.00 - 4.00 k/uL 2.32 Charles Mix% % 15.0 Abs Charles Mix <0.87 k/uL 0.93 (H) Eosin% % 1.9 Abs Eosin <0.46 k/uL 0.12 Baso% % 0.3 Abs Baso <0.11 k/uL <0.03 Nucleated Reds 0 /100 WBC 0.0 Absolute nRBC <0.01 k/uL <0.01 Diff Type Auto Diff Protein, Total 6.3 - 8.0 g/dL 6.6 Albumin 3.9 - 4.9 g/dL 4.0 Calcium 8.5 - 10.2 mg/dL 9.0 Bilirubin, Total 0.2 - 1.3 mg/dL 0.7 Alkaline Phosphatase 38 - 113 U/L 63 AST 14 - 40 U/L 27 Glucose 74 - 99 mg/dL 83 BUN 9 - 24 mg/dL 20 Creatinine 0.73 - 1.22 mg/dL 0.78 Sodium 136 - 144 mmol/L 138 Potassium 3.7 - 5.1 mmol/L 4.1 Chloride 97 - 105 mmol/L 105 CO2 22 - 30 mmol/L 25 Anion Gap 9 - 18 mmol/L 8 (L) ALT 10 - 54 U/L 17 eGFR- >60 eGFR-All Other Races . >60 Cholesterol, Total <200 mg/dL 156 Triglyceride <150 mg/dL 37 HDL Cholesterol >39 mg/dL 70 LDL Cholesterol <100 mg/dL 79 Non HDL Cholesterol <130 mg/dL 86 Fasting Time hrs 12 VLDL Cholesterol <30 mg/dL 7 TC:HDL Ratio <5.10 2.23 LDL:HDL Ratio <2.54 1.13 ASSESSMENT/PLAN: 1. Annual physical exam - ICD9: V70.0, ICD10: Z00.00 (primary diagnosis) - Counseled on healthy diet and regular exercise - Discussed need for and benefit of weight loss. BMI 24.28 kg/(m^2) - Smoking cessation encouraged; discussed risks to health and quitting strategies. Patient is readyto quit and nicotine replacement prescribed - Patient was counseled [id number] by myself (the billing provider) for the following immunizations and vaccine components, including side effects: Pneumococcal . Patient consents for immunization and understands risks and benefits. A VIS sheet on each immunization was given to the patient. - Follow up for annual exam in one year - CBC - COMP METABOLIC PANEL - LIPID PANEL BASIC 2. Cardiomyopathy, unspecified type (HCC) - ICD9: 425.4, ICD10: I42.9 Asymptomatic on medical management. Follow up with cardiology and continue current regimen. 3. Chronic obstructive pulmonary disease, unspecified COPD type (HCC) - ICD9: 496, ICD10: J44.9 Asymptomatic on current regimen. Discussed importance of smoking cessation. F/u with Dr. Loyd's office as recommended. 4. OSIEL (obstructive sleep apnea) - ICD9: 327.23, ICD10: G47.33 Doing well on nightly CPAP with current settings. No changes. F/u with pulmonology. 5. Smoker - ICD9: 305.1, ICD10: F17.200 - Cessation encouraged. - Physiologic and physical aspects of tobacco addiction as well as strategies for quitting were discussed. - Counseling was given focusing on the harmful effects of this addiction especially given the patient's medical condition(s) which will be worsened because of the chemicals in tobacco. - NICOTINE 21 MG/24 HR DAILY TRANSDERMAL PATCH - NICOTINE 14 MG/24 HR DAILY TRANSDERMAL PATCH - NICOTINE 7 MG/24 HR DAILY TRANSDERMAL PATCH 6. Need for pneumococcal vaccination - ICD9: V03.82, ICD10: Z23 - PNEUMOCOCCAL VACCINE (PREVNAR 20) Hung Gonzales MD [facility] History of Present illness Narrative* Mary Beasley RT(R) - 05/05/2021 6:20 PM EST Radiology Service Progress Note PATIENT NAME: Gerry Travis DATE OF SERVICE: May 05, 2021 TIME: 6:12 PM PATIENT IDENTITY VERIFICATION COMPLETED USING TWO (2) IDENTIFIERS: Name and Date of confirmedby patient verbally. FALL SCREENING: Has the patient had 2 falls in the last year or 1 fall with injury or currently using an Ambulatory Assistive Device (Walker, Cane, Wheelchair, Crutches, etc.)? No PATIENT GENDER DATA: Male PATIENT RELEVANT IMPLANT DATA REVIEWED: Not Applicable RADIOLOGY DEPARTMENT: General X-ray: Exam(s) Completed: Spine X-Ray(s): Lumbar AP / LAT / L5-S1 Pelvis X-Ray: Pelvis with Hip Right PERIPHERAL IV DATA: Not applicable SIGNED BY: RT Alex(R) May 05, 2021 6:12 PM documented in this encounter[facility] noteNo assessment information availableWCommunity [facility] Work Phone: Evaluation note* Diagnosis Annual physical exam- Primary Routine general medical examination at a health care facility Cardiomyopathy, unspecified type (HCC) Chronic obstructive pulmonary disease, unspecified COPD type (HCC) OSIEL (obstructive sleep apnea) Obstructive sleep apnea (adult) (pediatric) Smoker Tobacco use disorder Need for pneumococcal vaccination Need for prophylactic vaccination against streptococcus pneumoniae (pneumococcus) [facility]* Diagnosis Onset Date Resolution Status Essential hypertension acute Intermittent palpitations ac nancy Cardiomyopathy resolved [facility] Work Phone: Evaluation note* Diagnosis Unilateral inguinal hernia without obstruction or gangrene, recurrence not specified- Primary Dysuria documented in this encounter [facility] note* Diagnosis RUQ abdominal mass- Primary Abdominal or pelvic swelling, mass, or lump, right upper quadrant Unilateral inguinal hernia without obstruction or gangrene, recurrence not specified documented in this encounter [facility] note* Diagnosis Onset Date Resolution Status Nicotine dependence, cigarettes, uncomplicated chronic Stage 1 mild COPD by GOLD classification chronic Obstructive Sleep Apnea-Hypopnea Syndrome noneactive Inguinal hernia of left side without obstruction or gangrene acute Ventral hernia acute [facility] Work Phone: Evaluation note* Diagnosis Onset Date Resolution Status Essential hypertension acute Nicotine dependence, cigarettes, uncomplicated chronic OSIEL on CPAP chronic Stage 1 mild COPD by GOLD classification chronic [facility] Work Phone: Evaluation note* Diagnosis Unilateral inguinal hernia without obstruction or gangrene, recurrence not specified RUQ abdominal mass Abdominal or pelvic swelling, mass, or lump, right upper quadrant [facility]* Diagnosis Injury of left upper arm, initial encounter- Primary documented in this encounter [facility] note* Diagnosis Injury of left upper arm, initial encounter documented in this encounter [facility] note* Diagnosis Onset Date Resolution Status Admit Date Essential hypertension acute Ju 2024 2:28pm Nicotine dependence, cigaret latoya, uncomplicated chronic November 28, 2024 2:28pm OSIEL on CPAP chronic November 28 2:28pm Stage 1 mild COPD by GOLD classification chronic November 28, 2024 2:28pm [facility] [employer] Work Phone: Reason for referral (narrative)* Diagnostic Procedure Only (Urgent) - Closed Specialty Diagnoses / Procedures Referred By Contac t Referred To Contact XR IMAGING Diagnoses Injury of left upper arm, initial encounter Procedures XR HUMERUS 2V AP/LAT LEFT RADEX HUMERUS MINIMUM 2 VIEWS Zelalem Haynes APRN.ANODE WORKER [address] [place] [address] [place] [address] Referral ID Status Reason Start Date Expiration Date V isits Requested Visits Authorized [id number] Closed Auto-Generate d Referral 04/19/2023 05/18/2024 1 1 [facility] for referral (narrative)* Diagnostic Procedure Only (Urgent) - Closed Specialty Diagnoses / Procedures Referred By Contac t Referred To Contact XR IMAGING Diagnoses Injury of left upper arm, initial encounter Procedures XR HUMERUS 2V AP/LAT LEFT RADEX HUMERUS MINIMUM 2 VIEWS Zelalem Haynes APRN.ANODE WORKER [address] [place] [address] [place] [address] Referral ID Status Reason Start Date Expiration Date V isits Requested Visits Authorized [id number] Closed Auto-Generate d Referral 04/19/2023 05/18/2024 1 1 [facility] for referral (narrative)No reason for referral information availableSt[facility] Work Phone: [facility] for visit Narrative* Diagnostic Procedure Only (Urgent) - Closed Specialty Diagnoses / Procedures Referred By Contac t Referred To Contact XR IMAGING Diagnoses Injury of left upper arm, initial encounter Procedures XR HUMERUS 2V AP/LAT LEFT RADEX HUMERUS MINIMUM 2 VIEWS Zelalem Haynes APRN.ANODE WORKER [address] [place] [address] [place] [address] Referral ID Status Reason Start Date Expiration Date V isits Requested Visits Authorized [id number] Closed Auto-Generate d Referral 04/19/2023 05/18/2024 1 1 [facility] for visit Narrative* Diagnostic Procedure Only (Urgent) - Closed Specialty Diagnoses / Procedures Referred By Contac t Referred To Contact XR IMAGING Diagnoses Acute right-sided low back pain without sciatica Procedures XR HIP GENERAL 3V PELV/AP/LAT RIGHT RADEX HIP UNILATERAL WITH PELVIS 2-3 VIEWS Taylor Savage PA-C [address] [place] [address] [place] [address] Referral ID Status Reason Start Date Expiration Date V isits Requested Visits Authorized [id number] Closed Auto-Generate d Referral 05/05/2021 06/04/2022 1 1 [facility] Summary Purpose Family History No Family History Records Found Grandparent Name Dates Details Family history of cardiac di sorder(V17.49, Z82.49) Status:Active Mother Name Dates Details Family history of hypertensi on(V17.49, Z82.49) Status:Active Father Name Dates Details Family history of malignant neoplasm(V16.9, Z80.9) Status:Active Family history of cardiac di sorder(V17.49, Z82.49) Status:Active Grandparent Name Dates Details Family history of cardiac di sorder(V17.49, Z82.49) Status:Active Mother Name Dates Details Family history of hypertensi on(V17.49, Z82.49) Status:Active Father Name Dates Details Family history of malignant neoplasm(V16.9, Z80.9) Status:Active Family history of cardiac di sorder(V17.49, Z82.49) Status:Active Grandparent Name Dates Details Family history of cardiac di sorder(V17.49, Z82.49) Status:Active Mother Name Dates Details Family history of hypertensi on(V17.49, Z82.49) Status:Active Father Name Dates Details Family history of malignant neoplasm(V16.9, Z80.9) Status:Active Family history of cardiac di sorder(V17.49, Z82.49) Status:Active Grandparent Name Dates Details Family history of cardiac di sorder(V17.49, Z82.49) Status:Active Mother Name Dates Details Family history of hypertensi on(V17.49, Z82.49) Status:Active Father Name Dates Details Family history of malignant neoplasm(V16.9, Z80.9) Status:Active Family history of cardiac di sorder(V17.49, Z82.49) Status:Active Grandparent Name Dates Details Family history of cardiac di sorder(V17.49, Z82.49) Status:Active Mother Name Dates Details Family history of hypertensi on(V17.49, Z82.49) Status:Active Father Name Dates Details Family history of malignant neoplasm(V16.9, Z80.9) Status:Active Family history of cardiac di sorder(V17.49, Z82.49) Status:Active Relationship Condition Age at Onset Recorded Date/T berkley mother Hypertension Unknown High blood cholesterol Unknown father Hypertension Unknown Cerebrovascular accident (CVA) Unknown Heart failure Unknown Relationship Condition Age at Onset Recorded Date/T berkley mother Hypertension Unknown High blood cholesterol Unknown father Hypertension Unknown Heart failure Unknown Advance Directives No Advanced Directives Records FoundDocuments on File Type Date Recorded Patient Road Inspector Expl anation Advance Directives and Livin g Will 11/08/2019 1:53 PM Documents on File Type Date Recorded Patient Road Inspector Expl anation Advance Directives and Livin g Will 11/08/2019 1:53 PM Advance Directive Response Recorded Date/ Time Name of Medical Power of Match Maker IVAN LOYD July 28, 2022 10:49am Living Will Yes July 28 10:49am Power of Match Maker Yes July 28, 2022 10:49am Advance Directive Response Recorded Date/ Time Living Will Yes July 28 11:49am Power of Match Maker Yes July 28, 2022 11:49am Reason for Referral Status Reason Specialty Diagnoses / Procedures Referre d By Contact Referred To Contact Closed Radiology Diagnoses Cigarette Smoker Screening for malignant neoplasm of respiratory organ Procedures CT Lung Cancer Screening Maris Dugan MD [address] [place] [address] Specialty Diagnoses / Procedures Referred By Contac t Referred To Contact General Surgery Diagnoses Unilateral inguinal hernia without obstruction or gangrene, recurrence not specified Procedures CONSULT TO GENERAL SURGERY OFFICE/OUTPATIENT [facility] HIGH MDM 60-74 MINUTES Ellie Lazaro, REEL MAN.ANODE WORKER [address] [place] [address] Referral ID Status Reason Start Date Expiration Date Visits Requested Visits Authorized [id number] Pending Review PCP Requested Referral 06/17/2022 06/17/2023 1 1 Specialty Diagnoses / Procedures Referred By Maulik morrow Referred To Contact CT IMAGING Diagnoses Unilateral inguinal hernia without obstruction or gangrene, recurrence not specified RUQ abdominal mass Procedures CT ABD/PEL WO IVCON CT ABD & PELVIS W/O CONTRAST Nathalia Mcnamara MD [address] [place] [address] Ct Imaging Referral ID Status Reason Start Date Expiration Date Visits Requested Visits Authorized [id number] Authorized Auto-Generat ed Referral 06/18/2022 07/18/2023 1 1 Specialty Diagnoses / Procedures Referred By Maulik morrow Referred To Contact CT IMAGING Diagnoses Unilateral inguinal hernia without obstruction or gangrene, recurrence not specified RUQ abdominal mass Procedures CT ABD/PEL WO IVCON CT ABD & PELVIS W/O CONTRAST Nathalia Mcnamara MD [address] [address] Ct Imaging [facility] Referral ID Status Reason Start Date Expiration Date V isits Requested Visits Authorized [id number] Closed Auto-Generate d Referral 06/18/2022 07/18/2023 1 1 Assessments Diagnosis Cigarette Smoker Tobacco use disorder Screening for malignant neoplasm of respiratory organ Special screening for malignant neoplasm of the respiratory organs Chief Complaint and Reason for Visit Chief Complaint Admit Date Annual/Physical November 28, 2024 2:28 pm E-ORDER December 05, 2024 10:00 am Reason for Visit Admit Date Essential hypertension November 28, 2024 2 :28pm Nicotine dependence, cigarettes, uncompl icated November 28, 2024 2:28pm OSIEL on CPAP November 28, 2024 2:28 pm Stage 1 mild COPD by GOLD classification November 28, 2024 2:28pm Chief Complaint TOBACCO USE 1 Y FU PALPATIATION Reason for Visit Essential hypertensi on Intermittent palpitations Cardiomyopathy Chief Complaint 1 Y FU POSSIBLE HERNIA LT LAP INGUINAL HERNIA REPAIR LT LAP INGUINAL HERNIA REPAIR Reason for Visit Nicotine dependence, cigarettes, uncomplicated Stage 1 mild COPD by GOLD classification Obstructive Sleep Apnea-Hypopnea Syndrome Inguinal hernia of left side without obstruction or gangrene Ventral hernia Chief Complaint 6 M FU PSA Reason for Visit Essential hypertensi on Nicotine dependence, cigarettes, uncomplicated OSIEL on CPAP Stage 1 mild COPD by GOLD classification Chief Complaint Admit Date Annual/Physical November 28, 2024 2:28 pm Additional Source Comments (unrecognized sect ion and content) No Status Records FoundNo Status Records FoundNo Status Records FoundNo Status Records FoundNo Status Records FoundNo Status Records FoundNo Status Records FoundNo Status Records FoundNo Status Records Found INFORMATION SOURCE (unrecogn ized section and content) DATE CREATED AUTHOR 12/16/2017 [facility] DATE CREATED AUTHOR AUTHOR'S ORGANIZ ATION 04/18/2018 [facility] DATE CREATED AUTHOR AUTHOR'S ORGANIZ ATION 10/15/2018 [facility] DATE CREATED AUTHOR AUTHOR'S ORGANIZ ATION 02/13/2019 [facility] DATE CREATED AUTHOR AUTHOR'S ORGANIZ ATION 11/09/2019 [facility] DATE CREATED AUTHOR AUTHOR'S ORGANIZ ATION 01/19/2020 [facility] DATE CREATED AUTHOR AUTHOR'S ORGANIZ ATION 10/21/2020 [facility] DATE CREATED AUTHOR AUTHOR'S ORGANIZ ATION 04/21/2023 [facility] DATE CREATED AUTHOR AUTHOR'S ORGANIZ ATION 12/15/2024 [facility] Reason for Visit (unrecogniz ed section and content) Status Reason Specialty Diagnoses / Procedures Referre d By Contact Referred To Contact Closed Radiology Diagnoses Cigarette Smoker Screening for malignant neoplasm of respiratory organ Procedures CT Lung Cancer Screening Maris Dugan MD [address] [place] [address] Reason Comments Wellness Reason Comments Results Reason Comments Acute Visit hernia Reason Comments Consult UNILATERAL INGUINAL HERNIA Specialty Diagnoses / Procedures Referred By Maulik morrow Referred To Contact General Surgery Diagnoses Unilateral inguinal hernia without obstruction or gangrene, recurrence not specified Procedures CONSULT TO GENERAL SURGERY OFFICE/OUTPATIENT [facility] 60-74 MINUTES Ellie Lazaro APRN.ANODE WORKER [address] [place] [address] Referral ID Status Reason Start Date Expiration Date Visits Requested Visits Authorized [id number] Pending Review PCP Requested Referral 06/17/2022 06/17/2023 1 1 Reason Comments Patient Question Reason Comments Radiology CT Specialty Diagnoses / Procedures Referred By Maulik morrow Referred To Contact CT IMAGING Diagnoses Unilateral inguinal hernia without obstruction or gangrene, recurrence not specified RUQ abdominal mass Procedures CT ABD/PEL WO IVCON CT ABD & PELVIS W/O CONTRAST Nathalia Mcnamara MD [address] [place] [address] [place] [address] Referral ID Status Reason Start Date Expiration Date V isits Requested Visits Authorized [id number] Closed Auto-Generate d Referral 06/18/2022 07/18/2023 1 1 Reason Comments Fall Injury to Left bicep , bruising and swelling this afternoon Goals (unrecognized section and content) Goals may be documented in a n alternate sectionGoals may be documented in an alternate sectionGoals may be documented in an alternate sectionGoals may be documented in an alternate sectionGoals may be documented in an alternate section Source Comments (unrecognize d section and content) In the event this informatio n is protected by the Federal Confidentiality of Alcohol and Drug Abuse Patient Records regulations: The Federal rules restrict any use of the information to criminally investigate or prosecute any alcohol or drug abuse patient.[facility] the event this information is protected by the Federal Confidentiality of Alcohol and Drug Abuse Patient Records regulations: The Federal rules restrict any use of the information to criminally investigate or prosecute any alcohol or drug abuse patient.[facility] the event this information is protected by the Federal Confidentiality of Alcohol and Drug Abuse Patient Records regulations: The Federal rules restrict any use of the information to criminally investigate or prosecute any alcohol or drug abuse patient.[facility] the event this information is protected by the Federal Confidentiality of Alcohol and Drug Abuse Patient Records regulations: The Federal rules restrict any use of the information to criminally investigate or prosecute any alcohol or drug abuse patient.[facility] the event this information is protected by the Federal Confidentiality of Alcohol and Drug Abuse Patient Records regulations: The Federal rules restrict any use of the information to criminally investigate or prosecute any alcohol or drug abuse patient.[facility] the event this information is protected by the Federal Confidentiality of Alcohol and Drug Abuse Patient Records regulations: The Federal rules restrict any use of the information to criminally investigate or prosecute any alcohol or drug abuse patient.[facility] the event this information is protected by the Federal Confidentiality of Alcohol and Drug Abuse Patient Records regulations: The Federal rules restrict any use of the information to criminally investigate or prosecute any alcohol or drug abuse patient.[facility] the event this information is protected by the Federal Confidentiality of Alcohol and Drug Abuse Patient Records regulations: The Federal rules restrict any use of the information to criminally investigate or prosecute any alcohol or drug abuse patient.[facility] the event this information is protected by the Federal Confidentiality of Alcohol and Drug Abuse Patient Records regulations: The Federal rules restrict any use of the information to criminally investigate or prosecute any alcohol or drug abuse patient.[facility] the event this information is protected by the Federal Confidentiality of Alcohol and Drug Abuse Patient Records regulations: The Federal rules restrict any use of the information to criminally investigate or prosecute any alcohol or drug abuse patient.[facility] Care Teams (unrecognized sec tion and content) Tier In Relationship Specialty Start Date End Date Ana Maria Pepper MD [address] [place] [address] PCP - General Family Practice 12/24/20 Tier In Relationship Specialty Start Date End Date Ana Maria Pepper MD [address] [place] [address] PCP - General Family Practice 12/24/20 Tier In Relationship Specialty Start Date End Date Ana Maria Pepper MD [address] [place] [address] PCP - General Family Medicine 12/24/20 Tier In Relationship Specialty Start Date End Date Ana Maria Pepper MD [address] [place] [address] PCP - General Family Medicine 12/24/20 Tier In Relationship Specialty Start Date End Date Ana Maria Pepper MD [address] [place] [address] PCP - General Family Medicine 12/24/20 Team Status: Active Member Role Status Dates Gagan Parr Family Provider Active Dr. Ana Maria Pepper MD Primary Care Provider Active Team Status: Inactive Member Role Status Dates Dr. Ana Maria Pepper MD Primary Care Provider Active Dr. Quinn Loyd DO Attending Provider, Referring Pro vider Active Team Status: Inactive Member Role Status Dates Dr. Ana Maria Pepper MD Primary Care Provider, Referr ing Provider Active Dr. Janneth Purcell MD Attending Provider Active Team Status: Active Member Role Status Dates Dr. Ana Maria Pepper MD Primary Care Provider Active Dr. Janneth Purcell MD Attending Provi watson, Referring Provider, Other Provider Active Team Status: Inactive Member Role Status Dates Dr. Ana Maria Pepper MD Primary Care Provider Active Dr. Janneth Purcell MD Attending Provider, Referring Provider Active Team Status: Inactive Member Role Status Dates Dr. Ana Maria Pepper MD Primary Care Provider, Referr ing Provider Active Mariella Calvo DELIVERY ENGINEER, DELIVERY ENGINEER-C Attending Provider Active Team Status: Inactive Member Role Status Dates Dr. Ana Maria Pepper MD Primary Care Provider Active Bessie Goins Attending Provider, Referring Provide r Active Tier In Relationship Specialty Start Date End Date Ana Maria Pepper MD [address] [place] [address] PCP - General Family Medicine 12/24/20 Tier In Relationship Specialty Start Date End Date Ana Maria Pepper MD [address] [place] [address] PCP - General Family Medicine 12/24/20 Tier In Relationship Specialty Start Date End Date Ana Maria Pepper MD [address] [place] [address] PCP - General Family Medicine 12/24/20 Tier In Relationship Specialty Start Date End Date Ana Maria Pepper MD [address] [place] [address] PCP - General Family Medicine 12/24/20 Tier In Relationship Specialty Start Date End Date Ana Maria Pepper MD [address] [place] [address] PCP - General Family Medicine 12/24/20 Team Status: Active Member Role Status Dates Gagan Parr Family Provider Active Dr. Dianne Chris MD Primary Care Provider Active Team Status: Inactive Member Role Status Dates Dr. Dianne Chris MD Primary Care Provider Active Start: November 28, 2024 End: November 28, 2024 Dr. Dianne Chris MD Attending Provider Active Start: November 28, 2024 End: November 28, 2024 Team Status: Active Member Role/Relationship Status Dates Gagan Parr Family Provider Active Dr. Dianne Chris MD Primary Care Provider Active Team Status: Inactive Member Role/Relationship Status Dates Dr. Dianne hCris MD Primary Care Provider Active Start: November 28, 2024 End: November 28, 2024 Dr. Dianne Chris MD Attending Provider Active Start: November 28, 2024 End: November 28, 2024 Team Status: Inactive Member Role/Relationship Status Dates Dr. Dianne Chris MD Primary Care Provider Active Start: December 05, 2024 End: December 05, 2024 Dr. Dianne Chris MD Attending Provider Active Start: December 05, 2024 End: December 05, 2024 Dr. Dianne Chris MD Referring Provider Active Start: December 05, 2024 End: December 05, 2024 FOR RECORDS PERTAINING TO PATIENTS WHO ARE OR HAVE BEEN ENROLLED IN A CHEMICAL DEPENDENCY/SUBSTANCEABUSE PROGRAM, SOME INFORMATION MAY BE OMITTED. This clinical summary was aggregated from multiple sources. Caution should be exercised in using it in the provision of clinical care. This summary normalizes information from multiple sources, and as a consequence, information in this document may materially change the coding, format and clinical context of patient data. In addition, data may be omitted in some cases. CLINICAL DECISIONS SHOULD BE BASED ON THE PRIMARY CLINICAL RECORDS. [facility] [employer] provides no warranty or guarantee of the accuracy or completeness of information in this document.
--- NOTE | 2025-02-22 10:38 | WT_ITS ---
PSN 6 Minute Walk Test 6 Minute Walk Test 6 Minute Walk Test: 6 Minute Walk Test PSN:6-Minute Walk Test Start: 02/19/25 12:41 Freq: Status: Active Protocol: [id number].[id number] Document 02/19/25 12:42 JIMNEAL (Rec: 02/19/25 12:43 EDWARD [id number]) 6 Minute Walk Test Date Performed 02/19/25 Time Performed 12:30 Height 5 ft 11 in Weight: 165 lb Weight in Pounds 165.[address]: Mariella Calvo [employer] Assistive device None used: Pre-test Oxygen Delivery Room Air Method Pulse Ox (%) 97 Pulse Rate (60-100 50 L beats/min) Dyspnea Loyda Scale ( 0 0-10) Exertion Loyda Scale 6 (6-20) 1st minute Oxygen Delivery Room Air Method Pulse Ox (%) 97 Pulse Rate (60-100 83 beats/min) 2nd minute Oxygen Delivery Room Air Method Pulse Ox (%) 96 Pulse Rate (60-100 84 beats/min) 3rd minute Oxygen Delivery Room Air Method Pulse Ox (%) 96 Pulse Rate (60-100 85 beats/min) 4th minute Oxygen Delivery Room Air Method Pulse Ox (%) 96 Pulse Rate (60-100 87 beats/min) 5th minute Oxygen Delivery Room Air Method Pulse Ox (%) 95 Pulse Rate (60-100 88 beats/min) 6th minute Oxygen Delivery Room Air Method Pulse Ox (%) 96 Pulse Rate (60-100 88 beats/min) Dyspnea Loyda Scale ( 2 0-10) Exertion Loyda Scale 11 (6-20) Post-test Oxygen Delivery Room Air Method Pulse Ox (%) 98 Pulse Rate (60-100 54 L beats/min) Full Laps Walked 26 Partial Lap, Number 19 of Tiles Walked Total Distance 1553 Walked (ft) Interpretation Interpretation: The patient ambulated 1553 feet over the course of 6 minutes beginning on room air without assistive devices. Pretesting oxygen saturation was noted to be 97% on room air. With ambulation, the isis oxygen saturation was 95%. There was no significant exertional oxygen desaturation. Recommendations Recommendations: There is no indication for the use of supplemental oxygen at this time.
== END | disposition home or self-care (01) ==
LOC: PSN 12:14
PROVIDERS: PCP Internal Medicine; Referring Provider Nurse Practitioner Acute Care; Visit Provider Nurse Practitioner Acute Care
DX: J44.9 Chronic obstructive pulmonary disease, unspecified (principal)
CPT/HCPCS: 94618

== ENCOUNTER → 2025-03-18 | Outpatient (CLI) | payer OTHER, SELFPAY ==
--- NOTE | 2025-03-18 10:37 | CT_ITS ---
PROCEDURE: Low-dose CT lung screening 03/18/2025 REASON FOR EXAM: SMOKER TECHNIQUE: Procedure Code: [id number] Modality: CT Procedure: LOW DOSE CT LUNG SCREENING Coronal and Sagittal reconstruction series were provided. One or more dose reduction techniques were used (e.g., Automated exposure control, adjustment of the mA and/or kV according to patient size, use of iterative reconstruction technique). REFERENCE LINK: [facility] Lung-RADS RADIATION DOSE SUMMARY: CTDlvol: 2.38 mGy DLP: 102.34 mGycm COMPARISON: None FINDINGS: PULMONARY NODULES: (Only nodules >3mm are reported) Lower neck:The thyroid gland is grossly normal. There is no supraclavicular lymphadenopathy. Mediastinum:No abnormal masses or lymphadenopathy. Heart and thoracic aorta:The heart size is upper limits of normal. There is no pericardial effusion. There is moderate calcific vascular disease of the coronary arteries. There is mild calcific vascular disease of the thoracic aorta. Esophagus:Normal. Upper Abdomen:Limited unenhanced images of the upper abdomen are unremarkable. Chest wall:The soft tissues of the chest wall appear unremarkable. There is no axillary lymphadenopathy there are no significant bony abnormalities of the chest. Lungs, airways and pleura: There is pleural-parenchymal scarring in both lung apices. There are multiple pulmonary blebs in both lung apices. There is moderate upper lobe predominant centrilobular emphysema. There is a linear scar in the posterior basilar segment of the lower lobe of the left lung. There are pleural-parenchymal scars in the lingula and in the middle lobe of the right lung. There is an 8 x 6 mm soft tissue density nodule in the middle lobe of the right lung (image 167). CT/Low Dose CT Lung Screening IMPRESSION: 1. Emphysema. 2. Right middle lobe nodule. 3. Calcific vascular disease. Lung-RADS Category: 3 S: Probably benign. Emphysema. Calcific vascular diseas e. Recommendation: Follow up low-dose chest CT in six-months. Reading Location: [place] [address]
--- NOTE | 2025-03-18 10:37 | CT_ITS ---
PROCEDURE: Low-dose CT lung screening 03/18/2025 REASON FOR EXAM: SMOKER TECHNIQUE: Procedure Code: [id number] Modality: CT Procedure: LOW DOSE CT LUNG SCREENING Coronal and Sagittal reconstruction series were provided. One or more dose reduction techniques were used (e.g., Automated exposure control, adjustment of the mA and/or kV according to patient size, use of iterative reconstruction technique). REFERENCE LINK: [facility] Lung-RADS RADIATION DOSE SUMMARY: CTDlvol: 2.38 mGy DLP: 102.34 mGycm COMPARISON: None FINDINGS: PULMONARY NODULES: (Only nodules >3mm are reported) Lower neck:The thyroid gland is grossly normal. There is no supraclavicular lymphadenopathy. Mediastinum:No abnormal masses or lymphadenopathy. Heart and thoracic aorta:The heart size is upper limits of normal. There is no pericardial effusion. There is moderate calcific vascular disease of the coronary arteries. There is mild calcific vascular disease of the thoracic aorta. Esophagus:Normal. Upper Abdomen:Limited unenhanced images of the upper abdomen are unremarkable. Chest wall:The soft tissues of the chest wall appear unremarkable. There is no axillary lymphadenopathy there are no significant bony abnormalities of the chest. Lungs, airways and pleura: There is pleural-parenchymal scarring in both lung apices. There are multiple pulmonary blebs in both lung apices. There is moderate upper lobe predominant centrilobular emphysema. There is a linear scar in the posterior basilar segment of the lower lobe of the left lung. There are pleural-parenchymal scars in the lingula and in the middle lobe of the right lung. There is an 8 x 6 mm soft tissue density nodule in the middle lobe of the right lung (image 167). CT/Low Dose CT Lung Screening IMPRESSION: 1. Emphysema. 2. Right middle lobe nodule. 3. Calcific vascular disease. Lung-RADS Category: 3 S: Probably benign. Emphysema. Calcific vascular diseas e. Recommendation: Follow up low-dose chest CT in six-months. Reading Location: [place] [address]
== END | disposition home or self-care (01) ==
LOC: PSN 10:36
PROVIDERS: PCP Internal Medicine; Referring Provider Nurse Practitioner Acute Care; Visit Provider Nurse Practitioner Acute Care
DX: F17.200 Nicotine dependence, unspecified, uncomplicated (principal); J44.9 Chronic obstructive pulmonary disease, unspecified
CPT/HCPCS: 71271; 94060; 94726; 94729

== ENCOUNTER → 2025-05-22 | Outpatient (CLI) | payer OTHER, SELFPAY ==
--- NOTE | 2025-05-22 12:53 | ECHOD_ITS ---
Reason For Study Reason For Study: CARDIOMYOPATHY Procedure This was a 2D Doppler, Color Flow transthoracic echocardiogram. Myocardial strain analysis was performed in this exam to aid in the assessment of cardiac function. The patient is in sinus rhythm. Exam performed in department. Left Ventricle Normal LV size. The global longitudinal strain = -17.3 % (normal). The left ventricular ejection fraction is 50 %. Stage 1 diastolic dysfunction. No regional wall motion abnormalities noted. Right Ventricle Normal RV size. Normal systolic function. Atria Normal left atrium. Normal right atrium. Mitral Valve Bileaflet diffuse mitral valve thickening. Equivocal mitral valve prolapse. Tricuspid Valve Normal tricuspid valve. Aortic Valve Normal aortic valve. Trisinus/trileaflet aortic valve. Pulmonic Valve Normal pulmonic valve. Great Vessels Normal aortic root. The pulmonary artery is normal size. Inferior vena cava collapse with respiration. Pericardium/Pleural No pericardial effusion. MMode/2D Measurements & Calculations LVIDd: 6.2 cm IVSd: 0.78 cm LVOT diam: 2.2 cm LVIDs: 5.0 cm LVPWd: 0.99 cm LVOT area: 3.9 cm2 RVDd: 4.2 cm FS: 20.2 % Ao root diam: 3.3 cm LAV(MOD-bp): 71.9 ml LVAd ap4: 40.1 cm2 LAV(MOD-bp) Indexed: 37.0 ml/m2 LVLd ap4: 9.1 cm LAV(MOD-sp2): 102.2 ml EDV(MOD-sp4): 150.2 ml LAV(MOD-sp4): 50.8 ml EDV(sp4-el): 150.0 ml LVAs ap4: 26.6 cm2 LVLs ap4: 8.1 cm ESV(MOD-sp4): 77.0 ml ESV(sp4-el): 73.9 ml EF(MOD-sp4): 48.7 % EF(sp4-el): 50.7 % LVAd ap2: 40.2 cm2 SV(MOD-sp4): 73.2 ml LVLd ap2: 9.2 cm EDV(MOD-bp): 152.6 ml SI(MOD-sp4): 37.7 ml/m2 EDV(MOD-sp2): 153.8 ml ESV(MOD-bp): 77.5 ml EDV(sp2-el): 148.5 ml EF(MOD-bp): 49.2 % LVAs ap2: 27.0 cm2 LVLs ap2: 8.3 cm ESV(MOD-sp2): 76.9 ml ESV(sp2-el): 74.9 ml EF(MOD-sp2): 50.0 % SV(MOD-sp2): 76.9 ml SV(sp4-el): 76.1 ml Ao sinus diam: 3.4 cm SI(MOD-sp2): 39.6 ml/m2 Ao ST Junction: 2.8 cm LA A4 area: 19.2 cm2 LA dimension(2D): 3.7 cm RA A4 area: 22.8 cm2 TAPSE: 2.6 cm Time Measurements MV dec time: 0.38 sec Doppler Measurements & Calculations MV E max guido: 35.1 cm/sec Lat Peak E' Guido: 4.8 cm/sec Med Peak E' Guido: 9.5 cm/sec MV A max guido: 51.5 cm/sec E/E' lat: 7.4 E/E' med: 3.7 MV E/A: 0.68 Ao V2 max: 136.4 cm/sec LV V1 max: 110.9 cm/sec MV dec slope: 93.1 cm/sec2 Ao max P.4 mmHg LV V1 max P.9 mmHg Ao V2 mean: 100.8 cm/sec LV V1 mean P.6 mmHg Ao mean P.4 mmHg LV V1 mean: 75.4 cm/sec Ao V2 VTI: 31.8 cm LV V1 VTI: 25.8 cm AV (velocity ratio): 0.81 MONICA(I,D): 3.2 cm2 MONICA(V,D): 3.2 cm2 SV(LVOT): 101.1 ml PA V2 max: 106.9 cm/sec TR max guido: 192.5 cm/sec TR max P.8 mmHg ECHO/Echo Complete Interpretation Summary Normal LV size. The global longitudinal strain = -17.3 % (normal). The left ventricular ejection fraction is 50 %. Stage 1 diastolic dysfunction. Bileaflet diffuse mitral valve thickening. Equivocal mitral valve prolapse. Ordering Physician: Gerry Stallings Referring Physician: ABDIAZIZ CURTIS Performed By: Cheryl Barker RDCS
--- OUTSIDE RECORDS SUMMARY | 2025-05-22 19:57 | XMS RPT_ITS | CCD ---
Author Organization [facility] Care Team Providers Care Armature Straightener Name Role Phone Josiah Bunn M Unavailable Unavailable Unavailable Unavailable Unavailable Maris Dugan Unavailable Unavailable Maris Dugan Unavailable Unavailable CARLOS FRITZ MD. Attending Unavailable Maris Dugan Referring Unavailable Maris Dugan Primary Care Unavailable Maris Dugan Primary Care Unavailable Maris Dugan Primary Care Unavailable Sage Robles Admitting Unavaila Sage Henriquez Attending Unavaila ble FREE, TEXT ENTRY Referring Unavailable Maris Dugan Primary Care Unavailable Maris Dugan Primary Care Unavailable Maris Dugan Primary Care Unavailable Sage Robles Attending Unavaila ble Maris Dugan Primary Care Unavailable Kailee, Maris King Primary Care Unavailable Kailee, Maris King Primary Care Unavailable Sage Robles Attending Unavaila ble Sage Robles Referring Unavaila ble Maris Dugan Primary Care Unavailable Maris Dugan Primary Care Unavailable Maris Dugan Primary Care Unavailable Maris Dugan Primary Care Unavailable Maris Dugan Primary Care Unavailable [id number], Khaled Unavailable Unavaila ble Vane, Avirup Unavailable Unavailable Maris Dugan Unavailable Unavailable Maris Dugan Unavailable Unavailable Carlos Fritz Unavailable Unavailable Sleflaca, Khaled M Unavailable Unavailable Maris Dugan Primary Care Provider MARIS DUGAN Attending Unavailable MARIS DUGAN Referring Unavailable MARIS DUGAN Primary Care Unavailable Carlos Sinclair II Unavailable Unavailable Sleik, Khaled Unavailable Unavailable Sleik, Khaled M Unavailable Unavailable Vane, Avirup Unavailable Unavailable Kailee Maris Fernando Primary Care Provider Ana Maria Pepper MD Primary Care Provider Dr. Ana Maria Pepper Primary Care Provider Dr. Ana Maria Pepper Referring Provider Colby CEO & BOARD DIRECTOR, CEO & BOARD DIRECTOR-C Elisabeth Attending Provider Ana Maria Pepper MD Primary Care Provider Dr. Ana Maria Pepper Primary Care Provider Dr. Quinn Loyd Attending Provider Dr. Quinn Loyd Referring Provider Dr. Ana Maria Pepper Referring Provider Dr. Janneth Purcell Attending Provider Dr. Janneth Purcell Referring Provider Dr. Janneth Purcell Other Provider Dr. Ana Maria Pepper Primary Care Provider Dr. Ana Maria Pepper Referring Provider Umesh CEO & BOARD DIRECTOR, CEO & BOARD DIRECTOR-C Mariella Attending Provider NATHALIA MCNAMARA Referring Unavailable [...] Maria Pepper MD Primary Care Provider Dr. Dianne Chris MD Primary Care Provider Dr. Dianne Chris MD Attending Provider Dr. Dianne Chris MD Referring Provider Aries LONGORIA, Dr. Dean Primary Care Physician Aries LONGORIA, Dr. Dean Attending Physician Umesh CEO & BOARD DIRECTOR-C, Mariella Attending Physician Umesh CEO & BOARD DIRECTOR-C, Mariella Referring Provider Umesh CUNHA-Duran, Mariella Nurse Practitioner Dr. Quinn Loyd DO Attending Physician Dianne Chris Attending Unavailable Aries, Dianne Referring Unavailable Aries, Dianne Primary Care Unavailable Dianne Chris Attending Unavailable Aries, Dianne Primary Care Unavailable Aries, Dianne Referring Unavailable Aries, Dianne Primary Care Unavailable Nimco Disla Attending Unavailable Aries, Dianne Primary Care Unavailable Colby CEO & BOARD DIRECTOR, Elisabeth Attending Unavailable Colby CEO & BOARD DIRECTOR, Elisabeth Referring Unavailable Aries, Dianne Primary Care Unavailable Quinn Loyd Attending Unavailable Umesh CEO & BOARD DIRECTOR, Mariella Consulting Unavailable Umesh CEO & BOARD DIRECTOR, Mariella Referring Unavailable Aries, Dianne Primary Care Unavailable Colby CEO & BOARD DIRECTOR, Elisabeth Referring Unavailable Gerry Stallings Attending Unavailable Aries, Dianne Primary Care Unavailable Umesh CEO & BOARD DIRECTOR, Mariella Attending Unavailable Umesh CEO & BOARD DIRECTOR, Mariella Referring Unavailable Calvo CEO & BOARD DIRECTOR, Mariella Referring Unavailable Aries, Dianne Primary Care Unavailable Umesh CEO & BOARD DIRECTOR, Mariella Attending Unavailable Allergies Allergy Classification Reported Allergen(s) Allergy Type Date of Onset Reaction(s) Facility (10 sources) varenicline; Translations: [VARENICLINE] Drug Allergy 2 Other: See Comments [facility] Work Phone: (3 sources) Latex Propensity to adverse reactions 5 Dryness, redness [facility] (1 source) Latex Drug allergy (disorder) 5 [facility] Repository Medications Current Medications Medication Drug [...] on above: Take 1 tablet by alpa twice daily. calcium ascorbate 500 mg ora l tablet (6 sources) Start: 02-24-2022 take 1 tablet by mouth twice daily cholecalciferol 0.05 mg oral capsule (20 sources) Vitamin D Start: 02-24-2022 take 1 capsule by mouth once daily Start: 12-23-2020 take 1 capsule by [facility] once daily Cholecalciferol, Vitamin D3, 50 mcg (2,000 unit) cap Take 1 capsule by mouth once daily. 12/23/2020 Active Vitamin D3 25 MC G (1000 UT) Oral Capsule Refills: 0 Active Comment on above: Take 1 capsule by [facility] once daily. ubidecarenone 100 mg oral capsule (15 sources) Start: 12-23-2020 take 1 capsule by mouth once daily coenzyme Q10 (COENZYME Q-10) 100 mg cap capsule Take 1 capsule by mouth once daily. 12/23/2020 Active Co Q 10 10 MG Or al Capsule Refills: 0 Active Comment on above: Take 1 capsule by [facility] once daily. enteric contrast (will be provided [...] actuat levalbuterol 0.045 mg/actuat metered dose inhaler (3 sources) beta2-Adrenergic Agonist Start: 04-25-20 24 24 hr nicotine 0.875 mg/hr transdermal system [...] every 24 hours for 14 days. [place] 160 mg capsule (10 sources) take 1 capsule by mouth twice daily [place] 160 mg capsule Take 1 capsule by mouth twice daily. Active take 1 capsule by mouth twice da yusef [place] 160 mg capsule Take 1 capsule by mouth twice daily. 0 Active Comment on above: Take 1 capsule by mo uth twice daily. Saw [place] (11 sources) Start: 02-24-2022 take 1 capsule by mo uth twice daily Start: 02-24-2022 take 1 capsule by mo uth twice daily [place] 160 mg capsule Active 160 mg PO TWICE A DAY February 24, 2022 12:00am give with meal/snack Start: 02-24-2022 take 160 mg by mouth twice nilesh ly [place] Active 160 MG PO TWICE A DAY February 23, 2022 11:00pm give with meal/snack Start: 02-24-2022 take 160 mg by mouth twice nilesh ly Saw [place] Active 160 MG PO TWICE A DAY February 24, 2022 12:00am give with meal/snack Saw [place] CAP S Take 640mg of Saw bid. [...] days zinc acetate 50 mg oral capsule (6 sources) Start: 02-24-2022 take 1 capsule by mouth every other day Completed/Discontinued Medications Medication Drug Class(es) Dates Sig (Normalized) Sig (Original) acetaminophen 325 mg / oxyCODONE hydrochloride 5 mg oral tablet (5 sources) Opioid Agonist Start: 08-04-2022 End: 08-25-2022 [...] Daily PRN wheezing Quantity: 3 Refills: 0 Ever LONGORIA, Josiah Active aspirin 81 mg delayed release oral [...] (2 sources) Azole Antifungal, Corticosteroid Start: 09-10-19 Clotrimazole-Betame thasone 1-0.05 % External Cream APPLY AND RUB IN A THIN FILM TO AFFECTED AREAS TWICE DAILY.(AM AND PM). Quantity: 1 Refills: 1 Carlos Sinclair II, MD Start : 10-Sep-2019 Active 45 GM Tube carvedilol 3.125 mg oral tablet (20 sources) alpha-Adrenergic Keira, beta-Adrenergic Keira Start: 09-25-19 21 End: 10-21-19 23 take [...] with meals. cefdinir 300 mg oral capsule (3 sources) Cephalosporin Antibacterial Start: 023 End: 024 [...] at bedtime. dexamethasone 6 mg oral tablet (3 sources) Corticosteroid Start: End: take 1 tablet by mouth once daily Dexamethasone 6 mg tablet Discontinued 6 mg PO DAILY 5 0 June 24, 2023 1:00am November 23, 2023 1:10pm 120 actuat fluticasone propionate 0.22 mg/actuat metered dose inhaler (7 sources) Corticosteroid Start: End: Fluticasone Propionate 220 mcg/actuation HFA aerosol inhaler Discontinued 2 NMA INHALATION TWICE A DAY December 02, 2020 12:00am December 03, 2020 11:21am Start: 12-02-2020 End: 12-03-2020 take 1 puff(s) by inhalation twice daily Fluticasone Propionate Discontinued 2 PUFF INHALATION TWICE A DAY December 02, 2020 12:00am December 03, 2020 11:21am lactobacillus acidophilus [id number] unt oral capsule (1 source) Start: 01-04-2024 End: 03-14-2024 take 10 capsules by mouth once daily Lactobacillus Acidophilus (Probacap) 10 billion cell capsule Discontinued 100 NMA PO DAILY January 04, 2024 12:00am March 14, 2024 9:28am Lactobacillus Acidophilus (Probacap) 10 billion cell capsule (2 sources) Start: 01-04-2024 End: 03-14-2024 take 10 capsules by mouth once daily Lactobacillus Acidophilus (Probacap) 10 billion cell capsule Discontinued 100 NMA PO DAILY January 04, 2024 12:00am March 14, 2024 9:28am Lactobacillus Combination No.4 (Probiotic) 3 billion cell capsule (3 sources) Start: 02-23-2023 End: 11-23-2023 Lactobacillus Combination No.4 (Probiotic) 3 billion cell capsule Discontinued 3000 NMA PO .3Xw February 23, 2023 12:00am November 23, 2023 1:10pm administer with a meal lisinopril 40 mg oral tablet (7 sources) Angiotensin Converting Enzyme Inhibitor Start: 12-02-2020 End: 12-03-2020 take 1 tablet by mouth once daily Lisinopril 40 mg tablet Discontinued 40 mg PO DAILY December 02, 2020 12:00am December 03, 2020 11:21am losartan potassium 25 mg oral tablet (20 sources) Angiotensin 2 Receptor Keira Start: 03-10-2023 End: 05-16-2024 Losartan 25 mg tablet Discontinued 12.5 mg PO DAILY 45 3 April 23, 2024 9:37am May 16, 2024 11:25am Start: 12-22-2022 End: 03-10-2023 take 1 tablet by mouth once daily Losartan 25 mg tablet Discontinued 25 mg PO DAILY 90 3 December 22, 2022 12:21pm March 10, 2023 4:24pm Start: 08-25-2022 End: 12-22-2022 Losartan 50 mg tablet Discon tinued 25 mg PO DAILY 90 3 August 25, 2022 1:27pm December 22, 2022 12:21pm Start: 08-25-2022 End: 12-22-2022 take 25 mg by mouth once daily Losartan Discontinued 2 5 MG PO DAILY 90 August 25, 2022 1:27pm December 22, 2022 12:21pm Start: 09-24-2020 End: 08-25-2022 take 1 tablet by mouth once daily Losartan 50 mg tablet Discontinued 50 mg PO DAILY 90 3 November 04, 2021 2:27pm February 24, 2022 1:47pm Start: 01-24-2018 take 1 tablet by alpa th once daily Losartan Potassium 50 MG Oral Tablet Take 1 tablet daily Quantity: 90 Refills: 0 Josiah Bunn MD Start : 24-Jan-2018 Active Comment on above: 1 tablet once daily. methylPREDNISolone 4 mg oral tablet (6 sources) Corticosteroid Start: 2023 End: 2023 take 1 tablet by mouth once Methylprednisolone (Medrol (Asael)) 4 mg tablets,dose pack Discontinued 0 PO per package directions 21 January 20, 2024 4:12pm March 14, 2024 9:29am PO PER PKG DIR Start: 03-02-2023 End: 03-09-2023 take 1 tablet by mouth once Methylprednisolone (Medrol (Asael)) 4 mg tablets,dose pack Discontinued 0 PO per package directions 21 March 02, 2023 12:00am March 09, 2023 11:24am PO PER PKG DIR 24 hr metoprolol succinate 25 mg extended release oral tablet (20 sources) beta-Adrenergic Keira Start: 02-02-2023 take 1 tablet by mouth every hour metoprolol succinate ER (TOPROL XL) 25 mg 24 hr tablet Take 1 tablet by mouth every afternoon. 02/02/2023 Active Start: 10-20-2022 End: 10-24-2024 take 1 tablet by mouth once daily Metoprolol Succinate 25 mg tablet extended release 24 hr Discontinued 25 mg PO DAILY 05 05October 26, 2023 8:50am October 24, 2024 7:58am Comment on above: Take 1 tablet by alpa th every afternoon. terbinafine 250 mg oral tablet (3 sources) Allylamine Antifungal Start: End: take 1 tablet by mouth once daily Terbinafine Hcl 250 mg tablet Discontinued 250 mg PO daily March 28, 2024 12:00am November 28, 2024 2:32pm 7 actuat umeclidinium 0.0625 mg/actuat / vilanterol 0.025 mg/actuat dry powder inhaler (20 sources) Anticholinergic, beta2-Adrenergic Agonist Start: 2 End: 4 Umeclidinium-Vilanter ol (Anoro Ellipta) 62.5-25 mcg/actuation blister [...] device Discontinued 1 NMA INHALATION daily 180 3 April 02, 2021 12:45pm February 24, 2022 [...] Date Documented Da te Episodic/Chronic Abdominal hernia (16 sources) Inguinal hernia; Translations: [Unilateral inguinal hernia, without obstruction or gangrene, not specified as recurrent] Onset: 06-18-2022 Episodic Comment on above: Possible ventral her grace unable to get this area to reduce we will plan to review CT abdomen pelvis images to see if this is really a hernia or not. Administrative/social admission (3 sources) First encounter by subject; Translations: [Persons encountering health services in other specified circumstances] 02-23-2023 Episodic Chronic obstructive pulmonary disease and bronchiectasis (20 sources) Pulmonary emphysema; Translations: [Mild chronic obstructive pulmonary disease] Onset: 12-24-2020 Chronic Essential hypertension (13 sources) Essential hypertension; Translations: [Essential (primary) hypertension] Onset: 12-11-2024 Chronic Comment on above: CONTROLLED ON MED Genitourinary symptoms and ill-defined conditions (4 sources) Nocturia; Translations: [Dysuria] Episodic Hyperplasia of prostate (5 sources) Benign prostatic hypertrophy without outflow obstruction; Translations: [BPH without urinary obstruction] Chronic Immunizations and screening for infectious disease (1 source) Encounter for immunization; Translations: [Other specified vaccinations against streptococcus pneumoniae [pneumococcus]] Episodic Inflammatory conditions of male genital organs (2 sources) Balanitis; Translations: [Balanitis] Chronic Malaise and fatigue (3 sources) Fatigue; Translations: [Fatigue] Episodic Other and ill-defined heart disease (3 sources) Heart disease; Translations: [Heart disease, unspecified] 12-14-2023 Chronic Other and unspecified benign neoplasm (3 sources) History of polyp of colon; Translations: [History of colonic polyps] 11-23-2023 Episodic Other circulatory disease (5 sources) H/O: heart disorder; Translations: [History of cardiac disorder] Episodic Other ear and sense organ disorders (2 sources) Impacted cerumen; Translations: [Impacted cerumen, right ear] 02-23-2023 Episodic Other ear and sense organ disorders (1 source) Impacted cerumen in right ear; Translations: [Impacted cerumen, right ear] 02-23-2023 Episodic Other gastrointestinal disorders (2 sources) Right upper quadrant abdominal mass; Translations: [Right upper quadrant abdominal swelling, mass and lump] Episodic Other gastrointestinal disorders (6 sources) Altered bowel function; Translations: [Change in bowel habit] 12-15-2023 Episodic Other gastrointestinal disorders (3 sources) Change in stool caliber; Translations: [Other fecal abnormalities] 11-23-2023 Episodic Other hereditary and degenerative nervous system conditions (3 sources) Myoclonus; Translations: [Other chorea] 11-23-2023 Chronic [...] [History of palpitations] Episodic Residual codes; unclassified (3 sources) History of colonoscopy; Translations: [Other specified postprocedural states] 12-14-2023 Episodic Spondylosis; intervertebral disc disorders; other back problems (10 sources) Lumbar disc prolapse with radiculopathy; Translations: [Intervertebral disc disorders with radiculopathy, lumbar region] 03-02-2021 Episodic Sprains and strains (3 sources) Rupture of tendon of biceps, long head; Translations: [Strain of muscle, fascia and tendon of long head of biceps, left arm, initial encounter] 04-21-2023 Episodic Substance-related disorders (20 sources) Nicotine dependence; Translations: [Nicotine dependence, cigarettes, uncomplicated] Onset: 12-24-2020 Chronic Substance-related disorders (1 source) Cigarette smoker ; Translations: [Cigarette Smoker] Episodic Viral infection (3 sources) Disease caused by 2019-nCoV; Translations: [COVID-19] 06-24-2023 Episodic Past or Other Problems Problem Classification Problem Date Documented Da te Episodic/Chronic Cardiac dysrhythmias (9 sources) Intermittent palpitations; Translations: [Palpitations] Onset: 05-31-2024 [...] Translations: [RUQ abdominal mass] Onset: 06-22-2022 Episodic Unclassified (4 sources) Patient encounter status; Translations: [Encounter for screening for lung cancer] NEGATED: Highlighted row has not occurred!Residual codes; unclassified (20 sources) Disease Episodic Results Test Name Value Interpretation Reference Range Facility Pulmonary Visit Reporton Pulmonary Visit Report [facility] Pulmonary Medicine [address] [place] [address] OFFICE VISIT Date of Service: 04/03/25 MR#: [id number] Acct: [id number] Name: GERRY TRAVIS Rep #: [id number] : 1960 Provider: Nimco Disla NP Age/Sex: 64/M Location: [facility] Status: Signed Assessment and Plan Assessment and Plan (1) OSIEL on CPAP: Status: Chronic Plan: He is using and benefiting from Pap therapy. The patient is concerned about his nighttime awakenings which are occurring more frequently. I have recommended obtaining a nocturnal pulse oximetry test at this time. The compliance download does not indicate that there are excessive apneas occurring, in fact it shows that there is excellent control of the apnea. He should avoid excessive water intake prior to bedtime. Contact the office for any new or worsening symptoms in the meantime. Follow-up in 6 months. (2) Stage 1 mild COPD by GOLD classification: Status: Chronic Plan: Stable, he does not appear to be in an exacerbation of COPD today. No need for prednisone or antibiotic. Continue current maintenance medication, symptomatically managed with the use of Anoro. The PFT does not show a need to escalate therapy at this time, mild obstructive ventilatory disease is identified. There is no need for supplemental oxygen. Notify this practice if there are worsening respiratory symptoms. (3) Nicotine dependence, cigarettes, uncomplicated: Status: Chronic Plan: Encourage complete smoking cessation. 11 minutes of [id number] conversation regarding smoking cessation today. The patient is educated about the benefits of smoking cessation. Discussed habits, quit date, coping mechanisms. All questions were answered. (4) Solitary pulmonary nodule: Status: Acute Comment: Right middle lobe 8 x 6 mm Plan: Repeat noncontrasted chest CT in 6 months to follow solitary pulmonary nodule in the right middle lobe. Patient has been asked to proceed with smoking cessation. (5) Encounter for smoking cessation counseling: Status: Acute Plan: The harmful effects of continuing to smoke cigarettes were discussed at length with patient today. He is encouraged to proceed with smoking cessation at this time. I have offered to follow-up in approximately 12 weeks to reassess progress in regards to smoking cessation, patient has declined today. Orders: Orders Chest without Contrast 09/04/25 R91.1 - Solitary pulmonary nodule Medications: Refilled levalbuterol tartrate 45 mcg/actuation 2 inhalations inhalation Q4-6H PRN 15 grams 11RF shortness of breath or wheezing Plan This note was generated with [employer] dictation software. It may contain incorrect words, spelling, and punctuation that were not noted in checking the note before signing. Portions of this documentation have been copied and pasted from previous office visit notes to provide a cohesive continuity of the history. The note has been reviewed, edited, and updated, as necessary. Plan Details Follow Up: 6 Months (LMR) HPI HPI Comments Details: This patient presents to [...] with use of Anoro 1 puff daily. In the last 6 months he has increased the use of his levalbuterol rescue inhaler to twice weekly. He does have shortness of breath on exertion. He reports cough is present with brown sputum. He is questioning a wheeze. He denies chest pain and chest tightness. He also denies any fever, chills or body aches. He wakes up feeling rested and refreshed. He denies oral dryness. Nocturia occurs x 3-4. He also denies morning headache. He denies requiring naps. He seems to be waking more often than he was prior to using PAP therapy. He is drinking fluids later in the evening. He continues to smoke less than 1 pack/day of filtered cigars. He admits that he is having difficulty quitting. He states I have tried everything, including Chantix, nicotine patches, nicotine gum and Wellbutrin, acupuncture and hypnotism. The longest he as quit for was 7 months. He using his ellipitical computer trainer. He doesnt need to do much to notice his shortness of breath. Documentation reviewed with patient today includes: Low-dose screening lung CT from March 18, 2025 shows emphysema, 8 x 6 soft tissue density nodule in the right middle lobe at image 167, calcific vascular disease. PFT from March 18, 2025 shows reversible mild large airway obstructive ventilatory defect with associated hyperinflation and air trapping. 6-minute walk test from February 19, 2025 shows no indication for the use of (more content not included)... Normal [facility] Low Dose CT Lung Screeningon 03-18-[address] Lung Screening [facility] Imaging Services [address] [place] [id number] Lung Screening MR#: [id number] Acct: [id number] Name: GERRY TRAVIS Rep #: [id number] : 1960 M 64 From: Ilir Anthony MD PCP: Dr. Dianne Chris MD Status: [facility] Study: Low Dose CT Lung Screening Date of Exam: 03/18 Exam# [id number] Ordering Dr: Mariella Calvo CEO & BOARD DIRECTOR CEO & BOARD DIRECTOR-C PROCEDURE: Low-dose CT lung screening 03/18/2025 REASON FOR EXAM: SMOKER TECHNIQUE: Procedure Code: [id number] Modality: CT Procedure: LOW DOSE CT LUNG SCREENING Coronal and Sagittal reconstruction series were provided. One or more dose reduction techniques were used (e.g., Automated exposure control, adjustment of the mA and/or kV according to patient size, use of iterative reconstruction technique). REFERENCE LINK: [employer] Lung-RADS RADIATION DOSE SUMMARY: CTDlvol: 2.38 mGy DLP: 102.34 mGycm COMPARISON: None FINDINGS: PULMONARY NODULES: (Only nodules >3mm are reported) Lower neck:The thyroid gland is grossly normal. There is no supraclavicular lymphadenopathy. Mediastinum:No abnormal masses or lymphadenopathy. Heart and thoracic aorta:The heart size is upper limits of normal. There is no pericardial effusion. There is moderate calcific vascular disease of the coronary arteries. There is mild calcific vascular disease of the thoracic aorta. Esophagus:Normal. Upper Abdomen:Limited unenhanced images of the upper abdomen are unremarkable. Chest wall:The soft tissues of the chest wall appear unremarkable. There is no axillary lymphadenopathy there are no significant bony abnormalities of the chest. Lungs, airways and pleura: There is pleural-parenchymal scarring in both lung apices. There are multiple pulmonary blebs in both lung apices. There is moderate upper lobe predominant centrilobular emphysema. There is a linear scar in the posterior basilar segment of the lower lobe of the left lung. There are pleural-parenchymal scars in the lingula and in the middle lobe of the right lung. There is an 8 x 6 mm soft tissue density nodule in the middle lobe of the right lung (image 167). CT/Low Dose CT Lung Screening IMPRESSION: 1. Emphysema. 2. Right middle lobe nodule. 3. Calcific vascular disease. Lung-RADS Category: 3 S: Probably benign. Emphysema. Calcific vascular disease. Recommendation: Follow up low-dose chest CT in six-months. Reading Location: [place] [address] CC: CEO & BOARD DIRECTOR-C Mariella Calvo; Dr. Dianne Chris MD Physical Laboratory Assistant: Signed Normal [facility] 6 Minute Walk Teston 025 6 Minute Walk Test y [facility] Pulmonary Services/Neurology [address] [place] [address] MR#: [id number] Acct: [id number] Name: GERRY TRAVIS Rep #: [id number] : 1960 64 From: Quinn Loyd DO Referring Dr: Mariella Calvo NP CEO & BOARD DIRECTOR-C Status: REG CLI Location: [facility] Date: Sex: M C PSN 6 Minute Walk Test 6 Minute Walk Test 6 Minute Walk Test: 6 Minute Walk Test PSN:6-Minute Walk Test Start: 02/19/25 12:41 Freq: Status: Active Protocol: RESP.6MINW Document 02/19/25 12:42 EDWARD (Rec: 02/19/25 12:43 EDWARD [id number]) 6 Minute Walk Test Date Performed 02/19/25 Time Performed 12:30 Height 5 ft 11 in Weight: 165 lb Weight in Pounds 165.[address]: Mariella Calvo CEO & BOARD DIRECTOR Assistive device None used: Pre-test Oxygen Delivery Room Air Method Pulse Ox (%) 97 Pulse Rate (60-100 50 L beats/min) Dyspnea Loyda Scale ( 0 0-10) Exertion Loyda Scale 6 (6-20) 1st minute Oxygen Delivery Room Air Method Pulse Ox (%) 97 Pulse Rate (60-100 83 beats/min) 2nd minute Oxygen Delivery Room Air Method Pulse Ox (%) 96 Pulse Rate (60-100 84 beats/min) 3rd minute Oxygen Delivery Room Air Method Pulse Ox (%) 96 Pulse Rate (60-100 85 beats/min) 4th minute Oxygen Delivery Room Air Method Pulse Ox (%) 96 Pulse Rate (60-100 87 beats/min) 5th minute Oxygen Delivery Room Air Method Pulse Ox (%) 95 Pulse Rate (60-100 88 beats/min) 6th minute Oxygen Delivery Room Air Method Pulse Ox (%) 96 Pulse Rate (60-100 88 beats/min) Dyspnea Loyda Scale ( 2 0-10) Exertion Loyda Scale 11 (6-20) Post-test Oxygen Delivery Room Air Method Pulse Ox (%) 98 Pulse Rate (60-100 54 L beats/min) Full Laps Walked 26 Partial Lap, Number 19 of Tiles Walked Total Distance 1553 Walked (ft) Interpretation Interpretation: The patient ambulated 1553 feet over the course of 6 minutes beginning on room air without assistive devices. Pretesting oxygen saturation was noted to be 97% on room air. With ambulation, the isis oxygen saturation was 95%. There was no significant exertional oxygen desaturation. Recommendations Recommendations: There is no indication for the use of supplemental oxygen at this time. 02/22/25 1038 Date Quinn Loyd DO CC: Date Dictated: 02/22/25 1038 Date Transcribed: 02/22/25 1038 Physical Laboratory Assistant: Dr. Quinn Loyd DO Signed Normal [facility] Absolute lymphocyte countOrd ered By: Dianne Chris on 12-05-2024 Lymphocytes Auto (Unsp spec) [#/Vol] 2.25 10*3/uL 0.83-4.51 [facility] Absolute neutrophil countOrd ered By: Dianne Chris on 12-05-2024 Neutrophils (Bld) [#/Vol] 3.0 10*3/uL 2.0-7.7 [facility] Anion gap in Serum or Plasma Ordered By: Dianne Chris on 12-05-2024 Anion gap [Moles/Vol] 9 mmol/L 5-15 [facility] Automated lymphocyte count a s percentage of total leukocytesOrdered By: Dianne Chris on 12-05-2024 Lymphocytes/100 WBC Auto (Unsp spec) 36.4 % 19-41 [facility] BUN/creatinine ratioOrdered By: Dianne Chris on 12-05-2024 Urea nitrogen/Creatinine [Mass ratio] 19.1 mg/mg 10-20 [facility] Basophil percentageOrdered B y: Dianne Chris on 12-05-2024 Basophils/100 WBC (Bld) 0.3 % 0-1 [facility] Bilirubin, totalOrdered By: Dianne Chris on 12-05-2024 Bilirubin [Mass/Vol] 0.56 mg/dL 0.00-1.30 [facility] CBC W/Diff, Automatedon Absolute Lymph 2.25 X10 3/uL Normal 0.83-4.51 [facility] Comment on above: Performed By: #### L 501.87239, L506.0400, L501.5200, L500.4050, L500.4100, L501.9520, L501.9910, L506.1001, L100.0100 #### [facility] [address] [place] [address]. [place], [place], [id number] Absolute Neut 3.0 X10 3/uL Normal 2.0-7.7 [facility] Comment on above: Performed By: #### L 501.23456, L506.0400, L501.5200, L500.4050, L500.4100, L501.9520, L501.9910, L506.1001, L100.0100 #### [facility] [address] [place], [place], [phone] ([phone] Basophils/100 WBC (Bld) 0.3 % Normal 0-1 [facility] Comment on above: Performed By: #### L 501.29714, L506.0400, L501.5200, L500.4050, L500.4100, L501.9520, L501.9910, L506.1001, L100.0100 #### [facility] [address] [place], [place], [phone] ([address] Eosinophils/100 WBC (Bld) 0.8 % Normal 0-5 [facility] Comment on above: Performed By: #### L 501.93410, L506.0400, L501.5200, L500.4050, L500.4100, L501.9520, L501.9910, L506.1001, L100.0100 #### [facility] [address] [place], [place], [id number] ([address] Erythrocyte distribution width (RBC) [Ratio] 13.1 % Normal 11.6-14.6 [facility] Comment on above: Performed By: #### L 501.76746, L506.0400, L501.5200, L500.4050, L500.4100, L501.9520, L501.9910, L506.1001, L100.0100 #### [facility] [address] [place], [address] Hematocrit (Bld) [Volume fraction] 43.2 % Normal 40-54 [facility] Comment on above: Performed By: #### L 501.90763, L506.0400, L501.5200, L500.4050, L500.4100, L501.9520, L501.9910, L506.1001, L100.0100 #### [facility] [address] [place], [address] Hemoglobin (Bld) [Mass/Vol] 14.0 g/dL Normal 13.0-16.5 [facility] Comment on above: Performed By: #### L 501.99459, L506.0400, L501.5200, L500.4050, L500.4100, L501.9520, L501.9910, L506.1001, L100.0100 #### [facility] [address] [place], [address] IG% 0.200 Normal 0.0-0.9 [facility] Comment on above: Result Comment: IG% - Immature Granulocytes (promyelocytes, myelocytes and metamyelocytes) > 1% indicates that a LEFT SHIFT is Present. Performed By: #### L 501.01863, L506.0400, L501.5200, L500.4050, L500.4100, L501.9520, L501.9910, L506.1001, L100.0100 #### [facility] [address] [facility] [place], [address] Lymphocytes/100 WBC (Bld) 36.4 % Normal 19-41 [facility] Comment on above: Performed By: #### L 501.08818, L506.0400, L501.5200, L500.4050, L500.4100, L501.9520, L501.9910, L506.1001, L100.0100 #### [facility] [address] [place], [address] MCH (RBC) [Entitic mass] 29.4 pg Normal 27.0-32.0 [facility] Comment on above: Performed By: #### L 501.21950, L506.0400, L501.5200, L500.4050, L500.4100, L501.9520, L501.9910, L506.1001, L100.0100 #### [facility] [address] [place], [address] MCHC (RBC) [Mass/Vol] 32.4 g/dL Normal 32-36 [facility] Comment on above: Performed By: #### L 501.75768, L506.0400, L501.5200, L500.4050, L500.4100, L501.9520, L501.9910, L506.1001, L100.0100 #### [facility] [address] [place], [address] MCV (RBC) [Entitic vol] 90.8 fL Normal 80-94 [facility] Comment on above: Performed By: #### L 501.69355, L506.0400, L501.5200, L500.4050, L500.4100, L501.9520, L501.9910, L506.1001, L100.0100 #### [facility] [address] [place], [address] Monocytes/100 WBC (Bld) 14.6 % High 0-10 [facility] Comment on above: Performed By: #### L 501.88098, L506.0400, L501.5200, L500.4050, L500.4100, L501.9520, L501.9910, L506.1001, L100.0100 #### [facility] [address] [place], [address] Neutrophils/100 WBC (Bld) 47.7 % Normal 47-70 [facility] Comment on above: Performed By: #### L 501.21165, L506.0400, L501.5200, L500.4050, L500.4100, L501.9520, L501.9910, L506.1001, L100.0100 #### [facility] [address] [place], [address] Nucleated RBC (Bld) [#/Vol] 0 10*3/uL Normal 0-5 [facility] Comment on above: Performed By: #### L 501.70725, L506.0400, L501.5200, L500.4050, L500.4100, L501.9520, L501.9910, L506.1001, L100.0100 #### [facility] [address] [place], [address] (471) Platelet mean volume (Bld) [Entitic vol] 9.9 fL Normal 6.2-12.0 [facility] Comment on above: Performed By: #### L 501.41142, L506.0400, L501.5200, L500.4050, L500.4100, L501.9520, L501.9910, L506.1001, L100.0100 #### [facility] [address] [place], [place], [id number] (824) Platelets (Bld) [#/Vol] 159 10*3/uL Normal 150-450 [facility] Comment on above: Performed By: #### L 501.86962, L506.0400, L501.5200, L500.4050, L500.4100, L501.9520, L501.9910, L506.1001, L100.0100 #### [facility] [address] [place], [place], [phone] (219) RBC (Bld) [#/Vol] 4.76 10*6/uL Normal 4.6-6.2 [facility] Comment on above: Performed By: #### L 501.18031, L506.0400, L501.5200, L500.4050, L500.4100, L501.9520, L501.9910, L506.1001, L100.0100 #### [facility] [address] [place], [place], [id number] RDW SD 43.6 fl Normal 35.1-43.9 [facility] Comment on above: Performed By: #### L 501.12346, L506.0400, L501.5200, L500.4050, L500.4100, L501.9520, L501.9910, L506.1001, L100.0100 #### [facility] [address] [place], [place], [id number] WBC (Bld) [#/Vol] 6.2 10*3/uL Normal 4.4-11.0 [facility] Comment on above: Performed By: #### L 501.25784, L506.0400, L501.5200, L500.4050, L500.4100, L501.9520, L501.9910, L506.1001, L100.0100 #### [facility] [address] [place], [place], [id number] Calculated very low density lipoprotein (VLDL) cholesterol measurementOrdered By: Dianne Chris on 12-05-2024 Calculated very low density lipoprotein (VLDL) cholesterol measurement 10 mg/dL 5-40 [facility] Carbon dioxide, total [Moles /volume] in Central venous bloodOrdered By: Dianne Chris on 12-05-2024 CO2 [Moles/Vol] 24.3 mmol/L 21.0-32.0 [facility] Chloride assayOrdered By: Irma Chris on 12-05-2024 Chloride [Moles/Vol] 105 mmol/L 98-108 [facility] Comprehensive Metabolic Prof ilon 12-05-2024 Albumin [Mass/Vol] 3.9 g/dL Normal 3.4-4.8 [facility] Comment on above: Performed By: #### L 501.26390, L506.0400, L501.5200, L500.4050, L500.4100, L501.9520, L501.9910, L506.1001, L100.0100 #### [facility] [address] [place], [place], [id number] (627) Albumin/Globulin [Mass ratio] 1.5 {ratio} Normal 0.9-2.4 [facility] Comment on above: Performed By: #### L 501.43323, L506.0400, L501.5200, L500.4050, L500.4100, L501.9520, L501.9910, L506.1001, L100.0100 #### [facility] [address] [place], [place], [id number] (498) ALK PHOS 50 U/L Normal 40-129 [facility] Comment on above: Performed By: #### L 501.78686, L506.0400, L501.5200, L500.4050, L500.4100, L501.9520, L501.9910, L506.1001, L100.0100 #### [facility] [address] [place], [place], [id number] ALT [Catalytic activity/Vol] 19 U/L Normal <=46 [facility] Comment on above: Performed By: #### L 501.53526, L506.0400, L501.5200, L500.4050, L500.4100, L501.9520, L501.9910, L506.1001, L100.0100 #### [facility] [address] [place], [address] AST [Catalytic activity/Vol] 29 U/L Normal <=37 [facility] Comment on above: Performed By: #### L 501.19848, L506.0400, L501.5200, L500.4050, L500.4100, L501.9520, L501.9910, L506.1001, L100.0100 #### [facility] [address] [place], [address] Bilirubin [Mass/Vol] 0.56 mg/dL Normal 0.00-1.30 [facility] Comment on above: Performed By: #### L 501.76352, L506.0400, L501.5200, L500.4050, L500.4100, L501.9520, L501.9910, L506.1001, L100.0100 #### [facility] [address] [place], [address] BUN/CRE 19.1 RATIO Normal 10-20 [facility] Comment on above: Performed By: #### L 501.01815, L506.0400, L501.5200, L500.4050, L500.4100, L501.9520, L501.9910, L506.1001, L100.0100 #### [facility] [address] [place], [address] Calcium [Mass/Vol] 8.9 mg/dL Normal 7.6-11.0 [facility] Comment on above: Performed By: #### L 501.40276, L506.0400, L501.5200, L500.4050, L500.4100, L501.9520, L501.9910, L506.1001, L100.0100 #### [facility] [address] [place], [address] Chloride [Moles/Vol] 105 mmol/L Normal 98-108 [facility] Comment on above: Performed By: #### L 501.53126, L506.0400, L501.5200, L500.4050, L500.4100, L501.9520, L501.9910, L506.1001, L100.0100 #### [facility] [address] [place], [address] CO2 [Moles/Vol] 24.3 mmol/L Normal 21.0-32.0 [facility] Comment on above: Performed By: #### L 501.18041, L506.0400, L501.5200, L500.4050, L500.4100, L501.9520, L501.9910, L506.1001, L100.0100 #### [facility] [address] [place], [place], [id number] (531) Creatinine [Mass/Vol] 0.81 mg/dL Normal 0.70-1.20 [facility] Comment on above: Performed By: #### L 501.45702, L506.0400, L501.5200, L500.4050, L500.4100, L501.9520, L501.9910, L506.1001, L100.0100 #### [facility] [address] [place], [place], [id number] GAP 9 Normal 5-15 [facility] Comment on above: Performed By: #### L 501.20275, L506.0400, L501.5200, L500.4050, L500.4100, L501.9520, L501.9910, L506.1001, L100.0100 #### [facility] [address] [place], [place], [id number] GFR/1.73 sq M.predicted among non-blacks MDRD (S/P/Bld) [Vol rate/Area] 98 mL/min/{1.73_m2} Normal >60 [facility] Comment on above: Result Comment: mL/m in/1.73m2 CKD-EPI Creatinine Equation (2020) Performed By: #### L 501.34921, L506.0400, L501.5200, L500.4050, L500.4100, L501.9520, L501.9910, L506.1001, L100.0100 #### [facility] [address] [place], [address] Globulin (S) [Mass/Vol] 2.6 g/dL Normal 2.2-4.2 [facility] Comment on above: Performed By: #### L 501.30768, L506.0400, L501.5200, L500.4050, L500.4100, L501.9520, L501.9910, L506.1001, L100.0100 #### [facility] [address] [place], [address] Glucose [Mass/Vol] 96 mg/dL Normal 70-99 [facility] Comment on above: Performed By: #### L 501.13860, L506.0400, L501.5200, L500.4050, L500.4100, L501.9520, L501.9910, L506.1001, L100.0100 #### [facility] [address] [place], [address] Potassium [Moles/Vol] 4.2 mmol/L Normal 3.3-5.1 [facility] Comment on above: Performed By: #### L 501.03759, L506.0400, L501.5200, L500.4050, L500.4100, L501.9520, L501.9910, L506.1001, L100.0100 #### [facility] [address] [place], [address] Sodium [Moles/Vol] 139 mmol/L Normal 133-145 [facility] Comment on above: Performed By: #### L 501.50480, L506.0400, L501.5200, L500.4050, L500.4100, L501.9520, L501.9910, L506.1001, L100.0100 #### [facility] [address] [place], [address] T PROT 6.4 g/dL Normal 5.9-8.4 [facility] Comment on above: Performed By: #### L 501.29029, L506.0400, L501.5200, L500.4050, L500.4100, L501.9520, L501.9910, L506.1001, L100.0100 #### [facility] [address] [place], [place], [id number] (194) Urea nitrogen [Mass/Vol] 15 mg/dL Normal 4-19 [facility] Comment on above: Performed By: #### L 501.70531, L506.0400, L501.5200, L500.4050, L500.4100, L501.9520, L501.9910, L506.1001, L100.0100 #### [facility] [address] [place], [address] Eosinophil percentageOrdered By: Dianne Chris on 12-05-2024 Eosinophils/100 WBC (Bld) 0.8 % 0-5 [facility] Erythrocyte distribution wid th ratioOrdered By: Dianne Chris on 12-05-2024 Erythrocyte distribution width (RBC) [Ratio] 13.1 % 11.6-14.6 [facility] Erythrocyte distribution wid th standard deviationOrdered By: Dianne Chris on 12-05-2024 Erythrocyte distribution width (RBC) [Ratio] 43.6 fl 35.1-43.9 [facility] Free T3on 12-05-2024 Free T3 [Mass/Vol] 2.7 pg/mL Normal 2.18-3.98 [facility] Comment on above: Performed By: #### L 501.75703, L506.0400, L501.5200, L500.4050, L500.4100, L501.9520, L501.9910, L506.1001, L100.0100 ####[facility] [id number] [facility] [place], [address] Free K3Fuixsrb By: Dianne lin on 12-05-2024 Free T3 [Mass/Vol] 2.7 pg/mL 2.18-3.98 [facility] Glomerular filtration rate ( GFR) estimation/1.73 sq m using serum, plasma, or whole bOrdered By: Dianne Chris on 12-05-2024 GFR/1.73 sq M.predicted among non-blacks MDRD (S/P/Bld) [Vol rate/Area] 98 mL/min/{1.73_m2} >60 [facility] Comment on above: mL/min/1.73m2 CKD-EP I Creatinine Equation (2020) Hematocrit Auto (Bld) [Volum e fraction]Ordered By: Dianne Chris on 12-05-2024 Hematocrit (Bld) [Volume fraction] 43.2 % 40-54 [facility] Hemoglobin measurementOrdere d By: Dianne Chris on 12-05-2024 Hemoglobin (Bld) [Mass/Vol] 14.0 g/dL 13.0-16.5 [facility] Immature granulocytes/100 WB C Auto (Bld)Ordered By: Dianne Chris on 12-05-2024 Immature granulocytes/100 WBC (Bld) 0.200 % 0.0-0.9 [facility] Comment on above: IG% - Immature Granu locytes (promyelocytes, myelocytes and metamyelocytes) > 1% indicates that a LEFT SHIFT is Present. LDL calc ser/plasOrdered By: Dianne Chris on 12-05-2024 Cholesterol in LDL [Mass/Vol] 55 mg/dL [facility] Comment on above: Bymtztecmk=100-703 m g/dL & Higher Qots=862 mg/dL or greater Laboratory - Chemistry and C hemistry - challengeOrdered By: Dianne Chris on 12-05-2024 AST [Catalytic activity/Vol] 29 U/L <38 [facility] Lipid Profileon 12-05-2024 CHOL:HDL 2.14 Normal [facility] Comment on above: Performed By: #### L 501.86912, L506.0400, L501.5200, L500.4050, L500.4100, L501.9520, L501.9910, L506.1001, L100.0100 #### [facility] [address] [place], [address] Cholesterol [Mass/Vol] 123 mg/dL Normal <=200 [facility] Comment on above: Result Comment: Chol esterol level, Desirable <200 mg/dL Borderline high cholesterol 200-239 mg/dL High cholesterol >=240 mg/dL Recommendations of the NCEP Adult Treatment Panel for the following risk-cutoff thresholds for the [place] population. Performed By: #### L 501.17120, L506.0400, L501.5200, L500.4050, L500.4100, L501.9520, L501.9910, L506.1001, L100.0100 #### [facility] [address] [place], [place], [phone] (224 Cholesterol in HDL [Mass/Vol] 58 mg/dL Normal [facility] Comment on above: Result Comment: Noreen onal Cholesterol Education Program (NCEP) guidelines: <40 mg/dL: Low HDL-cholesterol (major risk factor for CHD) >= 60 mg/dL: High HDL-cholesterol (negative risk factor for CHD) HDL-cholesterol is affected by a number of factors, e.g. smoking, exercise, hormones, sex and age. Performed By: #### L 501.84807, L506.0400, L501.5200, L500.4050, L500.4100, L501.9520, L501.9910, L506.1001, L100.0100 #### [facility] [address] [place], [address] Cholesterol in LDL [Mass/Vol] 55 mg/dL Normal [facility] Comment on above: Result Comment: Bord oshyxa=178-966 mg/dL Higher Mksc=534 mg/dL or greater Performed By: #### L 501.61766, L506.0400, L501.5200, L500.4050, L500.4100, L501.9520, L501.9910, L506.1001, L100.0100 #### [facility] [address] [place], [address] Cholesterol in VLDL [Mass/Vol] 10 mg/dL Normal 5-40 [facility] Comment on above: Performed By: #### L 501.48529, L506.0400, L501.5200, L500.4050, L500.4100, L501.9520, L501.9910, L506.1001, L100.0100 #### [facility] [address] [place], [address] Triglyceride [Mass/Vol] 52 mg/dL Normal [facility] Comment on above: Result Comment: The drugs N-Acetylcysteine and Metamizole may falsely depress this assay. Normal range: <150 mg/dL Borderline High: 150-199 mg/dL High: 200-499 mg/dL Very High: >500 mg/dL Performed By: #### L 501.15014, L506.0400, L501.5200, L500.4050, L500.4100, L501.9520, L501.9910, L506.1001, L100.0100 #### [facility] [address] [place], [address] MCV (mean corpuscular volume ) determinationOrdered By: Dianne Chris on 12-05-2024 MCV (RBC) [Entitic vol] 90.8 fL 80-94 [facility] Magnesiumon 12-05-2024 Magnesium [Mass/Vol] 2.0 mg/dL Normal 1.5-2.2 [facility] Comment on above: Performed By: #### L 501.61017, L506.0400, L501.5200, L500.4050, L500.4100, L501.9520, L501.9910, L506.1001, L100.0100 #### [facility] [address] [place], [address] Magnesium measurement (mass/ volume)Ordered By: Dianne Chris on 12-05-2024 Magnesium (Unsp spec) [Mass/Vol] 2.0 mg/dL 1.5-2.2 [facility] Mean corpuscular hemoglobin (MCH) determinationOrdered By: Dianne Chris on 12-05-2024 MCH (RBC) [Entitic mass] 29.4 pg 27.0-32.0 [facility] Mean corpuscular hemoglobin concentration (MCHC) determinationOrdered By: Dianne Chris on 12-05-2024 MCHC (RBC) [Mass/Vol] 32.4 g/dL 32-36 [facility] Mean platelet volume determi nationOrdered By: Dianne Chris on 12-05-2024 Platelet mean volume (Bld) [Entitic vol] 9.9 fL 6.2-12.0 [facility] Monocyte percentageOrdered B y: Dianne Chris on 12-05-2024 Monocytes/100 WBC (Bld) 14.6 % High 0-10 [facility] Neutrophil percentageOrdered By: Dianne Chris on 12-05-2024 Neutrophils/100 WBC (Bld) 47.7 % 47-70 [facility] Nucleated red blood cell per centageOrdered By: Dianne Chris on 12-05-2024 Nucleated RBC/100 WBC (Bld) [Ratio] 0 % 0-5 [facility] PSA,Total - Annual Screenon 12-05-2024 PSA,TOT SCREEN 2.06 ng/mL Normal 0.02-4.00 [facility] Comment on above: Result Comment: This [...] confirm baseline values. Performed By: #### L 501.54143, L506.0400, L501.5200, L500.4050, L500.4100, L501.9520, L501.9910, L506.1001, L100.0100 #### [facility] [address] [place], [place], [id number] Platelet countOrdered By: Irma Chris on 12-05-2024 Platelets (Bld) [#/Vol] 159 10*3/uL 150-450 [facility] Potassium measurement (mass/ volume)Ordered By: Dianne Chris on 12-05-2024 Potassium (Unsp spec) [Mass/Vol] 4.2 mmol/L 3.3-5.1 [facility] RBC Auto (Bld) [#/Vol]Ordere d By: Dianne Chris on 12-05-2024 RBC (Bld) [#/Vol] 4.76 10*6/uL 4.6-6.2 [facility] Screening total cholesterol/ high density lipoprotein (HDL) cholesterol ratioOrdered By: Dianne Chris on 12-05-2024 Cholesterol.total/Cece sterol in HDL [Mass ratio] 2.14 {ratio} [facility] Serum creatinine measurement (mass/volume)Ordered By: Dianne Chris on 12-05-2024 Creatinine [Mass/Vol] 0.81 mg/dL 0.70-1.20 [facility] Serum globulin measurementOr dered By: Dianne Chris on 12-05-2024 Globulin (S) [Mass/Vol] 2.6 g/dL 2.2-4.2 [facility] Serum glucose measurement (m ass/volume)Ordered By: Dianne Chris on 12-05-2024 Glucose [Mass/Vol] 96 mg/dL 70-99 [facility] Serum or plasma alanine broderick otransferase (ALT) measurementOrdered By: Dianne Chris on 12-05-2024 ALT [Catalytic activity/Vol] 19 U/L <47 [facility] Serum or plasma albumin debra urement (mass/volume)Ordered By: Dianne Chris on 12-05-2024 Albumin [Mass/Vol] 3.9 g/dL 3.4-4.8 [facility] Serum or plasma albumin/glob ulin mass ratioOrdered By: Dianne Chris on 12-05-2024 Albumin/Globulin [Mass ratio] 1.5 {ratio} 0.9-2.4 [facility] Serum or plasma alkaline milan sphatase measurementOrdered By: Dianne Chris on 12-05-2024 ALP [Catalytic activity/Vol] 50 U/L 40-129 [facility] Serum or plasma calcium debra urement (mass/volume)Ordered By: Dianne Chris on 12-05-2024 Calcium [Mass/Vol] 8.9 mg/dL 7.6-11.0 [facility] Serum or plasma cholesterol in HDL measurement (mass/volume)Ordered By: Dianne Chris on 12-05-2024 Cholesterol in HDL [Mass/Vol] 58 mg/dL >40 [facility] Comment on above: National Cholesterol Education Program (NCEP) guidelines:<40 mg/dL: Low HDL-cholesterol (major risk factor for CHD)>= 60 mg/dL: High HDL-cholesterol (negative risk factor for CHD)HDL-cholesterol is affected by a number of factors, e.g. smoking, exercise, hormones, sex and age. Serum or plasma cholesterol measurement (mass/volume)Ordered By: Dianne Chris on 12-05-2024 Cholesterol [Mass/Vol] 123 mg/dL <201 [facility] Comment on above: Cholesterol level, D esirable <200 mg/dLBorderline high cholesterol 200-239 mg/dLHigh cholesterol >=240 mg/dLRecommendations of the NCEP Adult Treatment Panel for the following risk-cutoff thresholds for the [place] population. Serum or plasma urea nitroge n measurement (mass/volume)Ordered By: Dianne Chris on 12-05-2024 Urea nitrogen [Mass/Vol] 15 mg/dL 4-19 [facility] Sodium levelOrdered By: Laurie Chris on 12-05-2024 Sodium [Moles/Vol] 139 mmol/L 133-145 [facility] T4 Free Directon 12-05-2024 T4 FREE DIRECT 1.00 ng/dL Normal 0.76-1.46 [facility] Comment on above: Performed By: #### L 501.30637, L506.0400, L501.5200, L500.4050, L500.4100, L501.9520, L501.9910, L506.1001, L100.0100 ####[facility] [address] [place], [address] T4 freeOrdered By: Dianne lin on 12-05-2024 Free T4 [Mass/Vol] 1.00 ng/dL 0.76-1.46 [facility] TSH DL <= 0.005 mIU/L QnOrde red By: Dianne Chris on 12-05-2024 TSH Qn 1.590 uIU/mL 0.300-4.200 [facility] Thyroid Stim Hormone (TSH)on 12-05-2024 TSH 1.590 uIU/mL Normal 0.300-4.200 [facility] Comment on above: Performed By: #### L 501.57282, L506.0400, L501.5200, L500.4050, L500.4100, L501.9520, L501.9910, L506.1001, L100.0100 #### [facility] Laboratory [facility] [place], [address] Total proteinOrdered By: Naina Chris on 12-05-2024 Protein [Mass/Vol] 6.4 g/dL 5.9-8.4 [facility] Triglycerides measurementOrd ered By: Dianne Chris on 12-05-2024 Triglyceride [Mass/Vol] 52 mg/dL <199 [facility] Comment on above: The drugs N-Acetylcy steine and Metamizole may falsely depress this assay. Normal range: <150 mg/dLBorderline High: 150-199 mg/dLHigh: 200-499 mg/dLVery High: >500 mg/dL Vitamin D,25 Hydroxyon 12-05 Vitamin D 25-OH 33.3 ng/mL Normal 30-100 [facility] Comment on above: Result Comment: Jennifer min D Status Deficiency: <20 ng/mL (50nmol/L) Insufficiency: 20-30 ng/mL (50-75 nmol/L) Sufficiency: 30-100 ng/mL (75-250 nmol/L) Toxicity: >100 ng/mL (>250 nmol/L) Performed By: #### L 501.83378, L506.0400, L501.5200, L500.4050, L500.4100, L501.9520, L501.9910, L506.1001, L100.0100 ####[facility] [address] [place], [address] White blood cell (WBC) count Ordered By: Dianne Chris on 12-05-2024 WBC (Bld) [#/Vol] 6.2 10*3/uL 4.4-11.0 [facility] MR/BMS.[facility] 11-28-2024 MR/BMS.[facility] Internal Medicine [address] [place] [address] OFFICE VISIT Date of Service: 11/28/24 MR#: [id number] Acct: [id number] Name: GERRY TRAVIS Rep #: [id number] : 1960 Provider: Dr. 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 He takes dzkx-huc-pycmcdc saw palmetto, and does have also mild [...] States hi (more content not included)... Normal [facility] 04-19-2023 [facility] Office Visit (UCWSTR ) -------- GERRY TRAVIS ([id number]) 1960 M Date Time Provider Department 04/19/23 5:45 PM ZELALEM HAYNES [facility] During your visit today, we recorded the following information about you: Temperature Pulse Respiration Blood pressure 98.8 degrees 61/minute 18/minute 122/63 Weight 83 kg Zelalem Haynes APRN.CNP 04/19/2023 7:05 PM Signed Subjective HPI Nontoxic-appearing qbfpx-eubc-pxwxwuys male presents urgent care chief complaint left [...] Arrhythmia BPH (benign prostatic hyperplasia) Cardiomyopathy, unspecified ([facility]) Dr. Stallings. Echo 03/2021: EF 55% COPD (chronic obstructive pulmonary disease) ([facility]) Dr. Loyd Obstructive sleep apnea Overactive bladder [...] mg) albuterol sulfate (PROAIR RESPICLICK INHALATION) Saw [place] 160 mg capsule Take 1 capsule by [...] No pa (more content not included)... Normal [facility]19[facility]20[facility] -------- GERRY TRAVIS ([id number]) 1960 M Date Time Provider Department 04/19/23 ZELALEM HAYNES [facility] During your visit today, we recorded the following information about you: Zelalem Haynes APRN.CNP 04/19/2023 7:01 PM Signed No acute findings noted on x-ray. Follow-up with with [facility] next 3 to 5 days as discussed. Zelalem Haynes APRN.Lety David 04/19/2023 7:07 PM Signed Patient given results and verbalized understanding of instructions given. Lety Roberson Allergies As of Date: 04/19/2023 Noted Allergy Reaction CHANTIX (VARENICLINE) 12/30/2021 14 - Other: See Comments Comments: nightmares Date Reviewed: 04/19/2023 Reviewed by: Zelalem Haynes APRN.CNP - Fully Assessed Reason for Visit: Results [...] albuterol sulfate (PROAIR RESPICLICK INHALATION) - Saw [place] 160 mg capsule Take 1 capsule by [...] 12/24/2020 Chronic obstructive pulmonary disease (HCC) [J4*12/24/2020 OSEIL (obstructive sleep apnea) [G47.33] 12/24/2020 Smoker [F17.200] 12/24/2020 Encounter Status:Closed by LETY ROBERSON on 04/19/23 Normal [facility] XR HUMERUS 2V AP/LAT LEFTon 04-19-2023 [facility] XR HUMERUS 2V AP/LAT LTon XR HUMERUS [...] effusion. IMPRESSION: No acute fracture or dislocation. Physical Laboratory Assistant: BART Transcribe Date/Time: Apr 19 2023 6:52P Dictated by : YVONNE PAYNE MD This examination was interpreted and the report reviewed and electronically signed by: YVONNE PAYNE MD on Apr 19 2023 6:53PM EST [id number] Normal [facility] XR Humerus - left AP and Lat eralon 04-19-2023 IMPRESSION: No acute fracture or dislocation. Physical Laboratory Assistant: PSCB Transcribe Date/Time: Apr 19 2023 6:52P Dictated by : YVONNE PAYNE MD This examination was interpreted and the report reviewed and electronically signed by: YVONNE PAYNE MD on Apr 19 2023 6:53PM [facility] DIVISION OF RADIOLOGY * * *Final Report* [...] elbow joint effusion. DIVISION OF RADIOLOGY Provider, [facility] - 04/19/2023 * * *Final Report* * [...] IMPRESSION IMPRESSION: No acute fracture or dislocation. Physical Laboratory Assistant: BART Transcribe Date/Time: Apr 19 2023 6:52P Dictated by : YVONNE PAYNE MD This examination was interpreted and the report reviewed and electronically signed by: YVONNE PAYNE MD on Apr 19 2023 6:53PM [facility] Radiology Study observation (narrative) [facility] XR Humerus - left AP and Lat eralOrdered By: Ccf Provider on 04-19-2023 [facility] No Panel InformationOrdered By: Bessie Goins on 01-11-2023 Prostate Specific Antigen Screen 1.97 ng/mL 0.00-4.00 [facility] Comment on above: This test was perfor med using the TPSA assay method for theSafetyCertified chemistry system. Values obtained with differentassay methods cannot be used interchangably.When changing PSA assays in the course of monitoring apatient, additional sequential testing should be carriedout to confirm baseline values. Basophil percentageOrdered B y: Dr. Ricketts on 07-30-2022 WBC (Bld) [#/Vol] 6.6 10*3/uL 4.4-11.0 [facility] Blood erythrocytes count (nu mber/volume)Ordered By: Dr. Ricketts on 07-30-2022 RBC (Bld) [#/Vol] 4.85 10*6/uL 4.6-6.2 [facility] Blood hemoglobin measurement (mass/volume)Ordered By: Dr. Ricketts on 07-30-2022 Hemoglobin (Bld) [Mass/Vol] 14.2 g/dL 13.0-16.5 [facility] Blood platelet mean volumeOr dered By: Dr. Ricketts on 07-30-2022 Platelet mean volume (Bld) [Entitic vol] 9.7 fL 6.2-12.0 [facility] Determination of erythrocyte mean corpuscular volume (MCV)Ordered By: Dr. Ricketts on 07-30-2022 MCV (RBC) [Entitic vol] 90.1 fL 80-94 [facility] Hematocrit Auto (Bld) [Volum e fraction]Ordered By: Dr. Ricketts on 07-30-2022 Hematocrit (Bld) [Volume fraction] 43.7 % 40-54 [facility] Laboratory - Hematology and Cell countsOrdered By: Dr. Ricketts on 07-30-2022 Erythrocyte distribution width (RBC) [Entitic vol] 41.2 fL 35.1-43.9 [facility] Erythrocyte distribution width (RBC) [Ratio] 12.5 % 11.6-14.6 [facility] MCH (RBC) [Entitic mass] 29.3 pg 27.0-32.0 [facility] MCHC Auto (RBC) [Mass/Vol]Or dered By: Dr. Ricketts on 07-30-2022 MCHC (RBC) [Mass/Vol] 32.5 g/dL 32-36 [facility] Platelets bldOrdered By: Dr. Ricketts on 07-30-2022 Platelets (Bld) [#/Vol] 207 10*3/uL 150-450 [facility] CNPNon 06-28-2022 CNPN Telephone (GENSWS) -------- GERRY TRAVIS ([id number]) 1960 Date Time Provider Department 06/28/22 NATHALIA MCNAMARA [facility] During your visit today, we recorded the following information about you: Ria Darshan Sapna Victoria 06/28/2022 11:52 AM Signed Patient called in stating he had CT scan completed on 06/22/2022. He saw results on [employer] stating no inguinal hernia. Patient asking what next steps are? Does he need to be seen in office again or have an MRI completed? States he clearly has a hernia. He would like to have a call back at [phone]. Brooklyn Cutler Ma 07/05/2022 10:44 AM Signed Patient called and asking if this has been addressed? Per [employer] message patient was to schedule a follow up appointment. Patient transferred to [facility] to schedule follow up. Hoa Jones RN 07/05/2022 12:58 PM Signed Pt scheduled for follow up with Dr. Mcnamara on 07/15/22. Hoa Jones RN Allergies As of Date: 06/28/2022 Noted Allergy Reaction CHANTIX (VARENICLINE) 12/30/2021 14 - Other: See Comments Comments: nightmares Date Reviewed: 06/18/2022 Reviewed by: Yamileth Loyd LPN - Fully Assessed Reason for Visit: Patient Question [1477] Prescriptions as of 07/05/2022 - carvedilol (COREG) [...] albuterol sulfate (PROAIR RESPICLICK INHALATION) - Saw [place] 160 mg capsule Take 1 capsule by [...] by BROOKLYN CUTLER MA on 07/05/22 Normal [facility] CT ABD/PEL WO IVCONon 2022 CT ABD/PEL WO IVCON * * *Final Report* * * DATE OF EXAM: Jun 22 2022 2:54PM [facility] 0531 - CT ABD/PEL WO IVCON / [...] Linear scarring at the left lung base. Shoe Turner (topogram) images: No additional findings. IMPRESSION: No evidence of inguinal hernia. Constipation suspected. No further abnormality is seen. Physical Laboratory [facility] Trans[facility] Date/Time: Jun 23 2022 9:10A Dictated by : KEV MENENDEZ MD This examination was interpreted and the report reviewed and electronically signed by: KEV MENENDEZ MD on Jun 23 2022 9:22AM EST [id number] Normal [facility] CNOVon 06-18-2022 CNOV Office Visit (GENSWS ) -------- GERRY TRAVIS ([id number]) 1960 M Date Time Provider Department 06/18/22 [...] with lifting and straining. 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 He [...] Arrhythmia BPH (benign prostatic hyperplasia) Cardiomyopathy, unspecified ([facility]) Dr. Stallings. Echo 03/2021: EF 55% COPD (chronic obstructive pulmonary disease) ([facility]) Dr. Loyd Obstructive sleep apnea Overactive bladder Tobacco use disorder PAST SURGICAL HISTORY Procedure Laterality Date ARTHROSCOPY KNEE DIAGNOSTIC W/WO SYNOVIAL BX SPX COLONOSCOPY GEN ANES 07/03/18, 04/22/14 Current Outpatient Medications Medication Sig carvedilol (COREG) 3.125 mg tablet 1 tablet twice daily with meals. losartan (COZAAR) 50 mg tablet 1 tablet once daily. albuterol sulfate (PROAIR RESPICLICK INHALATION) Saw [place] 160 mg capsule Take 1 capsule by [...] Take 50 (more content not included)... 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 Stallings. Echo 03/2021: EF 55% COPD (chronic obstructive pulmonary disease) ([facility]) Dr. Loyd Obstructive sleep apnea Overactive bladder [...] days. albuterol sulfate (PROAIR RESPICLICK INHALATION) Saw [place] 160 mg capsule Take 1 capsule by [...] or s (more content not included)... Normal [facility] No Panel Informationon 12-29 Prostate Specific Antigen Screen 1.64 ng/mL 0.00-4.00 [facility] Work Phone: Comment on above: This test was perfor med using the TPSA assay method for [employer] chemistry system. Values obtained with differentassay methods cannot be used interchangably.When changing PSA assays in the course of monitoring apatient, additional sequential testing should be carriedout to confirm baseline values. No Panel Informationon 05-05 Radiology Study observation (narrative) [facility] link [facility] XR Lumbar spine 3 Viewson IMPRESSION: Stable scoliotic curvature and degenerative changes as detailed in report. Physical Laboratory Assistant: BART Transcribe Date/Time: May 05 2021 6:35P Dictated by : PEDRO LUIS HALE MD This examination was interpreted and the report reviewed and electronically signed by: PEDRO LUIS HALE MD on May 05 2021 6:39PM [facility] DIVISION OF RADIOLOGY * * *Final Report* [...] tissues are unremarkable DIVISION OF RADIOLOGY Provider, [facility] - 05/05/2021 * * *Final Report* [...] and degenerative changes as detailed in report. Physical Laboratory Assistant: BART Transcribe Date/Time: May 05 2021 6:35P Dictated by : PEDRO LUIS HALE MD This examination was interpreted and the report reviewed and electronically signed by: PEDRO LUIS HALE MD on May 05 2021 6:39PM EST [facility] XR Lumbar spine 3 ViewsOrder ed By: Ccf Provider on 05-05-2021 [facility] XR Pelvis and Hip - right AP and Lateral frogon 05-05-2021 IMPRESSION: No acute fracture or dislocation of the pelvis and right hip. Physical Laboratory Assistant: BART Transcribe Date/Time: May 05 2021 6:34P Dictated by : DOMINIQUE STEELE MD This examination was interpreted and the report reviewed and electronically signed by: DOMINIQUE STEELE MD on May 05 2021 6:37PM [facility] DIVISION OF RADIOLOGY * * *Final Report* [...] fracture or dislocation. DIVISION OF RADIOLOGY [facility] * * *Final Report* * [...] dislocation of the pelvis and right hip. Physical Laboratory Assistant: PSCB Transcribe Date/Time: May 05 2021 6:34P Dictated by : DOMINIQUE STEELE MD This examination was interpreted and the report reviewed and electronically signed by: DOMINIQUE STEELE MD on May 05 2021 6:37PM EST [facility] HSV IGG1 AND IGG2 ABon 01-15 HSV I IGG AB 0.2 INDEX Normal [facility] Comment on above: Result Comment: REF VALUES NEGATIVE <0.9 EQUIVOCAL >=0.90 <=1.10 POSITIVE >1.10 Performed By: #### H SVG #### [facility] [address] [place] [address] HSV II IGG AB >8.0 Abnormal [facility] Comment on above: Result Comment: POTE NTIAL FOR CROSS-REACTIVITY BETWEEN HSV I AND HSV II EXISTS. REF VALUES NEGATIVE <0.9 EQUIVOCAL >=0.90 <=1.10 POSITIVE >1.10 Performed By: #### H SVG #### [facility] [address] [place] [address] Provider Note - ED v2on Provider Note [...] Updated: 07-Jan-2020 12:45 by Shar Hong (PAC) [facility] Office Visit (Family Brian salcedo)on 11-16-2019 Follow-up visit Chief Complaint Pt. here [...] OSIEL (obstructive sleep apnea) (327.23) (G47.33) Outside HSS dated 03/30/18 with AHI 12.6, Oxygen Isis - 81 % Pulmonary emphysema, unspecified emphysema [...] AFFECTED AREAS TWICE DAILY.(AM AND PM); Therapy: 33Liq2623 to (Last Rx:[id number]) Requested for: [id number] Ordered Rx By: Carlos Sinclair II; Dispense: 0 Days ; #:1 X 45 GM Tube; Refill: 1;For: Balanitis; SHARON = N; Verified Transmission to [facility] Carvedilol 3.125 MG Oral Tablet; Take 1 tablet twice a day; Therapy: 08Mar2018 to (Evaluate:27Vox9354) Recorded Dispense: 30 Days ; #:60 Tablet; [...] Oral Tablet; Take 1 tablet daily; Therapy: 71Qzy5953 to (Evaluate:56Oos8738) Requested for: 40Sck1123; Last Rx:[id number] Ordered Rx By: Astrid Cifuentes; Dispense: 90 Days ; #:90 Tablet; Refill: 3;For: Health Maintenance; SHARON = N; Verified Transmission to [facility]; Last Updated By: Mariza Cai; 06/04/2019 3:48:45 PM ProAir RespiClick 108 (90 Base) MCG/ACT Inhalation Aerosol Powder Breath Activated; INHALE 2 PUFFS Daily PRN wheezing Requested for: [id number]; Last Rx:[id number] Ordered Rx By: Josiah Curtis; Dispense: 30 Days ; #:3 Each; Refill: 0;For: OSIEL (obstructive sleep apnea); SHARON = N; Verified Transmission to [facility]; Last Updated By: Mariza Cai; 11/16/2019 4:55:07 PM Co Q 10 10 MG Oral Capsule; Therapy: (Recorded:25Aug2018) to Recorded Dispense: 0 Days ; #: Sufficient; Refill: 0; SHARON = N; Record; Last Updated By: Edwina Guzman; 08/25/2018 11:33:18 AM Saw [place] CAPS; Take 640mg of Saw bid; Therapy: [...] AM Vitals Vital Signs Recorded: 16Nov2019 04:04PM Ixzpjzpsbno12.1 F Heart Rate58 Rvldlfdb708 Jcvsyiqno73 Height6 ft Xogjlj566 lb 2 oz BMI Mgbtodnccc30.53 BSA Calculated1.97 Physical Exam General: Alert and oriented, No acute distress. Neck: Supple, Non-tender, No lymphadenopathy, No thyromegaly. Respiratory: Lungs scattered crackles , Respirations are non-labored, Breath sounds are equal, Symmetrical chest wall expansion. Cardiovascul (more content not included)... Normal [facility] CT CHEST LOW DOSE LUNG [place]REGORIO [place] - LCSPon 11-08-[address] evidence for developing pulmonary [...] in 12 months. PRL/trn Workstation ID: [id number] [facility] EXAMINATION: CT CHES T LOW DOSE LUNG [...] upper abdomen shows normal sized adrenal glands. [facility], Rad In Fu ji Speechq - 11/08/2019 [...] in 12 months. PRL/trn Workstation ID: [id number] [facility] CT CHEST LOW DOSE LUNG SCREENING - [...] TueNov 08, 2019 5:07:46 PM EDT Normal [facility] Comment on above: Order Comment: fax Injury/Trauma or Illness?:Illness/Other How long have you had these symptoms (acute/chronic)?:Unknown Reason for exam?:current smoker, annual screening Type of Exam?:Subsequent/Follow-up Additional signs and symptoms?:no CBC AND DIFFERENTIALon 08-22 Basophils (Bld) [#/Vol] 0.00 10*3/uL Normal 0.00 - 0.1 0 [facility] Comment on above: Performed By: #### C BCDF #### [address] [place] [address] Basophils/100 WBC (Bld) 0.5 % Normal 0.0 - 2.0 [facility] Comment on above: Performed By: #### C BCDF #### [address] [address] Eosinophils (Bld) [#/Vol] 0.10 10*3/uL Normal 0.00 - 0.70 [facility] Comment on above: Performed By: #### C BCDF #### [address] [address] Eosinophils/100 WBC (Bld) 1.4 % Normal 0.0 - 6.0 [facility] Comment on above: Performed By: #### C BCDF #### [address] [address] Erythrocyte distribution width (RBC) [Ratio] 13.9 % Normal 11.5 - 14.5 [facility] Comment on above: Performed By: #### C BCDF #### [address] [address] Hematocrit (Bld) [Volume fraction] 42.3 % Normal 41.0 - 52.0 [facility] Comment on above: Performed By: #### C BCDF #### [address] [address] Hemoglobin (Bld) [Mass/Vol] 13.7 g/dL Normal 13.5 - 17.5 [facility] Comment on above: Performed By: #### C BCDF #### [address] [address] Lymphocytes (Bld) [#/Vol] 2.20 10*3/uL Normal 1.20 - 4.80 [facility] Comment on above: Performed By: #### C BCDF #### [address] [address] Lymphocytes/100 WBC (Bld) 36.0 % Normal 13.0 - 44.0 [facility] Comment on above: Performed By: #### C BCDF #### [address] [address] MCHC (RBC) [Mass/Vol] 32.5 g/dL Normal 32.0 - 36.0 [facility] Comment on above: Performed By: #### C BCDF #### [address] [address] MCV (RBC) [Entitic vol] 89 fL Normal 80 - 100 [facility] Comment on above: Performed By: #### C BCDF #### [address] [address] Monocytes (Bld) [#/Vol] 0.80 10*3/uL Normal 0.10 - 1.0 0 [facility] Comment on above: Performed By: #### C BCDF #### [address] [address] Monocytes/100 WBC (Bld) 12.3 % Normal 2.0 - 10.0 [facility] Comment on above: Performed By: #### C BCDF #### [address] [address] Neutrophils (Bld) [#/Vol] 3.10 10*3/uL Normal 1.20 - 7.70 [facility] Comment on above: Result Comment: Perc ent differential counts (%) should be interpreted in the context of the absolute cell counts (cells/L). Performed By: #### C BCDF #### [address] [address] Neutrophils/100 WBC (Bld) 49.8 % Normal 40.0 - 80.0 [facility] Comment on above: Performed By: #### C BCDF #### [address] [address] Nucleated RBC/100 WBC (Bld) [Ratio] 0.1 /100 WBC Normal [facility] Comment on above: Performed By: #### C BCDF #### [address] [address] Platelets (Bld) [#/Vol] 212 10*3/uL Normal 150 - 450 [facility] Comment on above: Performed By: #### C BCDF #### [address] [address] RBC (Bld) [#/Vol] 4.76 x10E12/L Normal 4.50 - 5.90 [facility] Comment on above: Performed By: #### C BCDF #### [address] [address] WBC (Bld) [#/Vol] 6.2 10*3/uL Normal 4.4 - 11.3 [facility] Comment on above: Performed By: #### C BCDF #### [address] [address] COMPREHENSIVE PANELon 2019 Albumin [Mass/Vol] 3.8 g/dL Normal 3.4 - 5.0 [facility] Comment on above: Performed By: #### C MP #### [address] [address] ALP [Catalytic activity/Vol] 53 U/L Normal 33 - 136 [facility] Comment on above: Performed By: #### C MP #### [address] [address] ALT [Catalytic activity/Vol] 15 U/L Normal 10 - 52 [facility] Comment on above: Result Comment: Grisel ents treated with Sulfasalazine may generate falsely decreased results for ALT. Performed By: #### C MP #### [address] [address] Anion gap [Moles/Vol] 10 mmol/L Normal 10 - 20 [facility] Comment on above: Performed By: #### C MP #### [address] [address] AST [Catalytic activity/Vol] 20 U/L Normal 9 - 39 [facility] Comment on above: Performed By: #### C MP #### [address] [address] Bilirubin [Mass/Vol] 0.8 mg/dL Normal 0.0 - 1.2 [facility] Comment on above: Performed By: #### C MP #### [address] [address] Calcium [Mass/Vol] 8.9 mg/dL Normal 8.6 - 10.3 [facility] Comment on above: Performed By: #### C MP #### [address] [address] Chloride [Moles/Vol] 106 mmol/L Normal 98 - 107 [facility] Comment on above: Performed By: #### C MP #### [address] [address] Creatinine [Mass/Vol] 0.83 mg/dL Normal 0.50 - 1.30 [facility] Comment on above: Performed By: #### C MP #### [address] [address] GFR- AM. >60 Normal >60 [facility] Comment on above: Result Comment: CALC ULATIONS OF ESTIMATED GFR ARE PERFORMED USING THE MDRD STUDY EQUATION FOR THE IDMS-TRACEABLE CREATININE METHODS. CLIN CHEM 2007;53:766-72 Performed By: #### C MP #### [address] [address] GFR-NON AM. >60 Normal >60 [facility] Comment on above: Performed By: #### C MP #### [address] [address] Glucose [Mass/Vol] 91 mg/dL Normal 74 - 99 [facility] Comment on above: Performed By: #### C MP #### [address] [address] HCO3 (Bld) [Moles/Vol] 28 mmol/L Normal 21 - 32 [facility] Comment on above: Performed By: #### C MP #### [address] [address] Potassium [Moles/Vol] 4.0 mmol/L Normal 3.5 - 5.3 [facility] Comment on above: Performed By: #### C MP #### [address] [address] Protein [Mass/Vol] 6.5 g/dL Normal 6.4 - 8.2 [facility] Comment on above: Performed By: #### C MP #### [address] [place] [address] Sodium [Moles/Vol] 140 mmol/L Normal 136 - 145 [facility] Comment on above: Performed By: #### C MP #### [address] [address] Urea nitrogen [Mass/Vol] 18 mg/dL Normal 6 - 23 [facility] Comment on above: Performed By: #### C MP #### [id number] Complete Blood Count + Diffe linoon 08-23-2019 Basophils (Bld) [#/Vol] 0.00 {x10E9/L} See Rakel pina [facility] Work Phone: [phone] Comment on above: Reference Range: 0.0 0 - 0.10 Basophils/100 WBC (Bld) 0.5 % 0.0 - 2.0 [facility] Work Phone: [phone] Eosinophils (Bld) [#/Vol] 0.10 {x10E9/L} See Below [facility] Work Phone: [phone] Comment on above: Reference Range: 0.0 0 - 0.70 Eosinophils/100 WBC (Bld) 1.4 % 0.0 - 6.0 [facility] Work Phone: Erythrocyte distribution width (RBC) [Ratio] 13.9 % See Below [facility] Work Phone: [phone] Comment on above: Reference Range: 11. 5 - 14.5 Hematocrit (Bld) [Volume fraction] 42.3 % See Below [facility] Work Phone: [phone] Comment on above: Reference Range: 41. 0 - 52.0 Hemoglobin (Bld) [Mass/Vol] 13.7 g/dL See Below [facility] Work Phone: Comment on above: Reference Range: 13. 5 - 17.5 Lymphocytes (Bld) [#/Vol] 2.20 {x10E9/L} See Below [facility] Work Phone: [phone] Comment on above: Reference Range: 1.2 0 - 4.80 Lymphocytes/100 WBC (Bld) 36.0 % See Below [facility] Work Phone: [phone] Comment on above: Reference Range: 13. 0 - 44.0 MCHC (RBC) [Mass/Vol] 32.5 g/dL See Below [facility] Work Phone: [phone] Comment on above: Reference Range: 32. 0 - 36.0 MCV (RBC) [Entitic vol] 89 fL 80 - 100 [facility] Work Phone: [phone] Monocytes (Bld) [#/Vol] 0.80 {x10E9/L} See Belo w [facility] Work Phone: [phone] Comment on above: Reference Range: 0.1 0 - 1.00 Monocytes/100 WBC (Bld) 12.3 % 2.0 - 10.0 [facility] Work Phone: [phone] Neutrophils (Bld) [#/Vol] 3.10 {x10E9/L} See Below [facility] Work Phone: [phone] Comment on above: Reference Range: 1.2 0 - 7.70 Percent differential counts (%) should be interpreted in the context of the absolute cell counts (cells/L). Neutrophils/100 WBC (Bld) 49.8 % See Below [facility] Work Phone: [phone] Comment on above: Reference Range: 40. 0 - 80.0 Platelets (Bld) [#/Vol] 212 {x10E9/L} 150 - 450 [facility] Work Phone: [phone] RBC (Bld) [#/Vol] 4.76 {x10E12/L} See Below [facility] Work Phone: [phone] Comment on above: Reference Range: 4.5 0 - 5.90 WBC (Bld) [#/Vol] 6.2 {x10E9/L} 4.4 - 11.3 [facility] Work Phone: WBC (Bld) [#/Vol] 0.1 {/100_WBC} - [facility] Work Phone: LIPID PANEL (CORONARY RISK 2 )on 08-23-2019 Cholesterol [Mass/Vol] 122 mg/dL Normal 0 - 199 [facility] Comment on above: Result Comment: . [...] dosing. Performed By: #### L IPID #### [address] [address] Cholesterol in HDL [Mass/Vol] 46.0 mg/dL Normal [facility] Comment on above: Result Comment: . AGE VERY LOW LOW NORMAL HIGH 0-19 Y < 35 < 40 40-45 ---- 20-24 Y ---- < 40 >45 ---- >24 Y ---- < 40 40-60 >60 . Performed By: #### L IPID #### [address] [address] Cholesterol in LDL [Mass/Vol] 65 mg/dL Normal 0 - 99 [facility] Comment on above: Result Comment: . NEAR BORD AGE DESIRABLE OPTIMAL HIGH HIGH VERY HIGH 0-19 Y 0 - 109 --- 110-129 >/= 130 ---- 20-24 Y 0 - 119 --- 120-159 >/= 160 ---- >24 Y 0 - 99 100-129 130-159 160-189 >/=190 . Performed By: #### L IPID #### [address] [address] Cholesterol in VLDL [Mass/Vol] 11 mg/dL Normal 0 - 40 [facility] Comment on above: Performed By: #### L IPID #### [address] [address] Cholesterol.total/Cece sterol in HDL [Mass ratio] 2.7 {ratio} Normal [facility] Comment on above: Result Comment: REF VALUES DESIRABLE < 3.4 HIGH RISK > 5.0 Performed By: #### L IPID #### [address] [address] Triglyceride [Mass/Vol] 56 mg/dL Normal 0 - 149 [facility] Comment on above: Result Comment: . [...] dosing. Performed By: #### L IPID #### [address] [address] Lipid Panelon 08-23-2019 Cholesterol [Mass/Vol] 122 mg/dL 0 - 199 [facility] Work Phone: Comment on above: . AGE [...] dosing. Cholesterol in HDL [Mass/Vol] 46.0 mg/dL [facility] Work Phone: Comment on above: . AGE VERY LOW LOW N ORMAL HIGH 0-19 Y < 35 < 40 40-45 ---- 20-24 Y ---- < 40 >45 ---- >24 Y ---- < 40 40-60 >60. Cholesterol in LDL [Mass/Vol] 65 mg/dL 0 - 99 [facility] Work Phone: Comment on above: . NEAR BORD AGE JAMI RABLE OPTIMAL HIGH HIGH VERY HIGH 0-19 Y 0 - 109 --- 110-129 >/= 130 ---- 20-24 Y 0 - 119 --- 120-159 >/= 160 ---- >24 Y 0 - 99 100-129 130-159 160-189 >/=190. Cholesterol.total/Cece sterol in HDL [Mass ratio] 2.7 {ratio} [facility] [employer] Phone: Comment on above: REF VALUESDESIRABLE < 3.4HIGH RISK > 5.0 Triglyceride [Mass/Vol] 56 mg/dL 0 - 149 [facility] Work Phone: Comment on above: . AGE [...] Lipid Panel 11 mg/dL 0 - 40 [facility] Work Phone: Metabolic Panelon 08-23-2019 ALP [Catalytic activity/Vol] 53 U/L 33 - 136 [facility] Work Phone: Anion gap [Moles/Vol] 10 mmol/L 10 - 20 [facility] Work Phone: Bilirubin [Mass/Vol] 0.8 mg/dL 0.0 - 1.2 [facility] Work Phone: Calcium [Mass/Vol] 8.9 mg/dL 8.6 - 10.3 [facility] Work Phone: Chloride [Moles/Vol] 106 mmol/L 98 - 107 [facility] Work Phone: CO2 [Moles/Vol] 28 mmol/L 21 - 32 [facility] Work Phone: Creatinine [Mass/Vol] 0.83 mg/dL See Below [facility] Work Phone: Comment on above: Reference Range: 0.5 0 - 1.30 Glucose [Mass/Vol] 91 mg/dL 74 - 99 [facility] Work Phone: Potassium [Moles/Vol] 4.0 mmol/L 3.5 - 5.3 [facility] Work Phone: Protein [Mass/Vol] 6.5 g/dL 6.4 - 8.2 [facility] Work Phone: Sodium [Moles/Vol] 140 mmol/L 136 - 145 [facility] Work Phone: Urea nitrogen [Mass/Vol] 18 mg/dL 6 - 23 [facility] Work Phone: Otheron 08-23-2019 Albumin BCP dye [Mass/Vol] 3.8 g/dL 3.4 - 5.0 [facility] Work Phone: ALT With P-5'-P [Catalytic activity/Vol] 15 U/L 10 - 52 [facility] Work Phone: Comment on above: Patients treated wit h Sulfasalazine may generate falsely decreased results for ALT. AST With P-5'-P [Catalytic activity/Vol] 20 U/L 9 - 39 [facility] Work Phone: >60 >60 [facility] Work Phone: Comment on above: CALCULATIONS OF THOM MATED GFR ARE PERFORMED USING THE MDRD STUDY EQUATION FOR THE IDMS-TRACEABLE CREATININE METHODS. CLIN CHEM 2007;53:766-72 PROSTATE SPEC.AG,SCREENon PROSTATE SPEC.AG,SCREEN 1.19 ng/mL Normal 0.00 - 4.00 [facility] Comment on above: Result Comment: The FDA requires that the method used for PSA assay be reported to the physician. Values obtained with different assay methods must not be used interchangeably. This test was performed at [facility] using the Access Hybritech PSA assay is a two-site immunoenzymatic sandwich assay. The assay is approved for measurement of prostate-specific antigen (PSA)in serum and may be used in conjunction with a digital rectal examination in men 50 years and older as an aid in detection of prostate cancer. 9-Iboeh-qlydrivxg inhibitors (e.g. Proscar, Finasteride, Avodart, Dutasteride and Brenda) for the treatment of BPH have been shown to lower PSA levels by an average of 50% after 6 months of treatment. Performed By: #### P [facility] #### [place] [address] Prostate Spec.Ag, Screenon 0 08-23-2019 Prostate specific Ag [Mass/Vol] 1.19 ng/mL See Below [facility] Work Phone: Comment on above: Reference Range: 0.0 0 - 4.00The FDA requires that the method used for PSA assay be reported to the physician. Values obtained with different assay methods must not be used interchangeably. This testwas performed at [facility] using the Access Hybritech PSA assay is a two-site immunoenzymatic sandwich assay. The assay is approved for measurement of prostate-specific antigen (PSA)in serum and may be used in conjunction with a digital rectal examination in men 50 years and older as an aid in detection of prostate cancer.1-Jdboo-mjstffaqk inhibitors (e.g. Proscar, Finasteride, Avodart, Dutasteride and Brenda) for the treatment of BPH have been shown to lower PSA levels by an average of 50% after 6 months of treatment. TSH WITH REFLEX TO FREE T4 I F ABNORMALon 08-23-2019 TSH Qn 1.78 m[IU]/L Normal 0.44 - 3.98 [facility] Comment on above: Result Comment: Note new pediatric reference range as of 08/09/2019. TSH testing is performed using different testing methodology at [facility] than at other [facility]. Direct result comparisons should only be made within the same method. Performed By: #### T HYDS #### [facility] [address] [place] [address] Thyroidon 08-23-2019 TSH Qn 1.78 {mIU/L} See Below -[facility] Work Phone: Comment on above: Reference Range: 0.4 4 - 3.98 Note new pediatric reference range as of 08/09/2019. TSH testing is performed using different testing methodology at [facility] than at other [facility]. Direct result comparisons should only be made [...] constipation diarrhea. Patient has not taken anything ybqo-gwt-xqjgurb at this time. Patient states he has [...] SIGNS: T PRBP SpO2O2(LPM) %FiO2 Method 15-Aug-2019 10:08:[id number]/60 97 CLINICAL IMPRESSION Diagnosis/Annotation: ED Dx Name:Exposure [...] ill patient: no Electronic Signatures: Lis Camarena (BRAND MARKETING MANAGER-POWDERED SUGAR PULVERIZER OPERATOR) (Signed 15-Aug-2019 11:23) Authored: Provider Note - ED v2 Last Updated: 15-Aug-2019 11:23 by Lis Camarena (BRAND MARKETING MANAGER-POWDERED SUGAR PULVERIZER OPERATOR) [facility] Note - ED v2on 06-06 Provider Note [...] SIGNS: T PRBP SpO2O2(LPM) %FiO2 Method 16-Jun-2019 09:48:[id number] MEDICAL DECISION MAKING/ED COURSE MDM/ED COURSE: tx [...] Updated: 16-Jun-2019 10:35 by Yanick Ramirez (PAC) [facility] Cardiac Blood Pool Gated Singleon 10-04-2018 [facility] Cardiac Blood Pool Gated Single Exam Date/Time: 10/04/2018 11:53 EDT Reason for Exam: CARDIMYOPATHY;Cardiomyop athy Report STUDY: [facility] Cardiac Blood Pool Gated Single; 10/04/2018 11:53 am INDICATION: Cardiomyopathy. COMPARISON: MUGA scan 02/02/2016, ACCESSION NUMBER(S): [id number] ORDERING CLINICIAN: Josiah Bunn TECHNIQUE: DIVISION OF [...] as stated. This study was interpreted at [place], [place]. FINAL REPORT Dictated: 10/04/2018 12:52 pm Cole Evans MD Signed (Electronic Signature): 10/04/2018 12:52 pm Signed by: Cole Evans MD Technologist: TENZIN Normal [facility] PSA Totalon 08-23-2018 PSA Total 1.08 ng/mL [facility] Comment on above: Result Comment: AGE- SPECIFIC REFERENCE RANGES FOR SERUM PSA REFERENCE RANGE NG/ML AGE ASIANS BLACKS WHITE 40-49 0-2 0-2 0-2.5 50-59 0-3 0-4 0-3.5 60-69 0-4 0-4.5 0-4.5 70-79 0-5 0-5.5 0-6.5 PSA INCREASES WITH AGE, RACE, AND EJACULATION WITHIN 48 HRS. [facility] NEHA VOL24,NO.2, , PG.339 Performed By: #### 1 [id number] #### [employer] [address] [place] [address] CT CHEST LOW DOSE LUNG CA GRAY [place] 03-16-2018 CT CHEST LOW DOSE LUNG CA SCREEN Final ReportAccession No: [id number] Performed: Mar 16 2018 11:43AMExamination: CT CHEST LOW DOSE LUNG CA SCREENEXAM: CT CHEST LOW DOSE LUNG CA SCREENCLINICAL STATEMENT: Nicotine dependence, smoker, screening exam.COMPARISON: None.TECHNIQUE: Unenhanced helical acquisition [facility] utilizing a low-dose screening protocol.Dose reduction techniques [...] DOUG BREWSTER M.D.Trans: abond : cc: Normal [facility] Hep C Abon 03-10-2018 Hep C Ab <0.1 Normal 0.0-0.9 [facility] Comment on above: Result Comment: Nega tive: < 0.8 Indeterminate: 0.8 - 0.9 Positive: > 0.9 The CDC recommends that a positive HCV antibody result be followed up with a HCV Nucleic Acid Amplification test (785699). Performed At: [facility] [address] [id number] Bouchra Cisneros PhD Ph:[phone] Performed By: #### 2 [id number] #### DAVY [employer] [address] [place] [address] Lipid Profileon 03-09-2018 Cholesterol [Mass/Vol] 133 mg/dL Normal 120-200 [facility] Comment on above: Result Comment: TOTA L CHOLEESTEROL: <200 NORMAL 200 - 239 BORDERLINE HIGH >240 HIGH Performed By: #### 3 [id number] #### [employer] [facility] [place] [address] Cholesterol in HDL [Mass/Vol] 53 mg/dL Normal [facility] Comment on above: Performed By: #### 3 [id number] #### [employer] [address] [place] [address] Cholesterol in LDL [Mass/Vol] 70 mg/dL Normal 0-130 [facility] Comment on above: Result Comment: <100 OPTIMAL 100-129 NEAR / ABOVE OPTIMAL 130-159 BORDERLINE HIGH 160-189 HIGH >190 VERY HIGH CALC LDL NOT VALID WHEN TRIGLYCERIDE IS >400 MG/DL Performed By: #### 3 [id number] #### [employer] [address] [place] [address] Cholesterol in VLDL [Mass/Vol] 10 mg/dL Normal [facility] Comment on above: Performed By: #### 3 [id number] #### [employer] [address] [place] [address] Triglyceride [Mass/Vol] 49 mg/dL Normal 0-150 [facility] Comment on above: Result Comment: <150 NORMAL 150-199 BORDERLINE HIGH 200-499 HIGH >500 VERY HIGH Performed By: #### 3 [id number] #### DAVY [employer] [address] [place] [address] XR Spine Cervical 4 or 5 Vie on 03-09-2018 XR Spine Cervical 4 or 5 Views Exam Date/Time: 03/09/2018 12:05 EDT Reason for Exam: Neck Pain Report STUDY: XR Spine Cervical 4 or 5 Views; 03/09/2018 12:05 pm INDICATION: Neck Pain. COMPARISON: None. ACCESSION NUMBER(S): [id number] ORDERING CLINICIAN: Maris Dugan TECHNIQUE: Five views [...] (Electronic Signature): 03/09/2018 12:24 pm Signed by: Sarabjit LONGORIA, Fernando Garzon Technologist: [facility] Normal [facility] Basic Metabolic Panel $$$on 11-23-2017 Anion gap 10.1 mmol/L Normal 10-20 [facility] Comment on above: Performed By: #### C BC, PTINR, BMP ####[facility] [place] [address] BUN (urea nitrogen) 15 mg/dL Normal 6-23 [facility] Comment on above: Result Comment: Plea se note new reference range as of October. Performed By: #### C MÓNICA, PTINR, BMP ####[address] [address] Calcium 9.1 mg/dL Normal 8.6-10.3 [facility] Comment on above: Result Comment: Plea se note new reference range as of October. Performed By: #### C MÓNICA, PTINR, BMP ####[facility] [place] [address] Chloride 108 mmol/L High 98-107 [facility] Comment on above: Performed By: #### C MÓNICA, PTINR, BMP ####[facility] [place] [address] CO2 26 mmol/L Normal 21-32 [facility] Comment on above: Performed By: #### C MÓNICA, PTINR, BMP ####[facility] [place] [address] Creatinine 1.20 mg/dL Normal 0.50-1.30 [facility] Comment on above: Result Comment: Plea se note new reference range as of October. Performed By: #### C BC, PTINR, BMP ####[facility] [place] [address] GFR () >60 Normal [facility] Comment on above: Performed By: #### C MÓNICA, PTINR, BMP ####[facility] [place] [address] GFR (Non ) >60 Normal [facility] Comment on above: Result Comment: eGFR Units of measure: mL/min/1.73 m 2 Performed By: #### C BC, PTINR, BMP ####[facility] [place] [address] Glucose mass conc 92 mg/dL Normal 74-99 [facility] Comment on above: Performed By: #### C BC, PTINR, BMP ####[facility] [place] [address] Potassium molar conc 4.1 mmol/L Normal 3.5-5.3 [facility] Comment on above: Performed By: #### C BC, PTINR, BMP ####[facility] [place] [address] Sodium 140 mmol/L Normal 136-145 [facility] Comment on above: Performed By: #### C MÓNICA, PTINR, BMP ####[facility] [place] [address] Cardiac Catheterizationon Cardiac Catheterization [facility] Patient: GERRY TRAVIS [address] [facility] MR#: [id number] [place], [place] [address] : 1960 OrdIsh Marie: Dept: PDOC Loc: CATH Cardiac Catheterization Service Dt: 11/23/17 Report#: [id number] Adm Dt: 11/23/17 Dis Dt: Cardiac Catheterization [...] 4 Carolyn left 3.5 Carolyn pigtail 5 Bangladeshi system The slender 6 Bangladeshi sheath was inserted in the right radial [...] ventricular systolic dysfunction EF of 30% Normal [facility] Complete Blood Count w/diff $$on 11-23-2017 Basophils Auto #/vol (Bld) 0.0 10 /uL Low 0.04-0.9 [facility] Comment on above: Performed By: #### C MÓNICA PTHANNAHR, BMP ####[facility] [place] [address] Basophils/100 WBC Auto (Bld) 0 % Normal 0-1 [facility] Comment on above: Performed By: #### C MÓNICA PTHANNAHR, BMP ####[facility] [place] [address] Eosinophils 0.1 10 3/uL Normal 0.03-0.6 [facility] Comment on above: Performed By: #### C MÓNICA PTHANNAHR, BMP ####[facility] [place] [address] Eosinophils/100 leukocytes 2 % Normal 0-3 [facility] Comment on above: Performed By: #### C MÓNICA PTINR, BMP ####[facility] [place] [address] Erythrocyte distribution width Auto Ratio (RBC) 12.7 % Normal 11.5-14.5 [facility] Comment on above: Performed By: #### C MÓNICA PTINR, BMP ####[address] [address] Erythrocytes (RBC) 4.98 10 6/uL Normal 4.5-6.0 [facility] Comment on above: Performed By: #### C MÓNICA PTINR, BMP ####[address] [address] Hematocrit (HCT) 45.4 % Normal 39-50 [facility] Comment on above: Performed By: #### C MÓNICA PTINR, BMP ####[address] [address] Hemoglobin mass conc (Bld) 14.6 g/dL Normal 13.0-17.3 [facility] Comment on above: Performed By: #### C MÓNICA PTINR, BMP ####[address] [address] Immature Gran# (Auto) 0.0 10 3/uL Normal [facility] Comment on above: Performed By: #### C MÓNICA PTINR, BMP ####[address] [address] Immature granulocytes #/vol (Bld) 0.3 % Normal 0.0-1.2 [facility] Comment on above: Performed By: #### C MÓNICA PTINR, BMP ####[address] [address] Lymphocytes 2.3 10 3/uL Normal 1-3.5 [facility] Comment on above: Performed By: #### C BC, PTINR, BMP ####[facility] [place] [address] Lymphocytes/100 leukocytes 33 % Normal 24-44 [facility] Comment on above: Performed By: #### C MÓNICA, PTINR, BMP ####[facility] [place] [address] MCH 29.3 pg Normal 27-34 [facility] Comment on above: Performed By: #### C MÓNICA, PTINR, BMP ####[facility] [place] [address] MCH 32.2 g/dL Low 33-37 [facility] Comment on above: Performed By: #### C MÓNICA, PTINR, BMP ####[facility] [place] [address] MCV 91.2 fL Normal 80-100 [facility] Comment on above: Performed By: #### C MÓNICA, PTINR, BMP ####[facility] [place] [address] Monocytes 0.9 10 3/uL Normal 0.04-0.9 [facility] Comment on above: Performed By: #### C MÓNICA, PTINR, BMP ####[facility] [place] [address], [place] [address] Monocytes/100 leukocytes 14 % High 1-8 [facility] Comment on above: Performed By: #### C MÓNICA, PTINR, BMP ####[facility] [place] [address] Neutrophils 3.4 10 3/uL Normal 1.8-7.0 [facility] Comment on above: Performed By: #### C MÓNICA, PTINR, BMP ####[facility] [place] [address] Neutrophils/100 leukocytes 51 % Normal 42-76 [facility] Comment on above: Performed By: #### C MÓNICA, PTINR, BMP ####[facility] [place] [address] Nucleated erythrocytes 0.0 % Normal 0.0-0.2 [facility] Comment on above: Performed By: #### C MÓNICA, PTINR, BMP ####[facility] [place] [address] Platelet mean volume (PMV) 10.2 fL Normal 7.4-10.4 [facility] Comment on above: Performed By: #### C MÓNICA, PTINR, BMP ####[address] [address] Platelets 209 10 3/uL Normal 150-400 [facility] Comment on above: Performed By: #### C MÓNICA, PTINR, BMP ####[address] [address] WBC (Leukocytes) 6.8 10 3/uL Normal 4.0-11.0 [facility] Comment on above: Performed By: #### C MÓNICA, PTINR, BMP ####[address] [address] Protime INRon 11-23-2017 INR Coag RelTime (PPP) 1.0 {INR} Normal 0.9-1.1 [facility] Comment on above: Result Comment: Plenatividad carrasco note new reference range OF 07/05/2017 Performed By: #### C MÓNICA, PTINR, BMP ####[facility] [place] [address] Protein 11.4 sec Normal 9.8-12.7 [facility] Comment on above: Result Comment: Rubina carrasco note new reference range OF 07/05/2017 Performed By: #### C MÓNICA, PTINR, BMP ####[facility] [place] [address] Vital Signs Date Time Vital Sign Value Performing Clinician Facility 09-16-2025 12:42-0400 Body height 180.[address] Dianne Chris MD Work Phone: [facility] 02-19-2025 12:42-0400 Body weight 74.[address] Dianne Chris MD Work Phone: [facility] 02-19-2025 12:42-0400 Heart rate 50 /min Dr. Dianne Chris MD Work Phone: [facility] 02-19-2025 12:42-0400 SaO2% (BldA) [Mass fraction] 97 % Dr. Dianne Chris MD Work Phone: [facility] 11-28-2024 14:39-0400 Body height 180.[address] Dianne Chris MD Work Phone: [facility] 11-28-2024 14:39-0400 Body mass index (BMI) [Ratio] 22.7 kg/m2 Dr. Dianne Chris MD Work Phone: [facility] 11-28-2024 14:39-0400 Body temperature 98.6 [degF] Dr. Dianne Chris MD Work Phone: [facility] 11-28-2024 14:39-0400 Body weight 74.[address] Dianne Chris MD Work Phone: [facility] 11-28-2024 14:39-0400 Diastolic blood pressure 57 mm[Hg] Dr. Dianne Chris MD Work Phone: [facility] 11-28-2024 14:39-0400 Heart rate 57 /min Dr. Dianne Chris MD Work Phone: [facility] 11-28-2024 14:39-0400 Respiratory rate 16 /min Dr. Dianne Chris MD Work Phone: [facility] 11-28-2024 14:39-0400 SaO2% (BldA) [Mass fraction] 95 % Dr. Dianne Chris MD Work Phone: [facility] 11-28-2024 14:39-0400 Systolic blood pressure 100 mm[Hg] Dr. Dianne Chris MD Work Phone: [facility] 04-19-2023 17:50-0500 Body temperature 98.8 [degF] [facility] BRAND MARKETING MANAGER.POWDERED SUGAR PULVERIZER OPERATOR Work Phone: [facility] 04-19-2023 17:50-0500 Body weight 83.01 kg [facility] BRAND MARKETING MANAGER.POWDERED SUGAR PULVERIZER OPERATOR Work Phone: [facility] 04-19-2023 17:50-0500 Diastolic blood pressure 63 mm[Hg] [facility] BRAND MARKETING MANAGER.POWDERED SUGAR PULVERIZER OPERATOR Work Phone: [facility] 04-19-2023 17:50-0500 Heart rate 61 /min [facility] BRAND MARKETING MANAGER.POWDERED SUGAR PULVERIZER OPERATOR Work Phone: [facility] 04-19-2023 17:50-0500 Respiratory rate 18 /min [facility] BRAND MARKETING MANAGER.POWDERED SUGAR PULVERIZER OPERATOR Work Phone: [facility] 04-19-2023 17:50-0500 SaO2% (BldA) [Mass fraction] 99 % [facility] BRAND MARKETING MANAGER.POWDERED SUGAR PULVERIZER OPERATOR Work Phone: [facility] 04-19-2023 17:50-0500 Systolic blood pressure 122 mm[Hg] [facility] BRAND MARKETING MANAGER.POWDERED SUGAR PULVERIZER OPERATOR Work Phone: [facility] 10-13-2022 07:39-0400 Body height 182.[address] Ana Maria Pepper Work Phone: [facility] 10-13-2022 07:39-0400 Body mass index (BMI) [Ratio] 24.5 kg/m2 Dr. Ana Maria Pepper Work Phone: [facility] 10-13-2022 07:39-0400 Body temperature 98.4 [degF] Dr. Ana Maria Pepper Work Phone: [facility] 10-13-2022 07:39-0400 Body weight 82.[address] Ana Maria Pepper Work Phone: [facility] 10-13-2022 07:39-0400 Diastolic blood pressure 56 mm[Hg] Dr. Ana Maria Pepper Work Phone: [facility] 10-13-2022 07:39-0400 Heart rate 52 /min Dr. Ana Maria Pepper Work Phone: [facility] 10-13-2022 07:39-0400 Respiratory rate 18 /min Dr. Ana Maria Pepper Work Phone: 6(825)022-559076 [address] 10-13-2022 07:39-0400 SaO2% (BldA) [Mass fraction] 96 % Dr. Ana Maria Pepper Work Phone: [facility] 10-13-2022 07:39-0400 Systolic blood pressure 108 mm[Hg] Dr. Ana Maria Pepper Work Phone: 4(077)[phone] [place] [address] 08-04-2022 15:29-0500 Body temperature 97.8 [degF] Dr. Ana Maria Pepper Work Phone: 1(428)[phone] [place] [address] 08-04-2022 15:29-0500 Diastolic blood pressure 68 mm[Hg] Dr. Ana Maria Pepper Work Phone: 2(025)[phone] [place] [address] 08-04-2022 15:29-0500 Heart rate 55 /min Dr. Ana Maria Pepper Work Phone: [facility] 08-04-2022 15:29-0500 Respiratory rate 18 /min Dr. Ana Maria Pepper Work Phone: [facility] 08-04-2022 15:29-0500 SaO2% (BldA) [Mass fraction] 98 % Dr. Ana Maria Pepper Work Phone: [facility] 08-04-2022 15:29-0500 Systolic blood pressure 114 mm[Hg] Dr. Ana Maria Pepper Work Phone: 2(141)[phone] [place] [address] 08-04-2022 12:00-0500 Inhaled oxygen flow rate 6 L/min Dr. Ana Maria Pepper Work Phone: [facility] 08-04-2022 09:25-0500 Body height 182.[address] Ana Maria Pepper Work Phone: [facility] 08-04-2022 09:25-0500 Body mass index (BMI) [Ratio] 24.7 kg/m2 Dr. Ana Maria Pepper Work Phone: [facility] 08-04-2022 09:25-0500 Body weight [address] Ana Maria Pepper Work Phone: [facility] 07-08-2022 13:44-0500 Body mass index (BMI) [Ratio] 23.9 kg/m2 Dr. Ana Maria Pepper Work Phone: [facility] 07-08-2022 13:44-0500 Body weight 80.[address] Ana Maria Pepper Work Phone: [facility] 07-08-2022 13:44-0500 Diastolic blood pressure 71 mm[Hg] Dr. Ana Maria Pepper Work Phone: [facility] 07-08-2022 13:44-0500 Respiratory rate 16 /min Dr. Ana Maria Pepper Work Phone: [facility] 07-08-2022 13:44-0500 Systolic blood pressure 119 mm[Hg] Dr. Ana Maria Pepper Work Phone: [facility] 06-18-2022 11:44-0500 Body height 182.9 cm Nathalia Mcnamara MD Work Phone: [facility] 06-18-2022 11:44-0500 Body temperature 98.71 [degF] Nathalia Mcnamara MD Work Phone: [facility] 06-18-2022 11:44-0500 Body weight 79.61 kg Nathalia Mcnamara MD Work Phone: [facility] 06-18-2022 11:44-0500 Diastolic blood pressure 72 mm[Hg] Nathalia Mcnamara MD Work Phone: [facility] 06-18-2022 11:44-0500 Heart rate 102 /min Nathalia Mcnamara MD Work Phone: [facility] 06-18-2022 11:44-0500 SaO2% (BldA) [Mass fraction] 96 % Nathalia Mcnamara MD Work Phone: [facility] 06-18-2022 11:44-0500 Systolic blood pressure 108 mm[Hg] Nathalia Mcnamara MD Work Phone: [facility] 06-17-2022 10:42-0500 Body weight 79.38 kg Ellieelder Fabianhof BRAND MARKETING MANAGER.POWDERED SUGAR PULVERIZER OPERATOR Work Phone: [facility] 06-17-2022 10:42-0500 Diastolic blood pressure 60 mm[Hg] Ellie Tannhof BRAND MARKETING MANAGER.POWDERED SUGAR PULVERIZER OPERATOR Work Phone: [facility] 06-17-2022 10:42-0500 Heart rate 73 /min Ellie Fabianhof BRAND MARKETING MANAGER.POWDERED SUGAR PULVERIZER OPERATOR Work Phone: [facility] 06-17-2022 10:42-0500 Respiratory rate 16 /min Ellieelder Fabianhof BRAND MARKETING MANAGER.POWDERED SUGAR PULVERIZER OPERATOR Work Phone: [facility] 06-17-2022 10:42-0500 SaO2% (BldA) [Mass fraction] 99 % Ellie Fabianhof BRAND MARKETING MANAGER.POWDERED SUGAR PULVERIZER OPERATOR Work Phone: [facility] 06-17-2022 10:42-0500 Systolic blood pressure 130 mm[Hg] Ellie Fabianhof BRAND MARKETING MANAGER.POWDERED SUGAR PULVERIZER OPERATOR Work Phone: [facility] 2022 06:51-0500 Body mass index (BMI) [Ratio] 24 kg/m2 Dr. Ana Maria Pepper Work Phone: [facility] 2022 06:51-0500 Body temperature 98.4 [degF] Dr. Ana Maria Pepper Work Phone: [facility] 2022 06:51-0500 Body weight 80.[address] Ana Maria Pepper Work Phone: [facility] 2022 06:51-0500 Diastolic blood pressure 50 mm[Hg] Dr. Ana Maria Pepper Work Phone: [facility] 2022 06:51-0500 Heart rate 55 /min Dr. Ana Maria Pepper Work Phone: [facility] 2022 06:51-0500 Respiratory rate 16 /min Dr. Ana Maria Pepper Work Phone: [facility] 2022 06:51-0500 SaO2% (BldA) [Mass fraction] 97 % Dr. Ana Maria Pepper Work Phone: [facility] 2022 06:51-0500 Systolic blood pressure 100 mm[Hg] Dr. Ana Maria Pepper Work Phone: [facility] 02-24-2022 13:20-0400 Body height 182.[address] Ana Maria Pepper Work Phone: [facility] Work Phone: 02-24-2022 13:20-0400 Body mass index (BMI) [Ratio] 24.3 kg/m2 Dr. Ana Maria Pepper Work Phone: [facility] Work Phone: 02-24-2022 13:20-0400 Body weight 81.[address] Ana Maria Pepper Work Phone: [facility] Work Phone: 02-24-2022 13:20-0400 Diastolic blood pressure 76 mm[Hg] Dr. Ana Maria Pepper Work Phone: [facility] Work Phone: 02-24-2022 13:20-0400 Heart rate 58 /min Dr. An aMaria Pepper Work Phone: [facility] Work Phone: 02-24-2022 13:20-0400 Respiratory rate 18 /min Dr. Ana Maria Pepper Work Phone: [facility] Work Phone: 02-24-2022 13:20-0400 SaO2% (BldA) [Mass fraction] 98 % Dr. Ana Maria Pepper Work Phone: [facility] Work Phone: 02-24-2022 13:20-0400 Systolic blood pressure 128 mm[Hg] Dr. Ana Maria Pepper Work Phone: [facility] Work Phone: 12-30-2021 13:28-0400 Body height 182.9 cm Hung Gonzales MD Work Phone: [facility] 12-30-2021 13:28-0400 Body weight 81.19 kg Hung Gonzales MD Work Phone: [facility] 12-30-2021 13:28-0400 Diastolic blood pressure 62 mm[Hg] Hung Gonzales MD Work Phone: [facility] 12-30-2021 13:28-0400 Heart rate 50 /min Hung Gonzales MD Work Phone: [facility] 12-30-2021 13:28-0400 Respiratory rate 16 /min Hung Gonzales MD Work Phone: [facility] 12-30-2021 13:28-0400 Systolic blood pressure 106 mm[Hg] Hung Gonzales MD Work Phone: [facility] 08-24-2019 13:34-0400 BMI (Body Mass Index) 22.79 kg/m2 Khaled zf-TZIXCO-Akyvl [facility] Work Phone: 08-24-2019 13:34-0400 Body weight 76.2 kg Khaled za-XBVOEQ-Kexpv [facility] Work Phone: 08-24-2019 13:34-0400 BP Diastolic 66 mm[Hg] Khaled qm-JXOYBL-Ceens [facility] Work Phone: Comment on above: Location: RUE; Position: Sitting 08-24-2019 13:34-0400 BP Systolic 118 mm[Hg] Khaled fh-IRXUXZ-Jffvh [facility] Work Phone: Comment on above: Location: RUE; Position: Sitting 08-24-2019 13:34-0400 BSA (Body Surface Area) 1.98 m2 Khaled ko-XWQYZI-Czeoq [facility] Work Phone: 08-24-2019 13:34-0400 Height 182.88 cm Khaled ba-RYKFPY-Ssrjx [facility] Work Phone: 08-24-2019 13:34-0400 Pulse (Heart Rate) 52 /min Khaled zn-ULYUXY-Zpymy [facility] Work Phone: 08-24-2019 13:34-0400 Pulse Oximetry 97 % Khaled gt-YFNPGU-Izecx [facility] Work Phone: 08-24-2019 13:34-0400 Respiratory Rate 16 /min Khaled qn-YPLPNR-Hrnca [facility] Work Phone: 08-21-2019 13:11-0400 BMI (Body Mass Index) 22.57 kg/m2 Khaled wv-YGICYA-Stais [facility] Work Phone: 08-21-2019 13:11-0400 Body weight 75.41 kg Khaled rt-NCWQMZ-Jxoyg [facility] Work Phone: 08-21-2019 13:11-0400 BP Diastolic 80 mm[Hg] Khaled my-UAPDIW-Wrjjk [facility] Work Phone: 08-21-2019 13:11-0400 BP Systolic 112 mm[Hg] Khaled yo-BKVFTO-Azqqk [facility] Work Phone: 08-21-2019 13:11-0400 BSA (Body Surface Area) 1.97 m2 Khaled vi-RONYEP-Igoef -[facility] Work Phone: 08-21-2019 13:11-0400 Height 182.8 cm Josiah soriaue-HHOGFN-Jpxew -[facility] Work Phone: 08-21-2019 13:11-0400 Pulse (Heart Rate) 52 /min Josiah soriawo-MRQRNX-Cbanw -[facility] Work Phone: 04-23-2019 14:45-0500 BMI (Body Mass Index) 23.79 kg/m2 Josiah Saundersik GU-Uelhoevtsv-[address] Work Phone: 04-23-2019 14:45-0500 Body weight 79.55 kg Andrewalelu Saundersik JV-Eaymaovobt-Pz [address] Work Phone: 04-23-2019 14:45-0500 BP Diastolic 68 mm[Hg] Khrachid Saundersik CZ-Jsusxxzrir-[address] Work Phone: 04-23-2019 14:45-0500 BP Systolic 100 mm[Hg] Khaled Nickyik SB-Kkilpvnqvt-Rk [address] Work Phone: 04-23-2019 14:45-0500 BSA (Body Surface Area) 2.01 m2 Josiah Saundersik CU-Eczccvpizz-[address] Work Phone: 04-23-2019 14:45-0500 Height 182.88 cm Josiah Saundersik MI-Tymcdoyyvz-Zj h [address] Work Phone: 04-23-2019 14:45-0500 Pulse (Heart Rate) 49 /min Andrewalelu Saundersik MP-Cardiology -[place] [address] Work Phone: 04-23-2019 14:45-0500 Pulse Oximetry 98 % Andrewaled Nickyik VU-Trswznicqn-Vv [address] Work Phone: Encounters Encounter Date Encounter Type Care Provider Facility Start: 04-03-2025 End: 04-03-2025 ambulatory Diannejuni Sierraner Facility:[facility] Start: 03-18-2025 End: 03-18-2025 ambulatory Dianne Aries Facility:[facility] Start: 02-22-2025 ambulatory Diannejuni Sierraner Facility :[facility] Start: 02-22-2025 Non-patient / Non-visit Dr. Quinn chua DO -[facility] Start: 02-19-2025 End: 02-19-[address] Dianne Chris MD Work Phone: -Pulmonary Services/Neurology Start: 02-19-2025 End: 02-19-2025 Patient encounter procedure Mariella Calvo CEO & BOARD DIRECTOR-C -Pulmonary Services/Neurology Work Phone: Start: 02-19-2025 End: 02-19-2025 ambulatory Mariella Calvo NP Facility:[facility] Start: 12-05-2024 End: 12-05-[address] Dianne Chris MD Work Phone: -Laboratory Start: 12-05-2024 End: 12-05-[address] Dianne Chris MD -Laboratory Work Phone: Start: 12-05-2024 End: 12-05-2024 ambulatory Dianne Chris Facility:[facility] Start: 11-28-2024 End: 11-28-[address] Dianne Chris MD -[facility] Work Phone: Start: 11-28-2024 End: 11-28-[address] Dianne Chris MD Work Phone: [facility] Work Phone: Start: 05-02-2024 ambulatory Dianne Sierraner Facility :[facility] Start: 05-02-2024 End: 05-02-2024 ambulatory [facility] Facility:[facility] Start: 04-19-2023 End: 04-19-2023 ambulatory ANA MARIA Link [facility] Facility:[facility] Start: 04-19-2023 End: 04-19-2023 Subsequent hospital visit by physician Xr [facility] Work Phone: Radiology Comment on above: Injury of left upper arm, initial encounter [S49.92XA] Start: 04-19-2023 End: 04-19-2023 Office outpatient visit 15 minutes Zelalem Haynes APRN.CNP Work Phone: [facility] Comment on above: Injury of left upper arm, initial encounter (Primary Dx) Start: 02-23-[address] Dianne Chris MD Work Phone: [facility] Start: 01-11-2023 End: 01-11-[address] Ana Maria Pepper Work Phone: [facility] Work Phone: Start: 01-11-2023 End: 01-11-[address] Ana Maria Pepper Work Phone: [facility]-Laboratory Work Phone: Start: 10-13-2022 End: 10-13-[address] Ana Maria Pepepr Work Phone: [facility] Work Phone: Start: 08-04-2022 Non-patient / Non-visit Dr. Julien Pepper Work Phone: [facility] Start: 08-04-2022 End: 08-04-2022 Admission to same day surgery center Dr. Ana Maria Pepper Work Phone: [facility] Start: 08-04-2022 End: 08-04-[address] Ana Maria Pepper Work Phone: [facility] Work Phone: Start: 07-08-2022 End: 07-08-[address] Ana Maria Pepper Work Phone: [facility] Start: 06-28-2022 Telephone encounter Nathalia Mcnamara MD Work Phone: General Surgery Comment on above: Patient Question Start: 06-22-2022 End: 06-22-2022 ambulatory NATHALIA MCNAMARA Facility:[facility] Start: 06-22-2022 End: 06-22-2022 Subsequent hospital visit by physician Mikaela [facility] (I-Stat) Work Phone: Cat Scan Comment on above: Unilateral inguinal hernia without obstruction or gangrene, recurrence not specified [K40.90] Start: 06-18-2022 End: 06-18-2022 ambulatory NATHALIA MCNAMARA Facility:[facility] Start: 06-18-2022 End: 06-18-2022 Patient encounter procedure Nathalia Mcnamara MD Work Phone: General Surgery Comment on above: RUQ abdominal mass ( Primary Dx); Unilateral inguinal hernia without obstruction or gangrene, recurrence not specified Start: 06-17-2022 End: 06-17-2022 ambulatory ELLIE LAZARO Facility:[facility] Start: 06-17-2022 End: 06-17-2022 Patient encounter procedure Ellie Lazaro APRN.CNP Work Phone: [facility] Comment on above: Unilateral inguinal hernia without obstruction or gangrene, recurrence not specified (Primary Dx); Dysuria Start: 2022 End: [address] Ana Maria Pepper Work Phone: [facility]-Pulmonary Medicine [facility] Start: 03-08-2022 End: 03-08-[address] Ana Maria Pepper Work Phone: [facility] Work Phone: Start: 03-08-2022 End: 03-08-[address] Ana Maria Pepper Work Phone: [facility]-Pulmonary Services/Neurology Start: 02-24-2022 End: 02-24-[address] Ana Maria Pepper Work Phone: [facility] Start: 01-13-2022 End: 01-13-[address] Ana Maria Pepper Work Phone: [facility]-Cat Scan, [facility] Start: 01-07-2022 Telephone encounter Caleb Gonzales MD Work Phone: [facility] Comment on above: Results Start: 12-30-2021 End: 12-30-2021 Patient encounter procedure Hung Gonzales MD Work Phone: Family [facility] Jose Elias Comment on above: Annual physical exam (Primary Dx); Cardiomyopathy, unspecified type (HCC); Chronic obstructive pulmonary disease, unspecified COPD type (HCC); OSIEL (obstructive sleep apnea); Smoker; Need for pneumococcal vaccination Start: 12-29-2021 End: 12-29-2021 Patient encounter procedure [facility]-Laboratory Start: 05-05-2021 End: 05-05-2021 Subsequent hospital visit by physician Ian [facility] Work Phone: Radiology Comment on above: Acute right-sided lo w back pain without sciatica [M54.50] Start: 08-07-2020 End: 08-07-2020 Orders Only Briana Francis Work Phone: [facility] Start: 11-08-2019 End: 11-09-2019 Patient encounter procedure [facility] Start: 11-08-2019 End: 11-08-2019 Subsequent hospital visit by physician Maris Dugan Work Phone: [facility] Scan Comment on above: Cigarette Smoker; Screening for malignant neoplasm of respiratory organ Start: 09-10-2019 Patient encounter procedure Josiah nv-IGGFEM-Gamwx [facility] Work Phone: Start: 08-31-2019 Patient encounter procedure Andrewmarlenylu qo-MMFVSQ-Zmzkz [facility] Work Phone: Start: 08-24-2019 Patient encounter procedure Josiah xj-SQPAWC-Cjglj [facility] Work Phone: Start: 08-24-2019 Telemedicine consultation with patient Josiah iy-CSIMXJ-Eqssi [facility] Work Phone: Start: 08-21-2019 Patient encounter procedure Josiah soriagt-XVWSKN-Nffvj -[facility] Work Phone: Start: 04-23-2019 Patient encounter procedure Josiah Bunn BJ-Bkixjrkvhd-Deozrqr [address] Work Phone: Start: 10-20-2018 Patient encounter procedure Josiah Bunn DR-Lbbmvqiowk-Lellvtb [address] Work Phone: Start: 10-04-2018 Patient encounter procedure Maris Fernando Kailee Facility:[id number] Start: 08-25-2018 Patient encounter procedure CARLOS FRITZ Facility:[id number] Start: 08-25-2018 Patient encounter procedure Maris Fernando Kailee Facility:[id number] Start: 08-23-2018 Patient encounter procedure Maris Fernando Kailee Facility:[id number] Start: 07-26-2018 Patient encounter procedure Sage Maycol Fangi Facility:[facility] Start: 07-03-2018 Patient encounter procedure Maris Fernando Kailee Facility:[id number] Start: 04-17-2018 Patient encounter procedure Josiah Bunn OQ-Oyizpckamm-Uyitbcj [address] Work Phone: Start: 04-12-2018 Patient encounter procedure Sage Maycol Robertjanethlai Facility:[facility] Start: 04-10-2018 Patient encounter procedure Maris Fernando Kailee Facility:[id number] Start: 03-29-2018 Patient encounter procedure Maris Fernando Kailee Facility:[id number] Start: 03-16-2018 Patient encounter Maris Fernando Kailee Facility:[facility] Start: 03-16-2018 End: 03-16-2018 Patient encounter Maris Fernando Kailee Work Phone: [facility] Start: 03-09-2018 Patient encounter procedure Maris Fernando Kailee Facility:[id number] Start: 03-08-2018 Patient encounter procedure Sage Maycol Carolinelai Facility:[facility] Start: 12-12-2017 Patient encounter procedure Josiah Bunn QD-Puwsejiqgw-Ygxelfl [address] Work Phone: Start: 12-12-2017 Patient encounter procedure Maris Fernando Kailee Facility:[id number] Start: 11-23-2017 End: 11-23-2017 Patient encounter Khrachid Bunn Facility:[facility] Start: 11-23-2017 Patient encounter procedure Maris Dugan Facility:[id number] Start: 11-07-2017 Patient encounter procedure Josiah Bunn UI-Dhjyqgawys-[address] Work Phone: Start: 11-07-2017 Patient encounter procedure Maris Dugan Facility:[id number] Start: 10-14-2017 Patient encounter procedure Josiah Bunn PO-Vtbozjbxmv-Ygbrxaj[address] Work Phone: Procedures Date Procedure Procedure Detail [...] humerus minimu m 2 views Zelalem Haynes APRN.POWDERED SUGAR PULVERIZER OPERATOR Work Phone: Start: 08-04-2022 Laparoscopic, Inguin al [...] Assay of prostate sp ecific antigen total Josiah Curtis Start: 08-23-2019 Complete PFT with Pr e/Post Bronchodialator Josiah Curtis Start: 07-03-2018 End: 07-03-2018 Colonoscopy Josiah Curtis Arthroscopy of knee Josiah adamson Comment on above: Completed: 1973 Colonoscopy Josiah Bunn History of repair of inguinal hernia S/P inguinal hernia repair Dr. Ana Maria Pepper Work Phone: Comment on above: lap LIH with mesh 08/04/22 & primary ventral hernia repair with prolene Plan of Treatment Date Care Activity Detail Author Start: 11-21-2030 Urine microalbumin profile [facility] Start: 07-03-2028 Colonoscopy COLONOSCOPY [facility] Start: 07-03-2028 COLORECTAL CANCER SCREENING COLORECTAL CANCER SCREENING [facility] Start: 07-03-2028 Screening for malign ant neoplasm of colon [facility] Start: 01-06-2027 Lipid 1996 panel - Serum or Plasma Lipid Screening [facility] Start: 01-06-2027 Lipid panel Lipid Screening [facility] Start: 01-06-2027 LIPID SCREEN LIPID SCREEN [facility] Start: 12-31-2025 LIPID SCREEN LIPID SCREEN [facility] Start: 01-06-2025 DIABETES SCREEN [facility] Start: 01-06-2025 Diabetes Screening Diabetes Screenin g [facility] Start: 09-09-2024 PROSTATE CANCER SCREENING DISCUSSION PROSTATE CANCER SCREENING DISCUSSION [facility] Start: 09-09-2024 Prostate specific antigen measurement Prostate Cancer Screening Discussion [facility] Start: 02-05-2024 Covid-19 Vaccine () Covid-19 Vaccine () [facility] Start: 02-05-2024 Influenza vaccination Influenza Vacc ine (#1) [facility] Start: 01-01-2024 DIABETES SCREEN DIABETES SCREEN [facility] Start: 06-17-2023 ANNUAL PCP TEAM PALEONTOLOGY TEACHER CHASTITY DISEASE VISIT ANNUAL PCP TEAM CHRONIC DISEASE VISIT [facility] Start: 02-04-2023 Covid-19 Vaccine ( season) Covid-19 Vaccine ( season) [facility] Start: 02-04-2023 Influenza vaccination Influenza Vacc ine (#1) [facility] Start: 12-30-2022 Adult depression screening assessment DEPRESSION SCREENING [facility] Start: 12-30-2022 ANNUAL PCP TEAM PALEONTOLOGY TEACHER CHASTITY DISEASE VISIT ANNUAL PCP TEAM CHRONIC DISEASE VISIT [facility] Start: 12-30-2022 COVID-19 VACCINE (4 - Booster for Pfizer series) COVID-19 VACCINE (4 - Booster for Pfizer series) [facility] Comment on above: Postponed from 08/26 (Declined at this time) Start: 12-30-2022 SHINGRIX VACCINE (2 of 3) SHINGRIX VACCINE (2 of 3) [facility] Comment on above: Postponed from 02/03 (Declined at this time) Start: 08-04-2022 Patient discharge [facility] Start: 06-06-2022 DEPRESSION ASSESSMENT DEPRESSION ASS ESSMENT [facility] Start: 02-04-2022 Influenza vaccination INFLUENZA (#1) [facility] Start: 12-30-2021 End: 03-01-2022 CBC panel - Blood by Automated count CBC Lab Routine Annual physical exam Expected: 12/30/2021, Expires: 03/01/2022 [facility] Work Phone: Comment on above: Expected: 12/30/2021 , Expires: 03/01/2022 Start: 12-30-2021 End: 03-01-2022 Comprehensive metabolic 2000 panel - Serum or Plasma COMP METABOLIC PANEL Lab Routine Annual physical exam Expected: 12/30/2021, Expires: 03/01/2022 [facility] Work Phone: Comment on above: Expected: 12/30/2021 , Expires: 03/01/2022 Start: 12-30-2021 End: 03-01-2022 Lipid 1996 panel - Serum or Plasma LIPID PANEL BASIC Lab Routine Annual physical exam Expected: 12/30/2021, Expires: 03/01/2022 [facility] Work Phone: Comment on above: Expected: 12/30/2021 , Expires: 03/01/2022 Start: 02-05-2020 Influenza vaccinatio n given [facility] Start: 2019 RSV Vaccine (1 - 1-d ose 60+ series) RSV Vaccine (1 - 1-dose 60+ series) [facility] [facility] Start: 2019 RSV Vaccine (1 - Ris k 60-74 years 1-dose series) RSV Vaccine (1 - Risk 60-74 years 1-dose series) [facility] Start: 02-03-2017 Administration of herpes zoster vaccine Zoster Vaccines (2 of 3) [facility] Start: 02-03-2017 Shingrix Vaccine (2 of 3) Shingrix Vaccine (2 of 3) [facility] Start: 2009 Administration of herpes zoster vaccine Zoster Vaccines (1 of 2) [facility] Start: 2009 Screening for malign ant neoplasm of colon [facility] Start: 2004 COLOGUARD (FIT-DNA) COLOGUARD (FIT-D NA) [facility] Start: [address] COLONOGRAPHY [facility] Start: 2004 FECAL OCCULT BLOOD FECAL OCCULT BLOO D [facility] Start: 2004 Screening for malign ant neoplasm of colon [facility] Start: 2004 SIGMOIDOSCOPY SIGMOIDOSCOPY [facility] Start: 1989 Zoledronic acid therapy ALPHA- 1 ANTITRYPSIN DEFICIENCY SCREENING [facility] Start: 1977 Anxiety Screening Anxiety Screening [facility] Start: 1977 Depression Screening Depression Scre ening [facility] Start: 1977 Hepatitis C antibody , confirmatory test Hepatitis C Screening [facility] Start: 1977 HEPATITIS C SCRE[facility]ING [facility] Start: 1977 Hepatitis C screening Hepatitis C [facility] Start: 1977 SPIROMETRY SPIROMETRY [facility] Start: 1975 COVID-19 Vaccine (1 of 2) COVID-19 Vaccine (1 of 2) [facility] Start: 1974 HIV screening HIV Screening [facility] Start: 1971 Adolescent depressio n screening assessment Depression Screening (PHQ9) [facility] Start: 1962 History and physical examination, annual for health maintenance Wellness Visit [facility] Start: 1959 Hepatitis C antibody , confirmatory test Hepatitis C Screening [facility] Start: 1959 Prostate specific antigen measurement PSA Level [facility] Start: 1959 Screening for malign ant neoplasm of colon Colorectal Cancer Screening: Colonoscopy [facility] Start: 1959 Tetanus vaccination Tetanus: Every 1 0yrs [facility] CBC W Auto Different ial panel - Blood [facility] Comprehensive metabo lic 1999 panel - Serum or Plasma [facility] End: 07-18-2023 Ct abdomen & pelvis w/o contrast material CT ABD/PEL WO IVCON Radiology Routine Unilateral inguinal hernia without obstruction or gangrene, recurrence not specified RUQ abdominal mass 1 Occurrences starting 06/18/2022 until 07/18/2023 [facility] Work Phone: Comment on above: 1 Occurrences starti ng 06/18/2022 until 07/18/2023 CT Chest [facility] Lipid 1995 panel - Serum or Plasma [facility] Magnesium measurement [facility] Patient referral [facility] Work Phone: Prostate specific antigen measurement [facility] T4 free measurement [facility] Thyroid stimulating hormone measurement [facility] Triiodothyronine, fr ee measurement [facility] Vitamin D, 25-hydrox y measurement [facility] SQ-Mebdrmreip-K shla nd [employer] Work Phone: [facility] NEGATED: Highlighted row has been ruled out! Planned Goals not documented XO-Jfqzbiawec-Ofuvy nd [employer] Work Phone: Immunizations Immunization Date Immunization Notes Care Provider Tarah huffman 03-25-2023 influenza virus vaccine, unspecified formulation Xr Dewitt Work Phone: [facility] 04-28-2022 influenza, seasonal, injectable, preservative free Ellie Lazaro APRN.CNP Work Phone: [facility] 04-28-2022 influenza virus vaccine, unspecified formulation Ct (I-Stat) Work Phone: [facility] 12-30-2021 pneumococcal Conjuga te, unspecified formulation Hung Gonzales MD Work Phone: [facility] Work Phone: 12-30-2021 pneumococcal (PCV20) vaccine, 20 valent (PREVNAR 20) Hung Gonzales MD Work Phone: [facility] 2021 influenza, injectabl e, quadrivalent, preservative free Hung Gonzales MD Work Phone: [facility] Work Phone: 11-21-2020 tetanus toxoid, redu jacky diphtheria toxoid, and acellular pertussis vaccine, adsorbed Hung Gonzales MD Work Phone: [facility] 08-14-2020 COVID-19 vaccine, ag e 12+ yr (PFIZER-BIONTECH - PURPLE TOP) Hung Gonzales MD Work Phone: [facility] 07-25-2020 COVID-19 vaccine, ag e 12+ yr (PFIZER-BIONTECH - PURPLE TOP) Hung Gonzales MD Work Phone: [facility] 12-09-2016 zoster vaccine, live Les Gonzales MD Work Phone: [facility] 04-17-2016 influenza, injectabl e, quadrivalent, contains preservative Hung Gonzales MD Work Phone: [facility] 04-28-2015 pneumococcal polysaccharide vaccine, 23 valent Hung Gonzales MD Work Phone: [facility] Payers Date Payer Category Payer Self-pay [id number] 2024 Private Health Insurance [id number] 2020 Private Health Insurance [id number] 2020 Private Health Insurance AETNA AETNA CHOICE POS II [id number] 2020-Present [phone] [address] [place] [address] POS [id number] 2020 Private Health Insurance [id number] 2017 Blue Cross Blue Shield [id number] 2017 Unknown ANTHEM ANTHEM BLUE/PREF/HMO/PPO [id number] 2017-Present [id number] 2017 Unknown ANTHEM ANTHEM BLUE/PREF/HMO/PPO [id number] 2017-Present [id number] .[id number] 1959 Unknown [id number] 2.16840.1.515967.3.579.2 .356 1959 Unknown [id number] 2.16840.1.324193.3.579.2 .356 1959 Unknown [id number] 2.16840.1.248415.3.579.2 .1959 Unknown [id number] 2.16840.1.872645.3.579.2 .356 1959 Unknown [id number] 2.16840.1.060684.3.579.2 .1959 Unknown [id number] 2.16840.1.576232.3.579.2 .1959 Unknown [id number] 2.16840.1.413669.3.579.2 .356 1959 Unknown [id number] 2.840.1.844518.3.579.2 .356 1959 Unknown [id number] 2.16840.1.083049.3.579.2 .356 1959 Unknown [id number] 2.16840.1.879120.3.579.2 .1959 Unknown [id number] 2.840.1.168130.3.579.2 .1959 Unknown [id number] 2.840.1.386061.3.579.2 .1959 Unknown [id number] 2.840.1.896552.3.579.2 .1959 Unknown [id number] 2.0.1.523227.3.579.2 .1959 Unknown [id number] 2.840.1.433600.3.579.2 .903 Private Health Insurance AETNA [id number] Unknown [id number] Unknown [id number] Unknown [id number] 2.840.1.007189.3.579.2 .462 Unknown [id number] 2.840.1.117260.3.579.2 .462 Unknown [id number] 2.840.1.213222.3.579.2 .462 Unknown [id number] 2.840.1.900731.3.579.2 .462 Unknown [id number] 2.840.1.028871.3.579.2 .462 Unknown [id number] 2.840.1.432721.3.579.2 .462 Unknown [id number] 2.840.1.575176.3.579.2 .462 Unknown [id number] 2.16.840.1.579252.3.579.2 .462 Social History Date Type Detail Facility Tobacco smoking stat us NHIS Unknown if [facility] Sex Assigned At Not on file [facility] Start: 03-04-2021 End: 10-13-2022 Tobacco smoking status NHIS Unknown if ever smoked [facility] Start: 1960 Sex Assigned At Male [facility] Start: 11-21-2020 End: 01-04-2024 Tobacco smoking status LAIS Smokes tobacco daily [facility] Start: 11-21-2020 End: 06-17-2022 Tobacco use and exposure Smokeless tobacco non-user [facility] Start: 12-30-2021 End: 04-19-2023 Alcohol intake Ex-drinker (finding) [facility] Start: 12-23-2021 End: 06-15-2022 History SDOH Physical Activity DPW 2 [facility] Start: 12-23-2021 End: 06-15-2022 History SDOH Stress 1 [facility] Start: 12-21-2020 Education 12 [facility] Start: 04-05-2021 End: 12-30-2021 Exposure to SARS-CoV-2 (event) Not sure [facility] History of tobacco use Cigar Smoker [facility] Start: 06-15-2022 History SDOH Alcohol Std Drinks 0 [facility] Start: 06-15-2022 History SDOH Social Connections Phone 5 [facility] Start: 06-15-2022 History SDOH Social Connections Hoahaoism 3 [facility] Start: 06-15-2022 History SDOH Physica l Activity MPS 4 [facility] Start: 11-21-2020 End: 06-15-2022 History of Social function [facility] Start: 11-21-2020 End: 06-15-2022 Social connection and isolation panel [facility] Do you belong to any clubs or organizations such as restorationist groups, unions, fraternal or athletic groups, or school groups? Yes [facility] Are you now , , , , never or living with a partner? [facility] How often to you hav e a drink containing alcohol? Never [facility] How many standard drinks containing alcohol do you have on a typical day? Patient does not drink [facility] Do you feel stress - tense, restless, nervous, or anxious, or unable to sleep at night because your mind is troubled all the time - these days [OSQ] Only a little [facility] (I/We) worried basilia er (my/our) food would run out before (I/we) got money to buy more. Never true [facility] In the past 12 month s, was there a time when you were not able to pay the mortgage or rent on time? No [facility] Start: 12-21-2020 Gender identity Identifies as male gender (finding) [facility] Start: 12-21-2020 Sexual orientation Heterosexual (rebeka alvarez) [facility] How often to you hav e a drink containing alcohol? Monthly or less [facility] How many standard drinks containing alcohol do you have on a typical day? 1 or 2 [facility] Do you feel stress - tense, restless, nervous, or anxious, or unable to sleep at night because your mind is troubled all the time - these days [OSQ] Not at all [facility] NEGATED: Highlighted row - - HI-Kfwmqkyrog-Fdxlx nd [employer] Work Phone: Medical Equipment Procedure Code Equipment Code Equipment Origin al Text Equipment Identifier Dates Extra-gynaecolog ical surgical mesh, synthetic polymer, non-bioabsorbable [id number] FDA Start: 08-04-2022 Endoscopic manua l linear stapler [id number] FDA Start: 08-04-2022 Ligation clip, synthetic polymer, non-bioabsorbable ()[id number] FDA Start: 08-04-2022 Goals Date Patient Goal Desired Activity /State Functional Status Date Assessment Result Facility NEGATED: Highlighted row Functional performance Functional status health issues are not documented Disease IV-Pfhjmldvxn-Imeoty d [employer] Work Phone: Mental Status Date Assessment Result Facility 08-04-2022 Cognitive function Voice/Name [facility] Work Phone: NEGATED: Highlighted row Cognitive function [Interpretation] Cognitive status health issues are not documented Disease EW-Gzhajfxbvq-Jryzmo d [address] [place] Work Phone: Clinical Notes 05-05-2021 to 02-22-2025 Note Date & Type Note Facility 02-22-2025 Procedure note [facility] 11-28-2024 Evaluation note Diagnosis Onset Date Resolution Essential hypertension acute Ju 2024 2:28pm Nicotine dependence, cigarettes, uncomplicated chronic November 28, 2024 2:28pm OSIEL on CPAP chronic November 28 2:28pm Stage 1 mild COPD by GOLD classification chronic November 28 2:28pm [facility] Work Phone: 1(851) 138-722611-14-2023 NoteHNO ID: [id number] Author: Lesley Quintanilla RT(R) Service: Radiology Author [...] BY: RT Jossie(R) April 19, 2023 6:02 [facility]11-14-2023 NoteHNO ID: [id number] Author: Zelalem Haynes APRN.POWDERED SUGAR PULVERIZER OPERATOR Service: ? Author Type: Nurse Practitioner Type: Progress Notes Filed: 04/19/2023 7:05 PM Note Text: Subjective HPI Nontoxic-appearing ypsjv-mbye-kbydhxem male presents urgent care chief complaint left [...] Arrhythmia BPH (benign prostatic hyperplasia) Cardiomyopathy, unspecified ([facility]) Dr. Stallings. Echo 03/2021: EF 55% COPD (chronic obstructive pulmonary disease) ([facility]) Dr. Loyd Obstructive sleep apnea Overactive bladder [...] mg) albuterol sulfate (PROAIR RESPICLICK INHALATION) Saw [place] 160 mg capsule Take 1 capsule by [...] is warm and dry. (more content not included)...[facility]11-14-2023 History of Present illness Narrative* Lesley [...] 19, 2023 6:02 PM documented in this encounterGrant Hospital11-14-2023 History of Present illness Narrative* Zelalem Haynes APRN.POWDERED SUGAR PULVERIZER OPERATOR - 04/19/2023 5:50 PM EST Images from the original note were not included. Subjective HPI Nontoxic-appearing rnqzi-yjxn-avsxmiro male presents urgent care chief complaint left bicep injury.Patient states at work today he tripped striking his left bicep on the edge of a three-quarter inchpiece of [employer]. This is not Workmen's Comp. injury. Presents [...] Arrhythmia BPH (benign prostatic hyperplasia) Cardiomyopathy, unspecified ([facility]) Dr. Stallings. Echo 03/2021: EF 55% COPD (chronic obstructive pulmonary disease) ([facility]) Dr. Loyd Obstructive sleep apnea Overactive bladder [...] mg) albuterol sulfate (PROAIR RESPICLICK INHALATION) Saw [place] 160 mg capsule Take 1 capsule by [...] of care. This note was generated using Infantium software. It may contain errors in wording, punctuation, or spelling. Zelalem Haynes APRN.POWDERED SUGAR PULVERIZER OPERATOR documented in this encounterGrant Hospital03-01-[address] Purcell [facility] August 04, 2022 11:54am Note Date/Time August 04, 2022 11:5 4am [facility] Medical Records Department [address] [place] [address] Instructions for Home/Discharge Instructions 08/04/22 1153 MR#: [id number] Acct: [id number] Name: GERRY TRAVIS Rep #:[id number] : 1960 62 From: Janneth Purcell MD PCP: Dr. Ana Maria Pepper MD Status:[facility] Discharge Instructions Diet Discharge Diet: Light diet [...] Follow Up Care Please Follow Up With: Janneth Purcell MD When: Call the office for a follow-up appointment 2 weeks; after 5 PM and on the call [phone] with any concerns. Test Results: Test results [...] (2,000 unit) capsule 50 mcg PO DAILY saw palmetto 160 mg capsule 160 mg [...] can be placed): Home, Self Care 08/04/22 5525<Electronically signed by Janneth Purcell MD>Janneth Purcell MD CC: Dr. Ana Maria Pepper MD ~ Signed [facility] Work Phone: 1(483) 993-751103-01-2023 History and physical note Author Dr. Purcell [facility] August 04, 2022 9:37am Note Date/Time August 04, 2022 9:05 am [facility] Medical Records Department [address] [place] [address] History & Physical Exam 08/04/22 0904 MR#: [id number] Acct: [id number] Name: GERRY TRAIVS Rep #:[id number] : 1960 62 From: Janneth Purcell MD PCP: Dr. Ana Maria Pepper MD Status:[facility] Location: [place] [address] History and Physical Date of Admission: 08/04/22 Date of Service:? 07/08/22 MR#: [id number] Acct: [id number] Name:? GERRY TRAVIS Rep #: [id number] : 1960 ? ? Provider: Dr. Janneth Purcell MD Age/Sex:? 62/M ? ? Location: [facility] Status: Signed Intake Vital Signs ? 07/08/2312:44 Height 6 ft Weight: 176 lb 8 oz BMI 23.9 BP 119/71 Blood Pressure Location Lt brachial D Position Sitting Respiration 16 Intake Visit Reasons:?POSSIBLE HERNIA Chief Complaint: possible left inguinal and right abdominal incisional hernia Occupational Therapy Assistant Required: No Is patient in pain?: No [...] cooperative, healthy appearing and no acute distress [facility] Head: normal to inspection Resp Effort & [...] from his previous CAT scan done at [facility] to see if this supraumbilical area [...] questions were answered. Janneth Purcell M.D. Pager: [phone] [facility] [address] [place] [address], [address] [place] [address] Office: [phone] Coding Level of Care Code Off vis,new,level [...] MD; Dr. Janneth Purcell MD ~* Signed [facility] Work Phone: 1(277) 783-663501-30-2023 Miscellaneous Notes* Telephone Encounter - Hoa Jones RN - 07/05/2022 12:57 PM EST Pt scheduled for follow up with Dr. Mcnamara on 07/15/22. Hoa Jones RN * Telephone Encounter - Brooklyn Cutler Ma - 07/05/2022 10:42 AM EST Patient called and asking if this has been addressed? Per Flipkart message patient was to schedule afollow up appointment. Patient transferred to [facility] to schedule follow up. * Telephone Encounter - Ria Alejo Ma - 06/28/2022 11:44 AM EST Patient called in stating he had CT scan completed on 06/22/2022. He saw results on Vdancerhart stating no inguinal hernia. Patient asking what next steps are? Does he need to be seen in office again or have an MRI completed? States he clearly has a hernia. He would like to have a call back at [phone]. documented in this encounterGrant Hospital01-17-2023 NoteHNO ID: [id number] Author: RT Snow(R) Service: ? Author Type: Ms Sql Dba Type: Progress Notes Filed: 06/22/2022 2:56 PM [...] BY: RT Magalys(R) June 22, 2022 2:55 [facility] History of Present illness Narrative* Eda Jason [...] 22, 2022 2:55 PM documented in this encounterGrant Hospital01-13-2023 NoteHNO ID: [id number] Author: Nathalia Mcnamara MD Service: ? Author [...] Arrhythmia BPH (benign prostatic hyperplasia) Cardiomyopathy, unspecified ([facility]) Dr. Stallings. Echo 03/2021: EF 55% COPD (chronic obstructive pulmonary disease) ([facility]) Dr. Loyd Obstructive sleep apnea Overactive bladder Tobacco use disorder PAST SURGICAL HISTORY Procedure Laterality Date ARTHROSCOPY KNEE DIAGNOSTIC W/WO SYNOVIAL BX SPX COLONOSCOPY GEN ANES 07/03/18, 04/22/14 Current Outpatient Medications Medication Sig carvedilol (COREG) 3.125 mg tablet 1 tablet twice daily with meals. losartan (COZAAR) 50 mg tablet 1 tablet once daily. albuterol sulfate (PROAIR RESPICLICK INHALATION) Saw [place] 160 mg capsule Take 1 capsule by [...] entered by the nurse and reviewed by pa Nursing Notes: Yamileth Loyd LPN 06/18/2022 11:49 [...] a history of epilepsy/convulsi (more content not included)...[facility]01-13-2023 History of Present illness Narrative* Nathalia [...] with lifting and straining. 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 He [...] Arrhythmia BPH (benign prostatic hyperplasia) Cardiomyopathy, unspecified ([facility]) Dr. Stallings. Echo 03/2021: EF 55% COPD (chronic obstructive pulmonary disease) ([facility]) Dr. Loyd Obstructive sleep apnea Overactive bladder Tobacco use disorder PAST SURGICAL HISTORY Procedure Laterality Date ARTHROSCOPY KNEE DIAGNOSTIC W/WO SYNOVIAL BX SPX COLONOSCOPY GEN ANES 07/03/18, 04/22/14 Current Outpatient Medications Medication Sig carvedilol (COREG) 3.125 mg tablet 1 tablet twice daily with meals. losartan (COZAAR) 50 mg tablet 1 tablet once daily. albuterol sulfate (PROAIR RESPICLICK INHALATION) Saw [place] 160 mg capsule Take 1 capsule by [...] entered by the nurse and reviewed by pa Nursing Notes: Yamileth Loyd LPN 06/18/2022 11:49 [...] C (98.7 F), height 182.9 cm (6'), .6 kg (175 lb 8 oz), SpO2 96 [...] anticipated outcomes and possible complications were mentioned. Geryr blandands that all hernia repair surgery has [...] kg/m . Planned antibiotic: Ancef 2gm IVPB robotics application engineer to OR SCDs needed - Yes Return to Clinic: The patient is instructed to follow-up with me when all nicotine products have been completely stopped for at least 2 weeks, after CT scan is complete. Nathalia Mcnamara MD documented in this encounterGrant Hospital01-13-2023 Nurse Note* Yamileth Loyd LPN - 06/18/2022 [...] 2020 Yamileth Loyd LPN documented in this encounterGrant Hospital01-12-2023 NoteHNO ID: [id number] Author: Ellie Lazaro APRN.ADOLFO Service: ? Author Type: Nurse Practitioner Type: [...] Arrhythmia BPH (benign prostatic hyperplasia) Cardiomyopathy, unspecified ([facility]) Dr. Stallings. Echo 03/2021: EF 55% COPD (chronic obstructive pulmonary disease) ([facility]) Dr. Loyd Obstructive sleep apnea Overactive bladder [...] days. albuterol sulfate (PROAIR RESPICLICK INHALATION) Saw [place] 160 mg capsule Take 1 capsule by [...] patient voices understanding. Ellie (more content not included)...[facility]01-12-2023 Instructions* Patient Instructions* Ellie Lazaro APRN.CNP - 06/17/2022 11:03 AM EST Recommend consult with general surgery to discuss symptoms Recommend no heavy lifting. If urinary symptoms do not improve please contact the office Follow up as needed. documented in this encounterGrant Hospital01-12-2023 History of Present illness Narrative* Ellie Lazaro APRN.CNP - 06/17/2022 10:40 AM EST This is [...] Arrhythmia BPH (benign prostatic hyperplasia) Cardiomyopathy, unspecified ([facility]) Dr. Stallings. Echo 03/2021: EF 55% COPD (chronic obstructive pulmonary disease) ([facility]) Dr. Loyd Obstructive sleep apnea Overactive bladder [...] days. albuterol sulfate (PROAIR RESPICLICK INHALATION) Saw [place] 160 mg capsule Take 1 capsule by [...] discussed and patient voices understanding. Ellie Lazaro APRN.ADOLFO This note was partially generated using Infantium voice recognition system. Note was reviewed for accuracy. There may be minor misspellings or grammar miscues with Infantium voice recognition. documented in this encounterGrant Hospital08-04-2022 Miscellaneous Notes* Telephone Encounter - Gwen Escalante Ma - 01/07/2022 9:50 AM EDT Pt notified of results via Flipkart. Gwen Escalante Ma * Telephone Encounter - Gwen Escalante Ma - 01/07/2022 9:49 AM EDT ----- Message from Hung Gonzales MD sent at 01/07/2022 8:40 AM EDT ----- His labs are normal. No changes to regimen. Follow up with PCP for yearly physical. documented in this encounterGrant Hospital07-27-2022 History of Present illness Narrative* Hung Gonzales [...] Arrhythmia BPH (benign prostatic hyperplasia) Cardiomyopathy, unspecified ([facility]) Dr. Stallings. Echo 03/2021: EF 55% COPD (chronic obstructive pulmonary disease) ([facility]) Dr. Loyd Obstructive sleep apnea Overactive bladder [...] Sig albuterol sulfate (PROAIR RESPICLICK INHALATION) Saw [place] 160 mg capsule Take 1 capsule by [...] Abs Lymph 1.00 - 4.00 k/uL 2.32 [place]% % 15.0 Abs [place] <0.87 k/uL 0.93 (H) Eosin% % 1.9 [...] nicotine replacement prescribed - Patient was counseled olqu-dm-izii by myself (the billing provider) for the [...] 20) Hung Gonzales MD documented in this encounterGrant Hospital11-30-2021 History of Present illness Narrative* Mary Beasley, RT(R) - 05/05/2021 6:20 PM EST Radiology [...] 05, 2021 6:12 PM documented in this encounterGrant HospitalEvalubeebe [facility] noteNo assessment information availableWLicking Memorial [facility] Work Phone: Evaluation note* Diagnosis Annual physical exam- Primary Routine general medical examination at a health care facility Cardiomyopathy, unspecified type (HCC) Chronic obstructive pulmonary disease, unspecified COPD type (HCC) OSIEL (obstructive sleep apnea) Obstructive sleep apnea (adult) (pediatric) Smoker Tobacco use disorder Need for pneumococcal vaccination Need for prophylactic vaccination against streptococcus pneumoniae (pneumococcus) documented in this encounter [facility]* Diagnosis Onset Date Resolution Status Essential hypertension acute Intermittent palpitations ac [place] Cardiomyopathy resolved [facility] Work Phone: Evaluation note* Diagnosis Unilateral inguinal hernia without obstruction or gangrene, recurrence not specified- Primary Dysuria documented in this encounter [facility]* Diagnosis RUQ abdominal mass- Primary Abdominal or pelvic swelling, mass, or lump, right upper quadrant Unilateral inguinal hernia without obstruction or gangrene, recurrence not specified documented in this encounter [facility] note* Diagnosis Onset Date Resolution Status Nicotine dependence, cigarettes, uncomplicated chronic Stage 1 mild COPD by GOLD classification chronic Obstructive Sleep Apnea-Hypopnea Syndrome noneactive Inguinal hernia of left side without obstruction or gangrene acute Ventral hernia acute [facility] Work Phone: Evaluation note* Diagnosis Onset Date Resolution Status Essential hypertension acute Nicotine dependence, cigarettes, uncomplicated chronic OSIEL on CPAP chronic Stage 1 mild COPD by GOLD classification chronic [facility] Work Phone: Evaluation note* Diagnosis Unilateral inguinal hernia without obstruction or gangrene, recurrence not specified RUQ abdominal mass Abdominal or pelvic swelling, mass, or lump, right upper quadrant documented in this encounter [facility] note* Diagnosis Injury of left upper arm, initial encounter- Primary documented in this encounter [facility] note* Diagnosis Injury of left upper arm, initial encounter documented in this encounter [facility] note* Diagnosis Onset Date Resolution Status Admit Date Essential hypertension acute Ju 2024 2:28pm Nicotine dependence, cigaret latoya, uncomplicated chronic November 28, 2024 2:28pm OSIEL on CPAP chronic November 28 2:28pm Stage 1 mild COPD by GOLD classification chronic November 28, 2024 2:28pm [facility] Work Phone: [facility] Diagnostic Procedure Only (Urgent) - Closed Specialty Diagnoses / Procedures Referred By Contac t Referred To Contact XR IMAGING Diagnoses Injury of left upper arm, initial encounter Procedures XR HUMERUS 2V AP/LAT LEFT RADEX HUMERUS MINIMUM 2 VIEWS Zelalem Haynes APRN.POWDERED SUGAR PULVERIZER OPERATOR [address] [place] [address] [place] [address] Referral ID Status Reason Start Date Expiration Date V isits Requested Visits Authorized [id number] Closed Auto-Generate d Referral 04/19/2023 05/18/2024 1 1 [facility] for referral (narrative)* Diagnostic Procedure Only (Urgent) - Closed Specialty Diagnoses / Procedures Referred By Contac t Referred To Contact XR IMAGING Diagnoses Injury of left upper arm, initial encounter Procedures XR HUMERUS 2V AP/LAT LEFT RADEX HUMERUS MINIMUM 2 VIEWS Zelalem Haynes APRN.CNP [address] [place] [address] [place] [address] Referral ID Status Reason Start Date Expiration Date V isits Requested Visits Authorized [id number] Closed Auto-Generate d Referral 04/19/2023 05/18/2024 1 1 [facility] for referral (narrative)No reason for referral [facility] Reason for visit Narrative* Diagnostic Procedure Only (Urgent) - Closed Specialty Diagnoses / Procedures Referred By Contac t Referred To Contact XR IMAGING Diagnoses Injury of left upper arm, initial encounter Procedures XR HUMERUS 2V AP/LAT LEFT RADEX HUMERUS MINIMUM 2 VIEWS Zelalem Haynes APRN.POWDERED SUGAR PULVERIZER OPERATOR [address] [place] [address] [place] [address] Referral ID Status Reason Start Date Expiration Date V isits Requested Visits Authorized [id number] Closed Auto-Generate d Referral 04/19/2023 05/18/2024 1 1 [facility] for visit Narrative* Diagnostic Procedure Only (Urgent) - Closed Specialty Diagnoses / Procedures Referred By Contac t Referred To Contact XR IMAGING Diagnoses Acute right-sided low back pain without sciatica Procedures XR HIP GENERAL 3V PELV/AP/LAT RIGHT RADEX HIP UNILATERAL WITH PELVIS 2-3 VIEWS Taylor Savage, RENETTA [address] [place] [address] [place] [address] Referral ID Status Reason Start Date Expiration Date V isits Requested Visits Authorized [id number] Closed Auto-Generate d Referral 05/05/2021 06/04/2022 1 1 [facility] Summary Purpose Family History No Family History [...] FoundDocuments on File Type Date Recorded Patient Crop Production Advisor Expl anation Advance Directives and Livin g Will 11/08/2019 1:53 PM Documents on File Type Date Recorded Patient 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 Yes January 04, 2024 9:25am Reason for Referral Status Reason Specialty Diagnoses / Procedures Referre d By Contact Referred To Contact Closed Radiology Diagnoses Cigarette Smoker Screening for malignant neoplasm of respiratory organ Procedures CT Lung Cancer Screening Maris Dugan MD [address] [place] [address] Specialty Diagnoses / Procedures Referred By Maulik morrow Referred To Contact General Surgery Diagnoses Unilateral inguinal hernia without obstruction or gangrene, recurrence not specified Procedures CONSULT TO GENERAL SURGERY OFFICE/OUTPATIENT [facility] 60-74 MINUTES Ellie Lazaro, BRAND MARKETING MANAGER.POWDERED SUGAR PULVERIZER OPERATOR [address] [place] [address] Referral ID Status Reason Start Date Expiration Date Visits Requested Visits Authorized [id number] Pending Review PCP Requested Referral 06/17/2022 06/17/2023 1 1 Specialty Diagnoses / Procedures Referred By Maulik morrow Referred To Contact CT IMAGING Diagnoses Unilateral inguinal hernia without obstruction or gangrene, recurrence not specified RUQ abdominal mass Procedures CT ABD/PEL WO IVCON CT ABD & PELVIS W/O CONTRAST Nathalia Mcnamara MD [address] [place] [address] Ct Imaging Referral ID Status Reason Start Date Expiration Date Visits Requested Visits Authorized [id number] Authorized Auto-Generat ed Referral 06/18/2022 07/18/2023 1 1 Specialty Diagnoses / Procedures Referred By Maulik morrow Referred To Contact CT IMAGING Diagnoses Unilateral inguinal hernia without obstruction or gangrene, recurrence not specified RUQ abdominal mass Procedures CT ABD/PEL WO IVCON CT ABD & PELVIS W/O CONTRAST Nathalia Mcnamara MD [address] [place] [address] [place] [address] Referral ID Status Reason Start Date Expiration Date V isits Requested Visits Authorized [id number] Closed Auto-Generate d Referral 06/18/2022 07/18/2023 1 [...] Date Annual/Physical November 28, 2024 2:28 pm Chief Complaint Admit Date Annual/Physical November 28, 2024 2:28 pm E-ORDER December 05, 2024 10:00 am COPD February 19, 2025 12:14pm COPD February 22, 2025 10:38am Additional Source Comments (unrecognized sect ion and content) No Status Records FoundNo Status Records FoundNo Status Records FoundNo Status Records FoundNo Status Records FoundNo Status Records FoundNo Status Records FoundNo Status Records FoundNo Status Records Found INFORMATION SOURCE (unrecogn ized section and content) DATE CREATED AUTHOR 12/16/2017 [facility] DATE CREATED AUTHOR AUTHOR'S ORGANIZ ATION 04/18/2018 [facility] DATE CREATED AUTHOR AUTHOR'S ORGANIZ ATION 10/15/2018 [facility] DATE CREATED AUTHOR AUTHOR'S ORGANIZ ATION 02/13/2019 [facility] DATE CREATED AUTHOR AUTHOR'S ORGANIZ ATION 11/09/2019 [facility] DATE CREATED AUTHOR AUTHOR'S ORGANIZ ATION 01/19/2020 [facility] DATE CREATED AUTHOR AUTHOR'S ORGANIZ ATION 10/21/2020 [facility] DATE CREATED AUTHOR AUTHOR'S ORGANIZ ATION 04/21/2023 [facility] DATE CREATED AUTHOR AUTHOR'S ORGANIZ ATION 04/05/2025 [facility] Reason for Visit (unrecogniz ed section and content) Status Reason Specialty Diagnoses / Procedures Referre d By Contact Referred To Contact Closed Radiology Diagnoses Cigarette Smoker Screening for malignant neoplasm of respiratory organ Procedures CT Lung Cancer Screening Maris Dugan MD [address] [place] [address] Reason Comments Wellness Reason Comments Results Reason Comments Acute Visit hernia Reason Comments Consult UNILATERAL INGUINAL HERNIA Specialty Diagnoses / Procedures Referred By Contac t Referred To Contact General Surgery Diagnoses Unilateral inguinal hernia without obstruction or gangrene, recurrence not specified Procedures CONSULT TO GENERAL SURGERY OFFICE/OUTPATIENT [facility] 60-74 MINUTES Ellie Lazaro, BRAND MARKETING MANAGER.POWDERED SUGAR PULVERIZER OPERATOR [address] [place] [address] Referral ID Status Reason Start Date Expiration Date Visits Requested Visits Authorized [id number] Pending Review PCP Requested Referral 06/17/2022 06/17/2023 1 1 Reason Comments Patient Question Reason Comments Radiology CT Specialty Diagnoses / Procedures Referred By Contac t Referred To Contact CT IMAGING Diagnoses Unilateral inguinal hernia without obstruction or gangrene, recurrence not specified RUQ abdominal mass Procedures CT ABD/PEL WO IVCON CT ABD & PELVIS W/O CONTRAST Nathalia Mcnamara MD [address] [place] [address] [place] [address] Referral ID Status Reason Start Date Expiration Date V isits Requested Visits Authorized [id number] Closed Auto-Generate d Referral 06/18/2022 07/18/2023 1 [...] or prosecute any alcohol or drug abuse patient.[facility] Hospital[facility] the event this information is protected by the Federal Confidentiality of Alcohol and Drug Abuse Patient Records regulations: The Federal rules restrict any use of the information to criminally investigate or prosecute any alcohol or drug abuse patient.[facility] Hospital[facility] the event this information is protected by the Federal Confidentiality of Alcohol and Drug Abuse Patient Records regulations: The Federal rules restrict any use of the information to criminally investigate or prosecute any alcohol or drug abuse patient.[facility] Hospital[facility] the event this information is protected by the Federal Confidentiality of Alcohol and Drug Abuse Patient Records regulations: The Federal rules restrict any use of the information to criminally investigate or prosecute any alcohol or drug abuse patient.[facility] Hospital[facility] the event this information is protected by the Federal Confidentiality of Alcohol and Drug Abuse Patient Records regulations: The Federal rules restrict any use of the information to criminally investigate or prosecute any alcohol or drug abuse patient.[facility] Hospital[facility] the event this information is protected by the Federal Confidentiality of Alcohol and Drug Abuse Patient Records regulations: The Federal rules restrict any use of the information to criminally investigate or prosecute any alcohol or drug abuse patient.[facility] HospitalIn the event this information is protected by the Federal Confidentiality of Alcohol and Drug Abuse Patient Records regulations: The Federal rules restrict any use of the information to criminally investigate or prosecute any alcohol or drug abuse patient.[facility] HospitalIn the event this information is protected by the Federal Confidentiality of Alcohol and Drug Abuse Patient Records regulations: The Federal rules restrict any use of the information to criminally investigate or prosecute any alcohol or drug abuse patient.[facility] Hospital[facility] the event this information is protected by the Federal Confidentiality of Alcohol and Drug Abuse Patient Records regulations: The Federal rules restrict any use of the information to criminally investigate or prosecute any alcohol or drug abuse patient.[facility] HospitalIn the event this information is protected by the Federal Confidentiality of Alcohol and Drug Abuse Patient Records regulations: The Federal rules restrict any use of the information to criminally investigate or prosecute any alcohol or drug abuse patient.[facility] Care Teams (unrecognized sec tion and content) Armature Straightener Relationship Specialty Start Date End Date Ana Maria Pepper MD [address] [place], [place] [id number] PCP - General Family Practice 12/24/20 Armature Straightener Relationship Specialty Start Date End Date Ana Maria Pepper MD [address] [place], [place] [id number] PCP - General Family Practice 12/24/20 Armature Straightener Relationship Specialty Start Date End Date Ana Maria Pepper MD [address] [place], [place] [id number] PCP - General Family Medicine 12/24/20 Armature Straightener Relationship Specialty Start Date End Date Ana Maria Pepper MD [address] [place], [place] [id number] PCP - General Family Medicine 12/24/20 Armature Straightener Relationship Specialty Start Date End Date Ana Maria Pepper MD [address] [place], [place] [id number] PCP - General Family Medicine 12/24/20 Team [...] Provider, Referr ing Provider Active Mariella Calvo CEO & BOARD DIRECTOR, CEO & BOARD DIRECTOR-C Attending Provider Active Team Status: Inactive Member Role Status Dates Dr. Ana Maria Pepper MD Primary Care Provider Active Bessie Goins Attending Provider, Referring Provide r Active Armature Straightener Relationship Specialty Start Date End Date Ana Maria Pepper MD [address] [place], [place] [address] PCP - General Family Medicine 12/24/20 Armature Straightener Relationship Specialty Start Date End Date Ana Maria Pepper MD [address] [place], [place] [id number] PCP - General Family Medicine 12/24/20 Armature Straightener Relationship Specialty Start Date End Date Ana Maria Pepper MD [address] [place] [address] PCP - General Family Medicine 12/24/20 Armature Straightener Relationship Specialty Start Date End Date Ana Maria Pepper MD [address] [place], [place] [id number] PCP - General Family Medicine 12/24/20 Armature Straightener Relationship Specialty Start Date End Date Ana Maria Pepper MD [address] [place], [place] [id number] PCP - General Family Medicine 12/24/20 Team [...] December 05, 2024 End: December 05, 2024 Team Status: Active Member Role/Relationship Status Dates Dr. Dianne Chris MD Primary care physician Active Team Status: Inactive Member Role/Relationship Status Dates Dr. Dianne Chris MD Primary care physician Active Start: November 28, 2024 End: November 28, 2024 Dr. Dianne Chris MD Attending physician Active Start: November 28, 2024 End: November 28, 2024 Team Status: Inactive Member Role/Relationship Status Dates Dr. Dianne Chris MD Primary care physician Active Start: December 05, 2024 End: December 05, 2024 Dr. Dianne Chris MD Attending physician Active Start: December 05, 2024 End: December 05, 2024 Dr. Dianne Chris MD Referring Provider Active Start: December 05, 2024 End: December 05, 2024 Team Status: Inactive Member Role/Relationship Status Dates Dr. Dianne Chris MD Primary care physician Active Start: February 19, 2025 End: February 19, 2025 Mariella Calvo CEO & BOARD DIRECTOR, CEO & BOARD DIRECTOR-C Attending physician Active Start: February 19, 2025 End: February 19, 2025 Mariella Calvo CEO & BOARD DIRECTOR, CEO & BOARD DIRECTOR-C Referring Provider Active Start: February 19, 2025 End: February 19, 2025 Team Status: Active Member Role/Relationship Status Dates Dr. Dianne Chris MD Primary care physician Active Start: February 22, 2025 Mariella Calvo CEO & BOARD DIRECTOR, CEO & BOARD DIRECTOR-C Referring Provider Active Start: February 22, 2025 Mariella Calvo CEO & BOARD DIRECTOR, CEO & BOARD DIRECTOR-C Nurse Practitioner Active Start: February 22, 2025 Dr. Quinn Loyd DO Attending physician Active Start: February 22, 2025 FOR RECORDS PERTAINING TO PATIENTS WHO ARE [...] BE BASED ON THE PRIMARY CLINICAL RECORDS. [employer] provides no warranty or guarantee of the accuracy or completeness of information in this document.
== END | disposition home or self-care (01) ==
LOC: CVS 12:52
PROVIDERS: PCP Internal Medicine; Referring Provider Internal Medicine Cardiovascular Disease; Visit Provider Internal Medicine Cardiovascular Disease
DX: I42.0 Dilated cardiomyopathy (principal); I10 Essential (primary) hypertension
CPT/HCPCS: 93306